=== PATIENT | female | born 1935 | race Asian ===

== ENCOUNTER 2017-09-18 19:35 | Inpatient (IN) | payer MEDICARE, BC, MEDICAID ==
[~2017-09-18] VITALS: Ht 157.5 cm; Wt 70.3 kg
[2017-09-18 19:40] VITALS: BP 76/54
[2017-09-18] MEDS ORDERED: Acetaminophen 650 MG SUPP RECTAL ONE (20:00)
[2017-09-18 20:36] LABS: HEMATOCRIT 58.2 % (37.0-47.0); HEMOGLOBIN 17.5 G/DL (12.0-16.0); MEAN CORPUSCULAR VOLUME 102 FL (80-99); PLATELET COUNT 133 K/UL (150-450); RED BLOOD COUNT 5.73 M/UL (4.20-5.40); RED CELL DISTRIBUTION WIDTH 13.3 % (11.6-14.8); WHITE BLOOD COUNT 15.2 K/UL (4.8-10.8)
[2017-09-18 20:57] LABS: ANION GAP 17 mmol/L (5-15); BLOOD UREA NITROGEN 47 mg/dL (7-18); CARBON DIOXIDE 23 MMOL/L (21-32); CHLORIDE 117 MMOL/L (98-107); CREATININE 1.1 MG/DL (0.55-1.30); POTASSIUM 4.6 MMOL/L (3.5-5.1); SODIUM 156 MMOL/L (136-145)
[2017-09-18 21:12] LABS: ALANINE AMINOTRANSFERASE 106 U/L (12-78); ALBUMIN/GLOBULIN RATIO 0.8 (1.0-2.7); ALKALINE PHOSPHATASE 89 U/L (46-116); ASPARTATE AMINO TRANSFERASE 118 U/L (15-37); BILIRUBIN,TOTAL 0.8 MG/DL (0.2-1.0); CKMB 0.6 NG/ML (0.0-3.6); CREATINE KINASE 63 U/L (26-308)
[2017-09-18 21:33] LABS: APPEARANCE,URINE CLEAR; BILIRUBIN, URINE NEGATIVE (NEGATIVE); GLUCOSE, URINE (UA) NEGATIVE (NEGATIVE); KETONES,URINE NEGATIVE (NEGATIVE); LEUKOCYTE ESTERASE ,URINE 2+ (NEGATIVE); NITRITE,URINE POSITIVE (NEGATIVE); PH,URINE 5 (4.5-8.0); PROTEIN,URINE 1+ (NEGATIVE); UROBILINOGEN,URINE NORMAL MG/DL (0.0-1.0)
[2017-09-18 21:35] LABS: COLOR,URINE YELLOW
[2017-09-18 21:40] VITALS: BP 85/61
--- NOTE | 2017-09-18 22:14 | Emergency Room Report ---
History of Present Illness General Chief Complaint: Fever Source: Medical Record (BALA PARNELL M.D.) Present Illness HPI 82-year-old female presents ED for evaluation. Per EMS patient had a fever at her senior living today. Was given Tylenol. Patient has crackles on exam, tachycardic. Hypotensive. Patient has dementia and is unable to provide any additional history at this time. No other aggravating relieving factors. No other associated symptoms (BALA PARNELL M.D.) Allergies: Coded Allergies: No Known Allergies (Unverified , 09/18/17) Patient History Past Medical History: HTN Past Surgical History: none Pertinent Family History: none Social History: Denies: smoking, alcohol use, drug use Last Menstrual Period: n/a Now: No Immunizations: UTD Reviewed Nursing Documentation: PMH: Agreed, PSxH: Agreed (BALA PARNELL M.D.) Nursing Documentation-PMH Past Medical History: No History, Except For Hx Hypertension: Yes Hx Gastrointestinal Problems: No - bullous pemphigoid (BALA PARNELL M.D.) Review of Systems All Other Systems: negative except mentioned in HPI (BALA PARNELL M.D.) Physical Exam Vital Signs Date Time Temp Pulse Resp B/P (MAP) Pulse Ox O2 Delivery O2 Flow Rate FiO2 09/18/17 19:29 99.7 138 31 76/54 94 Non-Rebreather 15.0 Sp02 EP Interpretation: reviewed, normal General Appearance: mild distress, lethargic Head: normocephalic Eyes: bilateral eye normal inspection, bilateral eye PERRL ENT: normal ENT inspection Neck: normal inspection Respiratory: chest non-tender, crackles, speaking full sentences Cardiovascular #1: tachycardia Gastrointestinal: normal inspection Rectal: deferred Genitourinary: no CVA tenderness Musculoskeletal: back normal Neurologic: other - dementia Psychiatric: other - dementia Skin: normal inspection Lymphatic: normal inspection (BALA PARNELL M.D.) Procedures Critical Care Time Critical Care Time i. I feel this is a highly complex case requiring extensive working including EKG/Rhythm strip, Xray/CT/US, Blood/urine lab work, repeat exams while in ED, and administration of strong opiates/narcotics for pain control, admission to hospital or close patient follow up. Total time: 30 min bedside evaluation and treatment excludes procedures (EKG). Reason for critical care: septic shock, hypotensive Possible complications: hypotension, hypertension, SD, shock, arrhythmias, metabolic acidosis, end organ damage, respiratory failure. Interventions: labs, ivfs, ekg, cxr. central line. abx Course: patient brought for fever, tachycardia, hypotensive. lactic elevated, ? pneumonia, UA+ bacteria. R IJ central line placed. abx given Consultations: nursing staff, EMS, family Performed by: Dr Parnell Tolerated well condition = critical j. because of unstable vital signs this patient had a condition that could potentially threaten life or limb. I feel this is a critical patient who required my full attention while patient was considered critical. Total Critical Care Time excluding procedures was greater than 35 minutes (BALA PARNELL M.D.) Critical Care Time 40 minutes of CC time 82-year-old female, septic shock VS: Tachypnea, hypoxic, tachycardic, hypotensive PLAN: IV access, labs, lactate, troponin, Blood/Urine Cx, Abx, IVF Anticipate admission to Tele vs. SARAH CC time also includes review of labs, review of EMR, discussion with family and paperwork from SNF, d/w hospitalist CC could include dosing of pressors, additional Abx CC time does not include procedures (Andrzej Alvarenga M.D.) Central Line Central Line : Consent: Emergent - completed by Dr Alvarenga Central Line Lumen: triple Maximal Sterile Barrier Tech: yes cap, yes mask, yes sterile gown, yes sterile gloves, yes large sterile sheet, yes hand hygiene, yes chlorhexidine prep Central Line Postion: internal jugular (R) Anesthesia: Lidocaine Complications: none Central Line Post Position: sutured, good blood return, position confirmed w / CXR Attempts: One Patient Tolerated: Well Complications: None (BALA PARNELL M.D.) Central Line : Consent: Written Central Line Lumen: triple Maximal Sterile Barrier Tech: yes cap, yes mask, yes sterile gown, yes sterile gloves, yes large sterile sheet, yes hand hygiene, yes chlorhexidine prep Central Line Postion: internal jugular (R) Anesthesia: Lidocaine cc's of anesthesia: 5 Complications: none Central Line Post Position: sutured, good blood return, position confirmed w / CXR Attempts: One Patient Tolerated: Well Complications: None (Andrzej Alvarenga M.D.) Intubation Intubation : Consent: Emergent Time of Intubation: 03:30 Intubation Method: orotracheal Tube Size (cm): 7.5 Medications: Etomidate, Succinylcholine Breath Sounds after Intubation: equal Intubation Complications: no complications Post Intubation Xray: Yes Attempts: One Patient Tolerated: Well (Andrzej Alvarenga M.D.) Medical Decision Making Diagnostic Impression: Primary Impression: Sepsis Qualified Codes: A41.9 - Sepsis, unspecified organism Additional Impressions: Elevated troponin UTI (urinary tract infection) Qualified Codes: N39.0 - Urinary tract infection, site not specified ER Course Hospital Course 82-year-old female presents ED with fever hypotensive Differential diagnoses include: Pneumonia, UTI, sepsis, dehydration, SD/ unstable angina Clinical course Patient placed on stretcher. On immigration associate with tachycardia. After initial history and physical, I ordered labs, IV fluids, EKG, chest x-ray, blood cultures, UA. Labs - electrolytes ok, noted leukocytosis, troponins > 0.2, lactic acid elevated, UA grossly positive for UTI EKG - sinus tachyardia no acute ischemic changes CXR - no acute process Abx given. Patient given 30 mL per KG fluid bolus but remained hypotensive. family at bedside states that they would like everything to be done for the patient. Right IJ central line placed via ultrasound guidance by Dr Alvarenga Case discussed with Dr Robbins and they agreed to admit patient to their service for further care and support I feel this is a highly complex case requiring extensive working including EKG/ Rhythm strip, Xray/CT/US, Blood/urine lab work, repeat exams while in ED, and administration of strong opiates/narcotics for pain control, admission to hospital or close patient follow up. Diagnosis - UTI, sepsis, elevated troponin Patient admitted to ICU in critical condition Labs Test 09/18/17 20:15 09/18/17 20:40 09/18/17 21:45 09/18/17 22:04 White Blood Count 15.2 K/UL (4.8-10.8) Red Blood Count 5.73 M/UL (4.20-5.40) Hemoglobin 17.5 G/DL (12.0-16.0) Hematocrit 58.2 % (37.0-47.0) Mean Corpuscular Volume 102 FL (80-99) Mean Corpuscular Hemoglobin 30.6 PG (27.0-31.0) Mean Corpuscular Hemoglobin Concent 30.1 G/DL (32.0-36.0) Red Cell Distribution Width 13.3 % (11.6-14.8) Platelet Count 133 K/UL (150-450) Mean Platelet Volume 7.3 FL (6.5-10.1) Neutrophils (%) (Auto) % (45.0-75.0) Lymphocytes (%) (Auto) % (20.0-45.0) Monocytes (%) (Auto) % (1.0-10.0) Eosinophils (%) (Auto) % (0.0-3.0) Basophils (%) (Auto) % (0.0-2.0) Differential Total Cells Counted 100 Neutrophils % (Manual) 80 % (45-75) Lymphocytes % (Manual) 10 % (20-45) Monocytes % (Manual) 2 % (1-10) Eosinophils % (Manual) 0 % (0-3) Basophils % (Manual) 0 % (0-2) Band Neutrophils 8 % (0-8) Platelet Estimate Decreased Platelet Morphology Normal Anisocytosis 1+ Macrocytosis 1+ Sodium Level 156 MMOL/L (136-145) Potassium Level 4.6 MMOL/L (3.5-5.1) Chloride Level 117 MMOL/L (98-107) Carbon Dioxide Level 23 MMOL/L (21-32) Anion Gap 17 mmol/L (5-15) Blood Urea Nitrogen 47 mg/dL (7-18) Creatinine 1.1 MG/DL (0.55-1.30) Estimat Glomerular Filtration Rate mL/min (>60) Glucose Level 213 MG/DL (74-106) Lactic Acid Level 3.70 mmol/L (0.66-2.22) Calcium Level 8.0 MG/DL (8.5-10.1) Total Bilirubin 0.8 MG/DL (0.2-1.0) Aspartate Amino Transf (AST/SGOT) 118 U/L (15-37) Alanine Aminotransferase (ALT/SGPT) 106 U/L (12-78) Alkaline Phosphatase 89 U/L (46-116) Total Creatine Kinase 63 U/L (26-308) Creatine Kinase MB 0.6 NG/ML (0.0-3.6) Creatine Kinase MB Relative Index 0.9 Troponin I 0.267 ng/mL (0.000-0.056) Pro-B-Type Natriuretic Peptide 2177 pg/mL (0-125) Total Protein 7.0 G/DL (6.4-8.2) Albumin 3.0 G/DL (3.4-5.0) Globulin 4.0 g/dL Albumin/Globulin Ratio 0.8 (1.0-2.7) Urine Color Yellow Urine Appearance Clear Urine pH 5 (4.5-8.0) Urine Specific [place] 1.020 (1.005-1.035) Urine Protein 1+ (NEGATIVE) Urine Glucose (UA) Negative (NEGATIVE) Urine Ketones Negative (NEGATIVE) Urine Occult Blood 4+ (NEGATIVE) Urine Nitrite Positive (NEGATIVE) Urine Bilirubin Negative (NEGATIVE) Urine Urobilinogen Normal MG/DL (0.0-1.0) Urine Leukocyte Esterase 2+ (NEGATIVE) Urine RBC 10-15 /HPF (0 - 2) Urine WBC 5-10 /HPF (0 - 2) Urine Squamous Epithelial Cells Few /LPF (NONE/OCC) Urine Amorphous Sediment Few /LPF (NONE) Urine Bacteria Many /HPF (NONE) Arterial Blood pH 7.390 (7.350-7.450) Arterial Blood Partial Pressure CO2 32.6 mmHg (35.0-45.0) Arterial Blood Partial Pressure O2 72.0 mmHg (75.0-100.0) Arterial Blood HCO3 19.3 mmol/L (22.0-26.0) Arterial Blood Oxygen Saturation 93.2 % (92.0-98.0) Arterial Blood Base Excess -4.5 [place] Test Positive (BALA PARNELL M.D.) ER Course patient hypotensive - requiring central line/pressors. also becoming increasingly tachyupneic, not ableto protect airway due to secretions. patient intubaed. admitting doctor informed. already going to ICU (Andrzej Alvarenga M.D.) EKG Diagnostic Results Rate: tachycardiac Rhythm: NSR ST Segments: no acute changes ASA given to the pt in ED: No (BALA PARNELL M.D.) Rhythm Strip Diag. Results EP Interpretation: yes Rhythm: NSR, no PVC's, no ectopy (BALA PARNELL M.D.) Chest X-Ray Diagnostic Results Chest X-Ray Diagnostic Results : Chest X-Ray Ordered: Yes # of Views/Limited/Complete: 1 View Indication: Shortness of Breath EP Interpretation: Yes Interpretation: no pneumothorax, no acute cardiopulmonary disease, other - cardiomegaly. effusion.atelectasis Impression: Other - ? pneumonia Electronically Signed by: Electronically signed by Bala Parnell MD (BALA PARNELL M.D.) Last Vital Signs Date Time Temp Pulse Resp B/P (MAP) Pulse Ox O2 Delivery O2 Flow Rate FiO2 09/18/17 21:40 110 27 85/61 92 Non-Rebreather 15.0 09/18/17 19:40 99.7 Status: improved (BALA PARNELL M.D.) Disposition: ADMITTED INPATIENT Condition: Critical Referrals: NON PHYSICIAN (PCP) BALA PARNELL M.D. Sep 18, 2017 22:14 Andrzej Alvarenga M.D. Sep 19, 2017 00:54
[2017-09-18 22:30] VITALS: BP 70/51
[2017-09-18 23:30] VITALS: BP 144/89
[2017-09-19] VITALS (64 sets, daily range): BP systolic 72–176; BP diastolic 24–145
[2017-09-19] MEDS ORDERED: NS 275 ML ONE (00:32)
[2017-09-19] MEDS ORDERED: Levophed 4mg/4mL Inj IV ONE ×2 (00:33→23:00)
[2017-09-19] MEDS ORDERED: VITAMIN D-32000 UNI1 PO (02:50)
[2017-09-19] MEDS ORDERED: CALCIUM 500 MG1 EAC1 PO (02:50)
[2017-09-19] MEDS ORDERED: FOSAMAX70 MG ORAL (02:50)
[2017-09-19] MEDS ORDERED: ZANTAC150 MG ORAL (02:50)
[2017-09-19] MEDS ORDERED: TRIAMCINOLONE10 G1 MC (02:50)
[2017-09-19] MEDS ORDERED: PREDNISOLO15 MG/5 M1 ORAL (02:50)
[2017-09-19] MEDS ORDERED: Etomidate 40mg/20ml Inj IV ONE (03:00)
[2017-09-19] MEDS ORDERED: Succinylcholine 20mg/ml 10ml vial IV ONE (03:00)
[2017-09-19] MEDS ORDERED: Vancomycin 1 GM in D5W 275 ML IVPB ONE ×2 (06:00→08:00)
[2017-09-19] MEDS: Albuterol/Ipratropium 3ml neb HHN SCH ×3 (07:00→19:00)
[2017-09-19 08:30] LABS: HEMATOCRIT 48.1 % (37.0-47.0); HEMOGLOBIN 15.1 G/DL (12.0-16.0); MEAN CORPUSCULAR VOLUME 102 FL (80-99); PLATELET COUNT 114 K/UL (150-450); RED BLOOD COUNT 4.72 M/UL (4.20-5.40); RED CELL DISTRIBUTION WIDTH 13.5 % (11.6-14.8); WHITE BLOOD COUNT 12.7 K/UL (4.8-10.8)
[2017-09-19 08:50] LABS: ANION GAP 10 mmol/L (5-15); BLOOD UREA NITROGEN 37 mg/dL (7-18); CALCIUM 6.9 MG/DL (8.5-10.1); CARBON DIOXIDE 25 MMOL/L (21-32); CHLORIDE 121 MMOL/L (98-107); CREATININE 0.9 MG/DL (0.55-1.30); POTASSIUM 3.4 MMOL/L (3.5-5.1); SODIUM 156 MMOL/L (136-145)
[2017-09-19 09:04] LABS: ALANINE AMINOTRANSFERASE 64 U/L (12-78); ALBUMIN 2.3 G/DL (3.4-5.0); ALBUMIN/GLOBULIN RATIO 0.6 (1.0-2.7); ALKALINE PHOSPHATASE 63 U/L (46-116); ASPARTATE AMINO TRANSFERASE 48 U/L (15-37); BILIRUBIN,TOTAL 0.6 MG/DL (0.2-1.0)
[2017-09-19] MEDS: Cefepime HCl 1 GM in D5W 55 ML IVPB SCH ×2 (09:55→21:12)
[2017-09-19] MEDS: Potassium Chloride 30 MEQ in 1/2 NS 1000ml 1,000 ML IV SCH ×3 (09:55→17:34)
[2017-09-19] MEDS: Heparin 5000 units/ml inj SUBQ SCH ×2 (09:58→23:00)
--- NOTE | 2017-09-19 11:04 | Diagnostic Imaging Report ---
Indication: Intubation Comparison: 09/18/2017 A single view chest radiograph was obtained. Findings: Right jugular line is noted in good position. Endotracheal tube is now present with the tip 2 cm above the clara. Lungs remain clear although there is generalized interstitial prominence. IMPRESSION: Endotracheal tube in good position. No change otherwise
--- NOTE | 2017-09-19 11:09 | Diagnostic Imaging Report ---
Indication: Line placement Comparison: Earlier same day at 20:20 A single view chest radiograph was obtained. Findings: Right jugular line noted. The tip is in the SVC. There is no change otherwise. IMPRESSION: Right jugular line in good position. No pneumothorax.
--- NOTE | 2017-09-19 11:31 | Diagnostic Imaging Report ---
Indication: Dyspnea Comparison: None A single view chest radiograph was obtained. Findings: Cardiomediastinal appearance is within normal limits for age. Pulmonary vascularity is appropriate. The diaphragmatic contour is smooth and costophrenic angles are sharp. No pleural effusions are identified. The bones are osteopenic. Impression: No acute findings
--- NOTE | 2017-09-19 12:25 | Diagnostic Imaging Report ---
Indication: NG tube placement Comparison: None Single view of the abdomen obtained Findings: NG tube is in good position with the proximal and distal ports well situated within the stomach lumen. IMPRESSION: NG tube in good position
[2017-09-19] MEDS: NovoLOG Insulin Flexpen SUBQ SCH ×2 (13:48→17:36)
--- NOTE | 2017-09-19 17:45 | Progress Note ---
DATE: 09/19/2017 CARDIOLOGY PROGRESS NOTE SUBJECTIVE: The patient remains in the intensive care unit, orally intubated, mechanically ventilated. She is responsive, but withdrawn. The patient's blood pressure parameters are improving, although she remains on high-dose Levophed drip. OBJECTIVE: VITAL SIGNS: Blood pressure 110/66, pulse 101, respirations 24, and afebrile. HEENT: NG tube in place. LUNGS: Bilateral breath sounds. Scattered rhonchi. HEART: Regular rhythm and rate. Normal S1, S2. Monitor, sinus rhythm with atrial arrhythmia. ABDOMEN: Soft and nontender. EXTREMITIES: No edema. LABORATORY AND DIAGNOSTIC DATA: White count 12.7 and hemoglobin 15.1. Sodium 156, potassium 3.4, chloride 121, bicarbonate 25, BUN 37, and creatinine 0.9. Lactic acid is 3.5. Troponin 0.214. Natriuretic peptide 2130. Albumin 2.3. TSH is 0.2. ABG 7.38/33/345. Chest x-ray reveals interstitial prominence, otherwise, clear. IMPRESSION: 1. Respiratory failure. 2. Sepsis with shock. 3. Aspiration pneumonia. 4. Acute myocardial ischemia and possible non-ST elevation infarction. 5. Lactic acidosis. 6. Hypernatremia. 7. Dehydration. 8. Hypokalemia. 9. Hyperchloremia. 10. Diabetes mellitus with elevated blood sugar. 11. Acute diastolic congestive heart failure. 12. Severe protein-calorie malnutrition. 13. The patient is critical and guarded. PLAN: 1. Continue hydration. 2. Broad-spectrum antibiotics. 3. Follow up culture results. 4. Ventilator support with weaning as able. 5. Free water replacement by IV route. 6. Taper off pressors. 7. DVT and stress ulcer prophylaxis. 8. Nutrition by feeding tube. Davy Robbins M.D. DR: AHSAN JOB#: [id number] CC:
--- NOTE | 2017-09-19 18:15 | History and Physical Report ---
DATE OF ADMISSION: 09/18/2017 REASON FOR ADMISSION: Respiratory failure and shock. HISTORY OF PRESENT ILLNESS: This is an 82-year-old Persian female residing at a custodial facility. She was noted to have fevers today. She developed worsening congestion and rapid heart rate and respiratory rate. She was transferred to the hospital and prior to transfer was also noted to be hypotensive. In the emergency room, condition rapidly deteriorated and she ultimately required intubation and mechanical ventilation. PAST MEDICAL HISTORY: Hypertension, osteoporosis, osteoarthritis, cerebrovascular disease, degenerative disk disease, type 2 diabetes mellitus, and history of bullous pemphigoid. ALLERGIES: None. FAMILY HISTORY: Noncontributory. SOCIAL HISTORY: No record of smoking, alcohol, or substance abuse. REVIEW OF SYSTEMS: Not obtainable from the patient at this time. PHYSICAL EXAMINATION: VITAL SIGNS: Temperature was 99.7, blood pressure 76/54, heart rate 138, and respiratory rate 31. HEENT: Conjunctivae are pink. Sclerae are anicteric. Oropharynx dry. Orally intubated. NECK: Supple. No jugular venous distention. No thyromegaly. No tracheal deviation. LUNGS: With coarse breath sounds. Scattered rhonchi. CARDIAC: Regular rhythm. Rapid rate. Normal S1, S2 with no murmur appreciated. ABDOMEN: Soft, nontender. No guarding or rebound. EXTREMITIES: No clubbing, cyanosis, or edema. Decreased capillary refill. SKIN: Intact. No decubitus. There is a central line placed in the emergency room in the right internal jugular vein and the site appears clean without bleeding. LABORATORY AND DIAGNOSTIC DATA: White count 15 and hemoglobin 17. Sodium 156, potassium 4.6, chloride 117, bicarb 23, BUN 47, and creatinine 1.1. Lactic acid 3.7. Glucose 213. Albumin 3. Urinalysis with 5 to 10 white cells. ABG, 7.39, 33, 72. EKG, sinus rhythm with no acute ST-T changes. Chest x-ray reveals possible interstitial infiltrative process diffusely. IMPRESSION: 1. Acute respiratory failure. 2. Aspiration and healthcare-acquired pneumonia. 3. Sepsis with shock. 4. Lactic acidosis. 5. Severe dehydration and hypovolemia with hypernatremia, . 6. Acute kidney injury. 7. Acute myocardial ischemia. 8. Possible non-ST elevation myocardial infarction. 9. Mild protein-calorie malnutrition. 10. Cerebrovascular disease with dementia. 11. Poor intravenous access, status post central venous access. PLAN: 1. Condition is critical. Prognosis guarded. 2. Case discussed with daughter. Full Code requested. Based on prior discussions with the patient, she will be admitted to the intensive care unit. She will continue ventilator support. 3. Respiratory hygiene. 4. Broad-spectrum antibiotics and culture results will be followed up. 5. Volume resuscitation will be administered followed by fluids. She is on Levophed pressor support and once her blood pressure and perfusion parameters improved that will be tapered off. 6. DVT and stress ulcer prophylaxis will be initiated. 7. Antihypertensives will all be held. 8. Ultimately, we will start nutrition by NG tube. Davy Robbins M.D. DR: AHSAN JOB#: [id number] CC:
--- NOTE | 2017-09-19 19:42 | Wound Care Consultation ---
Wound Assessment Wound Assessment #1: Wound Number: 1 Wound Present on Admission: Yes New Wound: No Status Change of Wound: No Wound Location Body Site Modif: left, upper Wound Location Body Site: back Wound Type: blister - open blister Janett Test: Does not Janett Pressure Ulcer Stage: II Wound Thickness: Partial Thickness Wound Length: 4.0 Wound Width: 2.8 Wound Depth: less than 0.1 Percent of Wound [place]/Red: 100 Wound Drainage Description: Serosanguineous Wound Drainage Amount: Scant Wound Drainage Odor: None/Absent Tissue Surrounding Wound: Erythemic Wound General Appearance: Reddened, Draining Wound Assessment #2: Wound Number: 2 Wound Present on Admission: Yes New Wound: No Status Change of Wound: No Wound Location Body Site Modif: left, lower, medial Wound Location Body Site: leg Wound Type: blister - open blister Janett Test: Does not Janett Pressure Ulcer Stage: II Wound Thickness: Partial Thickness Wound Length: 5.0 Wound Width: 4.5 Wound Depth: less than 0.1 Percent of Wound [place]/Red: 100 Wound Drainage Description: Serosanguineous Wound Drainage Amount: Moderate Wound Drainage Odor: None/Absent Tissue Surrounding Wound: Erythemic Wound General Appearance: Reddened, Draining Wound Assessment #3: Wound Number: 3 Wound Present on Admission: Yes New Wound: No Status Change of Wound: No Wound Location Body Site Modif: left Wound Location Body Site: heel - extending to plantar foot Wound Type: pressure ulcer Janett Test: Does not Janett Pressure Ulcer Stage: Deep Tissue Injury Wound Thickness: Full Thickness Wound Length: 7.5 Wound Width: 4.0 Wound Depth: utd Percent of Wound Purple/Maroon: 100 Wound Drainage Amount: None Wound Drainage Odor: None/Absent Tissue Surrounding Wound: Erythemic Wound General Appearance: Reddened - purple/maroon Wound Assessment #4: Wound Number: 4 Wound Present on Admission: Yes New Wound: No Status Change of Wound: No Wound Location Body Site Modif: left Wound Location Body Site: toe - 1st Wound Type: pressure ulcer Janett Test: Does not Janett Pressure Ulcer Stage: Deep Tissue Injury Wound Thickness: Full Thickness Wound Length: 1.0 Wound Width: 1.0 Wound Depth: utd Percent of Wound Purple/Maroon: 100 Wound Drainage Amount: None Wound Drainage Odor: None/Absent Tissue Surrounding Wound: Intact Wound General Appearance: Reddened - purple Wound Assessment #5: Wound Number: 5 Wound Present on Admission: Yes New Wound: No Status Change of Wound: No Wound Location Body Site Modif: right Wound Location Body Site: heel Wound Type: pressure ulcer Janett Test: Does not Janett Pressure Ulcer Stage: I Wound Length: 3.5 Wound Width: 3.5 Percent of Wound [place]/Red: 100 Wound Drainage Amount: None Wound Drainage Odor: None/Absent Tissue Surrounding Wound: Intact Wound General Appearance: Reddened Wound Comment #1 Left upper back open blister stage II pressure ulcer #2 Left lower leg open blister #3 Left heel DTI pressure ulcer extending to plantar foot #4 Left 1st lateral big to DTI pressure ulcer #5 Right heel stage I pressure ulcer Recommendation -Local wound care per protocol -Keep clean and dry -Turn and reposition -Optimize nutrition -Offload both heels -Heel protector on both heels -Low air loss mattress -Assess and f/u accordingly for any changes STACEY KNOWLES RN Sep 19, 2017 19:42
--- NOTE | 2017-09-19 22:00 | Consultation ---
DATE OF CONSULTATION: 09/19/2017 ADDENDUM IMPRESSION: 1. Septic shock. 2. Respiratory failure. 3. Etiology of sepsis is unclear, possibly skin lesions as well as immunosuppression from steroids. 4. Severe dehydration with hypernatremia. 5. Dementia. 6. History of hypertension. 7. Bullous pemphigoid. PLAN: The patient is on appropriate ventilator settings, fluids and intravenous broad-spectrum antibiotic therapy as well as vasopressors. I will follow the patient closely with you. Dereck Masters M.D. DR: ZAINAB JOB#: [id number] CC:
--- NOTE | 2017-09-19 22:30 | Consultation ---
DATE OF CONSULTATION: 09/19/2017 PULMONARY CONSULTATION CONSULTING PHYSICIAN: Dereck Masters M.D. ATTENDING PHYSICIAN: Davy Robbins M.D. HISTORY OF PRESENT ILLNESS: The patient is an 82[facility] resident with dementia, who came to the hospital because of fever and shock. She had respiratory failure and was intubated in the emergency department with a blood pressure of 76/54 and temperature of 99.7. The source of sepsis is not clear. The patient was admitted to the intensive care and started on broad-spectrum antibiotics. I was called to see her in consultation. PAST MEDICAL HISTORY: [facility] in a [facility]. She has a history of hypertension, osteoporosis dementia, bullous pemphigoid on prednisone 20 mg daily, and past urinary tract infection. MEDICATIONS: Reviewed. Of note, the patient is on prednisone. Recently, the patient received prednisone as high as 50 mg and was tapered. ALLERGIES: None. REVIEW OF SYSTEMS: Cannot be obtained. PHYSICAL EXAMINATION: GENERAL: The patient is lying in bed with an oral endotracheal tube in place. She is poorly responsive. VITAL SIGNS: Show temperature devyn to 99.5. Today, the heart rate is elevated at 122, in sinus tachycardia. The blood pressure has ranged from 70/51 to 151/102. SKIN: Shows multiple open sores. There is a stage II pressure ulcer of the sacrum and buttock. HEENT: The head is normocephalic. NECK: No jugular venous distention. CHEST: Clear. CARDIAC: Rhythm is regular. ABDOMEN: Soft and nontender. Liver and spleen not enlarged. EXTREMITIES: No clubbing, cyanosis, or edema. LABORATORY AND DIAGNOSTIC DATA: Chest x-ray is clear. The urinalysis does not show signs of acute infection. The white count is elevated at 15,200 and came down to 12,700. Hemoglobin was 17.5 and came down to 15 with hydration. Blood gas shows pH 7.39, pCO2 32, and pO2 72. Chemistry shows high sodium, low potassium, elevated BUN, and troponin is moderately elevated at 0.2. INCOMPLETE DICTATION Dereck Masters M.D. DR: KELL JOB#: [id number] CC: Gabrielle Rolle M.D. ; FAX#: [phone]
--- NOTE | 2017-09-19 23:15 | Consultation ---
DATE OF CONSULTATION: 09/19/2017 CONSULTING PHYSICIAN: Ugo Jarvis M.D. REFERRING PHYSICIAN: Davy Robibns M.D. REASON FOR CONSULTATION: Hypernatremia and dehydration. HISTORY OF PRESENT ILLNESS: The patient is an 82-year-old, brought from the residential with fever, tachycardia, and hypotensive. She was intubated to protect her airway. The patient can give no history. There is a history of advanced dementia, hypertension, osteoporosis, and dementia. ALLERGIES: None known per prior records. MEDICATIONS: Medication list from the residential includes alendronate, ampicillin and calcium, prednisone, ranitidine, triamcinolone, and vitamin D3. HABITS: She is a nonsmoker and nondrinker, per prior records. REVIEW OF SYSTEMS: Unable. PHYSICAL EXAMINATION: GENERAL: The patient is intubated in the intensive care unit and unresponsive. VITAL SIGNS: Pulse 112, respirations 25, blood pressure 98/70, and O2 saturation 100%. HEAD, EYES, EARS, NOSE, AND THROAT: Her eyes are tightly closed. Orally intubated. NECK: No adenopathy. LUNGS: Few faint rhonchi. HEART: Rhythm is regular and tachycardic. I hear no murmur. ABDOMEN: Soft without organomegaly or masses. EXTREMITIES: Show trace to 1+ edema and muscle atrophy. PERTINENT LABORATORY AND DIAGNOSTIC DATA: Sodium 156, potassium 3.4, chloride 121, CO2 of 25, BUN 37, creatinine 0.9, and glucose 225. Lactic acid 3.5 and 3.2. Troponin 0.214. BNP is 2130. Albumin 2.3. Influenza study negative. The urinalysis has 5 to 10 white cells, 10 to 15 red cells per high-power field, and 1+ protein. White count 12.7 and hemoglobin 15.1. The pH is 7.38, pCO2 is 32.7, and pO2 is 345. Chest x-ray was done showing endotracheal tube in good position, lungs clear plus general interstitial prominence. IMPRESSION: 1. Sepsis, etiology unclear and likely septic shock. 2. Dehydration. 3. Hypernatremia. 4. Respiratory failure. 5. Moderate protein-calorie malnutrition. 6. Lactic acidosis. 7. Elevated troponin. Repeat pending. PLAN: The patient will be hydrated with hypotonic fluids. Watch glucose as there was elevation of glucose. Broad-spectrum antibiotics. Awaiting cultures. The patient is critically ill and detailed orders have been given. Ugo Jarvis M.D. DR: ASHLYN JOB#: [id number] CC:
[2017-09-20] VITALS (77 sets, daily range): BP systolic 76–158; BP diastolic 28–85
[2017-09-20] MEDS: Potassium Chloride 30 MEQ in 1/2 NS 1000ml 1,000 ML IV SCH ×3 (00:19→14:02)
[2017-09-20] MEDS: NovoLOG Insulin Flexpen SUBQ SCH ×4 (00:20→17:19)
[2017-09-20] MEDS: Albuterol/Ipratropium 3ml neb HHN SCH ×4 (01:22→19:04)
[2017-09-20 06:27] LABS: HEMATOCRIT 39.4 % (37.0-47.0); HEMOGLOBIN 12.9 G/DL (12.0-16.0); MEAN CORPUSCULAR VOLUME 103 FL (80-99); PLATELET COUNT 90 K/UL (150-450); RED BLOOD COUNT 3.83 M/UL (4.20-5.40); RED CELL DISTRIBUTION WIDTH 13.3 % (11.6-14.8); WHITE BLOOD COUNT 9.9 K/UL (4.8-10.8)
[2017-09-20 06:37] LABS: ALANINE AMINOTRANSFERASE 46 U/L (12-78); ALBUMIN 1.8 G/DL (3.4-5.0); ALBUMIN/GLOBULIN RATIO 0.5 (1.0-2.7); ALKALINE PHOSPHATASE 70 U/L (46-116); ANION GAP 10 mmol/L (5-15); ASPARTATE AMINO TRANSFERASE 46 U/L (15-37); BILIRUBIN,TOTAL 0.5 MG/DL (0.2-1.0); BLOOD UREA NITROGEN 16 mg/dL (7-18); CALCIUM 6.9 MG/DL (8.5-10.1); CARBON DIOXIDE 24 MMOL/L (21-32); CHLORIDE 115 MMOL/L (98-107); CREATININE 0.7 MG/DL (0.55-1.30); POTASSIUM 4.1 MMOL/L (3.5-5.1); SODIUM 149 MMOL/L (136-145)
[2017-09-20] MEDS: Vancomycin 750mg/NS 250ml IVPB SCH (07:53)
[2017-09-20] MEDS ORDERED: Vancomycin 750mg/NS 250ml IVPB SCH (08:00)
[2017-09-20] MEDS ORDERED: Vancomycin 0.75 GM in D5W 275 ML IVPB SCH (08:00)
--- NOTE | 2017-09-20 08:45 | Progress Note ---
DATE: 09/20/2017 CARDIOLOGY PROGRESS NOTE SUBJECTIVE: The patient remains on ventilator support. She continues on IV fluids. Broad-spectrum antibiotics. She remains in the ICU in critical condition and guarded prognosis. OBJECTIVE: VITAL SIGNS: Blood pressure 106/51, pulse 112, respirations 23. Afebrile. GENERAL: Withdrawn, lethargic. HEENT: Orally intubated. LUNGS: Bilateral breath sounds with rhonchi. HEART: Regular rhythm and rate. Normal S1, S2 with a fourth heart sound. ABDOMEN: Soft and nontender. EXTREMITIES: Trace edema. LABORATORY AND DIAGNOSTIC DATA: Influenza swab negative. Labs pending. Chest x-ray reviewed. IMPRESSION: 1. Lactic acidosis. 2. Respiratory failure. 3. Sepsis with shock. 4. Healthcare-acquired pneumonia. 5. Severe dehydration. 6. Hypernatremia. 7. Hypovolemia. 8. Acute kidney injury. 9. Acute myocardial ischemia. 10. Non ST-elevation myocardial infarction. 11. Cerebrovascular disease with dementia. PLAN: 1. Hypotonic IV fluids. 2. Empiric antibiotics. 3. Ventilator support, respiratory hygiene, wean as able. 4. Hold cardiovascular medications due to low range blood pressure. 5. DVT prophylaxis. 6. Taper off pressors. Davy Robbins M.D. DR: EDUARDO JOB#: [id number] CC:
[2017-09-20] MEDS: Cefepime HCl 1 GM in D5W 55 ML IVPB SCH (09:39)
[2017-09-20] MEDS: Heparin 5000 units/ml inj SUBQ SCH ×2 (09:45→21:00)
[2017-09-20] MEDS: Pantoprazole Inj IVP SCH (11:08)
--- NOTE | 2017-09-20 12:43 | Nephrology Progress Note ---
Assessment/Plan Problem List: (1) Malnutrition of moderate degree (2) Hypernatremia (3) BOB (acute kidney injury) (4) Dehydration (5) Sepsis (6) UTI (urinary tract infection) (7) Elevated troponin Plan reduce iv, rx sepsis Subjective ROS Limited/Unobtainable: Yes Objective Objective Last 24 Hour Vital Signs Date Time Temp Pulse Resp B/P (MAP) Pulse Ox O2 Delivery O2 Flow Rate FiO2 09/20/17 12:05 100.6 09/20/17 12:00 128 09/20/17 12:00 89/50 09/20/17 12:00 100.6 128 27 89/50 94 Mechanical Ventilator 45 09/20/17 12:00 40 09/20/17 11:00 126 29 100/43 97 Mechanical Ventilator 45 09/20/17 11:00 100/43 09/20/17 10:50 117 27 40 09/20/17 10:45 115 26 95/42 98 Mechanical Ventilator 45 09/20/17 10:30 115 27 96/42 97 Mechanical Ventilator 45 09/20/17 10:15 115 27 96/42 97 Mechanical Ventilator 45 09/20/17 10:00 96/42 09/20/17 10:00 99.3 113 28 119/64 98 Mechanical Ventilator 45 09/20/17 09:45 107 24 103/50 99 Mechanical Ventilator 45 09/20/17 09:30 110 24 100/49 99 Mechanical Ventilator 45 09/20/17 09:15 110 24 97/52 99 Mechanical Ventilator 45 09/20/17 09:00 100.6 112 25 119/64 99 Mechanical Ventilator 45 09/20/17 09:00 113/57 09/20/17 08:59 109 24 45 09/20/17 08:15 112 25 124/64 99 Mechanical Ventilator 50 09/20/17 08:00 101.5 114 25 96/57 99 Mechanical Ventilator 50 09/20/17 08:00 96/57 09/20/17 08:00 50 09/20/17 08:00 108 09/20/17 07:45 116 25 112/73 99 Mechanical Ventilator 50 09/20/17 07:30 115 25 112/73 99 Mechanical Ventilator 50 09/20/17 07:15 117 27 108/60 99 Mechanical Ventilator 50 09/20/17 07:10 121 24 100 Mechanical Ventilator 50 09/20/17 07:02 118 30 98 Mechanical Ventilator 50 09/20/17 07:00 115 24 115/53 99 Mechanical Ventilator 50 09/20/17 06:58 108 24 50 09/20/17 06:30 99.4 109 23 107/60 99 Mechanical Ventilator 50 09/20/17 06:00 111 25 107/56 99 Mechanical Ventilator 50 09/20/17 05:30 110 25 99/60 99 Mechanical Ventilator 50 09/20/17 05:10 112 24 50 09/20/17 05:00 101.2 113 25 107/56 99 Mechanical Ventilator 50 09/20/17 04:30 110 23 104/55 99 Mechanical Ventilator 50 09/20/17 04:00 110 09/20/17 04:00 50 09/20/17 04:00 100.4 110 23 100/55 99 Mechanical Ventilator 50 09/20/17 03:30 112 24 95/56 99 Mechanical Ventilator 50 09/20/17 03:15 112 26 50 09/20/17 03:00 112 24 111/56 99 Mechanical Ventilator 50 09/20/17 02:30 115 23 158/85 99 Mechanical Ventilator 50 09/20/17 02:00 112 23 106/51 99 Mechanical Ventilator 50 09/20/17 01:33 109 24 100 Mechanical Ventilator 50 09/20/17 01:30 110 22 100/63 99 Mechanical Ventilator 50 09/20/17 01:22 106 24 99 Mechanical Ventilator 50 09/20/17 01:22 50 09/20/17 01:22 106 24 50 09/20/17 01:00 107 25 104/56 100 Mechanical Ventilator 50 09/20/17 00:30 108 25 97/55 100 Mechanical Ventilator 50 09/20/17 00:00 108 09/20/17 00:00 50 09/20/17 00:00 99.0 108 25 104/56 100 Mechanical Ventilator 50 09/19/17 23:30 89/50 09/19/17 23:30 108 22 109/54 100 Mechanical Ventilator 50 09/19/17 23:14 85/59 09/19/17 23:14 108 22 50 09/19/17 23:00 116 25 156/80 98 Mechanical Ventilator 50 09/19/17 22:30 113 24 88/49 99 Mechanical Ventilator 50 09/19/17 22:00 116 25 156/80 98 Mechanical Ventilator 50 09/19/17 21:00 119 27 50 12/29/17 21:00 118 26 104/72 99 Mechanical Ventilator 50 09/19/17 20:30 122 27 107/93 98 Mechanical Ventilator 50 09/19/17 20:00 126 09/19/17 20:00 50 09/19/17 20:00 98.3 126 27 72/53 98 Mechanical Ventilator 50 09/19/17 19:30 110 24 100/60 98 Mechanical Ventilator 50 09/19/17 19:08 118 26 99 Mechanical Ventilator 50 09/19/17 18:59 109 27 99 Mechanical Ventilator 50 09/19/17 18:59 50 09/19/17 18:59 109 27 50 09/19/17 18:45 110 24 131/118 98 Mechanical Ventilator 60 09/19/17 18:30 111 24 121/105 99 Mechanical Ventilator 60 09/19/17 18:15 109 23 108/53 99 Mechanical Ventilator 60 09/19/17 18:00 107 23 104/55 99 Mechanical Ventilator 60 09/19/17 18:00 104/55 09/19/17 17:45 118 29 87/42 99 Mechanical Ventilator 60 09/19/17 17:30 111 29 87/49 99 Mechanical Ventilator 60 09/19/17 17:15 113 29 102/75 99 Mechanical Ventilator 60 09/19/17 17:00 87/49 09/19/17 17:00 118 29 87/46 99 Mechanical Ventilator 60 09/19/17 16:45 118 29 84/49 99 Mechanical Ventilator 60 09/19/17 16:31 112 25 50 09/19/17 16:30 118 29 176/145 99 Mechanical Ventilator 60 09/19/17 16:15 117 27 99/53 100 Mechanical Ventilator 60 09/19/17 16:00 98.4 115 25 93/53 100 Mechanical Ventilator 60 09/19/17 16:00 60 09/19/17 16:00 93/53 09/19/17 16:00 114 09/19/17 15:45 111 24 65 09/19/17 15:45 118 28 88/58 100 Mechanical Ventilator 60 09/19/17 15:30 116 26 92/66 100 Mechanical Ventilator 60 09/19/17 15:15 118 29 107/76 99 Mechanical Ventilator 60 09/19/17 15:00 114 28 112/90 100 Mechanical Ventilator 60 09/19/17 15:00 112/90 09/19/17 14:45 113 24 105/81 100 Mechanical Ventilator 60 09/19/17 14:30 113 24 95/54 100 Mechanical Ventilator 60 09/19/17 14:15 113 27 104/56 100 Mechanical Ventilator 60 09/19/17 14:00 112 25 101/60 100 Mechanical Ventilator 60 09/19/17 14:00 101/60 09/19/17 13:45 114 26 105/60 100 Mechanical Ventilator 60 09/19/17 13:30 113 25 104/59 100 Mechanical Ventilator 60 09/19/17 13:15 115 26 102/57 100 Mechanical Ventilator 60 09/19/17 13:00 112 25 98/70 100 Mechanical Ventilator 60 09/19/17 13:00 98/70 09/19/17 12:53 117 29 65 09/19/17 12:45 115 26 113/87 100 Mechanical Ventilator 65 Intake and Output 09/19/17 09/20/17 19:00 07:00 Intake Total 1698.208 ml 2163.70 ml Output Total 385 ml 326 ml Balance 1313.208 ml 1837.70 ml Intake Free Water 50 ml 30 ml IV Total 1568.208 ml 1923.70 ml Tube Feeding 60 ml 210 ml Other 20 ml Output Urine Total 385 ml 325 ml Stool Total 1 ml Laboratory Tests 09/19/17 16:00: Lactic Acid Level 2.40H 09/20/17 05:20: Lactic Acid Level 3.00H 09/20/17 05:35: White Blood Count 9.9, Red Blood Count 3.83L, Hemoglobin 12.9, Hematocrit 39.4, Mean Corpuscular Volume 103H, Mean Corpuscular Hemoglobin 33.6H, Mean Corpuscular Hemoglobin Concent 32.7, Red Cell Distribution Width 13.3, Platelet Count 90L, Mean Platelet Volume 9.6, Neutrophils (%) (Auto) , Lymphocytes (%) ( Auto) , Monocytes (%) (Auto) , Eosinophils (%) (Auto) , Basophils (%) (Auto) , Differential Total Cells Counted 100, Neutrophils % (Manual) 78H, Lymphocytes % (Manual) 8L, Monocytes % (Manual) 3, Eosinophils % (Manual) 0, Basophils % ( Manual) 0, Band Neutrophils 11H, Platelet Estimate DecreasedL, Platelet Morphology Normal, Macrocytosis 1+, Sodium Level 149H, Potassium Level 4.1, Chloride Level 115H, Carbon Dioxide Level 24, Anion Gap 10, Blood Urea Nitrogen 16, Creatinine 0.7, Estimat Glomerular Filtration Rate , Glucose Level 138H, Calcium Level 6.9L, Total Bilirubin 0.5, Aspartate Amino Transf (AST/SGOT) 46H, Alanine Aminotransferase (ALT/SGPT) 46, Alkaline Phosphatase 70, Troponin I 0.205H, Total Protein 5.5L, Albumin 1.8L, Globulin 3.7, Albumin/Globulin Ratio 0.5L 09/20/17 09:00: Lactic Acid Level 2.50H Height (Feet): 5 Height (Inches): 2.00 Weight (Pounds): 129 General Appearance: lethargic, other - intubated EENT: normal ENT inspection Neck: normal alignment Cardiovascular: regular rhythm Respiratory/Chest: rhonchi - bilaterally Abdomen: non tender Extremities: trace edema Neurologic: disoriented GM SINGH Sep 20, 2017 12:43
--- NOTE | 2017-09-20 13:41 | Pulmonology Progress Note ---
Assessment/Plan Assessment/Plan IMPRESSION: 1. Septic shock. 2. Respiratory failure. 3. Sepsis due to GPC (+BC), likely skin source. 4. Severe dehydration with hypernatremia. 5. Dementia. 6. History of hypertension. 7. 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 PLAN: vent pressors abx check cortisol stress dose steroids Subjective ROS Limited/Unobtainable: Yes Allergies: Coded Allergies: No Known Allergies (Unverified , 09/18/17) Objective Last 24 Hour Vital Signs Date Time Temp Pulse Resp B/P (MAP) Pulse Ox O2 Delivery O2 Flow Rate FiO2 09/20/17 13:09 117 25 40 09/20/17 13:08 124 25 96 Mechanical Ventilator 40 09/20/17 12:05 100.6 09/20/17 12:00 128 09/20/17 12:00 89/50 09/20/17 12:00 100.6 128 27 89/50 94 Mechanical Ventilator 45 09/20/17 12:00 40 09/20/17 11:00 126 29 100/43 97 Mechanical Ventilator 45 09/20/17 11:00 100/43 09/20/17 10:50 117 27 40 09/20/17 10:45 115 26 95/42 98 Mechanical Ventilator 45 09/20/17 10:30 115 27 96/42 97 Mechanical Ventilator 45 09/20/17 10:15 115 27 96/42 97 Mechanical Ventilator 45 09/20/17 10:00 96/42 09/20/17 10:00 99.3 113 28 119/64 98 Mechanical Ventilator 45 09/20/17 09:45 107 24 103/50 99 Mechanical Ventilator 45 09/20/17 09:30 110 24 100/49 99 Mechanical Ventilator 45 09/20/17 09:15 110 24 97/52 99 Mechanical Ventilator 45 09/20/17 09:00 100.6 112 25 119/64 99 Mechanical Ventilator 45 09/20/17 09:00 113/57 09/20/17 08:59 109 24 45 09/20/17 08:15 112 25 124/64 99 Mechanical Ventilator 50 09/20/17 08:00 101.5 114 25 96/57 99 Mechanical Ventilator 50 09/20/17 08:00 96/57 09/20/17 08:00 50 09/20/17 08:00 108 09/20/17 07:45 116 25 112/73 99 Mechanical Ventilator 50 09/20/17 07:30 115 25 112/73 99 Mechanical Ventilator 50 09/20/17 07:15 117 27 108/60 99 Mechanical Ventilator 50 09/20/17 07:10 121 24 100 Mechanical Ventilator 50 09/20/17 07:02 118 30 98 Mechanical Ventilator 50 09/20/17 07:00 115 24 115/53 99 Mechanical Ventilator 50 09/20/17 06:58 108 24 50 09/20/17 06:30 99.4 109 23 107/60 99 Mechanical Ventilator 50 09/20/17 06:00 111 25 107/56 99 Mechanical Ventilator 50 09/20/17 05:30 110 25 99/60 99 Mechanical Ventilator 50 09/20/17 05:10 112 24 50 09/20/17 05:00 101.2 113 25 107/56 99 Mechanical Ventilator 50 09/20/17 04:30 110 23 104/55 99 Mechanical Ventilator 50 09/20/17 04:00 110 09/20/17 04:00 50 09/20/17 04:00 100.4 110 23 100/55 99 Mechanical Ventilator 50 09/20/17 03:30 112 24 95/56 99 Mechanical Ventilator 50 09/20/17 03:15 112 26 50 09/20/17 03:00 112 24 111/56 99 Mechanical Ventilator 50 09/20/17 02:30 115 23 158/85 99 Mechanical Ventilator 50 09/20/17 02:00 112 23 106/51 99 Mechanical Ventilator 50 09/20/17 01:33 109 24 100 Mechanical Ventilator 50 09/20/17 01:30 110 22 100/63 99 Mechanical Ventilator 50 09/20/17 01:22 106 24 99 Mechanical Ventilator 50 09/20/17 01:22 50 09/20/17 01:22 106 24 50 09/20/17 01:00 107 25 104/56 100 Mechanical Ventilator 50 09/20/17 00:30 108 25 97/55 100 Mechanical Ventilator 50 09/20/17 00:00 108 09/20/17 00:00 50 09/20/17 00:00 99.0 108 25 104/56 100 Mechanical Ventilator 50 09/19/17 23:30 89/50 09/19/17 23:30 108 22 109/54 100 Mechanical Ventilator 50 09/19/17 23:14 85/59 09/19/17 23:14 108 22 50 09/19/17 23:00 116 25 156/80 98 Mechanical Ventilator 50 09/19/17 22:30 113 24 88/49 99 Mechanical Ventilator 50 09/19/17 22:00 116 25 156/80 98 Mechanical Ventilator 50 09/19/17 21:00 119 27 50 09/19/17 21:00 118 26 104/72 99 Mechanical Ventilator 50 09/19/17 20:30 122 27 107/93 98 Mechanical Ventilator 50 09/19/17 20:00 126 09/19/17 20:00 50 09/19/17 20:00 98.3 126 27 72/53 98 Mechanical Ventilator 50 09/19/17 19:30 110 24 100/60 98 Mechanical Ventilator 50 09/19/17 19:08 118 26 99 Mechanical Ventilator 50 09/19/17 18:59 109 27 99 Mechanical Ventilator 50 09/19/17 18:59 50 09/19/17 18:59 109 27 50 09/19/17 18:45 110 24 131/118 98 Mechanical Ventilator 60 09/19/17 18:30 111 24 121/105 99 Mechanical Ventilator 60 09/19/17 18:15 109 23 108/53 99 Mechanical Ventilator 60 09/19/17 18:00 107 23 104/55 99 Mechanical Ventilator 60 09/19/17 18:00 104/55 09/19/17 17:45 118 29 87/42 99 Mechanical Ventilator 60 09/19/17 17:30 111 29 87/49 99 Mechanical Ventilator 60 09/19/17 17:15 113 29 102/75 99 Mechanical Ventilator 60 09/19/17 17:00 87/49 09/19/17 17:00 118 29 87/46 99 Mechanical Ventilator 60 09/19/17 16:45 118 29 84/49 99 Mechanical Ventilator 60 09/19/17 16:31 112 25 50 09/19/17 16:30 118 29 176/145 99 Mechanical Ventilator 60 09/19/17 16:15 117 27 99/53 100 Mechanical Ventilator 60 09/19/17 16:00 98.4 115 25 93/53 100 Mechanical Ventilator 60 09/19/17 16:00 60 09/19/17 16:00 93/53 09/19/17 16:00 114 09/19/17 15:45 111 24 65 09/19/17 15:45 118 28 88/58 100 Mechanical Ventilator 60 09/19/17 15:30 116 26 92/66 100 Mechanical Ventilator 60 09/19/17 15:15 118 29 107/76 99 Mechanical Ventilator 60 09/19/17 15:00 114 28 112/90 100 Mechanical Ventilator 60 09/19/17 15:00 112/90 09/19/17 14:45 113 24 105/81 100 Mechanical Ventilator 60 09/19/17 14:30 113 24 95/54 100 Mechanical Ventilator 60 09/19/17 14:15 113 27 104/56 100 Mechanical Ventilator 60 09/19/17 14:00 112 25 101/60 100 Mechanical Ventilator 60 09/19/17 14:00 101/60 09/19/17 13:45 114 26 105/60 100 Mechanical Ventilator 60 Intake and Output 09/19/17 09/20/17 19:00 07:00 Intake Total 1698.208 ml 2163.70 ml Output Total 385 ml 326 ml Balance 1313.208 ml 1837.70 ml Intake Free Water 50 ml 30 ml IV Total 1568.208 ml 1923.70 ml Tube Feeding 60 ml 210 ml Other 20 ml Output Urine Total 385 ml 325 ml Stool Total 1 ml General Appearance: no acute distress HEENT: atraumatic Respiratory/Chest: rhonchi Cardiovascular: normal rate Extremities: no edema Microbiology Date/Time Source Procedure Growth Status 09/18/17 20:30 Blood Blood Culture - Preliminary NO GROWTH AFTER 24 HOURS Resulted 09/18/17 20:15 Blood Blood Culture - Preliminary Resulted 09/19/17 04:25 Nasal Nares MRSA Culture - Final Staphylococcus Aureus - Mrsa Complete 09/18/17 21:00 Nasal Nares Influenza Types A,B Antigen (SARA) - Final Complete 09/18/17 20:40 Urine,Clean Catch Urine Culture - Preliminary Gram Negative Dejon Resulted Laboratory Tests 09/19/17 16:00: Lactic Acid Level 2.40H 09/20/17 05:20: Lactic Acid Level 3.00H 09/20/17 05:35: White Blood Count 9.9, Red Blood Count 3.83L, Hemoglobin 12.9, Hematocrit 39.4, Mean Corpuscular Volume 103H, Mean Corpuscular Hemoglobin 33.6H, Mean Corpuscular Hemoglobin Concent 32.7, Red Cell Distribution Width 13.3, Platelet Count 90L, Mean Platelet Volume 9.6, Neutrophils (%) (Auto) , Lymphocytes (%) ( Auto) , Monocytes (%) (Auto) , Eosinophils (%) (Auto) , Basophils (%) (Auto) , Differential Total Cells Counted 100, Neutrophils % (Manual) 78H, Lymphocytes % (Manual) 8L, Monocytes % (Manual) 3, Eosinophils % (Manual) 0, Basophils % ( Manual) 0, Band Neutrophils 11H, Platelet Estimate DecreasedL, Platelet Morphology Normal, Macrocytosis 1+, Sodium Level 149H, Potassium Level 4.1, Chloride Level 115H, Carbon Dioxide Level 24, Anion Gap 10, Blood Urea Nitrogen 16, Creatinine 0.7, Estimat Glomerular Filtration Rate , Glucose Level 138H, Calcium Level 6.9L, Total Bilirubin 0.5, Aspartate Amino Transf (AST/SGOT) 46H, Alanine Aminotransferase (ALT/SGPT) 46, Alkaline Phosphatase 70, Troponin I 0.205H, Total Protein 5.5L, Albumin 1.8L, Globulin 3.7, Albumin/Globulin Ratio 0.5L 09/20/17 09:00: Lactic Acid Level 2.50H Current Medications Medications (Trade) Dose Ordered Sig/Lilly Route PRN Reason Start Time Stop Time Status Last Admin Dose Admin Acetaminophen (Tylenol) 650 mg EVERY 4 HOURS PRN ORAL fever/PAGE 09/19/17 03:15 10/19/17 03:14 09/20/17 11:06 Albuterol/ Ipratropium (Albuterol/ Ipratropium) 3 ml Q6HRT HHN 09/19/17 07:00 09/24/17 06:59 09/20/17 13:08 Cefepime HCl 1 gm/ Dextrose 55 ml @ 110 mls/hr EVERY 12 HOURS IVPB 09/19/17 09:00 09/26/17 08:59 09/20/17 09:39 Chlorhexidine Gluconate (Serena-Hex 2%) 1 applic DAILY@2000 TOPIC 09/20/17 20:00 10/20/17 19:59 Dextrose (Dextrose 50%) STAT PRN IV Hypoglycemia 09/19/17 12:30 10/19/17 12:29 Heparin Sodium (Porcine) (Heparin 5000 units/ml) 5,000 units EVERY 12 HOURS SUBQ 09/19/17 09:00 10/19/17 08:59 09/19/17 23:00 Insulin Aspart (NovoLOG) Q6HR SUBQ 09/19/17 13:00 10/19/17 12:59 09/20/17 12:22 Norepinephrine Bitartrate 8 mg/ Dextrose 250 ml @ 0 mls/hr Q24H IV 09/19/17 23:30 10/19/17 23:29 09/19/17 23:30 Pantoprazole (Protonix) 40 mg DAILY IVP 09/20/17 10:00 10/20/17 09:59 09/20/17 11:08 Potassium Chloride 30 meq/ Sodium Chloride 1,015 ml @ 50 mls/hr [id number] IV 09/20/17 13:00 10/20/17 12:59 Vancomycin HCl (Vanco rx to dose) 1 ea DAILY PRN MISC Per rx protocol 09/19/17 03:15 10/19/17 03:14 Vancomycin/Sodium Chloride 250 ml @ 166.667 mls/hr Q24H IVPB 09/20/17 08:00 09/25/17 07:59 09/20/17 07:53 SAMANTHA GIVENS Sep 20, 2017 13:41
[2017-09-20] MEDS: Hydrocortisone 100mg Inj IV SCH ×2 (14:02→22:02)
[2017-09-20] MEDS: Dyna-Hex 2% Top Sol 2oz TOPIC SCH (20:00)
--- NOTE | 2017-09-20 20:26 | General Progress Note ---
Assessment/Plan Problem List: (1) Dehydration ICD Codes: E86.0 - Dehydration SNOMED: 70896443 (2) Hypernatremia ICD Codes: E87.0 - Hyperosmolality and hypernatremia SNOMED: 55628120 (3) Malnutrition of moderate degree ICD Codes: E44.0 - Moderate protein-calorie malnutrition SNOMED: 206774652 (4) BOB (acute kidney injury) ICD Codes: N17.9 - Acute kidney failure, unspecified SNOMED: 50363936 (5) Sepsis ICD Codes: A41.9 - Sepsis, unspecified organism SNOMED: 23029013, 939718545 Qualifiers: Qualified Codes: A41.9 - Sepsis, unspecified organism (6) UTI (urinary tract infection) ICD Codes: N39.0 - Urinary tract infection, site not specified SNOMED: 45146634, 573655621 Qualifiers: Qualified Codes: N39.0 - Urinary tract infection, site not specified (7) Elevated troponin ICD Codes: R74.8 - Abnormal levels of other serum enzymes SNOMED: 919311321, 055245702 Status: not improved Assessment/Plan iv abx follow up cultures vent resp rx ngt feeds monitor lytes replace as needed dvt/stress ulcer prophylaxis critical and guarded Subjective ROS Limited/Unobtainable: Yes Constitutional: Reports: malaise, weakness HEENT: Reports: no symptoms Cardiovascular: Reports: no symptoms Respiratory: Reports: shortness of breath, sputum Gastrointestinal/Abdominal: Reports: no symptoms Genitourinary: Reports: no symptoms Neurologic/Psychiatric: Reports: pre-existing deficit Endocrine: Reports: no symptoms Hematologic/Lymphatic: Reports: anemia Allergies: Coded Allergies: No Known Allergies (Unverified , 09/18/17) All Systems: reviewed and negative except above Subjective events noted. remains intubated. on pressors. + blood and urine cultures. Objective Last 24 Hour Vital Signs Date Time Temp Pulse Resp B/P (MAP) Pulse Ox O2 Delivery O2 Flow Rate FiO2 09/20/17 19:17 115 27 100 Mechanical Ventilator 40 09/20/17 19:03 112 30 40 09/20/17 19:03 112 30 100 Mechanical Ventilator 40 09/20/17 19:03 40 09/20/17 19:00 104 19 126/68 100 Mechanical Ventilator 40 09/20/17 19:00 126/68 09/20/17 18:45 104 25 100/49 98 Mechanical Ventilator 40 09/20/17 18:30 102 23 100/49 99 Mechanical Ventilator 40 09/20/17 18:15 105 23 80/44 99 Mechanical Ventilator 40 09/20/17 18:00 80/44 09/20/17 18:00 105 22 80/44 98 Mechanical Ventilator 40 09/20/17 17:45 107 23 79/47 98 Mechanical Ventilator 40 09/20/17 17:30 106 22 81/48 98 Mechanical Ventilator 40 09/20/17 17:15 105 22 89/66 99 Mechanical Ventilator 40 09/20/17 17:00 80/45 09/20/17 17:00 103 22 140/66 99 Mechanical Ventilator 40 09/20/17 17:00 108 30 40 09/20/17 16:45 106 22 140/66 98 Mechanical Ventilator 40 09/20/17 16:30 105 22 80/45 98 Mechanical Ventilator 40 09/20/17 16:15 102 21 81/43 99 Mechanical Ventilator 40 09/20/17 16:00 40 09/20/17 16:00 112 09/20/17 16:00 98.9 103 21 94/48 99 Mechanical Ventilator 40 09/20/17 16:00 101/57 09/20/17 15:45 107 21 92/52 98 Mechanical Ventilator 40 09/20/17 15:30 110 22 101/57 98 Mechanical Ventilator 40 09/20/17 15:15 112 22 102/54 98 Mechanical Ventilator 40 09/20/17 15:10 108 22 40 09/20/17 15:00 112 22 112/56 98 Mechanical Ventilator 40 09/20/17 15:00 126/61 09/20/17 14:45 114 22 84/48 98 Mechanical Ventilator 40 09/20/17 14:30 115 23 84/48 98 Mechanical Ventilator 40 09/20/17 14:15 117 23 87/47 98 Mechanical Ventilator 40 09/20/17 14:02 92/51 09/20/17 14:00 98.8 120 23 80/49 97 Mechanical Ventilator 40 09/20/17 13:45 126 24 97/54 97 Mechanical Ventilator 40 09/20/17 13:37 124 23 99 Mechanical Ventilator 50 09/20/17 13:30 125 24 79/40 97 Mechanical Ventilator 40 09/20/17 13:15 125 17 76/50 99 Mechanical Ventilator 40 09/20/17 13:09 117 25 40 09/20/17 13:08 124 25 96 Mechanical Ventilator 40 09/20/17 13:00 123 25 84/52 99 Mechanical Ventilator 40 09/20/17 13:00 79/40 09/20/17 12:45 122 25 100/53 95 Mechanical Ventilator 40 09/20/17 12:30 123 25 82/38 94 Mechanical Ventilator 40 09/20/17 12:15 127 33 94/28 96 Mechanical Ventilator 40 09/20/17 12:05 100.6 09/20/17 12:00 128 09/20/17 12:00 89/50 09/20/17 12:00 100.6 128 27 89/50 94 Mechanical Ventilator 45 09/20/17 12:00 40 09/20/17 11:00 126 29 100/43 97 Mechanical Ventilator 45 09/20/17 11:00 100/43 09/20/17 10:50 117 27 40 09/20/17 10:45 115 26 95/42 98 Mechanical Ventilator 45 09/20/17 10:30 115 27 96/42 97 Mechanical Ventilator 45 09/20/17 10:15 115 27 96/42 97 Mechanical Ventilator 45 09/20/17 10:00 96/42 09/20/17 10:00 99.3 113 28 119/64 98 Mechanical Ventilator 45 09/20/17 09:45 107 24 103/50 99 Mechanical Ventilator 45 09/20/17 09:30 110 24 100/49 99 Mechanical Ventilator 45 09/20/17 09:15 110 24 97/52 99 Mechanical Ventilator 45 09/20/17 09:00 100.6 112 25 119/64 99 Mechanical Ventilator 45 09/20/17 09:00 113/57 09/20/17 08:59 109 24 45 09/20/17 08:15 112 25 124/64 99 Mechanical Ventilator 50 09/20/17 08:00 101.5 114 25 96/57 99 Mechanical Ventilator 50 09/20/17 08:00 96/57 09/20/17 08:00 50 09/20/17 08:00 108 09/20/17 07:45 116 25 112/73 99 Mechanical Ventilator 50 09/20/17 07:30 115 25 112/73 99 Mechanical Ventilator 50 09/20/17 07:15 117 27 108/60 99 Mechanical Ventilator 50 09/20/17 07:10 121 24 100 Mechanical Ventilator 50 09/20/17 07:02 118 30 98 Mechanical Ventilator 50 09/20/17 07:00 115 24 115/53 99 Mechanical Ventilator 50 09/20/17 06:58 108 24 50 09/20/17 06:30 99.4 109 23 107/60 99 Mechanical Ventilator 50 09/20/17 06:00 111 25 107/56 99 Mechanical Ventilator 50 09/20/17 05:30 110 25 99/60 99 Mechanical Ventilator 50 09/20/17 05:10 112 24 50 09/20/17 05:00 101.2 113 25 107/56 99 Mechanical Ventilator 50 09/20/17 04:30 110 23 104/55 99 Mechanical Ventilator 50 09/20/17 04:00 110 09/20/17 04:00 50 09/20/17 04:00 100.4 110 23 100/55 99 Mechanical Ventilator 50 09/20/17 03:30 112 24 95/56 99 Mechanical Ventilator 50 09/20/17 03:15 112 26 50 09/20/17 03:00 112 24 111/56 99 Mechanical Ventilator 50 09/20/17 02:30 115 23 158/85 99 Mechanical Ventilator 50 09/20/17 02:00 112 23 106/51 99 Mechanical Ventilator 50 09/20/17 01:33 109 24 100 Mechanical Ventilator 50 09/20/17 01:30 110 22 100/63 99 Mechanical Ventilator 50 09/20/17 01:22 106 24 99 Mechanical Ventilator 50 09/20/17 01:22 50 09/20/17 01:22 106 24 50 09/20/17 01:00 107 25 104/56 100 Mechanical Ventilator 50 09/20/17 00:30 108 25 97/55 100 Mechanical Ventilator 50 09/20/17 00:00 108 09/20/17 00:00 50 09/20/17 00:00 99.0 108 25 104/56 100 Mechanical Ventilator 50 09/19/17 23:30 89/50 09/19/17 23:30 108 22 109/54 100 Mechanical Ventilator 50 09/19/17 23:14 85/59 09/19/17 23:14 108 22 50 09/19/17 23:00 116 25 156/80 98 Mechanical Ventilator 50 09/19/17 22:30 113 24 88/49 99 Mechanical Ventilator 50 09/19/17 22:00 116 25 156/80 98 Mechanical Ventilator 50 09/19/17 21:00 119 27 50 09/19/17 21:00 118 26 104/72 99 Mechanical Ventilator 50 09/19/17 20:30 122 27 107/93 98 Mechanical Ventilator 50 Intake and Output 09/19/17 09/20/17 19:00 07:00 Intake Total 1698.208 ml 2163.70 ml Output Total 385 ml 326 ml Balance 1313.208 ml 1837.70 ml Intake Free Water 50 ml 30 ml IV Total 1568.208 ml 1923.70 ml Tube Feeding 60 ml 210 ml Other 20 ml Output Urine Total 385 ml 325 ml Stool Total 1 ml Laboratory Tests 09/20/17 05:20: Lactic Acid Level 3.00H 09/20/17 05:35: White Blood Count 9.9, Red Blood Count 3.83L, Hemoglobin 12.9, Hematocrit 39.4, Mean Corpuscular Volume 103H, Mean Corpuscular Hemoglobin 33.6H, Mean Corpuscular Hemoglobin Concent 32.7, Red Cell Distribution Width 13.3, Platelet Count 90L, Mean Platelet Volume 9.6, Neutrophils (%) (Auto) , Lymphocytes (%) ( Auto) , Monocytes (%) (Auto) , Eosinophils (%) (Auto) , Basophils (%) (Auto) , Differential Total Cells Counted 100, Neutrophils % (Manual) 78H, Lymphocytes % (Manual) 8L, Monocytes % (Manual) 3, Eosinophils % (Manual) 0, Basophils % ( Manual) 0, Band Neutrophils 11H, Platelet Estimate DecreasedL, Platelet Morphology Normal, Macrocytosis 1+, Sodium Level 149H, Potassium Level 4.1, Chloride Level 115H, Carbon Dioxide Level 24, Anion Gap 10, Blood Urea Nitrogen 16, Creatinine 0.7, Estimat Glomerular Filtration Rate , Glucose Level 138H, Calcium Level 6.9L, Total Bilirubin 0.5, Aspartate Amino Transf (AST/SGOT) 46H, Alanine Aminotransferase (ALT/SGPT) 46, Alkaline Phosphatase 70, Troponin I 0.205H, Total Protein 5.5L, Albumin 1.8L, Globulin 3.7, Albumin/Globulin Ratio 0.5L 09/20/17 09:00: Lactic Acid Level 2.50H Height (Feet): 5 Height (Inches): 2.00 Weight (Pounds): 129 General Appearance: WD/WN, lethargic, confused Neck: supple Cardiovascular: normal rate, regular rhythm Respiratory/Chest: rhonchi - bilaterally Abdomen: normal bowel sounds, non tender, soft, no organomegaly Edema: no edema noted Arm (L), no edema noted Arm (R), no edema noted Leg (L), no edema noted Leg (R), no edema noted Pedal (L), no edema noted Pedal (R), no edema noted Generalized Neurologic: unresponsive KRYSTINA LENTZ Sep 20, 2017 20:26
[2017-09-20] MEDS: LORazepam 0.5mg tab ORAL PRN (22:13)
[2017-09-21] VITALS (30 sets, daily range): BP systolic 95–151; BP diastolic 47–76
[2017-09-21] MEDS: NovoLOG Insulin Flexpen SUBQ SCH ×4 (00:10→18:06)
[2017-09-21] MEDS: Albuterol/Ipratropium 3ml neb HHN SCH ×4 (01:10→18:58)
[2017-09-21 04:44] LABS: HEMATOCRIT 34.2 % (37.0-47.0); HEMOGLOBIN 11.3 G/DL (12.0-16.0); MEAN CORPUSCULAR VOLUME 99 FL (80-99); PLATELET COUNT 83 K/UL (150-450); RED BLOOD COUNT 3.45 M/UL (4.20-5.40); RED CELL DISTRIBUTION WIDTH 12.8 % (11.6-14.8); WHITE BLOOD COUNT 9.8 K/UL (4.8-10.8)
[2017-09-21 05:26] LABS: ANION GAP 7 mmol/L (5-15); BLOOD UREA NITROGEN 13 mg/dL (7-18); CALCIUM 6.7 MG/DL (8.5-10.1); CARBON DIOXIDE 24 MMOL/L (21-32); CHLORIDE 113 MMOL/L (98-107); CREATININE 0.6 MG/DL (0.55-1.30); POTASSIUM 3.4 MMOL/L (3.5-5.1); SODIUM 144 MMOL/L (136-145)
[2017-09-21] MEDS: Hydrocortisone 100mg Inj IV SCH ×3 (05:38→22:57)
[2017-09-21] MEDS: Pantoprazole Inj IVP SCH (09:15)
[2017-09-21] MEDS: Vancomycin 750mg/NS 250ml IVPB SCH (09:15)
[2017-09-21] MEDS: Potassium Chloride 30 MEQ in 1/2 NS 1000ml 1,000 ML IV SCH (09:15)
--- NOTE | 2017-09-21 09:16 | General Progress Note ---
Assessment/Plan Problem List: (1) Dehydration ICD Codes: E86.0 - Dehydration SNOMED: 05420938 (2) Hypernatremia ICD Codes: E87.0 - Hyperosmolality and hypernatremia SNOMED: 80648732 (3) Malnutrition of moderate degree ICD Codes: E44.0 - Moderate protein-calorie malnutrition SNOMED: 121568936 (4) BOB (acute kidney injury) ICD Codes: N17.9 - Acute kidney failure, unspecified SNOMED: 99113757 (5) Sepsis ICD Codes: A41.9 - Sepsis, unspecified organism SNOMED: 32061463, 608504093 Qualifiers: Qualified Codes: A41.9 - Sepsis, unspecified organism (6) UTI (urinary tract infection) ICD Codes: N39.0 - Urinary tract infection, site not specified SNOMED: 30925463, 680199320 Qualifiers: Qualified Codes: N39.0 - Urinary tract infection, site not specified (7) Elevated troponin ICD Codes: R74.8 - Abnormal levels of other serum enzymes SNOMED: 424398277, 661615938 Status: stable, progressing Assessment/Plan iv abx off pressors dc ivf tolerating feeds follow up cultures vent resp rx monitor lytes replace as needed dvt/stress ulcer prophylaxis critical and guarded Subjective ROS Limited/Unobtainable: Yes Constitutional: Reports: malaise, weakness HEENT: Reports: no symptoms Cardiovascular: Reports: no symptoms Respiratory: Reports: cough, shortness of breath Gastrointestinal/Abdominal: Reports: difficulty swallowing Genitourinary: Reports: no symptoms Neurologic/Psychiatric: Reports: no symptoms Endocrine: Reports: no symptoms Hematologic/Lymphatic: Reports: no symptoms Allergies: Coded Allergies: No Known Allergies (Unverified , 09/18/17) All Systems: reviewed and negative except above Subjective events noted. remains intubated. off pressors. + blood and urine cultures noted. Objective Last 24 Hour Vital Signs Date Time Temp Pulse Resp B/P (MAP) Pulse Ox O2 Delivery O2 Flow Rate FiO2 09/21/17 07:24 95 23 98 Mechanical Ventilator 40 09/21/17 07:23 95 23 40 09/21/17 07:00 94 22 95/54 99 Mechanical Ventilator 40 09/21/17 06:00 100 24 105/51 98 Mechanical Ventilator 40 09/21/17 05:11 99 23 40 09/21/17 05:00 104 20 135/76 99 Mechanical Ventilator 40 09/21/17 04:00 106 09/21/17 04:00 98.4 106 23 106/49 97 Mechanical Ventilator 40 09/21/17 04:00 40 09/21/17 03:05 107 24 40 09/21/17 03:00 115 23 103/47 99 Mechanical Ventilator 40 09/21/17 02:30 110 24 130/60 98 Mechanical Ventilator 40 09/21/17 02:00 107 22 102/49 99 Mechanical Ventilator 40 09/21/17 02:00 102/49 09/21/17 01:30 106 24 107/54 99 Mechanical Ventilator 40 09/21/17 01:20 105 23 100 Mechanical Ventilator 40 09/21/17 01:10 102 22 40 09/21/17 01:10 102 22 98 Mechanical Ventilator 40 09/21/17 01:10 40 09/21/17 01:00 144/56 09/21/17 01:00 107 27 128/64 98 Mechanical Ventilator 40 09/21/17 00:45 104 25 138/54 98 Mechanical Ventilator 40 09/21/17 00:30 108 27 144/56 98 Mechanical Ventilator 40 09/21/17 00:15 106 27 130/60 98 Mechanical Ventilator 40 09/21/17 00:00 40 09/21/17 00:00 99.4 101 23 131/58 100 Mechanical Ventilator 40 09/21/17 00:00 92/68 09/21/17 00:00 101 09/20/17 23:45 115 23 92/66 97 Mechanical Ventilator 40 09/20/17 23:30 105 24 103/56 99 Mechanical Ventilator 40 09/20/17 23:15 106 22 92/68 98 Mechanical Ventilator 40 09/20/17 23:04 109 23 40 09/20/17 23:00 103/57 09/20/17 23:00 105 24 103/56 99 Mechanical Ventilator 40 09/20/17 22:45 108 24 83/46 98 Mechanical Ventilator 40 09/20/17 22:30 106 23 94/48 99 Mechanical Ventilator 40 09/20/17 22:15 105 23 115/60 98 Mechanical Ventilator 40 09/20/17 22:04 101/53 09/20/17 22:00 107 24 101/53 98 Mechanical Ventilator 40 09/20/17 21:45 108 26 94/52 96 Mechanical Ventilator 40 09/20/17 21:30 111 23 102/57 97 Mechanical Ventilator 40 09/20/17 21:16 125 30 40 09/20/17 21:15 111 26 119/45 97 Mechanical Ventilator 40 09/20/17 21:00 92/53 09/20/17 21:00 114 23 102/47 99 Mechanical Ventilator 40 09/20/17 20:45 112 23 124/66 96 Mechanical Ventilator 40 09/20/17 20:30 115 24 129/67 97 Mechanical Ventilator 40 09/20/17 20:15 113 21 114/54 95 Mechanical Ventilator 40 09/20/17 20:00 100.4 115 23 102/53 97 Mechanical Ventilator 40 09/20/17 20:00 40 09/20/17 20:00 115 09/20/17 20:00 102/53 09/20/17 19:45 115 25 92/53 100 Mechanical Ventilator 40 09/20/17 19:30 115 21 129/69 99 Mechanical Ventilator 40 09/20/17 19:17 115 27 100 Mechanical Ventilator 40 09/20/17 19:15 105 20 142/73 100 Mechanical Ventilator 40 09/20/17 19:03 112 30 40 09/20/17 19:03 112 30 100 Mechanical Ventilator 40 09/20/17 19:03 40 09/20/17 19:00 104 19 126/68 100 Mechanical Ventilator 40 09/20/17 19:00 126/68 09/20/17 18:45 104 25 100/49 98 Mechanical Ventilator 40 09/20/17 18:30 102 23 100/49 99 Mechanical Ventilator 40 09/20/17 18:15 105 23 80/44 99 Mechanical Ventilator 40 09/20/17 18:00 80/44 09/20/17 18:00 105 22 80/44 98 Mechanical Ventilator 40 09/20/17 17:45 107 23 79/47 98 Mechanical Ventilator 40 09/20/17 17:30 106 22 81/48 98 Mechanical Ventilator 40 09/20/17 17:15 105 22 89/66 99 Mechanical Ventilator 40 09/20/17 17:00 80/45 09/20/17 17:00 103 22 140/66 99 Mechanical Ventilator 40 09/20/17 17:00 108 30 40 09/20/17 16:45 106 22 140/66 98 Mechanical Ventilator 40 09/20/17 16:30 105 22 80/45 98 Mechanical Ventilator 40 09/20/17 16:15 102 21 81/43 99 Mechanical Ventilator 40 09/20/17 16:00 40 09/20/17 16:00 112 09/20/17 16:00 98.9 103 21 94/48 99 Mechanical Ventilator 40 09/20/17 16:00 101/57 09/20/17 15:45 107 21 92/52 98 Mechanical Ventilator 40 09/20/17 15:30 110 22 101/57 98 Mechanical Ventilator 40 09/20/17 15:15 112 22 102/54 98 Mechanical Ventilator 40 09/20/17 15:10 108 22 40 09/20/17 15:00 112 22 112/56 98 Mechanical Ventilator 40 09/20/17 15:00 126/61 09/20/17 14:45 114 22 84/48 98 Mechanical Ventilator 40 09/20/17 14:30 115 23 84/48 98 Mechanical Ventilator 40 09/20/17 14:15 117 23 87/47 98 Mechanical Ventilator 40 09/20/17 14:02 92/51 09/20/17 14:00 98.8 120 23 80/49 97 Mechanical Ventilator 40 09/20/17 13:45 126 24 97/54 97 Mechanical Ventilator 40 09/20/17 13:37 124 23 99 Mechanical Ventilator 50 09/20/17 13:30 125 24 79/40 97 Mechanical Ventilator 40 09/20/17 13:15 125 17 76/50 99 Mechanical Ventilator 40 09/20/17 13:09 117 25 40 09/20/17 13:08 124 25 96 Mechanical Ventilator 40 09/20/17 13:00 123 25 84/52 99 Mechanical Ventilator 40 09/20/17 13:00 79/40 09/20/17 12:45 122 25 100/53 95 Mechanical Ventilator 40 09/20/17 12:30 123 25 82/38 94 Mechanical Ventilator 40 09/20/17 12:15 127 33 94/28 96 Mechanical Ventilator 40 09/20/17 12:05 100.6 09/20/17 12:00 128 09/20/17 12:00 89/50 09/20/17 12:00 100.6 128 27 89/50 94 Mechanical Ventilator 45 09/20/17 12:00 40 09/20/17 11:00 126 29 100/43 97 Mechanical Ventilator 45 09/20/17 11:00 100/43 09/20/17 10:50 117 27 40 09/20/17 10:45 115 26 95/42 98 Mechanical Ventilator 45 09/20/17 10:30 115 27 96/42 97 Mechanical Ventilator 45 09/20/17 10:15 115 27 96/42 97 Mechanical Ventilator 45 09/20/17 10:00 96/42 09/20/17 10:00 99.3 113 28 119/64 98 Mechanical Ventilator 45 09/20/17 09:45 107 24 103/50 99 Mechanical Ventilator 45 09/20/17 09:30 110 24 100/49 99 Mechanical Ventilator 45 09/20/17 09:15 110 24 97/52 99 Mechanical Ventilator 45 Intake and Output 09/20/17 09/21/17 19:00 07:00 Intake Total 1905.570 ml 1130.5 ml Output Total 1000 ml 725 ml Balance 905.570 ml 405.5 ml Intake Free Water 30 ml 15 ml IV Total 1400.570 ml 565.5 ml Tube Feeding 475 ml 550 ml Output Urine Total 1000 ml 725 ml # Bowel Movements 2 6 Laboratory Tests 09/21/17 04:00: White Blood Count 9.8, Red Blood Count 3.45L, Hemoglobin 11.3L, Hematocrit 34.2L , Mean Corpuscular Volume 99, Mean Corpuscular Hemoglobin 32.7H, Mean Corpuscular Hemoglobin Concent 33.0, Red Cell Distribution Width 12.8, Platelet Count 83L, Mean Platelet Volume 9.3, Neutrophils (%) (Auto) , Lymphocytes (%) ( Auto) , Monocytes (%) (Auto) , Eosinophils (%) (Auto) , Basophils (%) (Auto) , Differential Total Cells Counted 100, Neutrophils % (Manual) 89H, Lymphocytes % (Manual) 8L, Monocytes % (Manual) 0L, Eosinophils % (Manual) 0, Basophils % ( Manual) 0, Band Neutrophils 3, Platelet Estimate DecreasedL, Platelet Morphology Normal, Red Blood Cell Morphology Normal, Sodium Level 144, Potassium Level 3.4L, Chloride Level 113H, Carbon Dioxide Level 24, Anion Gap 7 , Blood Urea Nitrogen 13, Creatinine 0.6, Estimat Glomerular Filtration Rate , Glucose Level 200H, Calcium Level 6.7L Height (Feet): 5 Height (Inches): 2.00 Weight (Pounds): 129 Objective General Appearance: WD/WN, lethargic, confused Neck: supple Cardiovascular: normal rate, regular rhythm Respiratory/Chest: rhonchi - bilaterally Abdomen: normal bowel sounds, non tender, soft, no organomegaly Edema: no edema noted Arm (L), no edema noted Arm (R), no edema noted Leg (L), no edema noted Leg (R), no edema noted Pedal (L), no edema noted Pedal (R), no edema noted Generalized Neurologic: unresponsive KRYSTINA LENTZ Sep 21, 2017 09:16
[2017-09-21] MEDS: Cefepime HCl 1 GM in D5W 55 ML IVPB SCH (09:54)
--- NOTE | 2017-09-21 10:56 | Nephrology Progress Note ---
Assessment/Plan Problem List: (1) Malnutrition of moderate degree (2) Hypernatremia (3) BOB (acute kidney injury) (4) Dehydration (5) Sepsis (6) UTI (urinary tract infection) (7) Elevated troponin (8) Hypokalemia Plan reduce iv, rx sepsis, kcl Subjective ROS Limited/Unobtainable: Yes Objective Objective Last 24 Hour Vital Signs Date Time Temp Pulse Resp B/P (MAP) Pulse Ox O2 Delivery O2 Flow Rate FiO2 09/21/17 09:25 40 09/21/17 09:25 101 26 40 09/21/17 07:31 104 22 100 Mechanical Ventilator 40 09/21/17 07:24 95 23 98 Mechanical Ventilator 40 09/21/17 07:23 95 23 40 09/21/17 07:00 94 22 95/54 99 Mechanical Ventilator 40 09/21/17 06:00 100 24 105/51 98 Mechanical Ventilator 40 09/21/17 05:11 99 23 40 09/21/17 05:00 104 20 135/76 99 Mechanical Ventilator 40 09/21/17 04:00 106 09/21/17 04:00 98.4 106 23 106/49 97 Mechanical Ventilator 40 09/21/17 04:00 40 09/21/17 03:05 107 24 40 09/21/17 03:00 115 23 103/47 99 Mechanical Ventilator 40 09/21/17 02:30 110 24 130/60 98 Mechanical Ventilator 40 09/21/17 02:00 107 22 102/49 99 Mechanical Ventilator 40 09/21/17 02:00 102/49 09/21/17 01:30 106 24 107/54 99 Mechanical Ventilator 40 09/21/17 01:20 105 23 100 Mechanical Ventilator 40 09/21/17 01:10 102 22 40 09/21/17 01:10 102 22 98 Mechanical Ventilator 40 09/21/17 01:10 40 09/21/17 01:00 144/56 09/21/17 01:00 107 27 128/64 98 Mechanical Ventilator 40 09/21/17 00:45 104 25 138/54 98 Mechanical Ventilator 40 09/21/17 00:30 108 27 144/56 98 Mechanical Ventilator 40 09/21/17 00:15 106 27 130/60 98 Mechanical Ventilator 40 09/21/17 00:00 40 09/21/17 00:00 99.4 101 23 131/58 100 Mechanical Ventilator 40 09/21/17 00:00 92/68 09/21/17 00:00 101 09/20/17 23:45 115 23 92/66 97 Mechanical Ventilator 40 09/20/17 23:30 105 24 103/56 99 Mechanical Ventilator 40 09/20/17 23:15 106 22 92/68 98 Mechanical Ventilator 40 09/20/17 23:04 109 23 40 09/20/17 23:00 103/57 09/20/17 23:00 105 24 103/56 99 Mechanical Ventilator 40 09/20/17 22:45 108 24 83/46 98 Mechanical Ventilator 40 09/20/17 22:30 106 23 94/48 99 Mechanical Ventilator 40 09/20/17 22:15 105 23 115/60 98 Mechanical Ventilator 40 09/20/17 22:04 101/53 09/20/17 22:00 107 24 101/53 98 Mechanical Ventilator 40 09/20/17 21:45 108 26 94/52 96 Mechanical Ventilator 40 09/20/17 21:30 111 23 102/57 97 Mechanical Ventilator 40 09/20/17 21:16 125 30 40 09/20/17 21:15 111 26 119/45 97 Mechanical Ventilator 40 09/20/17 21:00 92/53 09/20/17 21:00 114 23 102/47 99 Mechanical Ventilator 40 09/20/17 20:45 112 23 124/66 96 Mechanical Ventilator 40 09/20/17 20:30 115 24 129/67 97 Mechanical Ventilator 40 09/20/17 20:15 113 21 114/54 95 Mechanical Ventilator 40 09/20/17 20:00 100.4 115 23 102/53 97 Mechanical Ventilator 40 09/20/17 20:00 40 09/20/17 20:00 115 09/20/17 20:00 102/53 09/20/17 19:45 115 25 92/53 100 Mechanical Ventilator 40 09/20/17 19:30 115 21 129/69 99 Mechanical Ventilator 40 09/20/17 19:17 115 27 100 Mechanical Ventilator 40 09/20/17 19:15 105 20 142/73 100 Mechanical Ventilator 40 09/20/17 19:03 112 30 40 09/20/17 19:03 112 30 100 Mechanical Ventilator 40 09/20/17 19:03 40 09/20/17 19:00 104 19 126/68 100 Mechanical Ventilator 40 09/20/17 19:00 126/68 09/20/17 18:45 104 25 100/49 98 Mechanical Ventilator 40 09/20/17 18:30 102 23 100/49 99 Mechanical Ventilator 40 09/20/17 18:15 105 23 80/44 99 Mechanical Ventilator 40 09/20/17 18:00 80/44 09/20/17 18:00 105 22 80/44 98 Mechanical Ventilator 40 09/20/17 17:45 107 23 79/47 98 Mechanical Ventilator 40 09/20/17 17:30 106 22 81/48 98 Mechanical Ventilator 40 09/20/17 17:15 105 22 89/66 99 Mechanical Ventilator 40 09/20/17 17:00 80/45 09/20/17 17:00 103 22 140/66 99 Mechanical Ventilator 40 09/20/17 17:00 108 30 40 09/20/17 16:45 106 22 140/66 98 Mechanical Ventilator 40 09/20/17 16:30 105 22 80/45 98 Mechanical Ventilator 40 09/20/17 16:15 102 21 81/43 99 Mechanical Ventilator 40 09/20/17 16:00 40 09/20/17 16:00 112 09/20/17 16:00 98.9 103 21 94/48 99 Mechanical Ventilator 40 09/20/17 16:00 101/57 09/20/17 15:45 107 21 92/52 98 Mechanical Ventilator 40 09/20/17 15:30 110 22 101/57 98 Mechanical Ventilator 40 09/20/17 15:15 112 22 102/54 98 Mechanical Ventilator 40 09/20/17 15:10 108 22 40 09/20/17 15:00 112 22 112/56 98 Mechanical Ventilator 40 09/20/17 15:00 126/61 09/20/17 14:45 114 22 84/48 98 Mechanical Ventilator 40 09/20/17 14:30 115 23 84/48 98 Mechanical Ventilator 40 09/20/17 14:15 117 23 87/47 98 Mechanical Ventilator 40 09/20/17 14:02 92/51 09/20/17 14:00 98.8 120 23 80/49 97 Mechanical Ventilator 40 09/20/17 13:45 126 24 97/54 97 Mechanical Ventilator 40 09/20/17 13:37 124 23 99 Mechanical Ventilator 50 09/20/17 13:30 125 24 79/40 97 Mechanical Ventilator 40 09/20/17 13:15 125 17 76/50 99 Mechanical Ventilator 40 09/20/17 13:09 117 25 40 09/20/17 13:08 124 25 96 Mechanical Ventilator 40 09/20/17 13:00 123 25 84/52 99 Mechanical Ventilator 40 09/20/17 13:00 79/40 09/20/17 12:45 122 25 100/53 95 Mechanical Ventilator 40 09/20/17 12:30 123 25 82/38 94 Mechanical Ventilator 40 09/20/17 12:15 127 33 94/28 96 Mechanical Ventilator 40 09/20/17 12:05 100.6 09/20/17 12:00 128 09/20/17 12:00 89/50 09/20/17 12:00 100.6 128 27 89/50 94 Mechanical Ventilator 45 09/20/17 12:00 40 09/20/17 11:00 126 29 100/43 97 Mechanical Ventilator 45 09/20/17 11:00 100/43 Intake and Output 09/20/17 09/21/17 19:00 07:00 Intake Total 1905.570 ml 1130.5 ml Output Total 1000 ml 725 ml Balance 905.570 ml 405.5 ml Intake Free Water 30 ml 15 ml IV Total 1400.570 ml 565.5 ml Tube Feeding 475 ml 550 ml Output Urine Total 1000 ml 725 ml # Bowel Movements 2 6 Laboratory Tests 09/21/17 04:00: White Blood Count 9.8, Red Blood Count 3.45L, Hemoglobin 11.3L, Hematocrit 34.2L , Mean Corpuscular Volume 99, Mean Corpuscular Hemoglobin 32.7H, Mean Corpuscular Hemoglobin Concent 33.0, Red Cell Distribution Width 12.8, Platelet Count 83L, Mean Platelet Volume 9.3, Neutrophils (%) (Auto) , Lymphocytes (%) ( Auto) , Monocytes (%) (Auto) , Eosinophils (%) (Auto) , Basophils (%) (Auto) , Differential Total Cells Counted 100, Neutrophils % (Manual) 89H, Lymphocytes % (Manual) 8L, Monocytes % (Manual) 0L, Eosinophils % (Manual) 0, Basophils % ( Manual) 0, Band Neutrophils 3, Platelet Estimate DecreasedL, Platelet Morphology Normal, Red Blood Cell Morphology Normal, Sodium Level 144, Potassium Level 3.4L, Chloride Level 113H, Carbon Dioxide Level 24, Anion Gap 7 , Blood Urea Nitrogen 13, Creatinine 0.6, Estimat Glomerular Filtration Rate , Glucose Level 200H, Calcium Level 6.7L Height (Feet): 5 Height (Inches): 2.00 Weight (Pounds): 129 General Appearance: lethargic EENT: other - intubated Neck: normal alignment Cardiovascular: regular rhythm Respiratory/Chest: lungs clear Abdomen: non tender Extremities: trace edema Neurologic: unresponsive GM SINGH Sep 21, 2017 10:56
--- NOTE | 2017-09-21 13:30 | Diagnostic Imaging Report ---
Indication: Dyspnea Technique: XRAY Chest 1v Comparison: 09/19/2017 Findings: Interval placement of NG tube, catheter courses below the level the diaphragm, tip beyond the inferior margin of the study. Endotracheal tube and central line unchanged. Patient rotated to the right. Heart size and mediastinal contours are stable. There is no definite focal consolidation. No pleural effusion or pneumothorax. No acute osseous abnormality seen. Impression: Interval placement of NG tube. Catheter courses below level of diaphragms, tip just beyond the inferior margin of the film, likely in the mid/distal stomach. Additional findings unchanged.
[2017-09-21] MEDS: Dyna-Hex 2% Top Sol 2oz TOPIC SCH (20:37)
--- NOTE | 2017-09-21 21:39 | Pulmonolgy Critical Care Note ---
Critical Care - Asmt/Plan Assessment/Plan: 1. Septic shock. 2. Respiratory failure. 3. Sepsis due to GPC (+BC), likely skin source. 4. Severe dehydration with hypernatremia. 5. Dementia. 6. History of hypertension. 7. 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 PLAN: vent, no wean nebs adn suction npo aspiration precautions pressors to maintain map greater than 92% abx check cortisol stress dose steroids CXR am Subjective Time Spent (Minutes): 50 Critical Care - Objective Last 24 Hour Vital Signs Date Time Temp Pulse Resp B/P (MAP) Pulse Ox O2 Delivery O2 Flow Rate FiO2 09/21/17 20:58 127 26 40 09/21/17 19:22 114 19 98 Mechanical Ventilator 40 09/21/17 19:00 96 22 112/47 98 Mechanical Ventilator 40 09/21/17 18:59 40 09/21/17 18:57 111 28 97 Mechanical Ventilator 40 09/21/17 18:53 111 29 40 09/21/17 18:00 110 26 113/63 98 Mechanical Ventilator 40 09/21/17 17:13 106 26 40 09/21/17 17:00 107 27 109/56 98 Mechanical Ventilator 40 09/21/17 16:00 106 09/21/17 16:00 40 09/21/17 16:00 97.8 107 26 116/60 100 Mechanical Ventilator 40 09/21/17 15:00 108 20 111/56 100 Mechanical Ventilator 40 09/21/17 14:29 103 15 40 09/21/17 14:00 105 20 135/54 100 Mechanical Ventilator 40 09/21/17 13:00 108 17 98/56 100 Mechanical Ventilator 40 09/21/17 12:45 40 09/21/17 12:45 103 22 100 Mechanical Ventilator 40 09/21/17 12:36 97 24 100 Mechanical Ventilator 40 09/21/17 12:35 97 22 40 09/21/17 12:00 40 09/21/17 12:00 97.7 105 15 119/58 100 Mechanical Ventilator 40 09/21/17 12:00 96 09/21/17 11:36 100 22 40 09/21/17 11:00 96 22 100/51 98 Mechanical Ventilator 40 09/21/17 10:00 96 22 112/47 99 Mechanical Ventilator 40 09/21/17 09:25 40 09/21/17 09:25 101 26 40 09/21/17 09:00 99 22 104/53 99 Mechanical Ventilator 40 09/21/17 08:00 95 09/21/17 08:00 40 09/21/17 08:00 98.5 103 23 143/53 98 Mechanical Ventilator 40 09/21/17 07:31 104 22 100 Mechanical Ventilator 40 09/21/17 07:24 95 23 98 Mechanical Ventilator 40 09/21/17 07:23 95 23 40 09/21/17 07:00 94 22 95/54 99 Mechanical Ventilator 40 09/21/17 06:00 100 24 105/51 98 Mechanical Ventilator 40 09/21/17 05:11 99 23 40 09/21/17 05:00 104 20 135/76 99 Mechanical Ventilator 40 09/21/17 04:00 106 09/21/17 04:00 98.4 106 23 106/49 97 Mechanical Ventilator 40 09/21/17 04:00 40 09/21/17 03:05 107 24 40 09/21/17 03:00 115 23 103/47 99 Mechanical Ventilator 40 09/21/17 02:30 110 24 130/60 98 Mechanical Ventilator 40 09/21/17 02:00 107 22 102/49 99 Mechanical Ventilator 40 09/21/17 02:00 102/49 09/21/17 01:30 106 24 107/54 99 Mechanical Ventilator 40 09/21/17 01:20 105 23 100 Mechanical Ventilator 40 09/21/17 01:10 102 22 40 09/21/17 01:10 102 22 98 Mechanical Ventilator 40 09/21/17 01:10 40 09/21/17 01:00 144/56 09/21/17 01:00 107 27 128/64 98 Mechanical Ventilator 40 09/21/17 00:45 104 25 138/54 98 Mechanical Ventilator 40 09/21/17 00:30 108 27 144/56 98 Mechanical Ventilator 40 09/21/17 00:15 106 27 130/60 98 Mechanical Ventilator 40 09/21/17 00:00 40 09/21/17 00:00 99.4 101 23 131/58 100 Mechanical Ventilator 40 09/21/17 00:00 92/68 09/21/17 00:00 101 09/20/17 23:45 115 23 92/66 97 Mechanical Ventilator 40 09/20/17 23:30 105 24 103/56 99 Mechanical Ventilator 40 09/20/17 23:15 106 22 92/68 98 Mechanical Ventilator 40 09/20/17 23:04 109 23 40 09/20/17 23:00 103/57 09/20/17 23:00 105 24 103/56 99 Mechanical Ventilator 40 09/20/17 22:45 108 24 83/46 98 Mechanical Ventilator 40 09/20/17 22:30 106 23 94/48 99 Mechanical Ventilator 40 09/20/17 22:15 105 23 115/60 98 Mechanical Ventilator 40 09/20/17 22:04 101/53 09/20/17 22:00 107 24 101/53 98 Mechanical Ventilator 40 09/20/17 21:45 108 26 94/52 96 Mechanical Ventilator 40 Status: obtunded Condition: critical Lungs: rhonchi Heart: HR/BP unstable Abdomen: non-tender Extremities: edema Decubiti: stage Objective: Laboratory Tests Test 09/21/17 04:00 White Blood Count 9.8 K/UL (4.8-10.8) Red Blood Count 3.45 M/UL (4.20-5.40) L Hemoglobin 11.3 G/DL (12.0-16.0) L Hematocrit 34.2 % (37.0-47.0) L Mean Corpuscular Volume 99 FL (80-99) Mean Corpuscular Hemoglobin 32.7 PG (27.0-31.0) H Mean Corpuscular Hemoglobin Concent 33.0 G/DL (32.0-36.0) Red Cell Distribution Width 12.8 % (11.6-14.8) Platelet Count 83 K/UL (150-450) L Mean Platelet Volume 9.3 FL (6.5-10.1) Neutrophils (%) (Auto) % (45.0-75.0) Lymphocytes (%) (Auto) % (20.0-45.0) Monocytes (%) (Auto) % (1.0-10.0) Eosinophils (%) (Auto) % (0.0-3.0) Basophils (%) (Auto) % (0.0-2.0) Differential Total Cells Counted 100 Neutrophils % (Manual) 89 % (45-75) H Lymphocytes % (Manual) 8 % (20-45) L Monocytes % (Manual) 0 % (1-10) L Eosinophils % (Manual) 0 % (0-3) Basophils % (Manual) 0 % (0-2) Band Neutrophils 3 % (0-8) Platelet Estimate Decreased L Platelet Morphology Normal Red Blood Cell Morphology Normal Sodium Level 144 MMOL/L (136-145) Potassium Level 3.4 MMOL/L (3.5-5.1) L Chloride Level 113 MMOL/L (98-107) H Carbon Dioxide Level 24 MMOL/L (21-32) Anion Gap 7 mmol/L (5-15) Blood Urea Nitrogen 13 mg/dL (7-18) Creatinine 0.6 MG/DL (0.55-1.30) Estimat Glomerular Filtration Rate mL/min (>60) Glucose Level 200 MG/DL (74-106) H Calcium Level 6.7 MG/DL (8.5-10.1) L Current Medications Medications (Trade) Dose Ordered Sig/Lilly Route PRN Reason Start Time Stop Time Status Last Admin Dose Admin Acetaminophen (Tylenol) 650 mg EVERY 4 HOURS PRN ORAL fever/PAGE 09/19/17 03:15 10/19/17 03:14 09/20/17 11:06 Albuterol/ Ipratropium (Albuterol/ Ipratropium) 3 ml Q6HRT HHN 09/19/17 07:00 09/24/17 06:59 09/21/17 18:58 Cefepime HCl 1 gm/ Dextrose 55 ml @ 110 mls/hr Q24H IVPB 09/21/17 09:00 09/26/17 08:59 09/21/17 09:54 Chlorhexidine Gluconate (Serena-Hex 2%) 1 applic DAILY@2000 TOPIC 09/20/17 20:00 10/20/17 19:59 09/21/17 20:37 Dextrose (Dextrose 50%) STAT PRN IV Hypoglycemia 09/19/17 12:30 10/19/17 12:29 Hydrocortisone (Solu-CORTEF) 100 mg EVERY 8 HOURS IV 09/20/17 14:00 10/20/17 13:59 09/21/17 14:42 Insulin Aspart (NovoLOG) Q6HR SUBQ 09/19/17 13:00 10/19/17 12:59 09/21/17 18:06 Lorazepam (Ativan) 0.5 mg TIDPRN PRN ORAL For Anxiety 09/20/17 16:15 1/6/18 16:14 09/20/17 22:13 Norepinephrine Bitartrate 8 mg/ Dextrose 250 ml @ 0 mls/hr Q24H IV 09/19/17 23:30 10/19/17 23:29 09/20/17 22:04 Pantoprazole (Protonix) 40 mg DAILY IVP 09/20/17 10:00 10/20/17 09:59 09/21/17 09:15 Potassium Chloride 20 meq/ Dextrose 1,010 ml @ 35 mls/hr Q24H IV 09/21/17 11:45 10/21/17 11:44 09/21/17 11:51 Vancomycin HCl (Vanco rx to dose) 1 ea DAILY PRN MISC Per rx protocol 09/19/17 03:15 10/19/17 03:14 Vancomycin/Sodium Chloride 250 ml @ 166.667 mls/hr Q24H IVPB 09/20/17 08:00 09/25/17 07:59 09/21/17 09:15 Micro: Microbiology Date/Time Source Procedure Growth Status 09/19/17 04:25 Nasal Nares MRSA Culture - Final Staphylococcus Aureus - Mrsa Complete 09/20/17 13:30 Stool Clostridium difficile Toxin Assay - Final Complete 09/19/17 04:25 Rectum VRE Culture - Final NO VANCOMYCIN RESISTANT ENTEROCOCCUS ... Complete Accucheck: 173 Blood Sugars: BS not controlled Critical Care - Subjective ROS Limited/Unobtainable: Yes FI02: 40 Vent Support Breath Rate: 14 Vent Support Mode: AC Vent Tidal Volume: 450 Sputum Amount: Small PEEP: 5.0 PIP: 16 Tube Feeding Amount: 55 I&O: Intake and Output 09/20/17 09/21/17 19:00 07:00 Intake Total 1905.570 ml 1130.5 ml Output Total 1000 ml 725 ml Balance 905.570 ml 405.5 ml Intake Free Water 30 ml 15 ml IV Total 1400.570 ml 565.5 ml Tube Feeding 475 ml 550 ml Output Urine Total 1000 ml 725 ml # Bowel Movements 2 6 Subjective: orally intubated on patrick vent moderate distress wheezing at thsi time no fever noted tachycardic does not follow commands for me ET-Tube: 7.5 ET Position: 23 JULIANNERAYNA DO Sep 21, 2017 21:39
[2017-09-21] MEDS ORDERED: NS 500ML ONE (22:47)
[2017-09-21] MEDS ORDERED: Tubing IV Secondary IV ONE (22:47)
[2017-09-22] VITALS (24 sets, daily range): BP systolic 94–166; BP diastolic 49–85
[2017-09-22] MEDS: NovoLOG Insulin Flexpen SUBQ SCH ×4 (00:39→17:27)
[2017-09-22] MEDS: Albuterol/Ipratropium 3ml neb HHN SCH ×4 (01:10→18:50)
[2017-09-22 05:48] LABS: HEMATOCRIT 32.6 % (37.0-47.0); HEMOGLOBIN 10.7 G/DL (12.0-16.0); MEAN CORPUSCULAR VOLUME 98 FL (80-99); PLATELET COUNT 102 K/UL (150-450); RED BLOOD COUNT 3.32 M/UL (4.20-5.40); RED CELL DISTRIBUTION WIDTH 12.7 % (11.6-14.8); WHITE BLOOD COUNT 5.1 K/UL (4.8-10.8)
[2017-09-22] MEDS: Hydrocortisone 100mg Inj IV SCH ×2 (05:51→14:14)
[2017-09-22 06:44] LABS: ALANINE AMINOTRANSFERASE 42 U/L (12-78); ALBUMIN 1.5 G/DL (3.4-5.0); ALBUMIN/GLOBULIN RATIO 0.4 (1.0-2.7); ALKALINE PHOSPHATASE 78 U/L (46-116); ANION GAP 11 mmol/L (5-15); ASPARTATE AMINO TRANSFERASE 49 U/L (15-37); BILIRUBIN,TOTAL 0.3 MG/DL (0.2-1.0); BLOOD UREA NITROGEN 9 mg/dL (7-18); CALCIUM 6.6 MG/DL (8.5-10.1); CARBON DIOXIDE 23 MMOL/L (21-32); CHLORIDE 112 MMOL/L (98-107); CREATININE 0.6 MG/DL (0.55-1.30); SODIUM 144 MMOL/L (136-145)
[2017-09-22 06:47] LABS: POTASSIUM 2.5 MMOL/L (3.5-5.1)
--- NOTE | 2017-09-22 08:15 | General Progress Note ---
Assessment/Plan Problem List: (1) Dehydration ICD Codes: E86.0 - Dehydration SNOMED: 69744813 (2) Hypernatremia ICD Codes: E87.0 - Hyperosmolality and hypernatremia SNOMED: 22804829 (3) Malnutrition of moderate degree ICD Codes: E44.0 - Moderate protein-calorie malnutrition SNOMED: 720885221 (4) BOB (acute kidney injury) ICD Codes: N17.9 - Acute kidney failure, unspecified SNOMED: 98834942 (5) Sepsis ICD Codes: A41.9 - Sepsis, unspecified organism SNOMED: 66089070, 088506383 Qualifiers: Qualified Codes: A41.9 - Sepsis, unspecified organism (6) UTI (urinary tract infection) ICD Codes: N39.0 - Urinary tract infection, site not specified SNOMED: 13569022, 474157593 Qualifiers: Qualified Codes: N39.0 - Urinary tract infection, site not specified (7) Elevated troponin ICD Codes: R74.8 - Abnormal levels of other serum enzymes SNOMED: 036242585, 234901862 Status: stable, not improved Assessment/Plan iv abx off pressors currently dc ivf tolerating feeds follow up cultures vent- wean as able resp rx monitor lytes replace as needed dvt/stress ulcer prophylaxis critical and guarded Subjective ROS Limited/Unobtainable: No Constitutional: Reports: malaise, weakness HEENT: Reports: no symptoms Cardiovascular: Reports: no symptoms Respiratory: Reports: shortness of breath, sputum Gastrointestinal/Abdominal: Reports: no symptoms Genitourinary: Reports: no symptoms Neurologic/Psychiatric: Reports: no symptoms Endocrine: Reports: no symptoms Hematologic/Lymphatic: Reports: anemia Allergies: Coded Allergies: No Known Allergies (Unverified , 09/18/17) All Systems: reviewed and negative except above Subjective events noted. remains intubated. off pressors. + blood and urine cultures noted. low k noted. plts better today. Objective Last 24 Hour Vital Signs Date Time Temp Pulse Resp B/P (MAP) Pulse Ox O2 Delivery O2 Flow Rate FiO2 09/22/17 08:00 40 09/22/17 07:59 98.4 99 30 111/54 97 Mechanical Ventilator 40 09/22/17 07:13 96 32 100 Mechanical Ventilator 40 09/22/17 07:13 101 31 40 09/22/17 07:00 100 29 102/51 97 Mechanical Ventilator 40 09/22/17 07:00 99 30 98 Mechanical Ventilator 40 09/22/17 07:00 40 09/22/17 06:00 99.4 92 25 104/53 96 Mechanical Ventilator 40 09/22/17 05:09 93 25 40 09/22/17 05:00 95 25 94/49 97 Mechanical Ventilator 40 09/22/17 04:00 98 25 116/50 97 Mechanical Ventilator 40 09/22/17 04:00 40 09/22/17 04:00 98 09/22/17 03:11 124 26 40 09/22/17 03:00 100.3 109 26 102/53 96 Mechanical Ventilator 40 09/22/17 02:00 125 33 111/53 96 Mechanical Ventilator 40 09/22/17 01:30 124 26 97 Mechanical Ventilator 40 09/22/17 01:11 40 09/22/17 01:10 128 32 96 Mechanical Ventilator 40 09/22/17 01:08 128 32 40 09/22/17 01:00 129 34 130/65 95 Mechanical Ventilator 40 09/22/17 00:15 100.4 09/22/17 00:00 139 09/22/17 00:00 136 34 156/70 95 Mechanical Ventilator 40 09/22/17 00:00 40 09/21/17 23:30 138/67 09/21/17 23:11 130 38 40 09/21/17 23:00 102.6 128 33 151/69 96 Mechanical Ventilator 40 09/21/17 22:00 129 32 139/63 96 Mechanical Ventilator 40 09/21/17 21:00 127 34 137/66 95 Mechanical Ventilator 40 09/21/17 20:58 127 26 40 09/21/17 20:00 101.9 119 31 140/63 96 Mechanical Ventilator 40 09/21/17 20:00 119 09/21/17 20:00 40 09/21/17 19:30 115 30 107/64 97 Mechanical Ventilator 40 09/21/17 19:22 114 19 98 Mechanical Ventilator 40 09/21/17 19:00 96 22 112/47 98 Mechanical Ventilator 40 09/21/17 18:59 40 09/21/17 18:57 111 28 97 Mechanical Ventilator 40 09/21/17 18:53 111 29 40 09/21/17 18:00 110 26 113/63 98 Mechanical Ventilator 40 09/21/17 17:13 106 26 40 09/21/17 17:00 107 27 109/56 98 Mechanical Ventilator 40 09/21/17 16:00 106 09/21/17 16:00 40 09/21/17 16:00 97.8 107 26 116/60 100 Mechanical Ventilator 40 09/21/17 15:00 108 20 111/56 100 Mechanical Ventilator 40 09/21/17 14:29 103 15 40 09/21/17 14:00 105 20 135/54 100 Mechanical Ventilator 40 09/21/17 13:00 108 17 98/56 100 Mechanical Ventilator 40 09/21/17 12:45 40 09/21/17 12:45 103 22 100 Mechanical Ventilator 40 09/21/17 12:36 97 24 100 Mechanical Ventilator 40 09/21/17 12:35 97 22 40 09/21/17 12:00 40 09/21/17 12:00 97.7 105 15 119/58 100 Mechanical Ventilator 40 09/21/17 12:00 96 09/21/17 11:36 100 22 40 09/21/17 11:00 96 22 100/51 98 Mechanical Ventilator 40 09/21/17 10:00 96 22 112/47 99 Mechanical Ventilator 40 09/21/17 09:25 40 09/21/17 09:25 101 26 40 09/21/17 09:00 99 22 104/53 99 Mechanical Ventilator 40 Intake and Output 09/21/17 09/22/17 19:00 07:00 Intake Total 695 ml 1100 ml Output Total 535 ml 560 ml Balance 160 ml 540 ml Intake Free Water 110 ml IV Total 35 ml 385 ml Tube Feeding 660 ml 605 ml Output Urine Total 535 ml 560 ml # Bowel Movements 3 4 Laboratory Tests 09/22/17 05:30: White Blood Count 5.1, Red Blood Count 3.32L, Hemoglobin 10.7L, Hematocrit 32.6L , Mean Corpuscular Volume 98, Mean Corpuscular Hemoglobin 32.1H, Mean Corpuscular Hemoglobin Concent 32.7, Red Cell Distribution Width 12.7, Platelet Count 102L, Mean Platelet Volume 9.4, Neutrophils (%) (Auto) , Lymphocytes (%) ( Auto) , Monocytes (%) (Auto) , Eosinophils (%) (Auto) , Basophils (%) (Auto) , Sodium Level 144, Potassium Level 2.5*L, Chloride Level 112H, Carbon Dioxide Level 23, Anion Gap 11, Blood Urea Nitrogen 9, Creatinine 0.6, Estimat Glomerular Filtration Rate , Glucose Level 151H, Calcium Level 6.6L, Total Bilirubin 0.3, Aspartate Amino Transf (AST/SGOT) 49H, Alanine Aminotransferase ( ALT/SGPT) 42, Alkaline Phosphatase 78, Total Protein 5.2L, Albumin 1.5L, Globulin 3.7, Albumin/Globulin Ratio 0.4L, Vancomycin Level Trough 3.9L Height (Feet): 5 Height (Inches): 2.00 Weight (Pounds): 129 Objective General Appearance: WD/WN, lethargic, confused Neck: supple Cardiovascular: normal rate, regular rhythm Respiratory/Chest: rhonchi - bilaterally Abdomen: normal bowel sounds, non tender, soft, no organomegaly Edema: no edema noted Arm (L), no edema noted Arm (R), no edema noted Leg (L), no edema noted Leg (R), no edema noted Pedal (L), no edema noted Pedal (R), no edema noted Generalized Neurologic: unresponsive KRYSTINA LENTZ Sep 22, 2017 08:15
[2017-09-22] MEDS: Cefepime HCl 1 GM in D5W 55 ML IVPB SCH (08:36)
[2017-09-22] MEDS: Pantoprazole Inj IVP SCH (08:36)
[2017-09-22] MEDS: Vancomycin 1250mg/D5W 250ml IVPB SCH (09:05)
--- NOTE | 2017-09-22 11:06 | Nephrology Progress Note ---
Assessment/Plan Problem List: (1) Malnutrition of moderate degree (2) Hypernatremia (3) BOB (acute kidney injury) (4) Dehydration (5) Sepsis (6) UTI (urinary tract infection) (7) Elevated troponin (8) Hypokalemia Plan reduce iv, rx sepsis, kcl Subjective ROS Limited/Unobtainable: Yes Objective Objective Last 24 Hour Vital Signs Date Time Temp Pulse Resp B/P (MAP) Pulse Ox O2 Delivery O2 Flow Rate FiO2 09/22/17 10:00 102 25 113/61 96 Mechanical Ventilator 40 09/22/17 09:01 100 25 113/51 96 Mechanical Ventilator 40 09/22/17 09:00 100 27 40 09/22/17 08:00 99 09/22/17 08:00 40 09/22/17 07:59 98.4 99 30 111/54 97 Mechanical Ventilator 40 09/22/17 07:13 96 32 100 Mechanical Ventilator 40 09/22/17 07:13 101 31 40 09/22/17 07:00 100 29 102/51 97 Mechanical Ventilator 40 09/22/17 07:00 99 30 98 Mechanical Ventilator 40 09/22/17 07:00 40 09/22/17 06:00 99.4 92 25 104/53 96 Mechanical Ventilator 40 09/22/17 05:09 93 25 40 09/22/17 05:00 95 25 94/49 97 Mechanical Ventilator 40 09/22/17 04:00 98 25 116/50 97 Mechanical Ventilator 40 09/22/17 04:00 40 09/22/17 04:00 98 09/22/17 03:11 124 26 40 09/22/17 03:00 100.3 109 26 102/53 96 Mechanical Ventilator 40 09/22/17 02:00 125 33 111/53 96 Mechanical Ventilator 40 09/22/17 01:30 124 26 97 Mechanical Ventilator 40 09/22/17 01:11 40 09/22/17 01:10 128 32 96 Mechanical Ventilator 40 09/22/17 01:08 128 32 40 09/22/17 01:00 129 34 130/65 95 Mechanical Ventilator 40 09/22/17 00:15 100.4 09/22/17 00:00 139 09/22/17 00:00 136 34 156/70 95 Mechanical Ventilator 40 09/22/17 00:00 40 09/21/17 23:30 138/67 09/21/17 23:11 130 38 40 09/21/17 23:00 102.6 128 33 151/69 96 Mechanical Ventilator 40 09/21/17 22:00 129 32 139/63 96 Mechanical Ventilator 40 09/21/17 21:00 127 34 137/66 95 Mechanical Ventilator 40 09/21/17 20:58 127 26 40 09/21/17 20:00 101.9 119 31 140/63 96 Mechanical Ventilator 40 09/21/17 20:00 119 09/21/17 20:00 40 09/21/17 19:30 115 30 107/64 97 Mechanical Ventilator 40 09/21/17 19:22 114 19 98 Mechanical Ventilator 40 09/21/17 19:00 96 22 112/47 98 Mechanical Ventilator 40 09/21/17 18:59 40 09/21/17 18:57 111 28 97 Mechanical Ventilator 40 09/21/17 18:53 111 29 40 09/21/17 18:00 110 26 113/63 98 Mechanical Ventilator 40 09/21/17 17:13 106 26 40 09/21/17 17:00 107 27 109/56 98 Mechanical Ventilator 40 09/21/17 16:00 106 09/21/17 16:00 40 09/21/17 16:00 97.8 107 26 116/60 100 Mechanical Ventilator 40 09/21/17 15:00 108 20 111/56 100 Mechanical Ventilator 40 09/21/17 14:29 103 15 40 09/21/17 14:00 105 20 135/54 100 Mechanical Ventilator 40 09/21/17 13:00 108 17 98/56 100 Mechanical Ventilator 40 09/21/17 12:45 40 09/21/17 12:45 103 22 100 Mechanical Ventilator 40 09/21/17 12:36 97 24 100 Mechanical Ventilator 40 09/21/17 12:35 97 22 40 09/21/17 12:00 40 09/21/17 12:00 97.7 105 15 119/58 100 Mechanical Ventilator 40 09/21/17 12:00 96 09/21/17 11:36 100 22 40 Intake and Output 09/21/17 09/22/17 19:00 07:00 Intake Total 695 ml 1135 ml Output Total 535 ml 560 ml Balance 160 ml 575 ml Intake Free Water 110 ml IV Total 35 ml 420 ml Tube Feeding 660 ml 605 ml Output Urine Total 535 ml 560 ml # Bowel Movements 3 4 Laboratory Tests 09/22/17 05:30: White Blood Count 5.1, Red Blood Count 3.32L, Hemoglobin 10.7L, Hematocrit 32.6L , Mean Corpuscular Volume 98, Mean Corpuscular Hemoglobin 32.1H, Mean Corpuscular Hemoglobin Concent 32.7, Red Cell Distribution Width 12.7, Platelet Count 102L, Mean Platelet Volume 9.4, Neutrophils (%) (Auto) , Lymphocytes (%) ( Auto) , Monocytes (%) (Auto) , Eosinophils (%) (Auto) , Basophils (%) (Auto) , Sodium Level 144, Potassium Level 2.5*L, Chloride Level 112H, Carbon Dioxide Level 23, Anion Gap 11, Blood Urea Nitrogen 9, Creatinine 0.6, Estimat Glomerular Filtration Rate , Glucose Level 151H, Calcium Level 6.6L, Total Bilirubin 0.3, Aspartate Amino Transf (AST/SGOT) 49H, Alanine Aminotransferase ( ALT/SGPT) 42, Alkaline Phosphatase 78, Total Protein 5.2L, Albumin 1.5L, Globulin 3.7, Albumin/Globulin Ratio 0.4L, Vancomycin Level Trough 3.9L Height (Feet): 5 Height (Inches): 2.00 Weight (Pounds): 129 General Appearance: cachetic EENT: other - intubated Neck: normal alignment Cardiovascular: normal rate, regular rhythm, tachycardia Respiratory/Chest: rhonchi - bilaterally Abdomen: non tender, soft Neurologic: disoriented, unresponsive GM SINGH Sep 22, 2017 11:06
[2017-09-22] MEDS: LORazepam 0.5mg tab ORAL PRN (16:27)
[2017-09-22] MEDS ORDERED: NS 500ML ONE (16:35)
[2017-09-22] MEDS: Dyna-Hex 2% Top Sol 2oz TOPIC SCH (19:43)
--- NOTE | 2017-09-22 21:22 | Pulmonolgy Critical Care Note ---
Critical Care - Asmt/Plan Assessment/Plan: 1. Septic shock. 2. Respiratory failure. 3. Sepsis due to GPC (+BC), likely skin source. 4. Severe dehydration with hypernatremia. 5. Dementia. 6. History of hypertension. 7. 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 PLAN: vent, no wean nebs adn suction stress dose steroids npo aspiration precautions pressors to maintain map greater than 92% abx wound care monitor uop tf CXR am Time Spent (Minutes): 50 Critical Care - Objective Last 24 Hour Vital Signs Date Time Temp Pulse Resp B/P (MAP) Pulse Ox O2 Delivery O2 Flow Rate FiO2 09/22/17 21:06 140 37 40 09/22/17 19:43 99.5 09/22/17 18:50 Mechanical Ventilator 09/22/17 18:46 40 09/22/17 18:45 140 37 94 Mechanical Ventilator 40 09/22/17 18:43 140 37 40 09/22/17 18:00 101.2 140 37 155/76 93 Mechanical Ventilator 40 09/22/17 17:00 137 31 153/82 94 Mechanical Ventilator 40 09/22/17 16:38 138 32 40 09/22/17 16:00 136 09/22/17 16:00 98.8 136 31 166/75 93 Mechanical Ventilator 40 09/22/17 16:00 40 09/22/17 15:02 112 26 40 09/22/17 15:00 114 28 118/63 99 Mechanical Ventilator 40 09/22/17 14:00 115 24 98/49 99 Mechanical Ventilator 40 09/22/17 13:00 119 22 128/85 96 Mechanical Ventilator 40 09/22/17 12:30 98 26 40 09/22/17 12:30 104 26 100 Mechanical Ventilator 40 09/22/17 12:20 40 09/22/17 12:20 104 26 97 Mechanical Ventilator 40 09/22/17 12:02 98.2 102 25 130/62 96 Mechanical Ventilator 40 09/22/17 11:57 40 09/22/17 11:56 104 09/22/17 11:23 98 27 40 09/22/17 11:00 101 26 128/66 96 Mechanical Ventilator 40 09/22/17 10:00 102 25 113/61 96 Mechanical Ventilator 40 09/22/17 09:01 100 25 113/51 96 Mechanical Ventilator 40 09/22/17 09:00 100 27 40 09/22/17 08:00 99 09/22/17 08:00 40 09/22/17 07:59 98.4 99 30 111/54 97 Mechanical Ventilator 40 09/22/17 07:13 96 32 100 Mechanical Ventilator 40 09/22/17 07:13 101 31 40 09/22/17 07:00 100 29 102/51 97 Mechanical Ventilator 40 09/22/17 07:00 99 30 98 Mechanical Ventilator 40 09/22/17 07:00 40 09/22/17 06:00 99.4 92 25 104/53 96 Mechanical Ventilator 40 09/22/17 05:09 93 25 40 09/22/17 05:00 95 25 94/49 97 Mechanical Ventilator 40 09/22/17 04:00 98 25 116/50 97 Mechanical Ventilator 40 09/22/17 04:00 40 09/22/17 04:00 98 09/22/17 03:11 124 26 40 09/22/17 03:00 100.3 109 26 102/53 96 Mechanical Ventilator 40 09/22/17 02:00 125 33 111/53 96 Mechanical Ventilator 40 09/22/17 01:30 124 26 97 Mechanical Ventilator 40 09/22/17 01:11 40 09/22/17 01:10 128 32 96 Mechanical Ventilator 40 09/22/17 01:08 128 32 40 09/22/17 01:00 129 34 130/65 95 Mechanical Ventilator 40 09/22/17 00:00 139 09/22/17 00:00 136 34 156/70 95 Mechanical Ventilator 40 09/22/17 00:00 40 09/21/17 23:30 138/67 09/21/17 23:11 130 38 40 09/21/17 23:00 102.6 128 33 151/69 96 Mechanical Ventilator 40 09/21/17 22:00 129 32 139/63 96 Mechanical Ventilator 40 Status: obtunded Condition: critical Lungs: rhonchi Heart: HR/BP unstable Abdomen: soft Extremities: edema Objective: Laboratory Tests Test 09/21/17 04:00 White Blood Count 9.8 K/UL (4.8-10.8) Red Blood Count 3.45 M/UL (4.20-5.40) L Hemoglobin 11.3 G/DL (12.0-16.0) L Hematocrit 34.2 % (37.0-47.0) L Mean Corpuscular Volume 99 FL (80-99) Mean Corpuscular Hemoglobin 32.7 PG (27.0-31.0) H Mean Corpuscular Hemoglobin Concent 33.0 G/DL (32.0-36.0) Red Cell Distribution Width 12.8 % (11.6-14.8) Platelet Count 83 K/UL (150-450) L Mean Platelet Volume 9.3 FL (6.5-10.1) Neutrophils (%) (Auto) % (45.0-75.0) Lymphocytes (%) (Auto) % (20.0-45.0) Monocytes (%) (Auto) % (1.0-10.0) Eosinophils (%) (Auto) % (0.0-3.0) Basophils (%) (Auto) % (0.0-2.0) Differential Total Cells Counted 100 Neutrophils % (Manual) 89 % (45-75) H Lymphocytes % (Manual) 8 % (20-45) L Monocytes % (Manual) 0 % (1-10) L Eosinophils % (Manual) 0 % (0-3) Basophils % (Manual) 0 % (0-2) Band Neutrophils 3 % (0-8) Platelet Estimate Decreased L Platelet Morphology Normal Red Blood Cell Morphology Normal Sodium Level 144 MMOL/L (136-145) Potassium Level 3.4 MMOL/L (3.5-5.1) L Chloride Level 113 MMOL/L (98-107) H Carbon Dioxide Level 24 MMOL/L (21-32) Anion Gap 7 mmol/L (5-15) Blood Urea Nitrogen 13 mg/dL (7-18) Creatinine 0.6 MG/DL (0.55-1.30) Estimat Glomerular Filtration Rate mL/min (>60) Glucose Level 200 MG/DL (74-106) H Calcium Level 6.7 MG/DL (8.5-10.1) L Current Medications Medications (Trade) Dose Ordered Sig/Lilly Route PRN Reason Start Time Stop Time Status Last Admin Dose Admin Acetaminophen (Tylenol) 650 mg EVERY 4 HOURS PRN ORAL fever/PAGE 09/19/17 03:15 10/19/17 03:14 09/20/17 11:06 Albuterol/ Ipratropium (Albuterol/ Ipratropium) 3 ml Q6HRT HHN 09/19/17 07:00 09/24/17 06:59 09/21/17 18:58 Cefepime HCl 1 gm/ Dextrose 55 ml @ 110 mls/hr Q24H IVPB 09/21/17 09:00 09/26/17 08:59 09/21/17 09:54 Chlorhexidine Gluconate (Serena-Hex 2%) 1 applic DAILY@2000 TOPIC 09/20/17 20:00 10/20/17 19:59 09/21/17 20:37 Dextrose (Dextrose 50%) STAT PRN IV Hypoglycemia 09/19/17 12:30 10/19/17 12:29 Hydrocortisone (Solu-CORTEF) 100 mg EVERY 8 HOURS IV 09/20/17 14:00 10/20/17 13:59 09/21/17 14:42 Insulin Aspart (NovoLOG) Q6HR SUBQ 09/19/17 13:00 10/19/17 12:59 09/21/17 18:06 Lorazepam (Ativan) 0.5 mg TIDPRN PRN ORAL For Anxiety 09/20/17 16:15 09/27/17 16:14 09/20/17 22:13 Norepinephrine Bitartrate 8 mg/ Dextrose 250 ml @ 0 mls/hr Q24H IV 09/19/17 23:30 10/19/17 23:29 09/20/17 22:04 Pantoprazole (Protonix) 40 mg DAILY IVP 09/20/17 10:00 10/20/17 09:59 09/21/17 09:15 Potassium Chloride 20 meq/ Dextrose 1,010 ml @ 35 mls/hr Q24H IV 09/21/17 11:45 10/21/17 11:44 09/21/17 11:51 Vancomycin HCl (Vanco rx to dose) 1 ea DAILY PRN MISC Per rx protocol 09/19/17 03:15 10/19/17 03:14 Vancomycin/Sodium Chloride 250 ml @ 166.667 mls/hr Q24H IVPB 09/20/17 08:00 09/25/17 07:59 09/21/17 09:15 Micro: Microbiology Date/Time Source Procedure Growth Status 09/20/17 13:30 Stool Clostridium difficile Toxin Assay - Final Complete Accucheck: 224 Blood Sugars: BS not controlled Critical Care - Subjective ROS Limited/Unobtainable: Yes Condition: critical FI02: 40 Vent Support Breath Rate: 14 Vent Support Mode: AC Vent Tidal Volume: 450 Sputum Amount: Small PEEP: 5.0 PIP: 19 Tube Feeding Amount: 50 I&O: Intake and Output 09/21/17 09/22/17 19:00 07:00 Intake Total 695 ml 1135 ml Output Total 535 ml 560 ml Balance 160 ml 575 ml Intake Free Water 110 ml IV Total 35 ml 420 ml Tube Feeding 660 ml 605 ml Output Urine Total 535 ml 560 ml # Bowel Movements 3 4 Subjective: orally intubated on the vent moderate distress, tachcardic and tachypnea fever this evening less wheezing today tolerating Tf does not follow commands for me ET-Tube: 7.5 ET Position: 23 Labs: Current Medications Medications (Trade) Dose Ordered Sig/Lilly Route PRN Reason Start Time Stop Time Status Last Admin Dose Admin Acetaminophen (Tylenol) 650 mg EVERY 4 HOURS PRN ORAL fever/PAGE 09/19/17 03:15 10/19/17 03:14 09/22/17 18:15 Albuterol/ Ipratropium (Albuterol/ Ipratropium) 3 ml Q6HRT HHN 09/19/17 07:00 09/24/17 06:59 09/22/17 12:40 Cefepime HCl 1 gm/ Dextrose 55 ml @ 110 mls/hr Q24H IVPB 09/21/17 09:00 09/26/17 08:59 09/22/17 08:36 Chlorhexidine Gluconate (Serena-Hex 2%) 1 applic DAILY@1999 TOPIC 09/20/17 20:00 10/20/17 19:59 09/22/17 19:43 Dextrose (Dextrose 50%) STAT PRN IV Hypoglycemia 09/19/17 12:30 10/19/17 12:29 Hydrocortisone (Solu-CORTEF) 100 mg EVERY 8 HOURS IV 09/20/17 14:00 10/20/17 13:59 09/22/17 14:14 Insulin Aspart (NovoLOG) Q6HR SUBQ 09/19/17 13:00 10/19/17 12:59 09/22/17 17:27 Lorazepam (Ativan) 0.5 mg TIDPRN PRN ORAL For Anxiety 09/20/17 16:15 09/27/17 16:14 09/22/17 16:27 Norepinephrine Bitartrate 8 mg/ Dextrose 250 ml @ 0 mls/hr Q24H IV 09/19/17 23:30 10/19/17 23:29 09/20/17 22:04 Pantoprazole (Protonix) 40 mg DAILY IVP 09/20/17 10:00 10/20/17 09:59 09/22/17 08:36 Potassium Chloride 20 meq/ Dextrose 1,010 ml @ 35 mls/hr Q24H IV 09/21/17 11:45 10/21/17 11:44 09/22/17 12:13 Vancomycin HCl (Vanco rx to dose) 1 ea DAILY PRN MISC Per rx protocol 09/19/17 03:15 10/19/17 03:14 Vancomycin HCl/ Dextrose 250 ml @ 166.667 mls/hr Q24H IVPB 09/22/17 08:30 09/27/17 08:29 09/22/17 09:05 Laboratory Tests Test 09/22/17 05:30 White Blood Count 5.1 K/UL (4.8-10.8) Red Blood Count 3.32 M/UL (4.20-5.40) L Hemoglobin 10.7 G/DL (12.0-16.0) L Hematocrit 32.6 % (37.0-47.0) L Mean Corpuscular Volume 98 FL (80-99) Mean Corpuscular Hemoglobin 32.1 PG (27.0-31.0) H Mean Corpuscular Hemoglobin Concent 32.7 G/DL (32.0-36.0) Red Cell Distribution Width 12.7 % (11.6-14.8) Platelet Count 102 K/UL (150-450) L Mean Platelet Volume 9.4 FL (6.5-10.1) Neutrophils (%) (Auto) % (45.0-75.0) Lymphocytes (%) (Auto) % (20.0-45.0) Monocytes (%) (Auto) % (1.0-10.0) Eosinophils (%) (Auto) % (0.0-3.0) Basophils (%) (Auto) % (0.0-2.0) Sodium Level 144 MMOL/L (136-145) Potassium Level 2.5 MMOL/L (3.5-5.1) *L Chloride Level 112 MMOL/L (98-107) H Carbon Dioxide Level 23 MMOL/L (21-32) Anion Gap 11 mmol/L (5-15) Blood Urea Nitrogen 9 mg/dL (7-18) Creatinine 0.6 MG/DL (0.55-1.30) Estimat Glomerular Filtration Rate mL/min (>60) Glucose Level 151 MG/DL (74-106) H Calcium Level 6.6 MG/DL (8.5-10.1) L Total Bilirubin 0.3 MG/DL (0.2-1.0) Aspartate Amino Transf (AST/SGOT) 49 U/L (15-37) H Alanine Aminotransferase (ALT/SGPT) 42 U/L (12-78) Alkaline Phosphatase 78 U/L (46-116) Total Protein 5.2 G/DL (6.4-8.2) L Albumin 1.5 G/DL (3.4-5.0) L Globulin 3.7 g/dL Albumin/Globulin Ratio 0.4 (1.0-2.7) L Vancomycin Level Trough 3.9 ug/mL (5.0-12.0) L RAYNA WHITAKER DO Sep 22, 2017 21:22
[2017-09-23] VITALS (24 sets, daily range): BP systolic 83–152; BP diastolic 42–79
[2017-09-23] MEDS: Hydrocortisone 100mg Inj IV SCH ×3 (00:30→21:35)
[2017-09-23] MEDS: NovoLOG Insulin Flexpen SUBQ SCH ×4 (00:35→18:11)
[2017-09-23] MEDS: Albuterol/Ipratropium 3ml neb HHN SCH ×4 (01:14→18:40)
--- NOTE | 2017-09-23 01:45 | Progress Note ---
DATE: 09/22/2017 CARDIOLOGY PROGRESS NOTE SUBJECTIVE: The patient remains in the intensive care unit. She is on ventilator support. Weaning is not pursued yet. The patient remains on pressors. Blood pressure parameters are improving. OBJECTIVE: VITAL SIGNS: Blood pressure is 113/51, pulse rate 100, respiratory rate 25, afebrile, T-max 102.6 yesterday evening. CHEST: Coarse breath sounds. Scattered rhonchi. HEART: Regular rhythm and rate. Normal S1, S2 with a fourth heart sound. ABDOMEN: Soft and nontender. EXTREMITIES: No edema. IMPRESSION: 1. Sepsis with recovering shock. 2. Thrombocytopenia. 3. Respiratory failure. 4. Moderate protein-calorie malnutrition. 5. Dehydration. 6. Hyponatremia. 7. Acute renal failure. 8. Healthcare-acquired pneumonia. 9. Non-ST elevation myocardial infarction. 10. Recovered lactic acidosis. PLAN: 1. Discontinue pressors. 2. Monitor volume status. 3. Fluid challenge for low range of blood pressure. 4. Taper off hypotonic IV fluids. 5. Monitor electrolytes. 6. Stress ulcer and DVT prophylaxis. 7. May add beta-aggie, if blood pressure parameters remain stable. 8. Steroid taper. 9. Consider antiplatelet therapy if no signs of bleeding once off pressors. Davy Robbins M.D. DR: Toni JOB#: [id number] CC:
[2017-09-23 06:12] LABS: HEMATOCRIT 37.7 % (37.0-47.0); HEMOGLOBIN 12.4 G/DL (12.0-16.0); MEAN CORPUSCULAR VOLUME 98 FL (80-99); PLATELET COUNT 121 K/UL (150-450); RED BLOOD COUNT 3.86 M/UL (4.20-5.40); RED CELL DISTRIBUTION WIDTH 12.9 % (11.6-14.8)
[2017-09-23 06:24] LABS: ALANINE AMINOTRANSFERASE 63 U/L (12-78); ALBUMIN 1.6 G/DL (3.4-5.0); ALBUMIN/GLOBULIN RATIO 0.4 (1.0-2.7); ALKALINE PHOSPHATASE 86 U/L (46-116); ANION GAP 9 mmol/L (5-15); ASPARTATE AMINO TRANSFERASE 87 U/L (15-37); BILIRUBIN,TOTAL 0.3 MG/DL (0.2-1.0); BLOOD UREA NITROGEN 7 mg/dL (7-18); CALCIUM 6.8 MG/DL (8.5-10.1); CARBON DIOXIDE 27 MMOL/L (21-32); CHLORIDE 107 MMOL/L (98-107); CREATININE 0.7 MG/DL (0.55-1.30); SODIUM 143 MMOL/L (136-145)
--- NOTE | 2017-09-23 09:24 | General Progress Note ---
Assessment/Plan Problem List: (1) Dehydration ICD Codes: E86.0 - Dehydration SNOMED: 66236413 (2) Hypernatremia ICD Codes: E87.0 - Hyperosmolality and hypernatremia SNOMED: 14948407 (3) Malnutrition of moderate degree ICD Codes: E44.0 - Moderate protein-calorie malnutrition SNOMED: 783504593 (4) BOB (acute kidney injury) ICD Codes: N17.9 - Acute kidney failure, unspecified SNOMED: 15810249 (5) Sepsis ICD Codes: A41.9 - Sepsis, unspecified organism SNOMED: 93531331, 788306927 Qualifiers: Qualified Codes: A41.9 - Sepsis, unspecified organism (6) UTI (urinary tract infection) ICD Codes: N39.0 - Urinary tract infection, site not specified SNOMED: 41126691, 897032010 Qualifiers: Qualified Codes: N39.0 - Urinary tract infection, site not specified (7) Elevated troponin ICD Codes: R74.8 - Abnormal levels of other serum enzymes SNOMED: 355721932, 458649859 Status: stable, not improved Assessment/Plan iv abx off pressors currently dc ivf tolerating feeds follow up cultures vent- wean as able resp rx monitor lytes replace as needed dvt/stress ulcer prophylaxis critical and guarded Subjective ROS Limited/Unobtainable: Yes Constitutional: Reports: malaise, weakness HEENT: Reports: no symptoms Cardiovascular: Reports: no symptoms Respiratory: Reports: shortness of breath, sputum Gastrointestinal/Abdominal: Reports: difficulty swallowing Genitourinary: Reports: no symptoms Neurologic/Psychiatric: Reports: pre-existing deficit Endocrine: Reports: no symptoms Hematologic/Lymphatic: Reports: anemia Allergies: Coded Allergies: No Known Allergies (Unverified , 09/18/17) All Systems: reviewed and negative except above Subjective events noted. remains intubated. off pressors. labs noted. +fevers. Objective Last 24 Hour Vital Signs Date Time Temp Pulse Resp B/P (MAP) Pulse Ox O2 Delivery O2 Flow Rate FiO2 09/23/17 07:21 115 33 40 09/23/17 07:20 Mechanical Ventilator 09/23/17 07:20 115 33 96 Mechanical Ventilator 09/23/17 07:00 116 32 99/52 97 Mechanical Ventilator 40 09/23/17 06:00 115 33 119/59 97 Mechanical Ventilator 40 09/23/17 05:09 128 35 40 09/23/17 05:00 131 34 113/58 94 Mechanical Ventilator 40 09/23/17 04:00 99.8 141 38 140/73 94 Mechanical Ventilator 40 09/23/17 04:00 141 09/23/17 04:00 40 09/23/17 03:05 98.5 09/23/17 03:02 142 37 40 09/23/17 03:00 142 38 139/74 95 Mechanical Ventilator 40 09/23/17 02:00 144 38 136/71 95 Mechanical Ventilator 40 09/23/17 01:29 135 35 97 Mechanical Ventilator 55 09/23/17 01:15 55 09/23/17 01:13 135 38 96 Mechanical Ventilator 55 09/23/17 01:11 135 38 40 09/23/17 01:00 101.3 135 37 140/71 96 Mechanical Ventilator 40 09/23/17 00:00 140 09/23/17 00:00 40 09/23/17 00:00 140 36 148/76 94 Mechanical Ventilator 40 09/22/17 23:30 148/76 09/22/17 23:00 145 37 151/77 94 Mechanical Ventilator 40 09/22/17 22:56 144 37 40 09/22/17 22:00 144 37 154/80 94 Mechanical Ventilator 40 09/22/17 21:06 140 37 40 09/22/17 21:00 139 35 152/75 94 Mechanical Ventilator 40 09/22/17 20:00 40 09/22/17 20:00 99.2 135 37 137/73 93 Mechanical Ventilator 40 09/22/17 20:00 135 09/22/17 19:00 137 37 142/70 94 Mechanical Ventilator 40 09/22/17 18:50 Mechanical Ventilator 09/22/17 18:46 40 09/22/17 18:45 140 37 94 Mechanical Ventilator 40 09/22/17 18:43 140 37 40 09/22/17 18:00 101.2 140 37 155/76 93 Mechanical Ventilator 40 09/22/17 17:00 137 31 153/82 94 Mechanical Ventilator 40 09/22/17 16:38 138 32 40 09/22/17 16:00 136 09/22/17 16:00 98.8 136 31 166/75 93 Mechanical Ventilator 40 09/22/17 16:00 40 09/22/17 15:02 112 26 40 09/22/17 15:00 114 28 118/63 99 Mechanical Ventilator 40 09/22/17 14:00 115 24 98/49 99 Mechanical Ventilator 40 09/22/17 13:00 119 22 128/85 96 Mechanical Ventilator 40 09/22/17 12:30 98 26 40 09/22/17 12:30 104 26 100 Mechanical Ventilator 40 09/22/17 12:20 40 09/22/17 12:20 104 26 97 Mechanical Ventilator 40 09/22/17 12:02 98.2 102 25 130/62 96 Mechanical Ventilator 40 09/22/17 11:57 40 09/22/17 11:56 104 09/22/17 11:23 98 27 40 09/22/17 11:00 101 26 128/66 96 Mechanical Ventilator 40 09/22/17 10:00 102 25 113/61 96 Mechanical Ventilator 40 Intake and Output 09/22/17 09/23/17 19:00 07:00 Intake Total 1471.6 ml 965 ml Output Total 596 ml 510 ml Balance 875.6 ml 455 ml Intake Free Water 60 ml 30 ml IV Total 811.6 ml 385 ml Tube Feeding 600 ml 550 ml Output Urine Total 596 ml 510 ml # Bowel Movements 6 4 Laboratory Tests 09/23/17 05:00: White Blood Count 8.0#, Red Blood Count 3.86L, Hemoglobin 12.4, Hematocrit 37.7 , Mean Corpuscular Volume 98, Mean Corpuscular Hemoglobin 32.0H, Mean Corpuscular Hemoglobin Concent 32.8, Red Cell Distribution Width 12.9, Platelet Count 121L, Mean Platelet Volume 8.2, Neutrophils (%) (Auto) , Lymphocytes (%) ( Auto) , Monocytes (%) (Auto) , Eosinophils (%) (Auto) , Basophils (%) (Auto) , Sodium Level 143, Potassium Level 3.0L, Chloride Level 107, Carbon Dioxide Level 27, Anion Gap 9, Blood Urea Nitrogen 7, Creatinine 0.7, Estimat Glomerular Filtration Rate , Glucose Level 144H, Calcium Level 6.8L, Total Bilirubin 0.3, Aspartate Amino Transf (AST/SGOT) 87H, Alanine Aminotransferase ( ALT/SGPT) 63, Alkaline Phosphatase 86, Troponin I 0.143H, Total Protein 5.9L, Albumin 1.6L, Globulin 4.3, Albumin/Globulin Ratio 0.4L 09/23/17 08:55: Arterial Blood pH 7.522H, Arterial Blood Partial Pressure CO2 30.1L, Arterial Blood Partial Pressure O2 69.2L, Arterial Blood HCO3 24.2, Arterial Blood Oxygen Saturation 95.7, Arterial Blood Base Excess 1.9, [place] Test Positive Height (Feet): 5 Height (Inches): 2.00 Weight (Pounds): 129 Objective General Appearance: WD/WN, lethargic, confused Neck: supple Cardiovascular: normal rate, regular rhythm Respiratory/Chest: rhonchi - bilaterally Abdomen: normal bowel sounds, non tender, soft, no organomegaly Edema: no edema noted Arm (L), no edema noted Arm (R), no edema noted Leg (L), no edema noted Leg (R), no edema noted Pedal (L), no edema noted Pedal (R), no edema noted Generalized Neurologic: unresponsive KRYSTINA LENTZ Sep 23, 2017 09:24
--- NOTE | 2017-09-23 09:44 | Nephrology Progress Note ---
Assessment/Plan Problem List: (1) Malnutrition of moderate degree (2) Hypernatremia (3) BOB (acute kidney injury) (4) Dehydration (5) Sepsis (6) UTI (urinary tract infection) (7) Elevated troponin (8) Hypokalemia Plan reduce iv, rx sepsis, kcl replace Subjective ROS Limited/Unobtainable: Yes Objective Objective Last 24 Hour Vital Signs Date Time Temp Pulse Resp B/P (MAP) Pulse Ox O2 Delivery O2 Flow Rate FiO2 09/23/17 09:00 110 32 98/46 96 Mechanical Ventilator 40 09/23/17 08:48 105 31 40 09/23/17 08:00 105 09/23/17 08:00 40 09/23/17 08:00 99.6 114 32 119/59 97 Mechanical Ventilator 40 09/23/17 07:21 115 33 40 09/23/17 07:20 Mechanical Ventilator 09/23/17 07:20 115 33 96 Mechanical Ventilator 09/23/17 07:00 116 32 99/52 97 Mechanical Ventilator 40 09/23/17 06:00 115 33 119/59 97 Mechanical Ventilator 40 09/23/17 05:09 128 35 40 09/23/17 05:00 131 34 113/58 94 Mechanical Ventilator 40 09/23/17 04:00 99.8 141 38 140/73 94 Mechanical Ventilator 40 09/23/17 04:00 141 09/23/17 04:00 40 09/23/17 03:05 98.5 09/23/17 03:02 142 37 40 09/23/17 03:00 142 38 139/74 95 Mechanical Ventilator 40 09/23/17 02:00 144 38 136/71 95 Mechanical Ventilator 40 09/23/17 01:29 135 35 97 Mechanical Ventilator 55 09/23/17 01:15 55 09/23/17 01:13 135 38 96 Mechanical Ventilator 55 09/23/17 01:11 135 38 40 09/23/17 01:00 101.3 135 37 140/71 96 Mechanical Ventilator 40 09/23/17 00:00 140 09/23/17 00:00 40 09/23/17 00:00 140 36 148/76 94 Mechanical Ventilator 40 09/22/17 23:30 148/76 09/22/17 23:00 145 37 151/77 94 Mechanical Ventilator 40 09/22/17 22:56 144 37 40 09/22/17 22:00 144 37 154/80 94 Mechanical Ventilator 40 09/22/17 21:06 140 37 40 09/22/17 21:00 139 35 152/75 94 Mechanical Ventilator 40 09/22/17 20:00 40 09/22/17 20:00 99.2 135 37 137/73 93 Mechanical Ventilator 40 09/22/17 20:00 135 09/22/17 19:00 137 37 142/70 94 Mechanical Ventilator 40 09/22/17 18:50 Mechanical Ventilator 09/22/17 18:46 40 09/22/17 18:45 140 37 94 Mechanical Ventilator 40 09/22/17 18:43 140 37 40 09/22/17 18:00 101.2 140 37 155/76 93 Mechanical Ventilator 40 09/22/17 17:00 137 31 153/82 94 Mechanical Ventilator 40 09/22/17 16:38 138 32 40 09/22/17 16:00 136 09/22/17 16:00 98.8 136 31 166/75 93 Mechanical Ventilator 40 09/22/17 16:00 40 09/22/17 15:02 112 26 40 09/22/17 15:00 114 28 118/63 99 Mechanical Ventilator 40 09/22/17 14:00 115 24 98/49 99 Mechanical Ventilator 40 09/22/17 13:00 119 22 128/85 96 Mechanical Ventilator 40 09/22/17 12:30 98 26 40 09/22/17 12:30 104 26 100 Mechanical Ventilator 40 09/22/17 12:20 40 09/22/17 12:20 104 26 97 Mechanical Ventilator 40 09/22/17 12:02 98.2 102 25 130/62 96 Mechanical Ventilator 40 09/22/17 11:57 40 09/22/17 11:56 104 09/22/17 11:23 98 27 40 09/22/17 11:00 101 26 128/66 96 Mechanical Ventilator 40 09/22/17 10:00 102 25 113/61 96 Mechanical Ventilator 40 Intake and Output 09/22/17 09/23/17 19:00 07:00 Intake Total 1471.6 ml 1050 ml Output Total 596 ml 550 ml Balance 875.6 ml 500 ml Intake Free Water 60 ml 30 ml IV Total 811.6 ml 420 ml Tube Feeding 600 ml 600 ml Output Urine Total 596 ml 550 ml # Bowel Movements 6 4 Laboratory Tests 09/23/17 05:00: White Blood Count 8.0#, Red Blood Count 3.86L, Hemoglobin 12.4, Hematocrit 37.7 , Mean Corpuscular Volume 98, Mean Corpuscular Hemoglobin 32.0H, Mean Corpuscular Hemoglobin Concent 32.8, Red Cell Distribution Width 12.9, Platelet Count 121L, Mean Platelet Volume 8.2, Neutrophils (%) (Auto) , Lymphocytes (%) ( Auto) , Monocytes (%) (Auto) , Eosinophils (%) (Auto) , Basophils (%) (Auto) , Sodium Level 143, Potassium Level 3.0L, Chloride Level 107, Carbon Dioxide Level 27, Anion Gap 9, Blood Urea Nitrogen 7, Creatinine 0.7, Estimat Glomerular Filtration Rate , Glucose Level 144H, Calcium Level 6.8L, Total Bilirubin 0.3, Aspartate Amino Transf (AST/SGOT) 87H, Alanine Aminotransferase ( ALT/SGPT) 63, Alkaline Phosphatase 86, Troponin I 0.143H, Total Protein 5.9L, Albumin 1.6L, Globulin 4.3, Albumin/Globulin Ratio 0.4L 09/23/17 08:55: Arterial Blood pH 7.522H, Arterial Blood Partial Pressure CO2 30.1L, Arterial Blood Partial Pressure O2 69.2L, Arterial Blood HCO3 24.2, Arterial Blood Oxygen Saturation 95.7, Arterial Blood Base Excess 1.9, Weston Test Positive Height (Feet): 5 Height (Inches): 2.00 Weight (Pounds): 129 General Appearance: lethargic EENT: normal ENT inspection Neck: normal alignment Cardiovascular: regular rhythm Respiratory/Chest: rhonchi - bilaterally Abdomen: non tender, soft Extremities: trace edema Neurologic: unresponsive GM SINGH Sep 23, 2017 09:44
[2017-09-23] MEDS: Cefepime HCl 1 GM in D5W 55 ML IVPB SCH (10:01)
[2017-09-23] MEDS: Vancomycin 1250mg/D5W 250ml IVPB SCH (11:24)
[2017-09-23] MEDS: Pantoprazole Inj IVP SCH (11:38)
[2017-09-23] MEDS: D5W w/KCl 20mEq 1,000 ML IV SCH (12:09)
--- NOTE | 2017-09-23 12:15 | Diagnostic Imaging Report ---
Indication: Dyspnea Technique: XRAY Chest 1v Comparison: 09/21/2017 Findings: ET tube, central line and NG tube unchanged in position. Heart size and mediastinal contours are stable. Questionable hazy opacity in the right midlung not seen previously. This may represent developing infiltrate versus artifact. Follow-up exam recommended. No pleural effusion. No pneumothorax. No acute osseous abnormality seen. Impression: Question vague opacity in the right midlung, possibly representing developing infiltrate vs artifact. Follow up exam recommended.
--- NOTE | 2017-09-23 13:38 | Pulmonology Progress Note ---
Assessment/Plan Assessment/Plan IMPRESSION: 1. Septic shock, resolved 2. Respiratory failure, on vent 3. Sepsis, likely skin source. 4. Severe dehydration with hypernatremia, improved 5. Dementia. 6. History of hypertension. 7. 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 PLAN: vent pressors abx cannot wean yet Subjective ROS Limited/Unobtainable: Yes Allergies: Coded Allergies: No Known Allergies (Unverified , 09/18/17) Objective Last 24 Hour Vital Signs Date Time Temp Pulse Resp B/P (MAP) Pulse Ox O2 Delivery O2 Flow Rate FiO2 09/23/17 13:30 100 29 40 09/23/17 13:00 101 29 120/53 95 Mechanical Ventilator 40 09/23/17 12:00 98.6 95 29 83/42 96 Mechanical Ventilator 40 09/23/17 12:00 95 09/23/17 12:00 40 09/23/17 11:00 96 29 89/44 97 Mechanical Ventilator 40 09/23/17 10:51 96 30 40 09/23/17 10:00 104 30 107/49 97 Mechanical Ventilator 40 09/23/17 09:00 110 32 98/46 96 Mechanical Ventilator 40 09/23/17 08:48 105 31 40 09/23/17 08:00 105 09/23/17 08:00 40 09/23/17 08:00 99.6 114 32 119/59 97 Mechanical Ventilator 40 09/23/17 07:21 115 33 40 09/23/17 07:20 Mechanical Ventilator 09/23/17 07:20 115 33 96 Mechanical Ventilator 09/23/17 07:00 116 32 99/52 97 Mechanical Ventilator 40 09/23/17 06:00 115 33 119/59 97 Mechanical Ventilator 40 09/23/17 05:09 128 35 40 09/23/17 05:00 131 34 113/58 94 Mechanical Ventilator 40 09/23/17 04:00 99.8 141 38 140/73 94 Mechanical Ventilator 40 09/23/17 04:00 141 09/23/17 04:00 40 09/23/17 03:05 98.5 09/23/17 03:02 142 37 40 09/23/17 03:00 142 38 139/74 95 Mechanical Ventilator 40 09/23/17 02:00 144 38 136/71 95 Mechanical Ventilator 40 09/23/17 01:29 135 35 97 Mechanical Ventilator 55 09/23/17 01:15 55 09/23/17 01:13 135 38 96 Mechanical Ventilator 55 09/23/17 01:11 135 38 40 09/23/17 01:00 101.3 135 37 140/71 96 Mechanical Ventilator 40 09/23/17 00:00 140 09/23/17 00:00 40 09/23/17 00:00 140 36 148/76 94 Mechanical Ventilator 40 09/22/17 23:30 148/76 09/22/17 23:00 145 37 151/77 94 Mechanical Ventilator 40 09/22/17 22:56 144 37 40 09/22/17 22:00 144 37 154/80 94 Mechanical Ventilator 40 09/22/17 21:06 140 37 40 09/22/17 21:00 139 35 152/75 94 Mechanical Ventilator 40 09/22/17 20:00 40 09/22/17 20:00 99.2 135 37 137/73 93 Mechanical Ventilator 40 09/22/17 20:00 135 09/22/17 19:00 137 37 142/70 94 Mechanical Ventilator 40 09/22/17 18:50 Mechanical Ventilator 09/22/17 18:46 40 09/22/17 18:45 140 37 94 Mechanical Ventilator 40 09/22/17 18:43 140 37 40 09/22/17 18:00 101.2 140 37 155/76 93 Mechanical Ventilator 40 09/22/17 17:00 137 31 153/82 94 Mechanical Ventilator 40 09/22/17 16:38 138 32 40 09/22/17 16:00 136 09/22/17 16:00 98.8 136 31 166/75 93 Mechanical Ventilator 40 09/22/17 16:00 40 09/22/17 15:02 112 26 40 09/22/17 15:00 114 28 118/63 99 Mechanical Ventilator 40 09/22/17 14:00 115 24 98/49 99 Mechanical Ventilator 40 Intake and Output 09/22/17 09/23/17 19:00 07:00 Intake Total 1471.6 ml 1050 ml Output Total 596 ml 550 ml Balance 875.6 ml 500 ml Intake Free Water 60 ml 30 ml IV Total 811.6 ml 420 ml Tube Feeding 600 ml 600 ml Output Urine Total 596 ml 550 ml # Bowel Movements 6 4 General Appearance: no acute distress HEENT: atraumatic Respiratory/Chest: rhonchi Cardiovascular: normal rate Abdomen: soft, non tender Laboratory Tests 09/23/17 05:00: White Blood Count 8.0#, Red Blood Count 3.86L, Hemoglobin 12.4, Hematocrit 37.7 , Mean Corpuscular Volume 98, Mean Corpuscular Hemoglobin 32.0H, Mean Corpuscular Hemoglobin Concent 32.8, Red Cell Distribution Width 12.9, Platelet Count 121L, Mean Platelet Volume 8.2, Neutrophils (%) (Auto) , Lymphocytes (%) ( Auto) , Monocytes (%) (Auto) , Eosinophils (%) (Auto) , Basophils (%) (Auto) , Sodium Level 143, Potassium Level 3.0L, Chloride Level 107, Carbon Dioxide Level 27, Anion Gap 9, Blood Urea Nitrogen 7, Creatinine 0.7, Estimat Glomerular Filtration Rate , Glucose Level 144H, Calcium Level 6.8L, Total Bilirubin 0.3, Aspartate Amino Transf (AST/SGOT) 87H, Alanine Aminotransferase ( ALT/SGPT) 63, Alkaline Phosphatase 86, Troponin I 0.143H, Total Protein 5.9L, Albumin 1.6L, Globulin 4.3, Albumin/Globulin Ratio 0.4L 09/23/17 08:55: Arterial Blood pH 7.522H, Arterial Blood Partial Pressure CO2 30.1L, Arterial Blood Partial Pressure O2 69.2L, Arterial Blood HCO3 24.2, Arterial Blood Oxygen Saturation 95.7, Arterial Blood Base Excess 1.9, Weston Test Positive Current Medications Medications (Trade) Dose Ordered Sig/Lilly Route PRN Reason Start Time Stop Time Status Last Admin Dose Admin Acetaminophen (Tylenol) 650 mg EVERY 4 HOURS PRN ORAL fever/PAGE 09/19/17 03:15 10/19/17 03:14 09/23/17 02:05 Albuterol/ Ipratropium (Albuterol/ Ipratropium) 3 ml Q6HRT HHN 09/19/17 07:00 09/24/17 06:59 09/23/17 13:35 Cefepime HCl 1 gm/ Dextrose 55 ml @ 110 mls/hr Q24H IVPB 09/21/17 09:00 09/26/17 08:59 09/23/17 10:01 Chlorhexidine Gluconate (Serena-Hex 2%) 1 applic DAILY@1999 TOPIC 09/20/17 20:00 10/20/17 19:59 09/22/17 19:43 Dextrose (Dextrose 50%) STAT PRN IV Hypoglycemia 09/19/17 12:30 10/19/17 12:29 Dextrose/ Electrolytes 1,000 ml @ 35 mls/hr Q24H IV 09/23/17 11:45 10/23/17 11:44 09/23/17 12:09 Hydrocortisone (Solu-CORTEF) 100 mg EVERY 12 HOURS IV 09/23/17 09:00 10/20/17 13:59 09/23/17 11:38 Insulin Aspart (NovoLOG) Q6HR SUBQ 09/19/17 13:00 10/19/17 12:59 09/23/17 12:26 Lorazepam (Ativan) 0.5 mg TIDPRN PRN ORAL For Anxiety 09/20/17 16:15 09/27/17 16:14 09/22/17 16:27 Pantoprazole (Protonix) 40 mg DAILY IVP 09/20/17 10:00 10/20/17 09:59 09/23/17 11:38 Potassium Chloride (K-Dur) 40 meq Q4H GT 09/23/17 16:00 09/23/17 20:01 Vancomycin HCl (Vanco rx to dose) 1 ea DAILY PRN MISC Per rx protocol 09/19/17 03:15 10/19/17 03:14 Vancomycin HCl/ Dextrose 250 ml @ 166.667 mls/hr Q24H IVPB 09/22/17 08:30 09/27/17 08:29 09/23/17 11:24 SAMANTHA GIVENS Sep 23, 2017 13:38
[2017-09-23] MEDS: Dyna-Hex 2% Top Sol 2oz TOPIC SCH (19:35)
[2017-09-24] VITALS (24 sets, daily range): BP systolic 100–158; BP diastolic 59–82
[2017-09-24] MEDS: NovoLOG Insulin Flexpen SUBQ SCH ×4 (00:11→18:17)
[2017-09-24] MEDS: Albuterol/Ipratropium 3ml neb HHN SCH (00:44)
--- NOTE | 2017-09-24 04:00 | Progress Note ---
DATE: 09/23/2017 CARDIOLOGY PROGRESS NOTE SUBJECTIVE: The patient remains critical and guarded in the intensive care unit on ventilator support. The patient is off pressors with stabilized blood pressure parameters. OBJECTIVE: VITAL SIGNS: Blood pressure 99/52, pulse 116, respiratory rate 32, and afebrile. CHEST: Coarse breath sounds. Scattered rhonchi. HEART: Regular rhythm. Rapid rate. Normal S1 and S2. ABDOMEN: Soft. Feeding tube intact. EXTREMITIES: With trace dependent edema and decreased capillary refill. LABORATORY DATA: White count 8, hemoglobin 12. ABG, pH 7.52, pCO2 30, pO2 69. Troponin 0.143. Albumin 1.6. Potassium 3.0, BUN 7, and creatinine 0.7. IMPRESSION: 1. Sepsis with shock. 2. Hypokalemia. 3. Respiratory failure. 4. Healthcare-acquired and aspiration pneumonia, resolved. 5. Dehydration. 6. Hypernatremia, recovered. 7. Renal failure. 8. Acute myocardial infarction. 9. Severe protein-calorie malnutrition. 10. Cerebrovascular disease with dementia. 11. Critical and guarded. PLAN: 1. Continue tapering off steroids. 2. Continue broad-spectrum antibiotics. 3. Ventilator support with weaning. 4. Followup chest radiograph. 5. DVT and stress ulcer prophylaxis. Davy Robbins M.D. DR: Toni JOB#: [id number] CC:
[2017-09-24 05:55] LABS: HEMATOCRIT 31.7 % (37.0-47.0); HEMOGLOBIN 10.6 G/DL (12.0-16.0); MEAN CORPUSCULAR VOLUME 97 FL (80-99); PLATELET COUNT 120 K/UL (150-450); RED BLOOD COUNT 3.26 M/UL (4.20-5.40); RED CELL DISTRIBUTION WIDTH 12.6 % (11.6-14.8); WHITE BLOOD COUNT 10.6 K/UL (4.8-10.8)
[2017-09-24 06:48] LABS: ALANINE AMINOTRANSFERASE 82 U/L (12-78); ALBUMIN 1.3 G/DL (3.4-5.0); ALBUMIN/GLOBULIN RATIO 0.3 (1.0-2.7); ALKALINE PHOSPHATASE 68 U/L (46-116); ANION GAP 8 mmol/L (5-15); ASPARTATE AMINO TRANSFERASE 123 U/L (15-37); BILIRUBIN,TOTAL 0.3 MG/DL (0.2-1.0); BLOOD UREA NITROGEN 8 mg/dL (7-18); CALCIUM 6.7 MG/DL (8.5-10.1); CARBON DIOXIDE 25 MMOL/L (21-32); CHLORIDE 108 MMOL/L (98-107); CREATININE 0.7 MG/DL (0.55-1.30); POTASSIUM 4.3 MMOL/L (3.5-5.1); SODIUM 141 MMOL/L (136-145)
--- NOTE | 2017-09-24 08:08 | General Progress Note ---
Assessment/Plan Problem List: (1) Dehydration ICD Codes: E86.0 - Dehydration SNOMED: 27192751 (2) Hypernatremia ICD Codes: E87.0 - Hyperosmolality and hypernatremia SNOMED: 76146712 (3) Malnutrition of moderate degree ICD Codes: E44.0 - Moderate protein-calorie malnutrition SNOMED: 169475595 (4) BOB (acute kidney injury) ICD Codes: N17.9 - Acute kidney failure, unspecified SNOMED: 81663709 (5) Sepsis ICD Codes: A41.9 - Sepsis, unspecified organism SNOMED: 31973518, 978020920 Qualifiers: Qualified Codes: A41.9 - Sepsis, unspecified organism (6) UTI (urinary tract infection) ICD Codes: N39.0 - Urinary tract infection, site not specified SNOMED: 92391307, 049734542 Qualifiers: Qualified Codes: N39.0 - Urinary tract infection, site not specified (7) Elevated troponin ICD Codes: R74.8 - Abnormal levels of other serum enzymes SNOMED: 282499686, 181158223 Status: stable, not improved Assessment/Plan iv abx off pressors currently dc ivf dc central line- culture tip ?picc tolerating feeds follow up cultures vent- wean as able resp rx monitor lytes replace as needed dvt/stress ulcer prophylaxis critical and guarded Subjective ROS Limited/Unobtainable: No Constitutional: Reports: malaise, weakness HEENT: Reports: no symptoms Cardiovascular: Reports: no symptoms Respiratory: Reports: no symptoms Gastrointestinal/Abdominal: Reports: no symptoms Genitourinary: Reports: no symptoms Neurologic/Psychiatric: Reports: pre-existing deficit Endocrine: Reports: no symptoms Allergies: Coded Allergies: No Known Allergies (Unverified , 09/18/17) All Systems: reviewed and negative except above Subjective events noted. remains intubated. off pressors. labs noted. +fevers. Objective Last 24 Hour Vital Signs Date Time Temp Pulse Resp B/P (MAP) Pulse Ox O2 Delivery O2 Flow Rate FiO2 09/24/17 07:00 116 31 132/70 98 Mechanical Ventilator 40 09/24/17 06:45 116 33 70 09/24/17 06:00 116 30 130/66 98 Mechanical Ventilator 40 09/24/17 05:00 122 31 132/66 98 Mechanical Ventilator 40 09/24/17 04:37 126 31 70 09/24/17 04:00 126 09/24/17 04:00 98.9 126 33 130/69 99 Mechanical Ventilator 40 09/24/17 04:00 40 09/24/17 03:00 114 30 121/63 99 Mechanical Ventilator 40 09/24/17 02:57 114 28 70 09/24/17 02:00 119 27 100/61 98 Mechanical Ventilator 40 09/24/17 01:10 99.4 09/24/17 01:00 99.4 131 29 118/66 98 Mechanical Ventilator 40 09/24/17 00:45 136 35 80 09/24/17 00:44 Mechanical Ventilator 40 09/24/17 00:44 136 Mechanical Ventilator 40 09/24/17 00:00 138 09/24/17 00:00 40 09/24/17 00:00 102.2 138 26 153/78 96 Mechanical Ventilator 40 09/23/17 23:00 139 26 152/79 96 Mechanical Ventilator 40 09/23/17 22:59 142 35 80 09/23/17 22:00 139 26 144/75 96 Mechanical Ventilator 40 09/23/17 21:00 111 24 120/66 98 Mechanical Ventilator 40 09/23/17 20:57 112 30 40 09/23/17 20:00 114 09/23/17 20:00 40 09/23/17 20:00 99.2 114 23 89/51 97 Mechanical Ventilator 40 09/23/17 19:00 114 25 86/49 96 Mechanical Ventilator 40 09/23/17 18:41 118 35 40 09/23/17 18:41 118 34 93 Mechanical Ventilator 40 09/23/17 18:30 118 34 93 Mechanical Ventilator 40 09/23/17 18:30 40 09/23/17 18:00 108 32 92/44 94 Mechanical Ventilator 40 09/23/17 17:00 106 29 92/44 94 Mechanical Ventilator 40 09/23/17 16:42 107 29 40 09/23/17 16:00 113 09/23/17 16:00 99.9 114 32 119/59 97 Mechanical Ventilator 40 09/23/17 16:00 40 09/23/17 15:00 119 30 104/47 92 Mechanical Ventilator 40 09/23/17 14:49 120 31 40 09/23/17 14:00 110 33 120/53 93 Mechanical Ventilator 40 09/23/17 13:42 102 33 96 Mechanical Ventilator 55 09/23/17 13:34 40 09/23/17 13:34 100 30 94 Mechanical Ventilator 40 09/23/17 13:30 100 29 40 09/23/17 13:00 101 29 120/53 95 Mechanical Ventilator 40 09/23/17 12:00 98.6 95 29 83/42 96 Mechanical Ventilator 40 09/23/17 12:00 95 09/23/17 12:00 40 09/23/17 11:00 96 29 89/44 97 Mechanical Ventilator 40 09/23/17 10:51 96 30 40 09/23/17 10:00 104 30 107/49 97 Mechanical Ventilator 40 09/23/17 09:00 110 32 98/46 96 Mechanical Ventilator 40 09/23/17 08:48 105 31 40 Intake and Output 09/23/17 09/24/17 19:00 07:00 Intake Total 1070 ml 1150 ml Output Total 620 ml 530 ml Balance 450 ml 620 ml Intake Free Water 130 ml IV Total 620 ml 420 ml Tube Feeding 450 ml 600 ml Output Urine Total 620 ml 530 ml # Bowel Movements 3 5 Laboratory Tests 09/23/17 08:55: Arterial Blood pH 7.522H, Arterial Blood Partial Pressure CO2 30.1L, Arterial Blood Partial Pressure O2 69.2L, Arterial Blood HCO3 24.2, Arterial Blood Oxygen Saturation 95.7, Arterial Blood Base Excess 1.9, [place]on Test Positive 09/24/17 05:00: White Blood Count 10.6, Red Blood Count 3.26L, Hemoglobin 10.6L, Hematocrit 31.7L, Mean Corpuscular Volume 97, Mean Corpuscular Hemoglobin 32.6H, Mean Corpuscular Hemoglobin Concent 33.5, Red Cell Distribution Width 12.6, Platelet Count 120L, Mean Platelet Volume 9.3, Neutrophils (%) (Auto) , Lymphocytes (%) ( Auto) , Monocytes (%) (Auto) , Eosinophils (%) (Auto) , Basophils (%) (Auto) , Sodium Level 141, Potassium Level 4.3, Chloride Level 108H, Carbon Dioxide Level 25, Anion Gap 8, Blood Urea Nitrogen 8, Creatinine 0.7, Estimat Glomerular Filtration Rate , Glucose Level 95, Calcium Level 6.7L, Magnesium Level 1.9, Total Bilirubin 0.3, Aspartate Amino Transf (AST/SGOT) 123H, Alanine Aminotransferase (ALT/SGPT) 82H, Alkaline Phosphatase 68, Total Protein 5.5L, Albumin 1.3L, Globulin 4.2, Albumin/Globulin Ratio 0.3L Height (Feet): 5 Height (Inches): 2.00 Weight (Pounds): 129 Objective General Appearance: WD/WN, lethargic, confused Neck: supple Cardiovascular: normal rate, regular rhythm Respiratory/Chest: rhonchi - bilaterally Abdomen: normal bowel sounds, non tender, soft, no organomegaly Edema: no edema noted Arm (L), no edema noted Arm (R), no edema noted Leg (L), no edema noted Leg (R), no edema noted Pedal (L), no edema noted Pedal (R), no edema noted Generalized Neurologic: unresponsive KRYSTINA LENTZ Sep 24, 2017 08:08
[2017-09-24] MEDS ORDERED: Lidocaine 1% Plain 30 ml INJ PRN (08:15)
[2017-09-24] MEDS ORDERED: Heparin 2000 units/Ns 1000ml INJ PRN (08:15)
[2017-09-24] MEDS: Cefepime HCl 1 GM in D5W 55 ML IVPB SCH (08:58)
[2017-09-24] MEDS: Vancomycin 1250mg/D5W 250ml IVPB SCH (08:58)
[2017-09-24] MEDS: Pantoprazole Inj IVP SCH (08:59)
[2017-09-24] MEDS: D5W w/KCl 20mEq 1,000 ML IV SCH (08:59)
[2017-09-24] MEDS ORDERED: Hydrocortisone 100mg Inj IV SCH (09:00)
--- NOTE | 2017-09-24 09:02 | Nephrology Progress Note ---
Assessment/Plan Problem List: (1) Malnutrition of moderate degree (2) Hypernatremia (3) BOB (acute kidney injury) (4) Dehydration (5) Sepsis (6) UTI (urinary tract infection) (7) Elevated troponin (8) Hypokalemia Plan reduce iv, rx sepsis, kcl replace Subjective ROS Limited/Unobtainable: Yes Objective Objective Last 24 Hour Vital Signs Date Time Temp Pulse Resp B/P (MAP) Pulse Ox O2 Delivery O2 Flow Rate FiO2 09/24/17 08:00 115 09/24/17 08:00 99.0 110 33 141/68 99 Mechanical Ventilator 40 09/24/17 08:00 40 09/24/17 07:00 116 31 132/70 98 Mechanical Ventilator 40 09/24/17 06:45 116 33 70 09/24/17 06:00 116 30 130/66 98 Mechanical Ventilator 40 09/24/17 05:00 122 31 132/66 98 Mechanical Ventilator 40 09/24/17 04:37 126 31 70 09/24/17 04:00 126 09/24/17 04:00 98.9 126 33 130/69 99 Mechanical Ventilator 40 09/24/17 04:00 40 09/24/17 03:00 114 30 121/63 99 Mechanical Ventilator 40 09/24/17 02:57 114 28 70 09/24/17 02:00 119 27 100/61 98 Mechanical Ventilator 40 09/24/17 01:10 99.4 09/24/17 01:00 99.4 131 29 118/66 98 Mechanical Ventilator 40 09/24/17 00:45 136 35 80 09/24/17 00:44 Mechanical Ventilator 40 09/24/17 00:44 136 Mechanical Ventilator 40 09/24/17 00:00 138 09/24/17 00:00 40 09/24/17 00:00 102.2 138 26 153/78 96 Mechanical Ventilator 40 09/23/17 23:00 139 26 152/79 96 Mechanical Ventilator 40 09/23/17 22:59 142 35 80 09/23/17 22:00 139 26 144/75 96 Mechanical Ventilator 40 09/23/17 21:00 111 24 120/66 98 Mechanical Ventilator 40 09/23/17 20:57 112 30 40 09/23/17 20:00 114 09/23/17 20:00 40 09/23/17 20:00 99.2 114 23 89/51 97 Mechanical Ventilator 40 09/23/17 19:00 114 25 86/49 96 Mechanical Ventilator 40 09/23/17 18:41 118 35 40 09/23/17 18:41 118 34 93 Mechanical Ventilator 40 09/23/17 18:30 118 34 93 Mechanical Ventilator 40 09/23/17 18:30 40 09/23/17 18:00 108 32 92/44 94 Mechanical Ventilator 40 09/23/17 17:00 106 29 92/44 94 Mechanical Ventilator 40 09/23/17 16:42 107 29 40 09/23/17 16:00 113 09/23/17 16:00 99.9 114 32 119/59 97 Mechanical Ventilator 40 09/23/17 16:00 40 09/23/17 15:00 119 30 104/47 92 Mechanical Ventilator 40 09/23/17 14:49 120 31 40 09/23/17 14:00 110 33 120/53 93 Mechanical Ventilator 40 09/23/17 13:42 102 33 96 Mechanical Ventilator 55 09/23/17 13:34 40 09/23/17 13:34 100 30 94 Mechanical Ventilator 40 09/23/17 13:30 100 29 40 09/23/17 13:00 101 29 120/53 95 Mechanical Ventilator 40 09/23/17 12:00 98.6 95 29 83/42 96 Mechanical Ventilator 40 09/23/17 12:00 95 09/23/17 12:00 40 09/23/17 11:00 96 29 89/44 97 Mechanical Ventilator 40 09/23/17 10:51 96 30 40 09/23/17 10:00 104 30 107/49 97 Mechanical Ventilator 40 Intake and Output 09/23/17 09/24/17 19:00 07:00 Intake Total 1070 ml 1150 ml Output Total 620 ml 530 ml Balance 450 ml 620 ml Intake Free Water 130 ml IV Total 620 ml 420 ml Tube Feeding 450 ml 600 ml Output Urine Total 620 ml 530 ml # Bowel Movements 3 5 Laboratory Tests 09/24/17 05:00: White Blood Count 10.6, Red Blood Count 3.26L, Hemoglobin 10.6L, Hematocrit 31.7L, Mean Corpuscular Volume 97, Mean Corpuscular Hemoglobin 32.6H, Mean Corpuscular Hemoglobin Concent 33.5, Red Cell Distribution Width 12.6, Platelet Count 120L, Mean Platelet Volume 9.3, Neutrophils (%) (Auto) , Lymphocytes (%) ( Auto) , Monocytes (%) (Auto) , Eosinophils (%) (Auto) , Basophils (%) (Auto) , Sodium Level 141, Potassium Level 4.3, Chloride Level 108H, Carbon Dioxide Level 25, Anion Gap 8, Blood Urea Nitrogen 8, Creatinine 0.7, Estimat Glomerular Filtration Rate , Glucose Level 95, Calcium Level 6.7L, Magnesium Level 1.9, Total Bilirubin 0.3, Aspartate Amino Transf (AST/SGOT) 123H, Alanine Aminotransferase (ALT/SGPT) 82H, Alkaline Phosphatase 68, Total Protein 5.5L, Albumin 1.3L, Globulin 4.2, Albumin/Globulin Ratio 0.3L Height (Feet): 5 Height (Inches): 2.00 Weight (Pounds): 129 General Appearance: other - intubated EENT: normal ENT inspection Neck: normal alignment Cardiovascular: regular rhythm Respiratory/Chest: rhonchi - bilaterally Abdomen: non tender Extremities: moderate edema Neurologic: unresponsive GM SINGH Sep 24, 2017 09:02
--- NOTE | 2017-09-24 11:50 | Diagnostic Imaging Report ---
Indication: NG tube placed Technique: ABDOMEN 1 VIEW Comparison: 09/19/2017 Findings: NG tube tip in the expected region of the mid stomach. ET tube and central line partially visualized. Bowel gas pattern is nonspecific. No definite consolidation noted in the lung bases. Degenerative changes of the lower lumbar spine noted. No acute osseous abnormality seen. Impression: NG tube tip in the region of the mid stomach.
--- NOTE | 2017-09-24 12:06 | Diagnostic Imaging Report ---
Indication: NG tube Technique: ABDOMEN 1 VIEW Comparison: Earlier the same day Findings: NG tube has been slightly retracted. Tip in the mid stomach. Side port in the proximal stomach. Additional findings unchanged from exam earlier today. Impression: NG tube tip in the mid stomach.
--- NOTE | 2017-09-24 13:28 | Pulmonology Progress Note ---
Assessment/Plan Assessment/Plan IMPRESSION: 1. Septic shock, resolved 2. Respiratory failure, on vent 3. Sepsis, likely skin source. 4. Severe dehydration with hypernatremia, improved 5. Dementia. 6. History of hypertension. 7. 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 PLAN: vent pressors abx cannot wean prognosis poor favor comfort care Subjective ROS Limited/Unobtainable: Yes Allergies: Coded Allergies: No Known Allergies (Unverified , 09/18/17) Objective Last 24 Hour Vital Signs Date Time Temp Pulse Resp B/P (MAP) Pulse Ox O2 Delivery O2 Flow Rate FiO2 09/24/17 12:58 131 33 70 09/24/17 12:50 99.8 09/24/17 12:00 120 09/24/17 12:00 100.1 120 32 153/82 99 Mechanical Ventilator 40 09/24/17 11:54 70 09/24/17 11:00 117 26 138/70 99 Mechanical Ventilator 40 09/24/17 10:30 115 30 70 09/24/17 10:00 111 26 140/70 99 Mechanical Ventilator 40 09/24/17 09:00 109 28 140/69 99 Mechanical Ventilator 40 09/24/17 08:33 106 29 70 09/24/17 08:00 115 09/24/17 08:00 99.0 110 33 141/68 99 Mechanical Ventilator 40 09/24/17 08:00 40 09/24/17 07:00 116 31 132/70 98 Mechanical Ventilator 40 09/24/17 06:45 116 33 70 09/24/17 06:00 116 30 130/66 98 Mechanical Ventilator 40 09/24/17 05:00 122 31 132/66 98 Mechanical Ventilator 40 09/24/17 04:37 126 31 70 09/24/17 04:00 126 09/24/17 04:00 98.9 126 33 130/69 99 Mechanical Ventilator 40 09/24/17 04:00 40 09/24/17 03:00 114 30 121/63 99 Mechanical Ventilator 40 09/24/17 02:57 114 28 70 09/24/17 02:00 119 27 100/61 98 Mechanical Ventilator 40 09/24/17 01:00 99.4 131 29 118/66 98 Mechanical Ventilator 40 09/24/17 00:45 136 35 80 09/24/17 00:44 Mechanical Ventilator 40 09/24/17 00:44 136 Mechanical Ventilator 40 09/24/17 00:00 138 09/24/17 00:00 40 09/24/17 00:00 102.2 138 26 153/78 96 Mechanical Ventilator 40 09/23/17 23:00 139 26 152/79 96 Mechanical Ventilator 40 09/23/17 22:59 142 35 80 09/23/17 22:00 139 26 144/75 96 Mechanical Ventilator 40 09/23/17 21:00 111 24 120/66 98 Mechanical Ventilator 40 09/23/17 20:57 112 30 40 09/23/17 20:00 114 09/23/17 20:00 40 09/23/17 20:00 99.2 114 23 89/51 97 Mechanical Ventilator 40 09/23/17 19:00 114 25 86/49 96 Mechanical Ventilator 40 09/23/17 18:41 118 35 40 09/23/17 18:41 118 34 93 Mechanical Ventilator 40 09/23/17 18:30 118 34 93 Mechanical Ventilator 40 09/23/17 18:30 40 09/23/17 18:00 108 32 92/44 94 Mechanical Ventilator 40 09/23/17 17:00 106 29 92/44 94 Mechanical Ventilator 40 09/23/17 16:42 107 29 40 09/23/17 16:00 113 09/23/17 16:00 99.9 114 32 119/59 97 Mechanical Ventilator 40 09/23/17 16:00 40 09/23/17 15:00 119 30 104/47 92 Mechanical Ventilator 40 09/23/17 14:49 120 31 40 09/23/17 14:00 110 33 120/53 93 Mechanical Ventilator 40 09/23/17 13:42 102 33 96 Mechanical Ventilator 55 09/23/17 13:34 40 09/23/17 13:34 100 30 94 Mechanical Ventilator 40 09/23/17 13:30 100 29 40 Intake and Output 09/23/17 09/24/17 19:00 07:00 Intake Total 1070 ml 1150 ml Output Total 620 ml 530 ml Balance 450 ml 620 ml Intake Free Water 130 ml IV Total 620 ml 420 ml Tube Feeding 450 ml 600 ml Output Urine Total 620 ml 530 ml # Bowel Movements 3 5 General Appearance: no acute distress HEENT: atraumatic Respiratory/Chest: rhonchi Cardiovascular: regular rhythm, tachycardia Laboratory Tests 09/24/17 05:00: White Blood Count 10.6, Red Blood Count 3.26L, Hemoglobin 10.6L, Hematocrit 31.7L, Mean Corpuscular Volume 97, Mean Corpuscular Hemoglobin 32.6H, Mean Corpuscular Hemoglobin Concent 33.5, Red Cell Distribution Width 12.6, Platelet Count 120L, Mean Platelet Volume 9.3, Neutrophils (%) (Auto) , Lymphocytes (%) ( Auto) , Monocytes (%) (Auto) , Eosinophils (%) (Auto) , Basophils (%) (Auto) , Sodium Level 141, Potassium Level 4.3, Chloride Level 108H, Carbon Dioxide Level 25, Anion Gap 8, Blood Urea Nitrogen 8, Creatinine 0.7, Estimat Glomerular Filtration Rate , Glucose Level 95, Calcium Level 6.7L, Magnesium Level 1.9, Total Bilirubin 0.3, Aspartate Amino Transf (AST/SGOT) 123H, Alanine Aminotransferase (ALT/SGPT) 82H, Alkaline Phosphatase 68, Total Protein 5.5L, Albumin 1.3L, Globulin 4.2, Albumin/Globulin Ratio 0.3L Current Medications Medications (Trade) Dose Ordered Sig/Lilly Route PRN Reason Start Time Stop Time Status Last Admin Dose Admin Acetaminophen (Tylenol) 650 mg EVERY 4 HOURS PRN ORAL fever/PAGE 09/19/17 03:15 10/19/17 03:14 09/24/17 11:51 Cefepime HCl 1 gm/ Dextrose 55 ml @ 110 mls/hr Q24H IVPB 09/21/17 09:00 09/26/17 08:59 09/24/17 08:58 Dextrose (Dextrose 50%) STAT PRN IV Hypoglycemia 09/19/17 12:30 10/19/17 12:29 Dextrose/ Electrolytes 1,000 ml @ 35 mls/hr Q24H IV 09/23/17 11:45 10/23/17 11:44 09/24/17 08:59 Hydrocortisone (Solu-CORTEF) 100 mg DAILY IV 09/24/17 09:00 10/20/17 13:59 09/24/17 08:58 Insulin Aspart (NovoLOG) Q6HR SUBQ 09/19/17 13:00 10/19/17 12:59 09/24/17 11:52 Lorazepam (Ativan) 0.5 mg TIDPRN PRN ORAL For Anxiety 09/20/17 16:15 09/27/17 16:14 09/22/17 16:27 Pantoprazole (Protonix) 40 mg DAILY IVP 09/20/17 10:00 10/20/17 09:59 09/24/17 08:59 Vancomycin HCl (Vanco rx to dose) 1 ea DAILY PRN MISC Per rx protocol 09/19/17 03:15 10/19/17 03:14 Vancomycin HCl/ Dextrose 250 ml @ 166.667 mls/hr Q24H IVPB 09/22/17 08:30 09/27/17 08:29 09/24/17 08:58 SAMANTHA GIVENS Sep 24, 2017 13:28
[2017-09-24] MEDS ORDERED: Dyna-Hex 2% Top Sol 2oz TOPIC SCH (20:00)
[2017-09-25] VITALS (23 sets, daily range): BP systolic 91–138; BP diastolic 29–89
--- NOTE | 2017-09-25 02:30 | Progress Note ---
DATE: 09/24/2017 CARDIOLOGY PROGRESS NOTE SUBJECTIVE: The patient is remaining in the intensive care unit. Orally intubated. Mechanically ventilated. Pressors have been discontinued. OBJECTIVE: VITAL SIGNS: Blood pressure 152/82, pulse 120, respirations 32, and temperature 100.1. Monitored sinus rhythm sinus tachycardia. HEENT: Orally intubated. Mechanically ventilated. LUNGS: Coarse breath sounds. Scattered rhonchi. HEART: Regular rhythm and rate. Normal S1 and S2. ABDOMEN: Soft. EXTREMITIES: No edema. LABORATORY DATA: White count 10 and hemoglobin 10. Potassium 4.3. Magnesium 1.9. Albumin is 1.3. Troponin 0.143. IMPRESSION: 1. Sepsis with shock, recovered. 2. Respiratory failure. 3. Healthcare-acquired pneumonia. 4. Severe protein-calorie malnutrition. 5. Acute myocardial infarction. 6. Secondary sinus tachycardia. 7. Severe dehydration. 8. Hypernatremia, resolved. 9. Acute kidney injury, resolving. PLAN: 1. Hydration. 2. Antimicrobials. 3. Ventilator support with weaning. 4. Antihypertensives on hold. 5. Antipyretics as needed. 6. DVT and stress ulcer prophylaxes. 7. Replace electrolytes as needed. Davy Robbins M.D. DR: LUISA JOB#: [id number] CC:
[2017-09-25] MEDS: NovoLOG Insulin Flexpen SUBQ SCH ×5 (06:00→23:54)
[2017-09-25] MEDS: D5W w/KCl 20mEq 1,000 ML IV SCH (06:01)
[2017-09-25 08:07] LABS: HEMATOCRIT 34.7 % (37.0-47.0); HEMOGLOBIN 11.3 G/DL (12.0-16.0); MEAN CORPUSCULAR VOLUME 96 FL (80-99); PLATELET COUNT 146 K/UL (150-450); RED BLOOD COUNT 3.63 M/UL (4.20-5.40); RED CELL DISTRIBUTION WIDTH 12.5 % (11.6-14.8); WHITE BLOOD COUNT 6.8 K/UL (4.8-10.8)
--- NOTE | 2017-09-25 08:10 | General Progress Note ---
Assessment/Plan Problem List: (1) Dehydration ICD Codes: E86.0 - Dehydration SNOMED: 71333035 (2) Hypernatremia ICD Codes: E87.0 - Hyperosmolality and hypernatremia SNOMED: 05814348 (3) Malnutrition of moderate degree ICD Codes: E44.0 - Moderate protein-calorie malnutrition SNOMED: 526053758 (4) BOB (acute kidney injury) ICD Codes: N17.9 - Acute kidney failure, unspecified SNOMED: 95820761 (5) Sepsis ICD Codes: A41.9 - Sepsis, unspecified organism SNOMED: 36643860, 341580072 Qualifiers: Qualified Codes: A41.9 - Sepsis, unspecified organism (6) UTI (urinary tract infection) ICD Codes: N39.0 - Urinary tract infection, site not specified SNOMED: 66712431, 260454397 Qualifiers: Qualified Codes: N39.0 - Urinary tract infection, site not specified (7) Elevated troponin ICD Codes: R74.8 - Abnormal levels of other serum enzymes SNOMED: 751789297, 178214548 Status: deteriorating Assessment/Plan iv abx id called repeat blood cultures off pressors currently dc ivf ?picc tolerating feeds follow up cultures vent- wean as able resp rx monitor lytes replace as needed dvt/stress ulcer prophylaxis critical and guarded Subjective ROS Limited/Unobtainable: Yes Constitutional: Reports: fever, malaise, weakness HEENT: Reports: no symptoms Cardiovascular: Reports: no symptoms Respiratory: Reports: cough Gastrointestinal/Abdominal: Reports: no symptoms Genitourinary: Reports: no symptoms Neurologic/Psychiatric: Reports: pre-existing deficit Endocrine: Reports: no symptoms Hematologic/Lymphatic: Reports: no symptoms Allergies: Coded Allergies: No Known Allergies (Unverified , 09/18/17) All Systems: reviewed and negative except above Subjective events noted. remains intubated. off pressors. labs noted. +fevers. tlc removed. still appears ill. Objective Last 24 Hour Vital Signs Date Time Temp Pulse Resp B/P (MAP) Pulse Ox O2 Delivery O2 Flow Rate FiO2 09/25/17 08:00 80 09/25/17 08:00 100.9 126 26 118/60 96 Mechanical Ventilator 80 09/25/17 07:11 129 37 80 09/25/17 07:00 122 23 118/60 96 Mechanical Ventilator 70 09/25/17 05:14 118 32 80 09/25/17 05:00 118 33 118/57 96 Mechanical Ventilator 70 09/25/17 04:00 99.8 120 34 114/60 96 Mechanical Ventilator 70 09/25/17 04:00 120 09/25/17 04:00 70 09/25/17 03:00 117 34 116/59 96 Mechanical Ventilator 70 09/25/17 02:58 115 34 80 09/25/17 02:00 98.8 114 32 100/56 96 Mechanical Ventilator 70 09/25/17 01:00 117 32 117/59 97 Mechanical Ventilator 70 09/25/17 00:57 118 34 80 09/25/17 00:00 99.8 115 32 119/60 96 Mechanical Ventilator 70 09/25/17 00:00 115 09/25/17 00:00 70 09/24/17 23:01 116 31 70 09/24/17 23:00 115 32 113/59 96 Mechanical Ventilator 70 09/24/17 22:00 122 23 137/67 95 Mechanical Ventilator 70 09/24/17 21:00 125 25 144/67 94 Mechanical Ventilator 70 09/24/17 20:43 120 36 70 09/24/17 20:00 99.2 119 26 145/70 94 Mechanical Ventilator 70 09/24/17 20:00 119 09/24/17 20:00 70 09/24/17 19:19 114 35 70 09/24/17 19:00 116 23 147/68 96 Mechanical Ventilator 70 09/24/17 18:00 117 24 130/65 96 Mechanical Ventilator 70 09/24/17 17:00 110 24 135/71 96 Mechanical Ventilator 70 09/24/17 16:33 113 31 70 09/24/17 16:00 70 09/24/17 16:00 115 09/24/17 16:00 99.0 116 28 148/69 97 Mechanical Ventilator 70 09/24/17 15:00 121 25 151/72 96 Mechanical Ventilator 70 09/24/17 14:42 122 35 70 09/24/17 14:00 122 26 158/81 96 Mechanical Ventilator 70 09/24/17 13:00 99.9 101 32 158/78 99 Mechanical Ventilator 70 09/24/17 12:58 131 33 70 09/24/17 12:50 99.8 09/24/17 12:00 120 09/24/17 12:00 100.1 120 32 153/82 99 Mechanical Ventilator 70 09/24/17 11:54 70 09/24/17 11:00 117 26 138/70 99 Mechanical Ventilator 70 09/24/17 10:30 115 30 70 09/24/17 10:00 111 26 140/70 99 Mechanical Ventilator 70 09/24/17 09:00 109 28 140/69 99 Mechanical Ventilator 70 09/24/17 08:33 106 29 70 Intake and Output 09/24/17 09/25/17 19:00 07:00 Intake Total 1490 ml 1135 ml Output Total 640 ml 620 ml Balance 850 ml 515 ml Intake Free Water 200 ml 150 ml IV Total 690 ml 385 ml Tube Feeding 600 ml 600 ml Output Urine Total 640 ml 620 ml # Bowel Movements 2 Laboratory Tests 09/25/17 07:45: White Blood Count [Pending], Red Blood Count [Pending], Hemoglobin [Pending], Hematocrit [Pending], Mean Corpuscular Volume [Pending], Mean Corpuscular Hemoglobin [Pending], Mean Corpuscular Hemoglobin Concent [Pending], Red Cell Distribution Width [Pending], Platelet Count [Pending], Mean Platelet Volume [ Pending], Neutrophils (%) (Auto) [Pending], Lymphocytes (%) (Auto) [Pending], Monocytes (%) (Auto) [Pending], Eosinophils (%) (Auto) [Pending], Basophils (%) (Auto) [Pending], Sodium Level [Pending], Potassium Level [Pending], Chloride Level [Pending], Carbon Dioxide Level [Pending], Blood Urea Nitrogen [Pending], Creatinine [Pending], Estimat Glomerular Filtration Rate [Pending], Glucose Level [Pending], Calcium Level [Pending], Magnesium Level [Pending], Total Bilirubin [Pending], Aspartate Amino Transf (AST/SGOT) [Pending], Alanine Aminotransferase (ALT/SGPT) [Pending], Alkaline Phosphatase [Pending], Pro-B- Type Natriuretic Peptide [Pending], Total Protein [Pending], Albumin [Pending], Globulin [Pending], Vancomycin Level Trough [Pending] Height (Feet): 5 Height (Inches): 2.00 Weight (Pounds): 129 Objective General Appearance: WD/WN, lethargic, confused Neck: supple Cardiovascular: normal rate, regular rhythm Respiratory/Chest: rhonchi - bilaterally Abdomen: normal bowel sounds, non tender, soft, no organomegaly Edema: no edema noted Arm (L), no edema noted Arm (R), no edema noted Leg (L), no edema noted Leg (R), no edema noted Pedal (L), no edema noted Pedal (R), no edema noted Generalized Neurologic: unresponsive KRYSTINA LENTZ Sep 25, 2017 08:10
[2017-09-25 08:23] LABS: ALANINE AMINOTRANSFERASE 213 U/L (12-78); ALBUMIN 1.1 G/DL (3.4-5.0); ALBUMIN/GLOBULIN RATIO 0.3 (1.0-2.7); ALKALINE PHOSPHATASE 111 U/L (46-116); ANION GAP 5 mmol/L (5-15); ASPARTATE AMINO TRANSFERASE 242 U/L (15-37); BILIRUBIN,TOTAL 0.5 MG/DL (0.2-1.0); BLOOD UREA NITROGEN 7 mg/dL (7-18); CALCIUM 6.9 MG/DL (8.5-10.1); CARBON DIOXIDE 27 MMOL/L (21-32); CHLORIDE 106 MMOL/L (98-107); CREATININE 0.5 MG/DL (0.55-1.30); POTASSIUM 3.6 MMOL/L (3.5-5.1); SODIUM 138 MMOL/L (136-145)
--- NOTE | 2017-09-25 08:27 | Nephrology Progress Note ---
Assessment/Plan Problem List: (1) Malnutrition of moderate degree (2) Hypernatremia (3) BOB (acute kidney injury) (4) Dehydration (5) Sepsis (6) UTI (urinary tract infection) (7) Elevated troponin (8) Hypokalemia Plan reduce iv, rx sepsis, kcl replace repeat lytes tube feed Subjective ROS Limited/Unobtainable: Yes Objective Objective Last 24 Hour Vital Signs Date Time Temp Pulse Resp B/P (MAP) Pulse Ox O2 Delivery O2 Flow Rate FiO2 09/25/17 08:00 80 09/25/17 08:00 100.9 126 26 118/60 96 Mechanical Ventilator 80 09/25/17 07:11 129 37 80 09/25/17 07:00 122 23 118/60 96 Mechanical Ventilator 70 09/25/17 05:14 118 32 80 09/25/17 05:00 118 33 118/57 96 Mechanical Ventilator 70 09/25/17 04:00 99.8 120 34 114/60 96 Mechanical Ventilator 70 09/25/17 04:00 120 09/25/17 04:00 70 09/25/17 03:00 117 34 116/59 96 Mechanical Ventilator 70 09/25/17 02:58 115 34 80 09/25/17 02:00 98.8 114 32 100/56 96 Mechanical Ventilator 70 09/25/17 01:00 117 32 117/59 97 Mechanical Ventilator 70 09/25/17 00:57 118 34 80 09/25/17 00:00 99.8 115 32 119/60 96 Mechanical Ventilator 70 09/25/17 00:00 115 09/25/17 00:00 70 09/24/17 23:01 116 31 70 09/24/17 23:00 115 32 113/59 96 Mechanical Ventilator 70 09/24/17 22:00 122 23 137/67 95 Mechanical Ventilator 70 09/24/17 21:00 125 25 144/67 94 Mechanical Ventilator 70 09/24/17 20:43 120 36 70 09/24/17 20:00 99.2 119 26 145/70 94 Mechanical Ventilator 70 09/24/17 20:00 119 09/24/17 20:00 70 09/24/17 19:19 114 35 70 09/24/17 19:00 116 23 147/68 96 Mechanical Ventilator 70 09/24/17 18:00 117 24 130/65 96 Mechanical Ventilator 70 09/24/17 17:00 110 24 135/71 96 Mechanical Ventilator 70 09/24/17 16:33 113 31 70 09/24/17 16:00 70 09/24/17 16:00 115 09/24/17 16:00 99.0 116 28 148/69 97 Mechanical Ventilator 70 09/24/17 15:00 121 25 151/72 96 Mechanical Ventilator 70 09/24/17 14:42 122 35 70 09/24/17 14:00 122 26 158/81 96 Mechanical Ventilator 70 09/24/17 13:00 99.9 101 32 158/78 99 Mechanical Ventilator 70 09/24/17 12:58 131 33 70 09/24/17 12:50 99.8 09/24/17 12:00 120 09/24/17 12:00 100.1 120 32 153/82 99 Mechanical Ventilator 70 09/24/17 11:54 70 09/24/17 11:00 117 26 138/70 99 Mechanical Ventilator 70 09/24/17 10:30 115 30 70 09/24/17 10:00 111 26 140/70 99 Mechanical Ventilator 70 09/24/17 09:00 109 28 140/69 99 Mechanical Ventilator 70 09/24/17 08:33 106 29 70 Intake and Output 09/24/17 09/25/17 19:00 07:00 Intake Total 1490 ml 1135 ml Output Total 640 ml 620 ml Balance 850 ml 515 ml Intake Free Water 200 ml 150 ml IV Total 690 ml 385 ml Tube Feeding 600 ml 600 ml Output Urine Total 640 ml 620 ml # Bowel Movements 2 Laboratory Tests 09/25/17 07:45: White Blood Count 6.8, Red Blood Count 3.63L, Hemoglobin 11.3L, Hematocrit 34.7L , Mean Corpuscular Volume 96, Mean Corpuscular Hemoglobin 31.2H, Mean Corpuscular Hemoglobin Concent 32.6, Red Cell Distribution Width 12.5, Platelet Count 146L, Mean Platelet Volume 9.1, Neutrophils (%) (Auto) , Lymphocytes (%) ( Auto) , Monocytes (%) (Auto) , Eosinophils (%) (Auto) , Basophils (%) (Auto) , Neutrophils % (Manual) [Pending], Lymphocytes % (Manual) [Pending], Platelet Estimate [Pending], Platelet Morphology [Pending], Sodium Level 138, Potassium Level 3.6, Chloride Level 106, Carbon Dioxide Level 27, Anion Gap 5, Blood Urea Nitrogen 7, Creatinine 0.5L, Estimat Glomerular Filtration Rate , Glucose Level 95, Calcium Level 6.9L, Magnesium Level [Pending], Total Bilirubin 0.5, Aspartate Amino Transf (AST/SGOT) 242H, Alanine Aminotransferase (ALT/SGPT) 213H , Alkaline Phosphatase 111, Pro-B-Type Natriuretic Peptide [Pending], Total Protein 5.4L, Albumin 1.1L, Globulin 4.3, Albumin/Globulin Ratio 0.3L, Vancomycin Level Trough [Pending] Height (Feet): 5 Height (Inches): 2.00 Weight (Pounds): 129 General Appearance: other - intubated EENT: normal ENT inspection Neck: normal alignment Cardiovascular: regular rhythm Respiratory/Chest: rhonchi - bilaterally Abdomen: non tender Extremities: moderate edema Neurologic: unresponsive GM SINGH Sep 25, 2017 08:27
[2017-09-25] MEDS: Pantoprazole Inj IVP SCH (08:48)
[2017-09-25] MEDS: Cefepime HCl 1 GM in D5W 55 ML IVPB SCH (08:48)
[2017-09-25] MEDS: Vancomycin 1250mg/D5W 250ml IVPB SCH (09:13)
--- NOTE | 2017-09-25 10:16 | Diagnostic Imaging Report ---
Indication: Dyspnea Technique: One view of the chest Comparison: 09/23/2017 Findings: Previously demonstrated central venous catheters been removed. Endotracheal and nasogastric tubes remain. Interim development of dense consolidation in the right upper lobe. Increased interstitial and airspace opacities are also seen in the bilateral perihilar regions, and more diffusely throughout the right mid and lower lung. The pleural spaces remain grossly clear. The heart size is upper limits of normal Impression: Dense consolidation in the right upper lobe, new since 2 days earlier Increasing bilateral perihilar and generalized right mid and lower lung interstitial and airspace opacities Interim central venous catheter removal
--- NOTE | 2017-09-25 13:10 | Diagnostic Imaging Report ---
APPROVED REPORT CPT Code: 00842 Present Symptoms Lower Extremity Pain: Bilateral BILATERAL: Imaging reveals a patent deep venous system bilaterally. There is no evidence of thrombus within the femoral, popliteal or tibial segments. The greater saphenous veins are also within normal limits. Doppler indicates normal spontaneous flow within these segments.
--- NOTE | 2017-09-25 14:57 | Wound Care Consultation ---
Wound Assessment Wound Assessment #1: Wound Number: 1 Wound Present on Admission: Yes New Wound: No Status Change of Wound: No Wound Location Body Site Modif: left Wound Location Body Site: heel - scattered DTI extending to plantar foot Wound Type: pressure ulcer Janett Test: Does not Janett Pressure Ulcer Stage: Deep Tissue Injury Wound Thickness: Full Thickness Wound Length: 7.5 Wound Width: 4.0 Percent of Wound Kistler/Red: 100 Wound Drainage Amount: None Wound Drainage Odor: None/Absent Tissue Surrounding Wound: Intact Wound General Appearance: Reddened - purple/maroon Wound Assessment #2: Wound Number: 2 Wound Present on Admission: Yes New Wound: No Status Change of Wound: No Wound Location Body Site Modif: left, upper Wound Location Body Site: back Wound Type: blister - open Janett Test: Does not Janett Pressure Ulcer Stage: II - Resolving Wound Thickness: Partial Thickness Wound Length: 2.5 Wound Width: 2.0 Wound Depth: Less than 0.1 Percent of Wound Kistler/Red: 100 Wound Drainage Amount: None Wound Drainage Odor: None/Absent Tissue Surrounding Wound: Erythemic Wound General Appearance: Reddened Wound Assessment #3: Wound Number: 3 Wound Present on Admission: Yes New Wound: No Status Change of Wound: No Wound Location Body Site Modif: left, lower, medial Wound Location Body Site: leg Wound Type: blister - open Wound Thickness: Partial Thickness Wound Length: 4.0 Wound Width: 4.0 Wound Depth: less than 0.1 Percent of Wound Kistler/Red: 100 Wound Drainage Description: Serosanguineous Wound Drainage Amount: Scant Wound Drainage Odor: None/Absent Tissue Surrounding Wound: Intact Wound General Appearance: Reddened Wound Assessment #4: Wound Number: 4 Wound Present on Admission: Yes New Wound: No Status Change of Wound: No Wound Location Body Site Modif: right Wound Location Body Site: heel Wound Type: pressure ulcer Janett Test: Does not Janett Pressure Ulcer Stage: I Wound Length: 2.5 Wound Width: 2.5 Percent of Wound Kistler/Red: 100 Wound Drainage Amount: None Wound Drainage Odor: None/Absent Tissue Surrounding Wound: Intact Wound General Appearance: Reddened Wound Assessment #5: Wound Number: 5 Wound Present on Admission: Yes New Wound: No Status Change of Wound: No Wound Location Body Site Modif: left, anterior Wound Location Body Site: toe - 1st Wound Type: pressure ulcer Janett Test: Does not Janett Pressure Ulcer Stage: Deep Tissue Injury Wound Thickness: Full Thickness Wound Length: 0.5 Wound Width: 0.5 Wound Depth: utd Percent of Wound Kistler/Red: 100 - deep red Wound Drainage Amount: None Wound Drainage Odor: None/Absent Tissue Surrounding Wound: Intact Wound General Appearance: Reddened Wound Comment #1 Left upper back open blister stage II pressure ulcer. Good progress noted. Resolving at this time. #2 Left lower leg open blister. Good progress noted. Will cont same wound care treatment #3 Left heel DTI pressure ulcer extending to plantar foot. Skin still intact. Will cont same wound care treatment #4 Left 1st lateral big toe DTI pressure ulcer. Still intact. will cont same wound acre treatment #5 Right heel stage I pressure ulcer. Resolving Reassessed this Pt. Good progress noted. Will cont same previous wound care treatment and recommendations. STACEY KNOWLES RN Sep 25, 2017 14:57
--- NOTE | 2017-09-25 20:34 | Pulmonology Progress Note ---
Assessment/Plan Assessment/Plan IMPRESSION: 1. Septic shock, resolved 2. Respiratory failure, on vent 3. Sepsis, likely skin source. 4. Severe dehydration with hypernatremia, improved 5. Dementia. 6. History of hypertension. 7. 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 doing poorly continued fevers CXR with Dense consolidation in the right upper lobe, new since 2 days earlier Increasing bilateral perihilar and generalized right mid and lower lung interstitial and airspace opacities continue vent support pressors abx cannot wean prognosis poor favor comfort care Subjective ROS Limited/Unobtainable: Yes Allergies: Coded Allergies: No Known Allergies (Unverified , 09/18/17) Objective Last 24 Hour Vital Signs Date Time Temp Pulse Resp B/P (MAP) Pulse Ox O2 Delivery O2 Flow Rate FiO2 09/25/17 20:00 80 09/25/17 19:17 118 30 80 09/25/17 19:00 117 21 108/57 97 Mechanical Ventilator 80 09/25/17 18:00 116 21 118/63 98 Mechanical Ventilator 80 09/25/17 17:00 115 32 80 09/25/17 17:00 116 22 112/60 96 Mechanical Ventilator 80 09/25/17 16:00 114 09/25/17 16:00 99.0 114 23 129/89 96 Mechanical Ventilator 80 09/25/17 16:00 80 09/25/17 15:14 119 31 80 09/25/17 15:00 120 22 91/49 96 Mechanical Ventilator 80 09/25/17 14:00 121 23 91/49 96 Mechanical Ventilator 80 09/25/17 13:21 100.0 09/25/17 13:03 127 34 80 09/25/17 13:00 112 23 120/60 96 Mechanical Ventilator 80 09/25/17 12:00 101.8 130 23 135/66 96 Mechanical Ventilator 80 09/25/17 12:00 138 09/25/17 12:00 80 09/25/17 11:00 124 23 123/61 96 Mechanical Ventilator 80 09/25/17 10:51 128 37 80 09/25/17 10:00 128 23 138/29 96 Mechanical Ventilator 80 09/25/17 09:21 133 38 80 09/25/17 09:00 128 23 124/29 96 Mechanical Ventilator 80 09/25/17 08:00 80 09/25/17 08:00 127 09/25/17 08:00 100.9 126 26 118/60 96 Mechanical Ventilator 80 09/25/17 07:11 129 37 80 09/25/17 07:00 122 23 118/60 96 Mechanical Ventilator 70 09/25/17 05:14 118 32 80 09/25/17 05:00 118 33 118/57 96 Mechanical Ventilator 70 09/25/17 04:00 99.8 120 34 114/60 96 Mechanical Ventilator 70 09/25/17 04:00 120 09/25/17 04:00 70 09/25/17 03:00 117 34 116/59 96 Mechanical Ventilator 70 09/25/17 02:58 115 34 80 09/25/17 02:00 98.8 114 32 100/56 96 Mechanical Ventilator 70 09/25/17 01:00 117 32 117/59 97 Mechanical Ventilator 70 09/25/17 00:57 118 34 80 09/25/17 00:00 99.8 115 32 119/60 96 Mechanical Ventilator 70 09/25/17 00:00 115 09/25/17 00:00 70 09/24/17 23:01 116 31 70 09/24/17 23:00 115 32 113/59 96 Mechanical Ventilator 70 09/24/17 22:00 122 23 137/67 95 Mechanical Ventilator 70 09/24/17 21:00 125 25 144/67 94 Mechanical Ventilator 70 09/24/17 20:43 120 36 70 Intake and Output 09/24/17 09/25/17 19:00 07:00 Intake Total 1490 ml 1170 ml Output Total 640 ml 620 ml Balance 850 ml 550 ml Intake Free Water 200 ml 150 ml IV Total 690 ml 420 ml Tube Feeding 600 ml 600 ml Output Urine Total 640 ml 620 ml # Bowel Movements 2 General Appearance: no acute distress HEENT: anicteric Respiratory/Chest: rhonchi - ETT Cardiovascular: normal rate Abdomen: soft, non tender Laboratory Tests 09/25/17 07:45: White Blood Count 6.8, Red Blood Count 3.63L, Hemoglobin 11.3L, Hematocrit 34.7L , Mean Corpuscular Volume 96, Mean Corpuscular Hemoglobin 31.2H, Mean Corpuscular Hemoglobin Concent 32.6, Red Cell Distribution Width 12.5, Platelet Count 146L, Mean Platelet Volume 9.1, Neutrophils (%) (Auto) , Lymphocytes (%) ( Auto) , Monocytes (%) (Auto) , Eosinophils (%) (Auto) , Basophils (%) (Auto) , Differential Total Cells Counted 100, Neutrophils % (Manual) 57, Lymphocytes % ( Manual) 13L, Monocytes % (Manual) 12H, Eosinophils % (Manual) 0, Basophils % ( Manual) 0, Band Neutrophils 18H, Nucleated Red Blood Cells 1, Platelet Estimate Adequate, Platelet Morphology Normal, Red Blood Cell Morphology Normal, Sodium Level 138, Potassium Level 3.6, Chloride Level 106, Carbon Dioxide Level 27, Anion Gap 5, Blood Urea Nitrogen 7, Creatinine 0.5L, Estimat Glomerular Filtration Rate , Glucose Level 95, Calcium Level 6.9L, Magnesium Level 1.7L, Total Bilirubin 0.5, Aspartate Amino Transf (AST/SGOT) 242H, Alanine Aminotransferase (ALT/SGPT) 213H, Alkaline Phosphatase 111, Pro-B-Type Natriuretic Peptide 1529H, Total Protein 5.4L, Albumin 1.1L, Globulin 4.3, Albumin/Globulin Ratio 0.3L, Vancomycin Level Trough 6.2 Current Medications Medications (Trade) Dose Ordered Sig/Lilly Route PRN Reason Start Time Stop Time Status Last Admin Dose Admin Acetaminophen (Tylenol) 650 mg EVERY 4 HOURS PRN ORAL fever/PAGE 09/19/17 03:15 10/19/17 03:14 09/25/17 20:16 Cefepime HCl 1 gm/ Dextrose 55 ml @ 110 mls/hr Q24H IVPB 09/21/17 09:00 09/26/17 08:59 09/25/17 08:48 Dextrose (Dextrose 50%) STAT PRN IV Hypoglycemia 09/19/17 12:30 10/19/17 12:29 Dextrose/ Electrolytes 1,000 ml @ 35 mls/hr Q24H IV 09/23/17 11:45 10/23/17 11:44 09/25/17 06:01 Insulin Aspart (NovoLOG) Q6HR SUBQ 09/19/17 13:00 10/19/17 12:59 09/25/17 17:13 Lorazepam (Ativan) 0.5 mg TIDPRN PRN ORAL For Anxiety 09/20/17 16:15 09/27/17 16:14 09/22/17 16:27 Pantoprazole (Protonix) 40 mg DAILY IVP 09/20/17 10:00 10/20/17 09:59 09/25/17 08:48 Vancomycin HCl (Vanco rx to dose) 1 ea DAILY PRN MISC Per rx protocol 09/19/17 03:15 10/19/17 03:14 Vancomycin HCl/ Dextrose 250 ml @ 125 mls/hr Q24H IVPB 09/26/17 06:00 10/01/17 05:59 SAMANTHA GIVENS Sep 25, 2017 20:34
--- NOTE | 2017-09-25 21:00 | Consultation ---
DATE OF CONSULTATION: 09/25/2017 INFECTIOUS DISEASES CONSULTATION CONSULTING PHYSICIAN: Marizol Aaron M.D. REFERRING PHYSICIAN: Davy Robbins M.D. REASON FOR CONSULTATION: Fever. HISTORY OF PRESENTING ILLNESS: This is an 82-year-old lady with history of hypertension, diabetes, CVA, and bullous pemphigoid, who came in with fevers and worsening congestion to [facility] emergency room where she was found to be hypotensive. She has been intubated and an Infectious Diseases consultation has been obtained for antibiotics. PAST MEDICAL HISTORY: 1. History of hypertension. 2. Osteoporosis. 3. Osteoarthritis. 4. CVA. 5. Degenerative joint disease. 6. Diabetes. 7. Bullous pemphigoid. MEDICATIONS: As an inpatient, the patient is on IV vancomycin, cefepime, Ativan, Protonix, insulin, and Tylenol. ALLERGIES: No known drug allergies. SOCIAL HISTORY: No history of smoking, alcohol, or drug use. FAMILY HISTORY: Unknown. REVIEW OF SYSTEMS: Unable to obtain currently. PHYSICAL EXAMINATION: VITAL SIGNS: Temperature of 100.9, T-max of 100.9, pulse of 124, respiratory rate 23, blood pressure 123/61, and O2 saturation of 96%. HEENT: Pupils equally reactive to light and accommodation. Mouth appears clean without thrush. The patient is intubated. NECK: Supple. No adenopathy. No JVD. CARDIOVASCULAR: Regular rate and rhythm. No murmurs. LUNGS: Clear to auscultation bilaterally. No crackles. No wheezes. ABDOMEN: Soft and nontender. No organomegaly. EXTREMITIES: No cyanosis, no clubbing, no edema. LABORATORY AND DIAGNOSTIC DATA: White count 6.8, hemoglobin 11.3, hematocrit 34.7, MCV 96, and platelet count of 146,000 with neutrophils of 57%. Sodium 138, potassium 3.6, chloride 106, bicarb 27, BUN 7, creatinine 0.5, glucose 95, and calcium 6.9. Total bilirubin 0.5. AST 242, ALT 213, and alkaline phosphatase 111. Beta-natriuretic peptide 1529. Total protein 5.4. Albumin 1.1. UA is showing 5 to 10 white cells. Stool for C. difficile is negative. Rectal swab was negative for VRE. Nasal swab was positive for MRSA. Nasal swab was negative for influenza A and B. urine culture is growing E coli, which is cefepime susceptible and ceftriaxone susceptible. Blood culture is growing coagulase-negative Staph. Chest x-ray is showing dense consolidation in the right upper lobe and increasing bilateral perihilar and generalized right mid and lower lung interstitial and airspace opacities with central venous catheter removal. ASSESSMENT: 1. This is an 82-year-old lady with history of diabetes and hypertension, who comes in and is found to have a positive blood culture with coagulase-negative Staph. The catheter has been removed. 2. Pneumonia. 3. Escherichia coli urinary tract infection. PLAN: 1. Continue IV vancomycin and cefepime. 2. We will order sputum for Gram stain and culture. 3. We will follow up cultures and adjust antibiotics accordingly. I would like to thank, Dr. Robbins and Dr. Navarrete, for this consultation. Marizol Aaron M.D. DR: LEONARDA JOB#: [id number] CC: Gabrielle Rolle M.D.
[2017-09-26] VITALS (24 sets, daily range): BP systolic 96–140; BP diastolic 45–69
--- NOTE | 2017-09-26 02:00 | Progress Note ---
DATE: 09/25/2017 SUBJECTIVE: The patient remains in the intensive care unit. Condition remains critical. Prognosis guarded. She is on ventilator support. OBJECTIVE: VITAL SIGNS: Blood pressure 118/60, heart rate 126, respiratory rate 26 to 37, afebrile, and T-max 100.9 degrees. LUNGS: Coarse breath sounds. Scattered rhonchi. HEART: Regular rhythm and rate. Normal S1 and S2. ABDOMEN: Soft. EXTREMITIES: No edema. LABORATORY AND DIAGNOSTIC DATA: Chest x-ray reveals right middle lobe infiltrate, new. White count 6.8 and hemoglobin 11.3. Magnesium 1.7. Pro-natriuretic peptide is 1500, which has decreased. Potassium 3.6, BUN 7, and creatinine 0.5. AST and ALT are elevated to 242 over 213. Albumin 1.1. IMPRESSION: 1. Respiratory failure. 2. Sepsis with resolved shock. 3. Acute on chronic diastolic congestive heart failure. 4. Acute myocardial ischemia and possible wpt-IJ-axpwafkte infarction. 5. Severe protein-calorie malnutrition. 6. Hypomagnesemia. 7. Transaminitis. 8. Anemia. 9. Healthcare-acquired pneumonia. PLAN: 1. Off pressors now. 2. Off steroids now. 3. Nutrition by feeding tube. 4. Discontinue intravenous fluids. 5. IV magnesium. 6. Antimicrobials. 7. DVT and stress ulcer prophylaxes. 8. We will reevaluate progress and discuss with family members regarding advanced directives. Davy Robbins M.D. DR: Anjum JOB#: [id number] CC:
[2017-09-26] MEDS: Vancomycin 1500mg IVPB SCH (06:09)
[2017-09-26] MEDS: NovoLOG Insulin Flexpen SUBQ SCH ×4 (06:15→23:37)
[2017-09-26 07:12] LABS: HEMATOCRIT 32.5 % (37.0-47.0); MEAN CORPUSCULAR VOLUME 96 FL (80-99); PLATELET COUNT 171 K/UL (150-450); RED CELL DISTRIBUTION WIDTH 12.5 % (11.6-14.8)
[2017-09-26 07:37] LABS: ALANINE AMINOTRANSFERASE 142 U/L (12-78); ALBUMIN/GLOBULIN RATIO 0.2 (1.0-2.7); ALKALINE PHOSPHATASE 136 U/L (46-116); ANION GAP 5 mmol/L (5-15); ASPARTATE AMINO TRANSFERASE 75 U/L (15-37); BILIRUBIN,TOTAL 0.4 MG/DL (0.2-1.0); BLOOD UREA NITROGEN 10 mg/dL (7-18); CALCIUM 7.4 MG/DL (8.5-10.1); CARBON DIOXIDE 30 MMOL/L (21-32); CHLORIDE 104 MMOL/L (98-107); CREATININE 0.5 MG/DL (0.55-1.30); POTASSIUM 3.7 MMOL/L (3.5-5.1); SODIUM 139 MMOL/L (136-145)
[2017-09-26] MEDS: Pantoprazole Inj IVP SCH (09:00)
--- NOTE | 2017-09-26 10:36 | General Progress Note ---
Assessment/Plan Problem List: (1) Dehydration ICD Codes: E86.0 - Dehydration SNOMED: 26143190 (2) Hypernatremia ICD Codes: E87.0 - Hyperosmolality and hypernatremia SNOMED: 55925323 (3) Malnutrition of moderate degree ICD Codes: E44.0 - Moderate protein-calorie malnutrition SNOMED: 893741641 (4) BOB (acute kidney injury) ICD Codes: N17.9 - Acute kidney failure, unspecified SNOMED: 50447288 (5) Sepsis ICD Codes: A41.9 - Sepsis, unspecified organism SNOMED: 13645251, 448244170 Qualifiers: Qualified Codes: A41.9 - Sepsis, unspecified organism (6) UTI (urinary tract infection) ICD Codes: N39.0 - Urinary tract infection, site not specified SNOMED: 16208693, 336692640 Qualifiers: Qualified Codes: N39.0 - Urinary tract infection, site not specified (7) Elevated troponin ICD Codes: R74.8 - Abnormal levels of other serum enzymes SNOMED: 926738619, 588116966 Status: stable, progressing Assessment/Plan iv abx id appreciated repeat blood cultures check abd dougie off pressors currently dc iv tolerating feeds follow up cultures vent- wean as able resp rx monitor lytes replace as needed dvt/stress ulcer prophylaxis critical and guarded Subjective ROS Limited/Unobtainable: Yes Constitutional: Reports: malaise, weakness HEENT: Reports: no symptoms Cardiovascular: Reports: no symptoms Gastrointestinal/Abdominal: Reports: difficulty swallowing Genitourinary: Reports: no symptoms Neurologic/Psychiatric: Reports: pre-existing deficit Endocrine: Reports: no symptoms Hematologic/Lymphatic: Reports: anemia Allergies: Coded Allergies: No Known Allergies (Unverified , 09/18/17) All Systems: reviewed and negative except above Subjective events noted. remains intubated. off pressors. labs noted. fevers trending down. elevated lfts. Objective Last 24 Hour Vital Signs Date Time Temp Pulse Resp B/P (MAP) Pulse Ox O2 Delivery O2 Flow Rate FiO2 09/26/17 09:00 119 28 120/62 96 Mechanical Ventilator 80 09/26/17 08:53 116 30 70 09/26/17 08:00 80 09/26/17 08:00 118 09/26/17 08:00 98.6 118 30 119/60 96 Mechanical Ventilator 80 09/26/17 07:16 111 29 70 09/26/17 07:00 110 28 115/60 96 Mechanical Ventilator 80 09/26/17 06:00 110 29 123/59 96 Mechanical Ventilator 80 09/26/17 05:00 106 26 123/59 97 Mechanical Ventilator 80 09/26/17 04:52 106 27 70 09/26/17 04:00 98.5 101 25 109/52 98 Mechanical Ventilator 80 09/26/17 04:00 80 09/26/17 04:00 103 09/26/17 03:20 101 28 80 09/26/17 03:00 105 25 120/69 99 Mechanical Ventilator 80 09/26/17 02:00 104 26 115/62 98 Mechanical Ventilator 80 09/26/17 01:20 101 25 80 09/26/17 01:00 103 26 118/60 98 Mechanical Ventilator 80 09/26/17 00:00 99.1 108 31 121/64 99 Mechanical Ventilator 80 09/26/17 00:00 109 09/26/17 00:00 80 09/25/17 23:00 108 27 110/59 98 Mechanical Ventilator 80 09/25/17 22:31 111 33 80 09/25/17 22:00 108 29 119/61 99 Mechanical Ventilator 80 09/25/17 21:15 99.2 09/25/17 21:00 99.2 112 30 103/52 99 Mechanical Ventilator 80 09/25/17 20:52 112 32 80 09/25/17 20:00 112 09/25/17 20:00 80 09/25/17 20:00 100.3 113 30 118/61 98 Mechanical Ventilator 80 09/25/17 19:17 118 30 80 09/25/17 19:00 117 21 108/57 97 Mechanical Ventilator 80 09/25/17 18:00 116 21 118/63 98 Mechanical Ventilator 80 09/25/17 17:00 115 32 80 09/25/17 17:00 116 22 112/60 96 Mechanical Ventilator 80 09/25/17 16:00 114 09/25/17 16:00 99.0 114 23 129/89 96 Mechanical Ventilator 80 09/25/17 16:00 80 09/25/17 15:14 119 31 80 09/25/17 15:00 120 22 91/49 96 Mechanical Ventilator 80 1/4/18 14:00 121 23 91/49 96 Mechanical Ventilator 80 09/25/17 13:03 127 34 80 09/25/17 13:00 112 23 120/60 96 Mechanical Ventilator 80 09/25/17 12:00 101.8 130 23 135/66 96 Mechanical Ventilator 80 09/25/17 12:00 138 09/25/17 12:00 80 09/25/17 11:00 124 23 123/61 96 Mechanical Ventilator 80 09/25/17 10:51 128 37 80 Intake and Output 09/25/17 09/26/17 19:00 07:00 Intake Total 1480 ml 765 ml Output Total 955 ml 1120 ml Balance 525 ml -355 ml IV Total 760 ml 465 ml Tube Feeding 600 ml 250 ml Other 120 ml 50 ml Output Urine Total 955 ml 1120 ml # Bowel Movements 3 Laboratory Tests 09/26/17 06:00: White Blood Count 9.0, Red Blood Count 3.40L, Hemoglobin 11.0L, Hematocrit 32.5L , Mean Corpuscular Volume 96, Mean Corpuscular Hemoglobin 32.5H, Mean Corpuscular Hemoglobin Concent 34.0, Red Cell Distribution Width 12.5, Platelet Count 171, Mean Platelet Volume 9.9, Neutrophils (%) (Auto) , Lymphocytes (%) ( Auto) , Monocytes (%) (Auto) , Eosinophils (%) (Auto) , Basophils (%) (Auto) , Differential Total Cells Counted 100, Neutrophils % (Manual) 81H, Lymphocytes % (Manual) 7L, Monocytes % (Manual) 1, Eosinophils % (Manual) 0, Basophils % ( Manual) 0, Band Neutrophils 11H, Platelet Estimate Adequate, Platelet Morphology Normal, Red Blood Cell Morphology Normal, Sodium Level 139, Potassium Level 3.7, Chloride Level 104, Carbon Dioxide Level 30, Anion Gap 5, Blood Urea Nitrogen 10, Creatinine 0.5L, Estimat Glomerular Filtration Rate , Glucose Level 133H, Calcium Level 7.4L, Total Bilirubin 0.4, Aspartate Amino Transf (AST/SGOT) 75H, Alanine Aminotransferase (ALT/SGPT) 142H, Alkaline Phosphatase 136H, Total Protein 5.6L, Albumin 1.0L, Globulin 4.6, Albumin/ Globulin Ratio 0.2L Height (Feet): 5 Height (Inches): 2.00 Weight (Pounds): 129 Objective General Appearance: WD/WN, lethargic, confused Neck: supple Cardiovascular: normal rate, regular rhythm Respiratory/Chest: rhonchi - bilaterally Abdomen: normal bowel sounds, non tender, soft, no organomegaly Edema: no edema noted Arm (L), no edema noted Arm (R), no edema noted Leg (L), no edema noted Leg (R), no edema noted Pedal (L), no edema noted Pedal (R), no edema noted Generalized Neurologic: unresponsive KRYSTINA LENTZ Sep 26, 2017 10:36
[2017-09-26] MEDS: Cefepime HCl 1 GM in D5W 55 ML IVPB SCH (11:00)
--- NOTE | 2017-09-26 13:33 | Infectious Diseases Prog Note ---
Assessment/Plan Assessment/Plan antibiotics : vancomycin iv, cefepime A 1. e.coli UTI 2. pneumonia 3. coag neg staph sepsis s/p catheter removal 4. respiratory failure P 1. continue vancomycin iv, cefepime 2. will follow up cultures Subjective ROS Limited/Unobtainable: Yes Allergies: Coded Allergies: No Known Allergies (Unverified , 09/18/17) Objective Vital Signs Last 24 Hour Vital Signs Date Time Temp Pulse Resp B/P (MAP) Pulse Ox O2 Delivery O2 Flow Rate FiO2 09/26/17 13:08 129 31 70 09/26/17 13:00 125 31 126/61 96 Mechanical Ventilator 80 09/26/17 12:08 80 09/26/17 12:01 99.1 116 26 132/64 97 Mechanical Ventilator 80 09/26/17 12:00 121 09/26/17 11:00 116 28 115/65 97 Mechanical Ventilator 80 09/26/17 10:56 119 30 70 09/26/17 10:00 120 27 114/65 97 Mechanical Ventilator 80 09/26/17 09:00 119 28 120/62 96 Mechanical Ventilator 80 09/26/17 08:53 116 30 70 09/26/17 08:00 80 09/26/17 08:00 118 09/26/17 08:00 98.6 118 30 119/60 96 Mechanical Ventilator 80 09/26/17 07:16 111 29 70 09/26/17 07:00 110 28 115/60 96 Mechanical Ventilator 80 09/26/17 06:00 110 29 123/59 96 Mechanical Ventilator 80 09/26/17 05:00 106 26 123/59 97 Mechanical Ventilator 80 09/26/17 04:52 106 27 70 09/26/17 04:00 98.5 101 25 109/52 98 Mechanical Ventilator 80 09/26/17 04:00 80 09/26/17 04:00 103 09/26/17 03:20 101 28 80 09/26/17 03:00 105 25 120/69 99 Mechanical Ventilator 80 09/26/17 02:00 104 26 115/62 98 Mechanical Ventilator 80 09/26/17 01:20 101 25 80 09/26/17 01:00 103 26 118/60 98 Mechanical Ventilator 80 09/26/17 00:00 99.1 108 31 121/64 99 Mechanical Ventilator 80 09/26/17 00:00 109 09/26/17 00:00 80 09/25/17 23:00 108 27 110/59 98 Mechanical Ventilator 80 09/25/17 22:31 111 33 80 09/25/17 22:00 108 29 119/61 99 Mechanical Ventilator 80 09/25/17 21:15 99.2 09/25/17 21:00 99.2 112 30 103/52 99 Mechanical Ventilator 80 09/25/17 20:52 112 32 80 09/25/17 20:00 112 09/25/17 20:00 80 09/25/17 20:00 100.3 113 30 118/61 98 Mechanical Ventilator 80 09/25/17 19:17 118 30 80 09/25/17 19:00 117 21 108/57 97 Mechanical Ventilator 80 09/25/17 18:00 116 21 118/63 98 Mechanical Ventilator 80 09/25/17 17:00 115 32 80 09/25/17 17:00 116 22 112/60 96 Mechanical Ventilator 80 09/25/17 16:00 114 09/25/17 16:00 99.0 114 23 129/89 96 Mechanical Ventilator 80 09/25/17 16:00 80 09/25/17 15:14 119 31 80 09/25/17 15:00 120 22 91/49 96 Mechanical Ventilator 80 09/25/17 14:00 121 23 91/49 96 Mechanical Ventilator 80 Height (Feet): 5 Height (Inches): 2.00 Weight (Pounds): 129 HEENT: other - intubated Respiratory/Chest: lungs clear Cardiovascular: normal rate, regular rhythm, no gallop/murmur Abdomen: soft, non tender Extremities: no edema Microbiology Date/Time Source Procedure Growth Status 09/25/17 12:15 Blood Blood Culture - Preliminary Resulted 09/25/17 12:00 Blood Blood Culture - Preliminary Resulted 09/24/17 09:00 Other(Specify in comment) Catheter Tip Culture - Preliminary Resulted Laboratory Tests Test 09/26/17 06:00 White Blood Count 9.0 K/UL (4.8-10.8) Red Blood Count 3.40 M/UL (4.20-5.40) L Hemoglobin 11.0 G/DL (12.0-16.0) L Hematocrit 32.5 % (37.0-47.0) L Mean Corpuscular Volume 96 FL (80-99) Mean Corpuscular Hemoglobin 32.5 PG (27.0-31.0) H Mean Corpuscular Hemoglobin Concent 34.0 G/DL (32.0-36.0) Red Cell Distribution Width 12.5 % (11.6-14.8) Platelet Count 171 K/UL (150-450) Mean Platelet Volume 9.9 FL (6.5-10.1) Neutrophils (%) (Auto) % (45.0-75.0) Lymphocytes (%) (Auto) % (20.0-45.0) Monocytes (%) (Auto) % (1.0-10.0) Eosinophils (%) (Auto) % (0.0-3.0) Basophils (%) (Auto) % (0.0-2.0) Differential Total Cells Counted 100 Neutrophils % (Manual) 81 % (45-75) H Lymphocytes % (Manual) 7 % (20-45) L Monocytes % (Manual) 1 % (1-10) Eosinophils % (Manual) 0 % (0-3) Basophils % (Manual) 0 % (0-2) Band Neutrophils 11 % (0-8) H Platelet Estimate Adequate Platelet Morphology Normal Red Blood Cell Morphology Normal Sodium Level 139 MMOL/L (136-145) Potassium Level 3.7 MMOL/L (3.5-5.1) Chloride Level 104 MMOL/L (98-107) Carbon Dioxide Level 30 MMOL/L (21-32) Anion Gap 5 mmol/L (5-15) Blood Urea Nitrogen 10 mg/dL (7-18) Creatinine 0.5 MG/DL (0.55-1.30) L Estimat Glomerular Filtration Rate mL/min (>60) Glucose Level 133 MG/DL (74-106) H Calcium Level 7.4 MG/DL (8.5-10.1) L Total Bilirubin 0.4 MG/DL (0.2-1.0) Aspartate Amino Transf (AST/SGOT) 75 U/L (15-37) H Alanine Aminotransferase (ALT/SGPT) 142 U/L (12-78) H Alkaline Phosphatase 136 U/L (46-116) H Total Protein 5.6 G/DL (6.4-8.2) L Albumin 1.0 G/DL (3.4-5.0) L Globulin 4.6 g/dL Albumin/Globulin Ratio 0.2 (1.0-2.7) L HENRI CASTLE Sep 26, 2017 13:33
--- NOTE | 2017-09-26 14:27 | Pulmonology Progress Note ---
Assessment/Plan Assessment/Plan 1. Septic shock, resolved 2. Respiratory failure, on vent 3. Sepsis, likely skin source. 4. Severe dehydration with hypernatremia, improved 5. Dementia. 6. History of hypertension. 7. 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 doing poorly continued fevers CXR with Dense consolidation in the right upper lobe, Increasing bilateral perihilar and generalized right mid and lower lung interstitial and airspace opacities continue vent support pressors abx cannot wean prognosis poor favor comfort care Subjective Interval Events: patient seen and examined in ICU. Discussed with RN at bedside Constitutional: Reports: no symptoms HEENT: Repors: no symptoms Respiratory: Reports: no symptoms Cardiovascular: Reports: no symptoms Gastrointestinal/Abdominal: Reports: no symptoms Genitourinary: Reports: no symptoms Allergies: Coded Allergies: No Known Allergies (Unverified , 09/18/17) Objective Last 24 Hour Vital Signs Date Time Temp Pulse Resp B/P (MAP) Pulse Ox O2 Delivery O2 Flow Rate FiO2 09/26/17 13:08 129 31 70 09/26/17 13:00 125 31 126/61 96 Mechanical Ventilator 80 09/26/17 12:08 80 09/26/17 12:01 99.1 116 26 132/64 97 Mechanical Ventilator 80 09/26/17 12:00 121 09/26/17 11:00 116 28 115/65 97 Mechanical Ventilator 80 09/26/17 10:56 119 30 70 09/26/17 10:00 120 27 114/65 97 Mechanical Ventilator 80 09/26/17 09:00 119 28 120/62 96 Mechanical Ventilator 80 09/26/17 08:53 116 30 70 09/26/17 08:00 80 09/26/17 08:00 118 09/26/17 08:00 98.6 118 30 119/60 96 Mechanical Ventilator 80 09/26/17 07:16 111 29 70 09/26/17 07:00 110 28 115/60 96 Mechanical Ventilator 80 09/26/17 06:00 110 29 123/59 96 Mechanical Ventilator 80 09/26/17 05:00 106 26 123/59 97 Mechanical Ventilator 80 09/26/17 04:52 106 27 70 09/26/17 04:00 98.5 101 25 109/52 98 Mechanical Ventilator 80 09/26/17 04:00 80 09/26/17 04:00 103 09/26/17 03:20 101 28 80 09/26/17 03:00 105 25 120/69 99 Mechanical Ventilator 80 09/26/17 02:00 104 26 115/62 98 Mechanical Ventilator 80 09/26/17 01:20 101 25 80 09/26/17 01:00 103 26 118/60 98 Mechanical Ventilator 80 09/26/17 00:00 99.1 108 31 121/64 99 Mechanical Ventilator 80 09/26/17 00:00 109 09/26/17 00:00 80 09/25/17 23:00 108 27 110/59 98 Mechanical Ventilator 80 09/25/17 22:31 111 33 80 09/25/17 22:00 108 29 119/61 99 Mechanical Ventilator 80 09/25/17 21:15 99.2 09/25/17 21:00 99.2 112 30 103/52 99 Mechanical Ventilator 80 09/25/17 20:52 112 32 80 09/25/17 20:00 112 09/25/17 20:00 80 09/25/17 20:00 100.3 113 30 118/61 98 Mechanical Ventilator 80 09/25/17 19:17 118 30 80 09/25/17 19:00 117 21 108/57 97 Mechanical Ventilator 80 09/25/17 18:00 116 21 118/63 98 Mechanical Ventilator 80 09/25/17 17:00 115 32 80 09/25/17 17:00 116 22 112/60 96 Mechanical Ventilator 80 09/25/17 16:00 114 09/25/17 16:00 99.0 114 23 129/89 96 Mechanical Ventilator 80 09/25/17 16:00 80 09/25/17 15:14 119 31 80 09/25/17 15:00 120 22 91/49 96 Mechanical Ventilator 80 Intake and Output 09/25/17 09/26/17 19:00 07:00 Intake Total 1480 ml 765 ml Output Total 955 ml 1120 ml Balance 525 ml -355 ml IV Total 760 ml 465 ml Tube Feeding 600 ml 250 ml Other 120 ml 50 ml Output Urine Total 955 ml 1120 ml # Bowel Movements 3 General Appearance: no acute distress HEENT: normocephalic Respiratory/Chest: chest wall non-tender, lungs clear Cardiovascular: normal peripheral pulses, normal rate Abdomen: normal bowel sounds Microbiology Date/Time Source Procedure Growth Status 09/25/17 12:15 Blood Blood Culture - Preliminary Resulted 09/25/17 12:00 Blood Blood Culture - Preliminary Resulted 09/24/17 09:00 Other(Specify in comment) Catheter Tip Culture - Preliminary Resulted Laboratory Tests 09/26/17 06:00: White Blood Count 9.0, Red Blood Count 3.40L, Hemoglobin 11.0L, Hematocrit 32.5L , Mean Corpuscular Volume 96, Mean Corpuscular Hemoglobin 32.5H, Mean Corpuscular Hemoglobin Concent 34.0, Red Cell Distribution Width 12.5, Platelet Count 171, Mean Platelet Volume 9.9, Neutrophils (%) (Auto) , Lymphocytes (%) ( Auto) , Monocytes (%) (Auto) , Eosinophils (%) (Auto) , Basophils (%) (Auto) , Differential Total Cells Counted 100, Neutrophils % (Manual) 81H, Lymphocytes % (Manual) 7L, Monocytes % (Manual) 1, Eosinophils % (Manual) 0, Basophils % ( Manual) 0, Band Neutrophils 11H, Platelet Estimate Adequate, Platelet Morphology Normal, Red Blood Cell Morphology Normal, Sodium Level 139, Potassium Level 3.7, Chloride Level 104, Carbon Dioxide Level 30, Anion Gap 5, Blood Urea Nitrogen 10, Creatinine 0.5L, Estimat Glomerular Filtration Rate , Glucose Level 133H, Calcium Level 7.4L, Total Bilirubin 0.4, Aspartate Amino Transf (AST/SGOT) 75H, Alanine Aminotransferase (ALT/SGPT) 142H, Alkaline Phosphatase 136H, Total Protein 5.6L, Albumin 1.0L, Globulin 4.6, Albumin/ Globulin Ratio 0.2L Current Medications Medications (Trade) Dose Ordered Sig/Lilly Route PRN Reason Start Time Stop Time Status Last Admin Dose Admin Acetaminophen (Tylenol) 650 mg EVERY 4 HOURS PRN ORAL fever/PAGE 09/19/17 03:15 10/19/17 03:14 09/25/17 20:16 Cefepime HCl 1 gm/ Dextrose 55 ml @ 110 mls/hr Q24H IVPB 09/26/17 11:00 10/03/17 10:59 09/26/17 11:00 Dextrose (Dextrose 50%) STAT PRN IV Hypoglycemia 09/19/17 12:30 10/19/17 12:29 Insulin Aspart (NovoLOG) Q6HR SUBQ 09/19/17 13:00 10/19/17 12:59 09/26/17 06:15 Lorazepam (Ativan) 0.5 mg TIDPRN PRN ORAL For Anxiety 09/20/17 16:15 09/27/17 16:14 09/22/17 16:27 Pantoprazole (Protonix) 40 mg DAILY IVP 09/20/17 10:00 10/20/17 09:59 09/26/17 09:00 Vancomycin HCl (Vanco rx to dose) 1 ea DAILY PRN MISC Per rx protocol 09/19/17 03:15 10/19/17 03:14 Vancomycin HCl/ Dextrose 250 ml @ 125 mls/hr Q24H IVPB 09/26/17 06:00 10/01/17 05:59 09/26/17 06:09 Dilip Goyal MD Sep 26, 2017 14:27
--- NOTE | 2017-09-26 16:14 | Nephrology Progress Note ---
Assessment/Plan Problem List: (1) Malnutrition of moderate degree (2) Hypernatremia (3) BOB (acute kidney injury) (4) Dehydration (5) Sepsis (6) UTI (urinary tract infection) (7) Elevated troponin (8) Hypokalemia Plan reduce iv, rx sepsis, kcl replace repeat lytes tube feed Subjective ROS Limited/Unobtainable: Yes Objective Objective Last 24 Hour Vital Signs Date Time Temp Pulse Resp B/P (MAP) Pulse Ox O2 Delivery O2 Flow Rate FiO2 09/26/17 15:25 120 28 70 09/26/17 15:00 118 32 118/56 97 Mechanical Ventilator 80 09/26/17 14:00 122 30 125/61 97 Mechanical Ventilator 80 09/26/17 13:08 129 31 70 09/26/17 13:00 125 31 126/61 96 Mechanical Ventilator 80 09/26/17 12:08 80 09/26/17 12:01 99.1 116 26 132/64 97 Mechanical Ventilator 80 09/26/17 12:00 121 09/26/17 11:00 116 28 115/65 97 Mechanical Ventilator 80 09/26/17 10:56 119 30 70 09/26/17 10:00 120 27 114/65 97 Mechanical Ventilator 80 09/26/17 09:00 119 28 120/62 96 Mechanical Ventilator 80 09/26/17 08:53 116 30 70 09/26/17 08:00 80 09/26/17 08:00 118 09/26/17 08:00 98.6 118 30 119/60 96 Mechanical Ventilator 80 09/26/17 07:16 111 29 70 09/26/17 07:00 110 28 115/60 96 Mechanical Ventilator 80 09/26/17 06:00 110 29 123/59 96 Mechanical Ventilator 80 09/26/17 05:00 106 26 123/59 97 Mechanical Ventilator 80 09/26/17 04:52 106 27 70 09/26/17 04:00 98.5 101 25 109/52 98 Mechanical Ventilator 80 09/26/17 04:00 80 09/26/17 04:00 103 09/26/17 03:20 101 28 80 09/26/17 03:00 105 25 120/69 99 Mechanical Ventilator 80 09/26/17 02:00 104 26 115/62 98 Mechanical Ventilator 80 09/26/17 01:20 101 25 80 09/26/17 01:00 103 26 118/60 98 Mechanical Ventilator 80 09/26/17 00:00 99.1 108 31 121/64 99 Mechanical Ventilator 80 09/26/17 00:00 109 09/26/17 00:00 80 09/25/17 23:00 108 27 110/59 98 Mechanical Ventilator 80 09/25/17 22:31 111 33 80 09/25/17 22:00 108 29 119/61 99 Mechanical Ventilator 80 09/25/17 21:15 99.2 09/25/17 21:00 99.2 112 30 103/52 99 Mechanical Ventilator 80 09/25/17 20:52 112 32 80 09/25/17 20:00 112 09/25/17 20:00 80 09/25/17 20:00 100.3 113 30 118/61 98 Mechanical Ventilator 80 09/25/17 19:17 118 30 80 09/25/17 19:00 117 21 108/57 97 Mechanical Ventilator 80 09/25/17 18:00 116 21 118/63 98 Mechanical Ventilator 80 09/25/17 17:00 115 32 80 09/25/17 17:00 116 22 112/60 96 Mechanical Ventilator 80 Intake and Output 09/25/17 09/26/17 19:00 07:00 Intake Total 1480 ml 765 ml Output Total 955 ml 1120 ml Balance 525 ml -355 ml IV Total 760 ml 465 ml Tube Feeding 600 ml 250 ml Other 120 ml 50 ml Output Urine Total 955 ml 1120 ml # Bowel Movements 3 Laboratory Tests 09/26/17 06:00: White Blood Count 9.0, Red Blood Count 3.40L, Hemoglobin 11.0L, Hematocrit 32.5L , Mean Corpuscular Volume 96, Mean Corpuscular Hemoglobin 32.5H, Mean Corpuscular Hemoglobin Concent 34.0, Red Cell Distribution Width 12.5, Platelet Count 171, Mean Platelet Volume 9.9, Neutrophils (%) (Auto) , Lymphocytes (%) ( Auto) , Monocytes (%) (Auto) , Eosinophils (%) (Auto) , Basophils (%) (Auto) , Differential Total Cells Counted 100, Neutrophils % (Manual) 81H, Lymphocytes % (Manual) 7L, Monocytes % (Manual) 1, Eosinophils % (Manual) 0, Basophils % ( Manual) 0, Band Neutrophils 11H, Platelet Estimate Adequate, Platelet Morphology Normal, Red Blood Cell Morphology Normal, Sodium Level 139, Potassium Level 3.7, Chloride Level 104, Carbon Dioxide Level 30, Anion Gap 5, Blood Urea Nitrogen 10, Creatinine 0.5L, Estimat Glomerular Filtration Rate , Glucose Level 133H, Calcium Level 7.4L, Total Bilirubin 0.4, Aspartate Amino Transf (AST/SGOT) 75H, Alanine Aminotransferase (ALT/SGPT) 142H, Alkaline Phosphatase 136H, Total Protein 5.6L, Albumin 1.0L, Globulin 4.6, Albumin/ Globulin Ratio 0.2L Height (Feet): 5 Height (Inches): 2.00 Weight (Pounds): 129 General Appearance: lethargic EENT: normal ENT inspection Neck: normal alignment Cardiovascular: regular rhythm, tachycardia Respiratory/Chest: rhonchi - bilaterally Abdomen: no organomegaly Extremities: moderate edema Neurologic: unresponsive GM SINGH Sep 26, 2017 16:14
[2017-09-27] VITALS (24 sets, daily range): BP systolic 100–154; BP diastolic 48–73
[2017-09-27] MEDS: NovoLOG Insulin Flexpen SUBQ SCH ×4 (05:32→23:49)
[2017-09-27] MEDS: Vancomycin 1500mg IVPB SCH (05:59)
[2017-09-27 07:22] LABS: HEMATOCRIT 32.3 % (37.0-47.0); HEMOGLOBIN 10.7 G/DL (12.0-16.0); MEAN CORPUSCULAR VOLUME 97 FL (80-99); PLATELET COUNT 181 K/UL (150-450); RED BLOOD COUNT 3.33 M/UL (4.20-5.40); RED CELL DISTRIBUTION WIDTH 12.8 % (11.6-14.8); WHITE BLOOD COUNT 9.9 K/UL (4.8-10.8)
[2017-09-27 07:28] LABS: ALANINE AMINOTRANSFERASE 88 U/L (12-78); ALBUMIN 0.9 G/DL (3.4-5.0); ALBUMIN/GLOBULIN RATIO 0.2 (1.0-2.7); ALKALINE PHOSPHATASE 134 U/L (46-116); ANION GAP 5 mmol/L (5-15); ASPARTATE AMINO TRANSFERASE 58 U/L (15-37); BILIRUBIN,TOTAL 0.4 MG/DL (0.2-1.0); BLOOD UREA NITROGEN 10 mg/dL (7-18); CALCIUM 7.3 MG/DL (8.5-10.1); CARBON DIOXIDE 30 MMOL/L (21-32); CHLORIDE 104 MMOL/L (98-107); CREATININE 0.5 MG/DL (0.55-1.30); POTASSIUM 3.7 MMOL/L (3.5-5.1); SODIUM 139 MMOL/L (136-145)
[2017-09-27] MEDS: Pantoprazole Inj IVP SCH (08:15)
[2017-09-27] MEDS: Cefepime HCl 1 GM in D5W 55 ML IVPB SCH (10:14)
--- NOTE | 2017-09-27 13:45 | General Progress Note ---
Assessment/Plan Problem List: (1) Dehydration ICD Codes: E86.0 - Dehydration SNOMED: 60315803 (2) Hypernatremia ICD Codes: E87.0 - Hyperosmolality and hypernatremia SNOMED: 22395552 (3) Malnutrition of moderate degree ICD Codes: E44.0 - Moderate protein-calorie malnutrition SNOMED: 760785619 (4) BOB (acute kidney injury) ICD Codes: N17.9 - Acute kidney failure, unspecified SNOMED: 23215892 (5) Sepsis ICD Codes: A41.9 - Sepsis, unspecified organism SNOMED: 35133374, 929199397 Qualifiers: Qualified Codes: A41.9 - Sepsis, unspecified organism (6) UTI (urinary tract infection) ICD Codes: N39.0 - Urinary tract infection, site not specified SNOMED: 09200599, 756823705 Qualifiers: Qualified Codes: N39.0 - Urinary tract infection, site not specified (7) Elevated troponin ICD Codes: R74.8 - Abnormal levels of other serum enzymes SNOMED: 403016568, 303328271 Status: stable, not improved Assessment/Plan iv abx id appreciated repeat blood cultures- positive ?endocarditis check abd dougie- ordered but not done yet off pressors currently dc iv feeds as tolerated vent- wean as able resp rx monitor lytes replace as needed dvt/stress ulcer prophylaxis critical and guarded Subjective ROS Limited/Unobtainable: Yes Constitutional: Reports: fever, malaise, weakness HEENT: Reports: no symptoms Cardiovascular: Reports: no symptoms Respiratory: Reports: SOB at rest, sputum Gastrointestinal/Abdominal: Reports: abdomen distended, difficulty swallowing Genitourinary: Reports: no symptoms Neurologic/Psychiatric: Reports: pre-existing deficit Endocrine: Reports: no symptoms Hematologic/Lymphatic: Reports: anemia Allergies: Coded Allergies: No Known Allergies (Unverified , 09/18/17) All Systems: reviewed and negative except above Subjective no better. low grade temps. not tolerating feeds. off pressors. lfts trending down. repeat blood cultures positive for s.aureus Objective Last 24 Hour Vital Signs Date Time Temp Pulse Resp B/P (MAP) Pulse Ox O2 Delivery O2 Flow Rate FiO2 09/27/17 13:00 118 31 115/63 98 Mechanical Ventilator 80 09/27/17 12:56 118 30 70 09/27/17 12:00 98.4 121 30 147/62 97 Mechanical Ventilator 80 09/27/17 12:00 121 09/27/17 12:00 80 09/27/17 11:17 120 30 70 09/27/17 11:00 120 26 138/59 98 Mechanical Ventilator 80 09/27/17 11:00 120 30 138/59 97 Mechanical Ventilator 80 09/27/17 10:00 114 26 123/57 98 Mechanical Ventilator 80 09/27/17 09:13 116 29 70 09/27/17 09:00 110 28 122/54 97 Mechanical Ventilator 80 09/27/17 08:00 80 09/27/17 08:00 98.9 106 27 124/57 98 Mechanical Ventilator 80 09/27/17 08:00 106 09/27/17 07:00 107 26 128/57 99 Mechanical Ventilator 80 09/27/17 06:55 108 28 70 09/27/17 06:00 104 25 121/60 99 Mechanical Ventilator 80 09/27/17 05:29 25 28 70 09/27/17 05:00 100 27 108/49 99 Mechanical Ventilator 80 09/27/17 04:00 80 09/27/17 04:00 104 09/27/17 04:00 98.7 104 26 121/59 99 Mechanical Ventilator 80 09/27/17 03:50 106 28 70 09/27/17 03:00 102 26 113/52 99 Mechanical Ventilator 80 09/27/17 02:00 101 27 103/48 99 Mechanical Ventilator 80 09/27/17 01:32 100 28 70 09/27/17 01:00 91 26 116/51 99 Mechanical Ventilator 80 09/27/17 00:00 98.5 88 23 109/58 100 Mechanical Ventilator 80 09/27/17 00:00 98 09/26/17 23:00 91 24 108/57 94 Mechanical Ventilator 70 09/26/17 22:45 93 25 70 09/26/17 22:00 99 25 103/60 98 Mechanical Ventilator 70 09/26/17 21:23 105 28 70 09/26/17 21:00 98.7 110 25 96/45 99 Mechanical Ventilator 80 09/26/17 20:00 108 09/26/17 20:00 100.5 108 29 111/56 98 Mechanical Ventilator 80 09/26/17 20:00 80 09/26/17 19:52 116 27 70 09/26/17 19:00 124 30 128/60 95 Mechanical Ventilator 80 09/26/17 18:22 99.0 09/26/17 18:00 122 29 140/63 95 Mechanical Ventilator 80 09/26/17 17:03 114 35 70 09/26/17 17:00 99.9 71 29 99/63 98 09/26/17 17:00 118 27 131/64 97 Mechanical Ventilator 80 09/26/17 16:00 99.9 71 29 99/63 98 09/26/17 16:00 80 09/26/17 16:00 113 09/26/17 15:25 120 28 70 09/26/17 15:00 118 32 118/56 97 Mechanical Ventilator 80 09/26/17 14:00 122 30 125/61 97 Mechanical Ventilator 80 Intake and Output 09/26/17 09/27/17 19:00 07:00 Intake Total 525 ml 600 ml Output Total 1060 ml 575 ml Balance -535 ml 25 ml Intake Free Water 50 ml IV Total 175 ml 125 ml Tube Feeding 300 ml 475 ml Output Urine Total 1060 ml 575 ml # Bowel Movements 1 Laboratory Tests 09/27/17 06:13: White Blood Count 9.9, Red Blood Count 3.33L, Hemoglobin 10.7L, Hematocrit 32.3L , Mean Corpuscular Volume 97, Mean Corpuscular Hemoglobin 32.0H, Mean Corpuscular Hemoglobin Concent 33.0, Red Cell Distribution Width 12.8, Platelet Count 181, Mean Platelet Volume 9.5, Neutrophils (%) (Auto) , Lymphocytes (%) ( Auto) , Monocytes (%) (Auto) , Eosinophils (%) (Auto) , Basophils (%) (Auto) , Differential Total Cells Counted 100, Neutrophils % (Manual) 90H, Lymphocytes % (Manual) 9L, Monocytes % (Manual) 1, Eosinophils % (Manual) 0, Basophils % ( Manual) 0, Band Neutrophils 0, Platelet Estimate Adequate, Platelet Morphology Normal, Hypochromasia 1+, Spherocytes 1+, Sodium Level 139, Potassium Level 3.7 , Chloride Level 104, Carbon Dioxide Level 30, Anion Gap 5, Blood Urea Nitrogen 10, Creatinine 0.5L, Estimat Glomerular Filtration Rate , Glucose Level 93, Calcium Level 7.3L, Total Bilirubin 0.4, Aspartate Amino Transf (AST/SGOT) 58H, Alanine Aminotransferase (ALT/SGPT) 88H, Alkaline Phosphatase 134H, Total Protein 5.6L, Albumin 0.9L, Globulin 4.7, Albumin/Globulin Ratio 0.2L Height (Feet): 5 Height (Inches): 2.00 Weight (Pounds): 151 Objective General Appearance: WD/WN, lethargic, confused Neck: supple Cardiovascular: normal rate, regular rhythm Respiratory/Chest: rhonchi - bilaterally Abdomen: normal bowel sounds, non tender, soft, no organomegaly Edema: no edema noted Arm (L), no edema noted Arm (R), no edema noted Leg (L), no edema noted Leg (R), no edema noted Pedal (L), no edema noted Pedal (R), no edema noted Generalized Neurologic: unresponsive KRYSTINA LENTZ Sep 27, 2017 13:45
--- NOTE | 2017-09-27 19:30 | Pulmonolgy Critical Care Note ---
Critical Care - Asmt/Plan Assessment/Plan: 1. Acute respiratory failure. 2. Possible sepsis with lactic acidosis and leukocytosis. 3. Severe dehydration with hypernatremia. 4. Hypokalemia. 5. Elevated liver enzymes. 6. Possible congestive heart failure. 7. Severe protein-calorie malnutrition. 8. Cachexia and inanition. 9. History of hypertension. 10. 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 with: nurses Critical Care - Objective Last 24 Hour Vital Signs Date Time Temp Pulse Resp B/P (MAP) Pulse Ox O2 Delivery O2 Flow Rate FiO2 09/27/17 19:07 140 38 80 09/27/17 18:01 132 32 154/73 94 Mechanical Ventilator 80 09/27/17 17:11 125 33 70 09/27/17 17:00 124 32 145/62 96 Mechanical Ventilator 80 09/27/17 16:00 80 09/27/17 16:00 100.3 118 32 128/57 97 Mechanical Ventilator 80 09/27/17 16:00 118 09/27/17 15:47 120 31 70 09/27/17 15:00 120 31 121/61 98 Mechanical Ventilator 80 09/27/17 14:00 120 32 130/64 98 Mechanical Ventilator 80 09/27/17 13:00 118 31 115/63 98 Mechanical Ventilator 80 09/27/17 12:56 118 30 70 09/27/17 12:00 98.4 121 30 147/62 97 Mechanical Ventilator 80 09/27/17 12:00 121 09/27/17 12:00 80 09/27/17 11:17 120 30 70 09/27/17 11:00 120 26 138/59 98 Mechanical Ventilator 80 09/27/17 11:00 120 30 138/59 97 Mechanical Ventilator 80 09/27/17 10:00 114 26 123/57 98 Mechanical Ventilator 80 09/27/17 09:13 116 29 70 09/27/17 09:00 110 28 122/54 97 Mechanical Ventilator 80 09/27/17 08:00 80 09/27/17 08:00 98.9 106 27 124/57 98 Mechanical Ventilator 80 09/27/17 08:00 106 09/27/17 07:00 107 26 128/57 99 Mechanical Ventilator 80 09/27/17 06:55 108 28 70 09/27/17 06:00 104 25 121/60 99 Mechanical Ventilator 80 09/27/17 05:29 25 28 70 09/27/17 05:00 100 27 108/49 99 Mechanical Ventilator 80 09/27/17 04:00 80 09/27/17 04:00 104 09/27/17 04:00 98.7 104 26 121/59 99 Mechanical Ventilator 80 09/27/17 03:50 106 28 70 09/27/17 03:00 102 26 113/52 99 Mechanical Ventilator 80 09/27/17 02:00 101 27 103/48 99 Mechanical Ventilator 80 09/27/17 01:32 100 28 70 09/27/17 01:00 91 26 116/51 99 Mechanical Ventilator 80 09/27/17 00:00 98.5 88 23 109/58 100 Mechanical Ventilator 80 09/27/17 00:00 98 09/26/17 23:00 91 24 108/57 94 Mechanical Ventilator 70 09/26/17 22:45 93 25 70 09/26/17 22:00 99 25 103/60 98 Mechanical Ventilator 70 09/26/17 21:23 105 28 70 09/26/17 21:00 98.7 110 25 96/45 99 Mechanical Ventilator 80 09/26/17 20:00 108 09/26/17 20:00 100.5 108 29 111/56 98 Mechanical Ventilator 80 09/26/17 20:00 80 09/26/17 19:52 116 27 70 Status: obtunded Condition: critical Lungs: rhonchi Heart: HR/BP unstable Abdomen: non-tender, active bowel sounds Extremities: edema Objective: Laboratory Tests Test 09/21/17 04:00 White Blood Count 9.8 K/UL (4.8-10.8) Red Blood Count 3.45 M/UL (4.20-5.40) L Hemoglobin 11.3 G/DL (12.0-16.0) L Hematocrit 34.2 % (37.0-47.0) L Mean Corpuscular Volume 99 FL (80-99) Mean Corpuscular Hemoglobin 32.7 PG (27.0-31.0) H Mean Corpuscular Hemoglobin Concent 33.0 G/DL (32.0-36.0) Red Cell Distribution Width 12.8 % (11.6-14.8) Platelet Count 83 K/UL (150-450) L Mean Platelet Volume 9.3 FL (6.5-10.1) Neutrophils (%) (Auto) % (45.0-75.0) Lymphocytes (%) (Auto) % (20.0-45.0) Monocytes (%) (Auto) % (1.0-10.0) Eosinophils (%) (Auto) % (0.0-3.0) Basophils (%) (Auto) % (0.0-2.0) Differential Total Cells Counted 100 Neutrophils % (Manual) 89 % (45-75) H Lymphocytes % (Manual) 8 % (20-45) L Monocytes % (Manual) 0 % (1-10) L Eosinophils % (Manual) 0 % (0-3) Basophils % (Manual) 0 % (0-2) Band Neutrophils 3 % (0-8) Platelet Estimate Decreased L Platelet Morphology Normal Red Blood Cell Morphology Normal Sodium Level 144 MMOL/L (136-145) Potassium Level 3.4 MMOL/L (3.5-5.1) L Chloride Level 113 MMOL/L (98-107) H Carbon Dioxide Level 24 MMOL/L (21-32) Anion Gap 7 mmol/L (5-15) Blood Urea Nitrogen 13 mg/dL (7-18) Creatinine 0.6 MG/DL (0.55-1.30) Estimat Glomerular Filtration Rate mL/min (>60) Glucose Level 200 MG/DL (74-106) H Calcium Level 6.7 MG/DL (8.5-10.1) L Current Medications Medications (Trade) Dose Ordered Sig/Lilly Route PRN Reason Start Time Stop Time Status Last Admin Dose Admin Acetaminophen (Tylenol) 650 mg EVERY 4 HOURS PRN ORAL fever/PAGE 09/19/17 03:15 10/19/17 03:14 09/20/17 11:06 Albuterol/ Ipratropium (Albuterol/ Ipratropium) 3 ml Q6HRT HHN 09/19/17 07:00 09/24/17 06:59 09/21/17 18:58 Cefepime HCl 1 gm/ Dextrose 55 ml @ 110 mls/hr Q24H IVPB 09/21/17 09:00 09/26/17 08:59 09/21/17 09:54 Chlorhexidine Gluconate (Serena-Hex 2%) 1 applic DAILY@2000 TOPIC 09/20/17 20:00 10/20/17 19:59 09/21/17 20:37 Dextrose (Dextrose 50%) STAT PRN IV Hypoglycemia 09/19/17 12:30 10/19/17 12:29 Hydrocortisone (Solu-CORTEF) 100 mg EVERY 8 HOURS IV 09/20/17 14:00 10/20/17 13:59 09/21/17 14:42 Insulin Aspart (NovoLOG) Q6HR SUBQ 09/19/17 13:00 10/19/17 12:59 09/21/17 18:06 Lorazepam (Ativan) 0.5 mg TIDPRN PRN ORAL For Anxiety 09/20/17 16:15 09/27/17 16:14 09/20/17 22:13 Norepinephrine Bitartrate 8 mg/ Dextrose 250 ml @ 0 mls/hr Q24H IV 09/19/17 23:30 10/19/17 23:29 09/20/17 22:04 Pantoprazole (Protonix) 40 mg DAILY IVP 09/20/17 10:00 10/20/17 09:59 09/21/17 09:15 Potassium Chloride 20 meq/ Dextrose 1,010 ml @ 35 mls/hr Q24H IV 09/21/17 11:45 10/21/17 11:44 09/21/17 11:51 Vancomycin HCl (Vanco rx to dose) 1 ea DAILY PRN MISC Per rx protocol 09/19/17 03:15 10/19/17 03:14 Vancomycin/Sodium Chloride 250 ml @ 166.667 mls/hr Q24H IVPB 09/20/17 08:00 09/25/17 07:59 09/21/17 09:15 Micro: Microbiology Date/Time Source Procedure Growth Status 09/25/17 12:15 Blood Blood Culture - Preliminary Staphylococcus Aureus Resulted 09/25/17 12:00 Blood Blood Culture - Preliminary Staphylococcus Aureus Resulted Accucheck: 172 Critical Care - Subjective ROS Limited/Unobtainable: Yes Condition: critical EKG Rhythm: SVT FI02: 80 Vent Support Breath Rate: 14 Vent Support Mode: AC Vent Tidal Volume: 450 Sputum Amount: None PEEP: 5.0 PIP: 27 Tube Feeding Amount: 50 I&O: Intake and Output 09/26/17 09/27/17 19:00 07:00 Intake Total 525 ml 600 ml Output Total 1060 ml 575 ml Balance -535 ml 25 ml Intake Free Water 50 ml IV Total 175 ml 125 ml Tube Feeding 300 ml 475 ml Output Urine Total 1060 ml 575 ml # Bowel Movements 1 Subjective: orally intubated on the vent bc positive for staph aureus ?endocarditis moderate distress, tachycardic and tachypnea fever this evening tolerating Tf does not follow commands for me positive uop CXR: no new cxr since 09/24 ET-Tube: 7.5 ET Position: 23 Labs: Current Medications Medications (Trade) Dose Ordered Sig/Lilly Route PRN Reason Start Time Stop Time Status Last Admin Dose Admin Acetaminophen (Tylenol) 650 mg EVERY 4 HOURS PRN ORAL fever/PAGE 09/19/17 03:15 10/19/17 03:14 09/27/17 17:46 Cefepime HCl 1 gm/ Dextrose 55 ml @ 110 mls/hr Q24H IVPB 09/26/17 11:00 10/03/17 10:59 09/27/17 10:14 Dextrose (Dextrose 50%) STAT PRN IV Hypoglycemia 09/19/17 12:30 10/19/17 12:29 Insulin Aspart (NovoLOG) Q6HR SUBQ 09/19/17 13:00 10/19/17 12:59 09/27/17 18:01 Pantoprazole (Protonix) 40 mg DAILY IVP 09/20/17 10:00 10/20/17 09:59 09/27/17 08:15 Vancomycin HCl (Vanco rx to dose) 1 ea DAILY PRN MISC Per rx protocol 09/19/17 03:15 10/19/17 03:14 Vancomycin HCl/ Dextrose 250 ml @ 125 mls/hr Q24H IVPB 09/26/17 06:00 10/01/17 05:59 09/27/17 05:59 Laboratory Tests Test 09/27/17 06:13 White Blood Count 9.9 K/UL (4.8-10.8) Red Blood Count 3.33 M/UL (4.20-5.40) L Hemoglobin 10.7 G/DL (12.0-16.0) L Hematocrit 32.3 % (37.0-47.0) L Mean Corpuscular Volume 97 FL (80-99) Mean Corpuscular Hemoglobin 32.0 PG (27.0-31.0) H Mean Corpuscular Hemoglobin Concent 33.0 G/DL (32.0-36.0) Red Cell Distribution Width 12.8 % (11.6-14.8) Platelet Count 181 K/UL (150-450) Mean Platelet Volume 9.5 FL (6.5-10.1) Neutrophils (%) (Auto) % (45.0-75.0) Lymphocytes (%) (Auto) % (20.0-45.0) Monocytes (%) (Auto) % (1.0-10.0) Eosinophils (%) (Auto) % (0.0-3.0) Basophils (%) (Auto) % (0.0-2.0) Differential Total Cells Counted 100 Neutrophils % (Manual) 90 % (45-75) H Lymphocytes % (Manual) 9 % (20-45) L Monocytes % (Manual) 1 % (1-10) Eosinophils % (Manual) 0 % (0-3) Basophils % (Manual) 0 % (0-2) Band Neutrophils 0 % (0-8) Platelet Estimate Adequate Platelet Morphology Normal Hypochromasia 1+ Spherocytes 1+ Sodium Level 139 MMOL/L (136-145) Potassium Level 3.7 MMOL/L (3.5-5.1) Chloride Level 104 MMOL/L (98-107) Carbon Dioxide Level 30 MMOL/L (21-32) Anion Gap 5 mmol/L (5-15) Blood Urea Nitrogen 10 mg/dL (7-18) Creatinine 0.5 MG/DL (0.55-1.30) L Estimat Glomerular Filtration Rate mL/min (>60) Glucose Level 93 MG/DL (74-106) Calcium Level 7.3 MG/DL (8.5-10.1) L Total Bilirubin 0.4 MG/DL (0.2-1.0) Aspartate Amino Transf (AST/SGOT) 58 U/L (15-37) H Alanine Aminotransferase (ALT/SGPT) 88 U/L (12-78) H Alkaline Phosphatase 134 U/L (46-116) H Total Protein 5.6 G/DL (6.4-8.2) L Albumin 0.9 G/DL (3.4-5.0) L Globulin 4.7 g/dL Albumin/Globulin Ratio 0.2 (1.0-2.7) L RAYNA WHITAKER DO Sep 27, 2017 19:30
[2017-09-27] MEDS ORDERED: Tubing IV Secondary IV ONE ×2 (22:40→22:49)
[2017-09-27] MEDS ORDERED: NS 275ml ONE (22:40)
[2017-09-27] MEDS ORDERED: NS 500ML ONE (22:49)
[2017-09-27] MEDS ORDERED: 1/2 NS 1000ml IV ONE (22:49)
--- NOTE | 2017-09-27 23:45 | Progress Note ---
DATE: 09/26/2017 CARDIOLOGY PROGRESS NOTE Late entry for 09/26/2017. SUBJECTIVE: The patient is in the intensive care unit. Orally intubated and mechanically ventilated. Her condition remains critical. Prognosis guarded. She is off pressors. Blood cultures have been positive for Staph aureus. OBJECTIVE: VITAL SIGNS: Blood pressure 126/61, heart rate 125, respirations 31, temperature 99.1. Monitor sinus tachycardia. HEENT: Orally intubated. LUNGS: Coarse breath sounds. Scattered rhonchi. HEART: Regular rhythm. Rapid rate. Normal S1, S2. ABDOMEN: Soft. EXTREMITIES: Trace dependent edema. LABORATORY DATA: White count 9.9, hemoglobin 10.7. Potassium 3.7, BUN 10, creatinine 0.5. Albumin 0.9. IMPRESSION: 1. Respiratory failure. 2. Sepsis with shock. 3. Recurring Staphylococcus aureus bacteremia. 4. High risk for endocarditis. 5. Severe protein-calorie malnutrition. 6. Anemia. 7. Urinary tract infection. 8. Acute myocardial infarction. PLAN: 1. IV microbial therapy per Infectious Disease corporate learning consultant. 2. Reculture if recurring bacteremia. 3. We will need to consider transesophageal echocardiogram. 4. Ventilator support, would wean as able. 5. Nutritional support by feeding tube. 6. Initiate anti-platelet therapy, add beta-aggie. Davy Robbins M.D. DR: ALEXANDREA JOB#: [id number] CC:
[2017-09-27] MEDS: Metoprolol 25mg tab ORAL SCH (23:54)
[2017-09-28] VITALS (24 sets, daily range): BP systolic 92–134; BP diastolic 40–63
--- NOTE | 2017-09-28 02:45 | Progress Note ---
DATE: 09/27/2017 CARDIOLOGY PROGRESS NOTE SUBJECTIVE: The patient remains on ventilator support. Monitored sinus tachycardia. No pressors at this time. OBJECTIVE: VITAL SIGNS: Blood pressure 145/62, pulse 124, respiratory rate 32. LUNGS: Bilateral breath sounds. Scattered rhonchi. HEART: Regular rhythm. Rapid rate. Normal S1, S2. ABDOMEN: Soft. EXTREMITIES: Trace edema. LABORATORY DATA: White count 9.9, hemoglobin 10.7. Albumin 0.9. Potassium 3.7. IMPRESSION: 1. Respiratory failure. 2. Line sepsis with Staphylococcus bacteremia. 3. Acute myocardial infarction. 4. Sinus tachycardia. 5. Severe protein-calorie malnutrition. 6. Transaminitis. 7. Increased risk for endocarditis. PLAN: 1. Protein supplement. 2. Nutritional support by feeding tube. 3. Antibiotics per Infectious Disease applications consultant. 4. Repeat blood cultures. 5. Consider transesophageal echocardiogram. 6. Titrate beta-aggie. 7. Maintain antiplatelet therapy. 8. DVT prophylaxis, weaning as able. Davy Robbins M.D. DR: ALEXANDREA JOB#: [id number] CC:
[2017-09-28] MEDS: Vancomycin 1500mg IVPB SCH (05:34)
[2017-09-28] MEDS: NovoLOG Insulin Flexpen SUBQ SCH ×4 (05:37→23:46)
[2017-09-28] MEDS: Aspirin Baby 81mg NG SCH (08:23)
[2017-09-28] MEDS: Metoprolol 25mg tab ORAL SCH ×2 (08:23→20:43)
[2017-09-28] MEDS: Pantoprazole Inj IVP SCH (08:23)
--- NOTE | 2017-09-28 10:13 | Infectious Diseases Prog Note ---
Assessment/Plan Assessment/Plan A 1. e.coli UTI 2. pneumonia 3. coag neg staph sepsis, MRSA s/p catheter removal 4. Hypoxic respiratory failure 5. Persistent fever, likely endocarditis P 1. continue vancomycin iv, cefepime 2. repeat blood cultures Subjective ROS Limited/Unobtainable: Yes Constitutional: Reports: fever, other - Tyor=679.3 Allergies: Coded Allergies: No Known Allergies (Unverified , 09/18/17) Objective Vital Signs Last 24 Hour Vital Signs Date Time Temp Pulse Resp B/P (MAP) Pulse Ox O2 Delivery O2 Flow Rate FiO2 09/28/17 09:25 77 28 70 09/28/17 08:23 89 134/61 09/28/17 08:00 70 09/28/17 07:00 90 28 105/63 99 Mechanical Ventilator 70 09/28/17 06:54 89 27 70 09/28/17 06:00 84 26 96/53 99 Mechanical Ventilator 70 09/28/17 05:00 86 30 99/52 99 Mechanical Ventilator 70 09/28/17 04:48 88 29 80 09/28/17 04:00 85 09/28/17 04:00 70 09/28/17 04:00 98.3 87 30 111/55 99 Mechanical Ventilator 70 09/28/17 03:00 85 28 111/55 99 Mechanical Ventilator 70 09/28/17 02:58 85 29 80 09/28/17 02:00 88 26 109/56 99 Mechanical Ventilator 70 09/28/17 01:25 85 28 80 09/28/17 01:00 95 30 108/55 97 Mechanical Ventilator 70 09/28/17 00:00 70 09/28/17 00:00 98.6 114 28 103/53 98 Mechanical Ventilator 80 09/28/17 00:00 105 09/27/17 23:54 120 103/53 09/27/17 23:00 124 30 102/55 96 Mechanical Ventilator 80 09/27/17 22:55 121 33 80 09/27/17 22:00 130 30 103/53 96 Mechanical Ventilator 80 09/27/17 21:20 136 36 80 09/27/17 21:00 138 34 128/55 95 Mechanical Ventilator 80 09/27/17 20:00 101.3 137 34 128/59 95 Mechanical Ventilator 80 09/27/17 20:00 101.3 09/27/17 20:00 70 09/27/17 20:00 135 09/27/17 19:07 140 38 80 09/27/17 19:00 135 30 125/65 95 Mechanical Ventilator 80 09/27/17 18:01 132 32 154/73 94 Mechanical Ventilator 80 09/27/17 17:11 125 33 70 09/27/17 17:00 124 32 145/62 96 Mechanical Ventilator 80 09/27/17 16:00 80 09/27/17 16:00 100.3 118 32 128/57 97 Mechanical Ventilator 80 09/27/17 16:00 118 09/27/17 15:47 120 31 70 09/27/17 15:00 120 31 121/61 98 Mechanical Ventilator 80 09/27/17 14:00 120 32 130/64 98 Mechanical Ventilator 80 09/27/17 13:00 118 31 115/63 98 Mechanical Ventilator 80 09/27/17 12:56 118 30 70 09/27/17 12:00 98.4 121 30 147/62 97 Mechanical Ventilator 80 09/27/17 12:00 121 09/27/17 12:00 80 09/27/17 11:17 120 30 70 09/27/17 11:00 120 26 138/59 98 Mechanical Ventilator 80 09/27/17 11:00 120 30 138/59 97 Mechanical Ventilator 80 Height (Feet): 5 Height (Inches): 2.00 Weight (Pounds): 156 HEENT: other - orally intubated Respiratory/Chest: lungs clear, respiratory distress, other - on ventilator Cardiovascular: normal rate Abdomen: soft, non tender, other - NG tube feeding Extremities: other - edema of hands, peripheral ine Microbiology Date/Time Source Procedure Growth Status 09/25/17 12:15 Blood Blood Culture - Final Staphylococcus Aureus - Mrsa Complete 09/25/17 12:00 Blood Blood Culture - Final Staphylococcus Aureus - Mrsa Complete Current Medications Medications (Trade) Dose Ordered Sig/Lilly Route PRN Reason Start Time Stop Time Status Last Admin Dose Admin Acetaminophen (Tylenol) 650 mg EVERY 4 HOURS PRN ORAL fever/PAGE 09/19/17 03:15 10/19/17 03:14 09/27/17 17:46 Aspirin (ASA) 81 mg DAILY NG 09/28/17 09:00 10/28/17 08:59 09/28/17 08:23 Cefepime HCl 1 gm/ Dextrose 55 ml @ 110 mls/hr Q24H IVPB 09/26/17 11:00 10/03/17 10:59 09/27/17 10:14 Dextrose (Dextrose 50%) STAT PRN IV Hypoglycemia 09/19/17 12:30 10/19/17 12:29 Insulin Aspart (NovoLOG) Q6HR SUBQ 09/19/17 13:00 10/19/17 12:59 09/28/17 05:37 Metoprolol Tartrate (Lopressor) 25 mg Q12HR ORAL 09/27/17 22:15 10/27/17 22:14 09/28/17 08:23 Pantoprazole (Protonix) 40 mg DAILY IVP 09/20/17 10:00 10/20/17 09:59 09/28/17 08:23 Vancomycin HCl (Vanco rx to dose) 1 ea DAILY PRN MISC Per rx protocol 09/19/17 03:15 10/19/17 03:14 Vancomycin HCl/ Dextrose 250 ml @ 125 mls/hr Q24H IVPB 09/26/17 06:00 10/01/17 05:59 09/28/17 05:34 KIMI VILLA Sep 28, 2017 10:13
[2017-09-28] MEDS: Cefepime HCl 1 GM in D5W 55 ML IVPB SCH (10:49)
--- NOTE | 2017-09-28 11:19 | General Progress Note ---
Assessment/Plan Problem List: (1) Dehydration ICD Codes: E86.0 - Dehydration SNOMED: 99463828 (2) Hypernatremia ICD Codes: E87.0 - Hyperosmolality and hypernatremia SNOMED: 02257056 (3) Malnutrition of moderate degree ICD Codes: E44.0 - Moderate protein-calorie malnutrition SNOMED: 646116733 (4) BOB (acute kidney injury) ICD Codes: N17.9 - Acute kidney failure, unspecified SNOMED: 67541722 (5) Sepsis ICD Codes: A41.9 - Sepsis, unspecified organism SNOMED: 24234700, 016713799 Qualifiers: Qualified Codes: A41.9 - Sepsis, unspecified organism (6) UTI (urinary tract infection) ICD Codes: N39.0 - Urinary tract infection, site not specified SNOMED: 15680392, 125484066 Qualifiers: Qualified Codes: N39.0 - Urinary tract infection, site not specified (7) Elevated troponin ICD Codes: R74.8 - Abnormal levels of other serum enzymes SNOMED: 873807749, 998152758 Assessment/Plan iv abx id appreciated monitor cultures check abd dougie- ordered but not done yet off pressors currently dc iv feeds as tolerated vent- wean as able resp rx monitor lytes replace as needed dvt/stress ulcer prophylaxis critical and guarded Subjective ROS Limited/Unobtainable: Yes Constitutional: Reports: malaise, weakness HEENT: Reports: no symptoms Cardiovascular: Reports: no symptoms Respiratory: Reports: shortness of breath Gastrointestinal/Abdominal: Reports: difficulty swallowing Genitourinary: Reports: no symptoms Neurologic/Psychiatric: Reports: pre-existing deficit Endocrine: Reports: no symptoms Hematologic/Lymphatic: Reports: anemia Allergies: Coded Allergies: No Known Allergies (Unverified , 09/18/17) All Systems: reviewed and negative except above Subjective no events. no fevers since last night. remains on multiple abx. on feeds. increased residuals. Objective Last 24 Hour Vital Signs Date Time Temp Pulse Resp B/P (MAP) Pulse Ox O2 Delivery O2 Flow Rate FiO2 09/28/17 11:00 81 26 111/49 99 Mechanical Ventilator 70 09/28/17 10:45 84 30 70 09/28/17 10:00 77 28 108/49 98 Mechanical Ventilator 70 09/28/17 09:25 77 28 70 09/28/17 09:00 82 26 92/52 99 Mechanical Ventilator 70 09/28/17 08:23 89 134/61 09/28/17 08:00 98.6 90 28 134/61 99 Mechanical Ventilator 70 09/28/17 08:00 70 09/28/17 07:30 90 09/28/17 07:00 90 28 105/63 99 Mechanical Ventilator 70 09/28/17 06:54 89 27 70 09/28/17 06:00 84 26 96/53 99 Mechanical Ventilator 70 09/28/17 05:00 86 30 99/52 99 Mechanical Ventilator 70 09/28/17 04:48 88 29 80 09/28/17 04:00 85 09/28/17 04:00 70 09/28/17 04:00 98.3 87 30 111/55 99 Mechanical Ventilator 70 09/28/17 03:00 85 28 111/55 99 Mechanical Ventilator 70 09/28/17 02:58 85 29 80 09/28/17 02:00 88 26 109/56 99 Mechanical Ventilator 70 09/28/17 01:25 85 28 80 09/28/17 01:00 95 30 108/55 97 Mechanical Ventilator 70 09/28/17 00:00 70 09/28/17 00:00 98.6 114 28 103/53 98 Mechanical Ventilator 80 09/28/17 00:00 105 09/27/17 23:54 120 103/53 09/27/17 23:00 124 30 102/55 96 Mechanical Ventilator 80 09/27/17 22:55 121 33 80 09/27/17 22:00 130 30 103/53 96 Mechanical Ventilator 80 09/27/17 21:20 136 36 80 09/27/17 21:00 138 34 128/55 95 Mechanical Ventilator 80 09/27/17 20:00 101.3 137 34 128/59 95 Mechanical Ventilator 80 09/27/17 20:00 101.3 09/27/17 20:00 70 09/27/17 20:00 135 09/27/17 19:07 140 38 80 09/27/17 19:00 135 30 125/65 95 Mechanical Ventilator 80 09/27/17 18:01 132 32 154/73 94 Mechanical Ventilator 80 09/27/17 17:11 125 33 70 09/27/17 17:00 124 32 145/62 96 Mechanical Ventilator 80 09/27/17 16:00 80 09/27/17 16:00 100.3 118 32 128/57 97 Mechanical Ventilator 80 09/27/17 16:00 118 09/27/17 15:47 120 31 70 09/27/17 15:00 120 31 121/61 98 Mechanical Ventilator 80 09/27/17 14:00 120 32 130/64 98 Mechanical Ventilator 80 09/27/17 13:00 118 31 115/63 98 Mechanical Ventilator 80 09/27/17 12:56 118 30 70 09/27/17 12:00 98.4 121 30 147/62 97 Mechanical Ventilator 80 09/27/17 12:00 121 09/27/17 12:00 80 Intake and Output 09/27/17 09/28/17 19:00 07:00 Intake Total 625 ml 425 ml Output Total 455 ml 400 ml Balance 170 ml 25 ml IV Total 125 ml 125 ml Tube Feeding 500 ml 300 ml Output Urine Total 455 ml 400 ml Height (Feet): 5 Height (Inches): 2.00 Weight (Pounds): 156 Objective General Appearance: WD/WN, lethargic, confused Neck: supple Cardiovascular: normal rate, regular rhythm Respiratory/Chest: rhonchi - bilaterally Abdomen: normal bowel sounds, non tender, soft, no organomegaly Edema: no edema noted Arm (L), no edema noted Arm (R), no edema noted Leg (L), no edema noted Leg (R), no edema noted Pedal (L), no edema noted Pedal (R), no edema noted Generalized Neurologic: unresponsive KRYSTINA LENTZ Sep 28, 2017 11:19
--- NOTE | 2017-09-28 16:19 | Pulmonolgy Critical Care Note ---
Critical Care - Asmt/Plan Assessment/Plan: 1. Acute respiratory failure. 2. Possible sepsis with lactic acidosis and leukocytosis. 3. Severe dehydration with hypernatremia. 4. Hypokalemia. 5. Elevated liver enzymes. 6. Possible congestive heart failure. 7. Severe protein-calorie malnutrition. 8. Cachexia and inanition. 9. History of hypertension. 10. persistent bacteremia ?endocarditis PLAN: vent, no wean nebs adn suction await echo to assess for vegetations npo aspiration precautions pressors to maintain map greater than 92% abx, last bc 09/25/17 positive wound care monitor uop tf CXR am prognosis poor Time Spent (Minutes): 50 Critical Care - Objective Last 24 Hour Vital Signs Date Time Temp Pulse Resp B/P (MAP) Pulse Ox O2 Delivery O2 Flow Rate FiO2 09/28/17 16:00 70 09/28/17 15:05 94 28 70 09/28/17 15:00 94 26 115/48 99 Mechanical Ventilator 70 09/28/17 14:00 90 27 114/47 98 Mechanical Ventilator 70 09/28/17 13:00 87 27 121/54 98 Mechanical Ventilator 70 09/28/17 12:49 86 27 70 09/28/17 12:00 70 09/28/17 12:00 98.0 84 27 111/54 98 Mechanical Ventilator 70 09/28/17 11:23 94 09/28/17 11:00 81 26 111/49 99 Mechanical Ventilator 70 09/28/17 10:45 84 30 70 09/28/17 10:00 77 28 108/49 98 Mechanical Ventilator 70 09/28/17 09:25 77 28 70 09/28/17 09:00 82 26 92/52 99 Mechanical Ventilator 70 09/28/17 08:23 89 134/61 09/28/17 08:00 98.6 90 28 134/61 99 Mechanical Ventilator 70 09/28/17 08:00 70 09/28/17 07:30 90 09/28/17 07:00 90 28 105/63 99 Mechanical Ventilator 70 09/28/17 06:54 89 27 70 09/28/17 06:00 84 26 96/53 99 Mechanical Ventilator 70 09/28/17 05:00 86 30 99/52 99 Mechanical Ventilator 70 09/28/17 04:48 88 29 80 09/28/17 04:00 85 09/28/17 04:00 70 09/28/17 04:00 98.3 87 30 111/55 99 Mechanical Ventilator 70 09/28/17 03:00 85 28 111/55 99 Mechanical Ventilator 70 09/28/17 02:58 85 29 80 09/28/17 02:00 88 26 109/56 99 Mechanical Ventilator 70 09/28/17 01:25 85 28 80 09/28/17 01:00 95 30 108/55 97 Mechanical Ventilator 70 09/28/17 00:00 70 09/28/17 00:00 98.6 114 28 103/53 98 Mechanical Ventilator 80 09/28/17 00:00 105 09/27/17 23:54 120 103/53 09/27/17 23:00 124 30 102/55 96 Mechanical Ventilator 80 09/27/17 22:55 121 33 80 09/27/17 22:00 130 30 103/53 96 Mechanical Ventilator 80 09/27/17 21:20 136 36 80 09/27/17 21:00 138 34 128/55 95 Mechanical Ventilator 80 09/27/17 20:00 101.3 137 34 128/59 95 Mechanical Ventilator 80 09/27/17 20:00 101.3 09/27/17 20:00 70 09/27/17 20:00 135 09/27/17 19:07 140 38 80 09/27/17 19:00 135 30 125/65 95 Mechanical Ventilator 80 09/27/17 18:01 132 32 154/73 94 Mechanical Ventilator 80 09/27/17 17:11 125 33 70 09/27/17 17:00 124 32 145/62 96 Mechanical Ventilator 80 Status: obtunded Condition: critical Lungs: rhonchi Heart: HR/BP unstable Abdomen: non-tender, active bowel sounds Extremities: edema Objective: Laboratory Tests Test 09/21/17 04:00 White Blood Count 9.8 K/UL (4.8-10.8) Red Blood Count 3.45 M/UL (4.20-5.40) L Hemoglobin 11.3 G/DL (12.0-16.0) L Hematocrit 34.2 % (37.0-47.0) L Mean Corpuscular Volume 99 FL (80-99) Mean Corpuscular Hemoglobin 32.7 PG (27.0-31.0) H Mean Corpuscular Hemoglobin Concent 33.0 G/DL (32.0-36.0) Red Cell Distribution Width 12.8 % (11.6-14.8) Platelet Count 83 K/UL (150-450) L Mean Platelet Volume 9.3 FL (6.5-10.1) Neutrophils (%) (Auto) % (45.0-75.0) Lymphocytes (%) (Auto) % (20.0-45.0) Monocytes (%) (Auto) % (1.0-10.0) Eosinophils (%) (Auto) % (0.0-3.0) Basophils (%) (Auto) % (0.0-2.0) Differential Total Cells Counted 100 Neutrophils % (Manual) 89 % (45-75) H Lymphocytes % (Manual) 8 % (20-45) L Monocytes % (Manual) 0 % (1-10) L Eosinophils % (Manual) 0 % (0-3) Basophils % (Manual) 0 % (0-2) Band Neutrophils 3 % (0-8) Platelet Estimate Decreased L Platelet Morphology Normal Red Blood Cell Morphology Normal Sodium Level 144 MMOL/L (136-145) Potassium Level 3.4 MMOL/L (3.5-5.1) L Chloride Level 113 MMOL/L (98-107) H Carbon Dioxide Level 24 MMOL/L (21-32) Anion Gap 7 mmol/L (5-15) Blood Urea Nitrogen 13 mg/dL (7-18) Creatinine 0.6 MG/DL (0.55-1.30) Estimat Glomerular Filtration Rate mL/min (>60) Glucose Level 200 MG/DL (74-106) H Calcium Level 6.7 MG/DL (8.5-10.1) L Current Medications Medications (Trade) Dose Ordered Sig/Lilly Route PRN Reason Start Time Stop Time Status Last Admin Dose Admin Acetaminophen (Tylenol) 650 mg EVERY 4 HOURS PRN ORAL fever/PAGE 09/19/17 03:15 10/19/17 03:14 09/20/17 11:06 Albuterol/ Ipratropium (Albuterol/ Ipratropium) 3 ml Q6HRT HHN 09/19/17 07:00 09/24/17 06:59 09/21/17 18:58 Cefepime HCl 1 gm/ Dextrose 55 ml @ 110 mls/hr Q24H IVPB 09/21/17 09:00 09/26/17 08:59 09/21/17 09:54 Chlorhexidine Gluconate (Serena-Hex 2%) 1 applic DAILY@2000 TOPIC 09/20/17 20:00 10/20/17 19:59 09/21/17 20:37 Dextrose (Dextrose 50%) STAT PRN IV Hypoglycemia 09/19/17 12:30 10/19/17 12:29 Hydrocortisone (Solu-CORTEF) 100 mg EVERY 8 HOURS IV 09/20/17 14:00 10/20/17 13:59 09/21/17 14:42 Insulin Aspart (NovoLOG) Q6HR SUBQ 09/19/17 13:00 10/19/17 12:59 09/21/17 18:06 Lorazepam (Ativan) 0.5 mg TIDPRN PRN ORAL For Anxiety 09/20/17 16:15 09/27/17 16:14 09/20/17 22:13 Norepinephrine Bitartrate 8 mg/ Dextrose 250 ml @ 0 mls/hr Q24H IV 09/19/17 23:30 10/19/17 23:29 09/20/17 22:04 Pantoprazole (Protonix) 40 mg DAILY IVP 09/20/17 10:00 10/20/17 09:59 09/21/17 09:15 Potassium Chloride 20 meq/ Dextrose 1,010 ml @ 35 mls/hr Q24H IV 09/21/17 11:45 10/21/17 11:44 09/21/17 11:51 Vancomycin HCl (Vanco rx to dose) 1 ea DAILY PRN MISC Per rx protocol 09/19/17 03:15 10/19/17 03:14 Vancomycin/Sodium Chloride 250 ml @ 166.667 mls/hr Q24H IVPB 09/20/17 08:00 09/25/17 07:59 09/21/17 09:15 Accucheck: 138 Blood Sugars: BS controlled Critical Care - Subjective ROS Limited/Unobtainable: Yes Condition: critical FI02: 70 Vent Support Breath Rate: 14 Vent Support Mode: AC Vent Tidal Volume: 450 Sputum Amount: Moderate PEEP: 5.0 PIP: 25 Tube Feeding Amount: 30 I&O: Intake and Output 09/27/17 09/28/17 19:00 07:00 Intake Total 625 ml 425 ml Output Total 455 ml 400 ml Balance 170 ml 25 ml IV Total 125 ml 125 ml Tube Feeding 500 ml 300 ml Output Urine Total 455 ml 400 ml Subjective: orally intubated on the vent bc positive for staph aureus ?endocarditis hemodynamics better today tolerating Tf does not follow commands for me positive uop no pressors at this time ET-Tube: 7.5 ET Position: 23 Labs: Current Medications Medications (Trade) Dose Ordered Sig/Lilly Route PRN Reason Start Time Stop Time Status Last Admin Dose Admin Acetaminophen (Tylenol) 650 mg EVERY 4 HOURS PRN ORAL fever/PAGE 09/19/17 03:15 10/19/17 03:14 09/27/17 17:46 Aspirin (ASA) 81 mg DAILY NG 09/28/17 09:00 10/28/17 08:59 09/28/17 08:23 Cefepime HCl 1 gm/ Dextrose 55 ml @ 110 mls/hr Q24H IVPB 09/26/17 11:00 10/03/17 10:59 09/28/17 10:49 Dextrose (Dextrose 50%) STAT PRN IV Hypoglycemia 09/19/17 12:30 10/19/17 12:29 Insulin Aspart (NovoLOG) Q6HR SUBQ 09/19/17 13:00 10/19/17 12:59 09/28/17 11:31 Metoprolol Tartrate (Lopressor) 25 mg Q12HR ORAL 09/27/17 22:15 10/27/17 22:14 09/28/17 08:23 Pantoprazole (Protonix) 40 mg DAILY IVP 09/20/17 10:00 10/20/17 09:59 09/28/17 08:23 Vancomycin HCl (Vanco rx to dose) 1 ea DAILY PRN MISC Per rx protocol 09/19/17 03:15 10/19/17 03:14 Vancomycin HCl/ Dextrose 250 ml @ 125 mls/hr Q24H IVPB 09/26/17 06:00 10/01/17 05:59 09/28/17 05:34 RAYNA WHITAKER DO Sep 28, 2017 16:19
[2017-09-29] VITALS (24 sets, daily range): BP systolic 86–141; BP diastolic 38–60
[2017-09-29 05:29] LABS: BASOPHILS % (AUTO) 4.6 % (0.0-2.0); EOSINOPHILS % (AUTO) 0.4 % (0.0-3.0); HEMATOCRIT 32.9 % (37.0-47.0); HEMOGLOBIN 10.4 G/DL (12.0-16.0); LYMPHOCYTES % (AUTO) 6.5 % (20.0-45.0); MEAN CORPUSCULAR VOLUME 97 FL (80-99); MONOCYTES % (AUTO) 7.1 % (1.0-10.0); NEUTROPHILS % (AUTO) 81.4 % (45.0-75.0); PLATELET COUNT 167 K/UL (150-450); RED CELL DISTRIBUTION WIDTH 12.8 % (11.6-14.8); WHITE BLOOD COUNT 13.1 K/UL (4.8-10.8)
[2017-09-29] MEDS: NovoLOG Insulin Flexpen SUBQ SCH ×3 (05:41→17:41)
[2017-09-29 05:48] LABS: ALANINE AMINOTRANSFERASE 90 U/L (12-78); ALBUMIN 0.8 G/DL (3.4-5.0); ALBUMIN/GLOBULIN RATIO 0.2 (1.0-2.7); ALKALINE PHOSPHATASE 206 U/L (46-116); ANION GAP 5 mmol/L (5-15); ASPARTATE AMINO TRANSFERASE 136 U/L (15-37); BILIRUBIN,TOTAL 0.5 MG/DL (0.2-1.0); BLOOD UREA NITROGEN 14 mg/dL (7-18); CALCIUM 7.1 MG/DL (8.5-10.1); CARBON DIOXIDE 32 MMOL/L (21-32); CHLORIDE 105 MMOL/L (98-107); CREATININE 0.6 MG/DL (0.55-1.30); POTASSIUM 3.5 MMOL/L (3.5-5.1); SODIUM 141 MMOL/L (136-145)
[2017-09-29] MEDS: Vancomycin 1500mg IVPB SCH (07:07)
--- NOTE | 2017-09-29 08:04 | General Progress Note ---
Assessment/Plan Problem List: (1) Dehydration ICD Codes: E86.0 - Dehydration SNOMED: 12762269 (2) Hypernatremia ICD Codes: E87.0 - Hyperosmolality and hypernatremia SNOMED: 03688905 (3) Malnutrition of moderate degree ICD Codes: E44.0 - Moderate protein-calorie malnutrition SNOMED: 355125854 (4) BOB (acute kidney injury) ICD Codes: N17.9 - Acute kidney failure, unspecified SNOMED: 46192272 (5) Sepsis ICD Codes: A41.9 - Sepsis, unspecified organism SNOMED: 64732144, 843549008 Qualifiers: Qualified Codes: A41.9 - Sepsis, unspecified organism (6) UTI (urinary tract infection) ICD Codes: N39.0 - Urinary tract infection, site not specified SNOMED: 90419877, 859610845 Qualifiers: Qualified Codes: N39.0 - Urinary tract infection, site not specified (7) Elevated troponin ICD Codes: R74.8 - Abnormal levels of other serum enzymes SNOMED: 393965225, 538532607 Status: stable, not improved Assessment/Plan iv abx per id monitor cultures check abd dougie- ordered but not done yet follow cxr- done yesterday off pressors currently feeds as tolerated vent- wean as able resp rx monitor lytes replace as needed dvt/stress ulcer prophylaxis critical and guarded Subjective ROS Limited/Unobtainable: Yes Constitutional: Reports: fever, malaise, weakness HEENT: Reports: no symptoms Cardiovascular: Reports: no symptoms Respiratory: Reports: shortness of breath Gastrointestinal/Abdominal: Reports: difficulty swallowing Genitourinary: Reports: no symptoms Neurologic/Psychiatric: Reports: pre-existing deficit Endocrine: Reports: no symptoms Hematologic/Lymphatic: Reports: anemia Allergies: Coded Allergies: No Known Allergies (Unverified , 09/18/17) All Systems: reviewed and negative except above Subjective no events. no fevers since last night. remains on multiple abx. on feeds. tolerating feeds. increase o2 requirements Objective Last 24 Hour Vital Signs Date Time Temp Pulse Resp B/P (MAP) Pulse Ox O2 Delivery O2 Flow Rate FiO2 09/29/17 07:00 129 34 117/50 94 Mechanical Ventilator 70 09/29/17 06:40 126 26 70 09/29/17 06:00 118 34 127/52 95 Mechanical Ventilator 70 09/29/17 05:21 117 34 70 09/29/17 05:00 115 33 118/50 96 Mechanical Ventilator 70 09/29/17 04:00 70 09/29/17 04:00 99.5 112 33 107/56 96 Mechanical Ventilator 70 09/29/17 03:25 109 09/29/17 03:24 112 27 70 09/29/17 03:00 108 33 100/46 96 Mechanical Ventilator 70 09/29/17 02:00 106 32 102/46 97 Mechanical Ventilator 70 09/29/17 01:08 117 32 70 09/29/17 01:00 103 32 105/50 96 Mechanical Ventilator 70 09/29/17 00:00 70 09/29/17 00:00 99.8 101 31 102/45 97 Mechanical Ventilator 70 09/28/17 23:57 101 09/28/17 23:04 110 28 70 09/28/17 23:00 97 30 102/46 98 Mechanical Ventilator 70 09/28/17 22:00 91 30 94/40 99 Mechanical Ventilator 70 09/28/17 21:00 105 30 98/45 99 Mechanical Ventilator 70 09/28/17 20:52 109 29 70 09/28/17 20:43 114 106/53 09/28/17 20:00 70 09/28/17 20:00 99.2 111 29 103/44 99 Mechanical Ventilator 70 09/28/17 19:50 111 09/28/17 19:24 114 31 70 09/28/17 19:00 109 29 103/44 98 Mechanical Ventilator 70 09/28/17 18:00 106 30 106/51 98 Mechanical Ventilator 70 09/28/17 17:00 104 29 111/43 97 Mechanical Ventilator 70 09/28/17 16:50 103 29 70 09/28/17 16:00 99.3 98 28 123/52 97 Mechanical Ventilator 70 09/28/17 16:00 70 09/28/17 15:24 95 09/28/17 15:05 94 28 70 09/28/17 15:00 94 26 115/48 99 Mechanical Ventilator 70 09/28/17 14:00 90 27 114/47 98 Mechanical Ventilator 70 09/28/17 13:00 87 27 121/54 98 Mechanical Ventilator 70 09/28/17 12:49 86 27 70 09/28/17 12:00 70 09/28/17 12:00 98.0 84 27 111/54 98 Mechanical Ventilator 70 09/28/17 11:23 94 09/28/17 11:00 81 26 111/49 99 Mechanical Ventilator 70 09/28/17 10:45 84 30 70 09/28/17 10:00 77 28 108/49 98 Mechanical Ventilator 70 09/28/17 09:25 77 28 70 09/28/17 09:00 82 26 92/52 99 Mechanical Ventilator 70 09/28/17 08:23 89 134/61 Intake and Output 09/28/17 09/29/17 19:00 07:00 Intake Total 530 ml 500 ml Output Total 590 ml 405 ml Balance -60 ml 95 ml Intake Free Water 30 ml IV Total 180 ml Tube Feeding 270 ml 460 ml Other 50 ml 40 ml Output Urine Total 590 ml 405 ml Laboratory Tests 09/29/17 05:10: White Blood Count 13.1H, Red Blood Count 3.40L, Hemoglobin 10.4L, Hematocrit 32.9L, Mean Corpuscular Volume 97, Mean Corpuscular Hemoglobin 30.7, Mean Corpuscular Hemoglobin Concent 31.8L, Red Cell Distribution Width 12.8, Platelet Count 167, Mean Platelet Volume 10.9H, Neutrophils (%) (Auto) 81.4H, Lymphocytes (%) (Auto) 6.5L, Monocytes (%) (Auto) 7.1, Eosinophils (%) (Auto) 0.4, Basophils (%) (Auto) 4.6H, Sodium Level 141, Potassium Level 3.5, Chloride Level 105, Carbon Dioxide Level 32, Anion Gap 5, Blood Urea Nitrogen 14, Creatinine 0.6, Estimat Glomerular Filtration Rate , Glucose Level 172H, Calcium Level 7.1L, Total Bilirubin 0.5, Aspartate Amino Transf (AST/SGOT) 136H , Alanine Aminotransferase (ALT/SGPT) 90H, Alkaline Phosphatase 206H, Pro-B- Type Natriuretic Peptide 1193H, Total Protein 5.4L, Albumin 0.8L, Globulin 4.6, Albumin/Globulin Ratio 0.2L, Vancomycin Level Trough 12.2H Height (Feet): 5 Height (Inches): 2.00 Weight (Pounds): 153 Objective General Appearance: WD/WN, lethargic, confused Neck: supple Cardiovascular: normal rate, regular rhythm Respiratory/Chest: rhonchi - bilaterally Abdomen: normal bowel sounds, non tender, soft, no organomegaly Edema: no edema noted Arm (L), no edema noted Arm (R), no edema noted Leg (L), no edema noted Leg (R), no edema noted Pedal (L), no edema noted Pedal (R), no edema noted Generalized Neurologic: unresponsive KRYSTINA LENTZ Sep 29, 2017 08:04
[2017-09-29] MEDS: Pantoprazole Inj IVP SCH (08:14)
[2017-09-29] MEDS: Metoprolol 25mg tab ORAL SCH ×2 (08:14→20:54)
[2017-09-29] MEDS: Aspirin Baby 81mg NG SCH (08:15)
--- NOTE | 2017-09-29 10:00 | Progress Note ---
DATE: 09/28/2017 CARDIOLOGY PROGRESS NOTE SUBJECTIVE: The patient remains in the intensive care unit, orally intubated, mechanically ventilated. She is off pressors. Marginal blood pressure readings persist, however, monitored rhythm is sinus with frequent atrial ectopics and sinus tachycardia. OBJECTIVE: VITAL SIGNS: Blood pressure 103/53, heart rate 114, and respiratory rate 28. The patient is afebrile. T-max 101.3. LUNGS: Coarse breath sounds. Scattered rhonchi. HEART: Regular rhythm. Rapid rate. Normal S1, S2. ABDOMEN: Soft. No guarding. EXTREMITIES: No edema. 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 IMPRESSION: 1. Condition remains critical with guarded prognosis. 2. Acute respiratory failure. 3. Sepsis with recovering shock. 4. Resolved lactic acidosis. 5. Resolved dehydration and hypernatremia. 6. Acute myocardial ischemia. 7. Severe protein-calorie malnutrition with albumin level less than 1. 8. Persisting bacteremia with increased risk for endocarditis. PLAN: 1. Review transthoracic echo and consider transesophageal study. 2. Ventilator support. 3. Antibiotics per Infectious Diseases spa consultant. 4. Skin care. 5. Surveillance blood cultures. 6. We will follow. Davy Robbins M.D. DR: JENNY JOB#: [id number] CC:
--- NOTE | 2017-09-29 10:16 | Pulmonology Progress Note ---
Assessment/Plan Assessment/Plan 1. Acute respiratory failure. 2. Possible sepsis with lactic acidosis and leukocytosis. 3. Severe dehydration with hypernatremia. 4. Hypokalemia. 5. Elevated liver enzymes. 6. Possible congestive heart failure. 7. Severe protein-calorie malnutrition. 8. Cachexia and inanition. 9. History of hypertension. 10. persistent bacteremia ?endocarditis PLAN: vent, no wean nebs adn suction await echo to assess for vegetations npo aspiration precautions pressors to maintain map greater than 92% abx, last bc 09/25/17 positive wound care monitor uop tf prognosis poor Subjective Interval Events: No change Constitutional: Reports: no symptoms HEENT: Repors: no symptoms Respiratory: Reports: no symptoms Cardiovascular: Reports: no symptoms Gastrointestinal/Abdominal: Reports: no symptoms Allergies: Coded Allergies: No Known Allergies (Unverified , 09/18/17) Objective Last 24 Hour Vital Signs Date Time Temp Pulse Resp B/P (MAP) Pulse Ox O2 Delivery O2 Flow Rate FiO2 09/29/17 09:14 116 38 70 09/29/17 09:00 127 37 101/46 93 Mechanical Ventilator 70 09/29/17 08:14 132 118/53 09/29/17 08:00 101.3 130 35 118/53 93 Mechanical Ventilator 70 09/29/17 08:00 70 09/29/17 08:00 132 09/29/17 07:14 101.0 09/29/17 07:00 129 34 117/50 94 Mechanical Ventilator 70 09/29/17 06:40 126 26 70 09/29/17 06:00 118 34 127/52 95 Mechanical Ventilator 70 09/29/17 05:21 117 34 70 09/29/17 05:00 115 33 118/50 96 Mechanical Ventilator 70 09/29/17 04:00 70 09/29/17 04:00 99.5 112 33 107/56 96 Mechanical Ventilator 70 09/29/17 03:25 109 09/29/17 03:24 112 27 70 09/29/17 03:00 108 33 100/46 96 Mechanical Ventilator 70 09/29/17 02:00 106 32 102/46 97 Mechanical Ventilator 70 09/29/17 01:08 117 32 70 09/29/17 01:00 103 32 105/50 96 Mechanical Ventilator 70 09/29/17 00:00 70 09/29/17 00:00 99.8 101 31 102/45 97 Mechanical Ventilator 70 09/28/17 23:57 101 09/28/17 23:04 110 28 70 09/28/17 23:00 97 30 102/46 98 Mechanical Ventilator 70 09/28/17 22:00 91 30 94/40 99 Mechanical Ventilator 70 09/28/17 21:00 105 30 98/45 99 Mechanical Ventilator 70 09/28/17 20:52 109 29 70 09/28/17 20:43 114 106/53 09/28/17 20:00 70 09/28/17 20:00 99.2 111 29 103/44 99 Mechanical Ventilator 70 09/28/17 19:50 111 09/28/17 19:24 114 31 70 09/28/17 19:00 109 29 103/44 98 Mechanical Ventilator 70 09/28/17 18:00 106 30 106/51 98 Mechanical Ventilator 70 09/28/17 17:00 104 29 111/43 97 Mechanical Ventilator 70 09/28/17 16:50 103 29 70 09/28/17 16:00 99.3 98 28 123/52 97 Mechanical Ventilator 70 09/28/17 16:00 70 09/28/17 15:24 95 09/28/17 15:05 94 28 70 09/28/17 15:00 94 26 115/48 99 Mechanical Ventilator 70 09/28/17 14:00 90 27 114/47 98 Mechanical Ventilator 70 09/28/17 13:00 87 27 121/54 98 Mechanical Ventilator 70 09/28/17 12:49 86 27 70 09/28/17 12:00 70 09/28/17 12:00 98.0 84 27 111/54 98 Mechanical Ventilator 70 09/28/17 11:23 94 09/28/17 11:00 81 26 111/49 99 Mechanical Ventilator 70 09/28/17 10:45 84 30 70 Intake and Output 09/28/17 09/29/17 19:00 07:00 Intake Total 530 ml 500 ml Output Total 590 ml 405 ml Balance -60 ml 95 ml Intake Free Water 30 ml IV Total 180 ml Tube Feeding 270 ml 460 ml Other 50 ml 40 ml Output Urine Total 590 ml 405 ml General Appearance: no acute distress HEENT: normocephalic Respiratory/Chest: chest wall non-tender, lungs clear Cardiovascular: normal peripheral pulses, normal rate Laboratory Tests 09/29/17 05:10: White Blood Count 13.1H, Red Blood Count 3.40L, Hemoglobin 10.4L, Hematocrit 32.9L, Mean Corpuscular Volume 97, Mean Corpuscular Hemoglobin 30.7, Mean Corpuscular Hemoglobin Concent 31.8L, Red Cell Distribution Width 12.8, Platelet Count 167, Mean Platelet Volume 10.9H, Neutrophils (%) (Auto) 81.4H, Lymphocytes (%) (Auto) 6.5L, Monocytes (%) (Auto) 7.1, Eosinophils (%) (Auto) 0.4, Basophils (%) (Auto) 4.6H, Sodium Level 141, Potassium Level 3.5, Chloride Level 105, Carbon Dioxide Level 32, Anion Gap 5, Blood Urea Nitrogen 14, Creatinine 0.6, Estimat Glomerular Filtration Rate , Glucose Level 172H, Calcium Level 7.1L, Total Bilirubin 0.5, Aspartate Amino Transf (AST/SGOT) 136H , Alanine Aminotransferase (ALT/SGPT) 90H, Alkaline Phosphatase 206H, Pro-B- Type Natriuretic Peptide 1193H, Total Protein 5.4L, Albumin 0.8L, Globulin 4.6, Albumin/Globulin Ratio 0.2L, Vancomycin Level Trough 12.2H Current Medications Medications (Trade) Dose Ordered Sig/Lilly Route PRN Reason Start Time Stop Time Status Last Admin Dose Admin Acetaminophen (Tylenol) 650 mg EVERY 4 HOURS PRN ORAL fever/PAGE 09/19/17 03:15 10/19/17 03:14 09/29/17 08:15 Aspirin (ASA) 81 mg DAILY NG 09/28/17 09:00 10/28/17 08:59 09/29/17 08:15 Cefepime HCl 1 gm/ Dextrose 55 ml @ 110 mls/hr Q24H IVPB 09/26/17 11:00 10/03/17 10:59 09/28/17 10:49 Dextrose (Dextrose 50%) STAT PRN IV Hypoglycemia 09/19/17 12:30 10/19/17 12:29 Insulin Aspart (NovoLOG) Q6HR SUBQ 09/19/17 13:00 10/19/17 12:59 09/29/17 05:41 Metoprolol Tartrate (Lopressor) 25 mg Q12HR ORAL 09/27/17 22:15 10/27/17 22:14 09/29/17 08:14 Pantoprazole (Protonix) 40 mg DAILY IVP 09/20/17 10:00 10/20/17 09:59 09/29/17 08:14 Vancomycin HCl (Vanco rx to dose) 1 ea DAILY PRN MISC Per rx protocol 09/19/17 03:15 10/19/17 03:14 Vancomycin HCl 1 gm/Dextrose 275 ml @ 183.708 mls/hr Q12H IVPB 09/30/17 01:00 10/05/17 00:59 Dilip Goyal MD Sep 29, 2017 10:16
[2017-09-29] MEDS: Cefepime HCl 1 GM in D5W 55 ML IVPB SCH (10:27)
--- NOTE | 2017-09-29 15:10 | Infectious Diseases Prog Note ---
Assessment/Plan Assessment/Plan A 1. e.coli UTI 2. pneumonia 3. coag neg staph sepsis, MRSA s/p catheter removal 4. Hypoxic respiratory failure 5. Persistent fever, likely endocarditis 6. Elevated transaminase P 1. continue vancomycin iv, cefepime 2. will f/u blood cultures 3. TTE Subjective ROS Limited/Unobtainable: Yes Constitutional: Reports: fever, other - Zixs=257.3 Allergies: Coded Allergies: No Known Allergies (Unverified , 09/18/17) Objective Vital Signs Last 24 Hour Vital Signs Date Time Temp Pulse Resp B/P (MAP) Pulse Ox O2 Delivery O2 Flow Rate FiO2 09/29/17 15:00 88 30 108/53 95 Mechanical Ventilator 70 09/29/17 14:00 90 27 106/53 96 Mechanical Ventilator 70 09/29/17 13:00 99.0 89 30 110/51 94 Mechanical Ventilator 70 09/29/17 12:50 91 28 70 09/29/17 12:08 92 09/29/17 12:00 93 32 106/53 96 Mechanical Ventilator 70 09/29/17 12:00 70 09/29/17 11:25 94 33 70 09/29/17 11:00 102 30 86/38 94 Mechanical Ventilator 70 09/29/17 10:30 99.1 09/29/17 10:00 106 36 90/40 94 Mechanical Ventilator 70 09/29/17 09:14 116 38 70 09/29/17 09:00 127 37 101/46 93 Mechanical Ventilator 70 09/29/17 08:14 132 118/53 09/29/17 08:00 101.3 130 35 118/53 93 Mechanical Ventilator 70 09/29/17 08:00 70 09/29/17 08:00 132 09/29/17 07:14 101.0 09/29/17 07:00 129 34 117/50 94 Mechanical Ventilator 70 09/29/17 06:40 126 26 70 09/29/17 06:00 118 34 127/52 95 Mechanical Ventilator 70 09/29/17 05:21 117 34 70 09/29/17 05:00 115 33 118/50 96 Mechanical Ventilator 70 09/29/17 04:00 70 09/29/17 04:00 99.5 112 33 107/56 96 Mechanical Ventilator 70 09/29/17 03:25 109 1/8/18 03:24 112 27 70 09/29/17 03:00 108 33 100/46 96 Mechanical Ventilator 70 09/29/17 02:00 106 32 102/46 97 Mechanical Ventilator 70 09/29/17 01:08 117 32 70 09/29/17 01:00 103 32 105/50 96 Mechanical Ventilator 70 09/29/17 00:00 70 09/29/17 00:00 99.8 101 31 102/45 97 Mechanical Ventilator 70 09/28/17 23:57 101 09/28/17 23:04 110 28 70 09/28/17 23:00 97 30 102/46 98 Mechanical Ventilator 70 09/28/17 22:00 91 30 94/40 99 Mechanical Ventilator 70 09/28/17 21:00 105 30 98/45 99 Mechanical Ventilator 70 09/28/17 20:52 109 29 70 09/28/17 20:43 114 106/53 09/28/17 20:00 70 09/28/17 20:00 99.2 111 29 103/44 99 Mechanical Ventilator 70 09/28/17 19:50 111 09/28/17 19:24 114 31 70 09/28/17 19:00 109 29 103/44 98 Mechanical Ventilator 70 09/28/17 18:00 106 30 106/51 98 Mechanical Ventilator 70 09/28/17 17:00 104 29 111/43 97 Mechanical Ventilator 70 09/28/17 16:50 103 29 70 09/28/17 16:00 99.3 98 28 123/52 97 Mechanical Ventilator 70 09/28/17 16:00 70 09/28/17 15:24 95 Height (Feet): 5 Height (Inches): 2.00 Weight (Pounds): 153 HEENT: other Respiratory/Chest: respiratory distress, rhonchi - bilaterally, other - on ventilator Cardiovascular: normal rate Abdomen: soft, non tender, other - NG tube Extremities: other - edema, peripheral line Neurologic/Psychiatric: unresponsiveness Laboratory Tests Test 09/29/17 05:10 White Blood Count 13.1 K/UL (4.8-10.8) H Red Blood Count 3.40 M/UL (4.20-5.40) L Hemoglobin 10.4 G/DL (12.0-16.0) L Hematocrit 32.9 % (37.0-47.0) L Mean Corpuscular Volume 97 FL (80-99) Mean Corpuscular Hemoglobin 30.7 PG (27.0-31.0) Mean Corpuscular Hemoglobin Concent 31.8 G/DL (32.0-36.0) L Red Cell Distribution Width 12.8 % (11.6-14.8) Platelet Count 167 K/UL (150-450) Mean Platelet Volume 10.9 FL (6.5-10.1) H Neutrophils (%) (Auto) 81.4 % (45.0-75.0) H Lymphocytes (%) (Auto) 6.5 % (20.0-45.0) L Monocytes (%) (Auto) 7.1 % (1.0-10.0) Eosinophils (%) (Auto) 0.4 % (0.0-3.0) Basophils (%) (Auto) 4.6 % (0.0-2.0) H Sodium Level 141 MMOL/L (136-145) Potassium Level 3.5 MMOL/L (3.5-5.1) Chloride Level 105 MMOL/L (98-107) Carbon Dioxide Level 32 MMOL/L (21-32) Anion Gap 5 mmol/L (5-15) Blood Urea Nitrogen 14 mg/dL (7-18) Creatinine 0.6 MG/DL (0.55-1.30) Estimat Glomerular Filtration Rate mL/min (>60) Glucose Level 172 MG/DL (74-106) H Calcium Level 7.1 MG/DL (8.5-10.1) L Total Bilirubin 0.5 MG/DL (0.2-1.0) Aspartate Amino Transf (AST/SGOT) 136 U/L (15-37) H Alanine Aminotransferase (ALT/SGPT) 90 U/L (12-78) H Alkaline Phosphatase 206 U/L (46-116) H Pro-B-Type Natriuretic Peptide 1193 pg/mL (0-125) H Total Protein 5.4 G/DL (6.4-8.2) L Albumin 0.8 G/DL (3.4-5.0) L Globulin 4.6 g/dL Albumin/Globulin Ratio 0.2 (1.0-2.7) L Vancomycin Level Trough 12.2 ug/mL (5.0-12.0) H Current Medications Medications (Trade) Dose Ordered Sig/Lilly Route PRN Reason Start Time Stop Time Status Last Admin Dose Admin Acetaminophen (Tylenol) 650 mg EVERY 4 HOURS PRN ORAL fever/PAGE 09/19/17 03:15 10/19/17 03:14 09/29/17 08:15 Aspirin (ASA) 81 mg DAILY NG 09/28/17 09:00 10/28/17 08:59 09/29/17 08:15 Cefepime HCl 1 gm/ Dextrose 55 ml @ 110 mls/hr Q24H IVPB 09/26/17 11:00 10/03/17 10:59 09/29/17 10:27 Dextrose (Dextrose 50%) STAT PRN IV Hypoglycemia 09/19/17 12:30 10/19/17 12:29 Insulin Aspart (NovoLOG) Q6HR SUBQ 09/19/17 13:00 10/19/17 12:59 09/29/17 12:20 Metoprolol Tartrate (Lopressor) 25 mg Q12HR ORAL 09/27/17 22:15 10/27/17 22:14 09/29/17 08:14 Pantoprazole (Protonix) 40 mg DAILY IVP 09/20/17 10:00 10/20/17 09:59 09/29/17 08:14 Vancomycin HCl (Vanco rx to dose) 1 ea DAILY PRN MISC Per rx protocol 09/19/17 03:15 10/19/17 03:14 Vancomycin HCl 1 gm/Dextrose 275 ml @ 183.708 mls/hr Q12H IVPB 09/30/17 01:00 10/05/17 00:59 KIMI VILLA Sep 29, 2017 15:10
--- NOTE | 2017-09-29 21:48 | Diagnostic Imaging Report ---
Indication: Dyspnea Comparison: 09/28/2017 A single view chest radiograph was obtained. Findings: Mixed interstitial alveolar disease and densities demonstrated throughout the lungs bilaterally. The heart is borderline enlarged. Tubes and lines are satisfactory. IMPRESSION: Congestive heart failure suspected. Findings relatively unchanged
[2017-09-30] VITALS (24 sets, daily range): BP systolic 82–176; BP diastolic 38–81
--- NOTE | 2017-09-30 00:11 | Cardiology Report ---
APPROVED REPORT EKG Measurement Heart [id number] 96P [id number] Sinus tachycardia with short [place] Abnormal ECG
[2017-09-30] MEDS: Vancomycin 1gm in D5W 275ml IVPB SCH ×2 (01:36→14:24)
[2017-09-30] MEDS: NovoLOG Insulin Flexpen SUBQ SCH ×5 (05:31→23:58)
--- NOTE | 2017-09-30 08:52 | General Progress Note ---
Assessment/Plan Problem List: (1) Dehydration ICD Codes: E86.0 - Dehydration SNOMED: 38004827 (2) Hypernatremia ICD Codes: E87.0 - Hyperosmolality and hypernatremia SNOMED: 13406593 (3) Malnutrition of moderate degree ICD Codes: E44.0 - Moderate protein-calorie malnutrition SNOMED: 783025158 (4) BOB (acute kidney injury) ICD Codes: N17.9 - Acute kidney failure, unspecified SNOMED: 41485770 (5) Sepsis ICD Codes: A41.9 - Sepsis, unspecified organism SNOMED: 42199508, 802163823 Qualifiers: Qualified Codes: A41.9 - Sepsis, unspecified organism (6) UTI (urinary tract infection) ICD Codes: N39.0 - Urinary tract infection, site not specified SNOMED: 75316586, 268100720 Qualifiers: Qualified Codes: N39.0 - Urinary tract infection, site not specified (7) Elevated troponin ICD Codes: R74.8 - Abnormal levels of other serum enzymes SNOMED: 439714654, 025981086 Assessment/Plan iv abx per id monitor cultures check abd dougie- ordered but not done yet ct chest abd off pressors currently feeds as tolerated vent- wean as able resp rx monitor lytes replace as needed dvt/stress ulcer prophylaxis critical and guarded Subjective ROS Limited/Unobtainable: No Constitutional: Reports: fever, malaise, weakness HEENT: Reports: no symptoms Cardiovascular: Reports: no symptoms Respiratory: Reports: shortness of breath Gastrointestinal/Abdominal: Reports: no symptoms Genitourinary: Reports: no symptoms Neurologic/Psychiatric: Reports: pre-existing deficit Endocrine: Reports: no symptoms Hematologic/Lymphatic: Reports: no symptoms Allergies: Coded Allergies: No Known Allergies (Unverified , 09/18/17) All Systems: reviewed and negative except above Subjective no events. no fevers since last night. remains on multiple abx. on feeds. tolerating feeds. increase o2 requirements Objective Last 24 Hour Vital Signs Date Time Temp Pulse Resp B/P (MAP) Pulse Ox O2 Delivery O2 Flow Rate FiO2 09/30/17 07:28 119 34 70 09/30/17 07:00 116 32 113/43 95 Mechanical Ventilator 70 09/30/17 06:00 115 33 118/53 93 Mechanical Ventilator 70 09/30/17 05:17 109 32 70 09/30/17 05:00 107 32 123/54 93 Mechanical Ventilator 70 09/30/17 04:00 104 09/30/17 04:00 70 09/30/17 04:00 98.9 104 31 123/54 93 Mechanical Ventilator 70 09/30/17 03:30 108 30 70 09/30/17 03:00 101 32 119/53 94 Mechanical Ventilator 70 09/30/17 02:00 101 30 109/50 96 Mechanical Ventilator 70 09/30/17 01:40 102 32 70 09/30/17 01:00 100 32 108/58 96 Mechanical Ventilator 70 09/30/17 00:00 98.6 98 31 129/55 97 Mechanical Ventilator 70 09/29/17 23:30 102 31 70 09/29/17 23:00 105 29 111/50 96 Mechanical Ventilator 70 09/29/17 22:00 106 31 141/50 96 Mechanical Ventilator 70 09/29/17 21:08 115 32 70 09/29/17 21:00 115 32 135/60 93 Mechanical Ventilator 70 09/29/17 20:54 113 140/60 09/29/17 20:00 70 09/29/17 20:00 98.3 113 32 140/60 94 Mechanical Ventilator 70 09/29/17 20:00 113 09/29/17 19:30 111 32 70 09/29/17 19:00 105 30 135/57 95 Mechanical Ventilator 70 09/29/17 18:00 95 29 106/45 97 Mechanical Ventilator 70 09/29/17 17:00 98.8 92 29 106/45 94 Mechanical Ventilator 70 09/29/17 17:00 93 29 70 09/29/17 16:00 70 09/29/17 16:00 92 28 106/57 97 Mechanical Ventilator 70 09/29/17 15:38 94 09/29/17 15:10 92 29 70 09/29/17 15:00 88 30 108/53 95 Mechanical Ventilator 70 09/29/17 14:00 90 27 106/53 96 Mechanical Ventilator 70 09/29/17 13:00 99.0 89 30 110/51 94 Mechanical Ventilator 70 09/29/17 12:50 91 28 70 09/29/17 12:08 92 09/29/17 12:00 93 32 106/53 96 Mechanical Ventilator 70 09/29/17 12:00 70 09/29/17 11:25 94 33 70 09/29/17 11:00 102 30 86/38 94 Mechanical Ventilator 70 09/29/17 10:30 99.1 09/29/17 10:00 106 36 90/40 94 Mechanical Ventilator 70 09/29/17 09:14 116 38 70 09/29/17 09:00 127 37 101/46 93 Mechanical Ventilator 70 Intake and Output 09/29/17 09/30/17 19:00 07:00 Intake Total 755 ml 833.708 ml Output Total 310 ml 565 ml Balance 445 ml 268.708 ml IV Total 305 ml 183.708 ml Tube Feeding 400 ml 650 ml Other 50 ml Output Urine Total 310 ml 565 ml Height (Feet): 5 Height (Inches): 2.00 Weight (Pounds): 151 Objective General Appearance: WD/WN, lethargic, confused Neck: supple Cardiovascular: normal rate, regular rhythm Respiratory/Chest: rhonchi - bilaterally Abdomen: normal bowel sounds, non tender, soft, no organomegaly Edema: no edema noted Arm (L), no edema noted Arm (R), no edema noted Leg (L), no edema noted Leg (R), no edema noted Pedal (L), no edema noted Pedal (R), no edema noted Generalized Neurologic: unresponsive KRYSTINA LENTZ Sep 30, 2017 08:52
[2017-09-30] MEDS: Pantoprazole Inj IVP SCH (09:28)
[2017-09-30] MEDS: Metoprolol 25mg tab ORAL SCH ×2 (09:28→20:44)
[2017-09-30] MEDS: Aspirin Baby 81mg NG SCH (09:28)
--- NOTE | 2017-09-30 10:10 | Pulmonology Progress Note ---
Assessment/Plan Assessment/Plan 1. Acute respiratory failure. 2. Possible sepsis with lactic acidosis and leukocytosis. 3. Severe dehydration with hypernatremia. 4. Hypokalemia. 5. Elevated liver enzymes. 6. Possible congestive heart failure. 7. Severe protein-calorie malnutrition. 8. Cachexia and inanition. 9. History of hypertension. 10. persistent bacteremia ?endocarditis PLAN: vent, no wean nebs adn suction npo aspiration precautions pressors prn to maintain map greater than 92% abx, wound care monitor uop tf prognosis poor discussed with RN at bedside Subjective Interval Events: No change Constitutional: Reports: no symptoms HEENT: Repors: no symptoms Respiratory: Reports: no symptoms Cardiovascular: Reports: no symptoms Gastrointestinal/Abdominal: Reports: no symptoms Genitourinary: Reports: no symptoms Allergies: Coded Allergies: No Known Allergies (Unverified , 09/18/17) Objective Last 24 Hour Vital Signs Date Time Temp Pulse Resp B/P (MAP) Pulse Ox O2 Delivery O2 Flow Rate FiO2 09/30/17 09:29 110 33 70 09/30/17 09:28 115 102/48 09/30/17 09:00 116 33 102/48 96 Mechanical Ventilator 70 09/30/17 08:00 120 35 100/46 95 Mechanical Ventilator 70 09/30/17 08:00 70 09/30/17 07:28 119 34 70 09/30/17 07:00 116 32 113/43 95 Mechanical Ventilator 70 09/30/17 06:00 115 33 118/53 93 Mechanical Ventilator 70 09/30/17 05:17 109 32 70 09/30/17 05:00 107 32 123/54 93 Mechanical Ventilator 70 09/30/17 04:00 104 09/30/17 04:00 70 09/30/17 04:00 98.9 104 31 123/54 93 Mechanical Ventilator 70 09/30/17 03:30 108 30 70 09/30/17 03:00 101 32 119/53 94 Mechanical Ventilator 70 09/30/17 02:00 101 30 109/50 96 Mechanical Ventilator 70 09/30/17 01:40 102 32 70 09/30/17 01:00 100 32 108/58 96 Mechanical Ventilator 70 09/30/17 00:00 98.6 98 31 129/55 97 Mechanical Ventilator 70 09/29/17 23:30 102 31 70 09/29/17 23:00 105 29 111/50 96 Mechanical Ventilator 70 09/29/17 22:00 106 31 141/50 96 Mechanical Ventilator 70 09/29/17 21:08 115 32 70 09/29/17 21:00 115 32 135/60 93 Mechanical Ventilator 70 09/29/17 20:54 113 140/60 09/29/17 20:00 70 09/29/17 20:00 98.3 113 32 140/60 94 Mechanical Ventilator 70 09/29/17 20:00 113 09/29/17 19:30 111 32 70 09/29/17 19:00 105 30 135/57 95 Mechanical Ventilator 70 09/29/17 18:00 95 29 106/45 97 Mechanical Ventilator 70 09/29/17 17:00 98.8 92 29 106/45 94 Mechanical Ventilator 70 09/29/17 17:00 93 29 70 09/29/17 16:00 70 09/29/17 16:00 92 28 106/57 97 Mechanical Ventilator 70 09/29/17 15:38 94 09/29/17 15:10 92 29 70 09/29/17 15:00 88 30 108/53 95 Mechanical Ventilator 70 09/29/17 14:00 90 27 106/53 96 Mechanical Ventilator 70 09/29/17 13:00 99.0 89 30 110/51 94 Mechanical Ventilator 70 09/29/17 12:50 91 28 70 09/29/17 12:08 92 09/29/17 12:00 93 32 106/53 96 Mechanical Ventilator 70 09/29/17 12:00 70 09/29/17 11:25 94 33 70 09/29/17 11:00 102 30 86/38 94 Mechanical Ventilator 70 09/29/17 10:30 99.1 Intake and Output 09/29/17 09/30/17 19:00 07:00 Intake Total 755 ml 833.708 ml Output Total 310 ml 565 ml Balance 445 ml 268.708 ml IV Total 305 ml 183.708 ml Tube Feeding 400 ml 650 ml Other 50 ml Output Urine Total 310 ml 565 ml General Appearance: no acute distress HEENT: normocephalic Respiratory/Chest: chest wall non-tender, lungs clear Cardiovascular: normal peripheral pulses, normal rate Microbiology Date/Time Source Procedure Growth Status 09/28/17 12:10 Blood Blood Culture - Preliminary NO GROWTH AFTER 24 HOURS Resulted 09/28/17 12:10 Blood Blood Culture - Preliminary NO GROWTH AFTER 24 HOURS Resulted Current Medications Medications (Trade) Dose Ordered Sig/Lilly Route PRN Reason Start Time Stop Time Status Last Admin Dose Admin Acetaminophen (Tylenol) 650 mg EVERY 4 HOURS PRN ORAL fever/PAGE 09/19/17 03:15 10/19/17 03:14 09/29/17 08:15 Aspirin (ASA) 81 mg DAILY NG 09/28/17 09:00 10/28/17 08:59 09/30/17 09:28 Cefepime HCl 1 gm/ Dextrose 55 ml @ 110 mls/hr Q24H IVPB 09/26/17 11:00 10/03/17 10:59 09/29/17 10:27 Dextrose (Dextrose 50%) STAT PRN IV Hypoglycemia 09/19/17 12:30 10/19/17 12:29 Insulin Aspart (NovoLOG) Q6HR SUBQ 09/19/17 13:00 10/19/17 12:59 09/30/17 05:31 Metoprolol Tartrate (Lopressor) 25 mg Q12HR ORAL 09/27/17 22:15 10/27/17 22:14 09/30/17 09:28 Pantoprazole (Protonix) 40 mg DAILY IVP 09/20/17 10:00 10/20/17 09:59 09/30/17 09:28 Vancomycin HCl (Vanco rx to dose) 1 ea DAILY PRN MISC Per rx protocol 09/19/17 03:15 10/19/17 03:14 Vancomycin HCl 1 gm/Dextrose 275 ml @ 183.708 mls/hr Q12H IVPB 09/30/17 01:00 10/05/17 00:59 09/30/17 01:36 Dilip Goyal MD Sep 30, 2017 10:10
[2017-09-30] MEDS: Cefepime HCl 1 GM in D5W 55 ML IVPB SCH (10:32)
--- NOTE | 2017-09-30 12:30 | Infectious Diseases Prog Note ---
"Assessment/Plan Assessment/Plan antibiotics : vancomycin iv, cefepime A 1. e.coli UTI 2. pneumonia 3. MRSA | coag neg staph sepsis s/p catheter removal 4. respiratory failure P 1. continue vancomycin iv, cefepime 2. will follow up cultures Subjective ROS Limited/Unobtainable: Yes Allergies: Coded Allergies: No Known Allergies (Unverified , 09/18/17) Objective Vital Signs Last 24 Hour Vital Signs Date Time Temp Pulse Resp B/P (MAP) Pulse Ox O2 Delivery O2 Flow Rate FiO2 09/30/17 12:00 91 29 111/46 95 Mechanical Ventilator 70 09/30/17 12:00 70 09/30/17 11:07 91 30 70 09/30/17 11:00 93 31 104/46 93 Mechanical Ventilator 70 09/30/17 10:00 94 32 109/45 95 Mechanical Ventilator 70 09/30/17 09:29 110 33 70 09/30/17 09:28 115 102/48 09/30/17 09:00 116 33 102/48 96 Mechanical Ventilator 70 09/30/17 08:00 120 35 100/46 95 Mechanical Ventilator 70 09/30/17 08:00 70 09/30/17 07:49 119 09/30/17 07:28 119 34 70 09/30/17 07:00 116 32 113/43 95 Mechanical Ventilator 70 09/30/17 06:00 115 33 118/53 93 Mechanical Ventilator 70 09/30/17 05:17 109 32 70 09/30/17 05:00 107 32 123/54 93 Mechanical Ventilator 70 09/30/17 04:00 104 09/30/17 04:00 70 09/30/17 04:00 98.9 104 31 123/54 93 Mechanical Ventilator 70 09/30/17 03:30 108 30 70 09/30/17 03:00 101 32 119/53 94 Mechanical Ventilator 70 09/30/17 02:00 101 30 109/50 96 Mechanical Ventilator 70 09/30/17 01:40 102 32 70 09/30/17 01:00 100 32 108/58 96 Mechanical Ventilator 70 09/30/17 00:00 98.6 98 31 129/55 97 Mechanical Ventilator 70 09/29/17 23:30 102 31 70 09/29/17 23:00 105 29 111/50 96 Mechanical Ventilator 70 09/29/17 22:00 106 31 141/50 96 Mechanical Ventilator 70 09/29/17 21:08 115 32 70 09/29/17 21:00 115 32 135/60 93 Mechanical Ventilator 70 09/29/17 20:54 113 140/60 09/29/17 20:00 70 09/29/17 20:00 98.3 113 32 140/60 94 Mechanical Ventilator 70 09/29/17 20:00 113 09/29/17 19:30 111 32 70 09/29/17 19:00 105 30 135/57 95 Mechanical Ventilator 70 09/29/17 18:00 95 29 106/45 97 Mechanical Ventilator 70 09/29/17 17:00 98.8 92 29 106/45 94 Mechanical Ventilator 70 09/29/17 17:00 93 29 70 09/29/17 16:00 70 09/29/17 16:00 92 28 106/57 97 Mechanical Ventilator 70 09/29/17 15:38 94 09/29/17 15:10 92 29 70 09/29/17 15:00 88 30 108/53 95 Mechanical Ventilator 70 09/29/17 14:00 90 27 106/53 96 Mechanical Ventilator 70 09/29/17 13:00 99.0 89 30 110/51 94 Mechanical Ventilator 70 09/29/17 12:50 91 28 70 Height (Feet): 5 Height (Inches): 2.00 Weight (Pounds): 151 Respiratory/Chest: lungs clear Cardiovascular: normal rate, regular rhythm, no gallop/murmur Abdomen: soft, non tender Extremities: no edema Microbiology Date/Time Source Procedure Growth Status 09/28/17 12:10 Blood Blood Culture - Preliminary NO GROWTH AFTER 24 HOURS Resulted 09/28/17 12:10 Blood Blood Culture - Preliminary NO GROWTH AFTER 24 HOURS Resulted HENRI CASTLE Sep 30, 2017 12:30"
--- NOTE | 2017-09-30 12:50 | Diagnostic Imaging Report ---
Indication: Abdominal pain/abnormal labs Technique: Ultrasound of the abdomen. Comparison: None Findings: The pancreas is incompletely visualized. Visualized portions are unremarkable. Liver measures 14.0 cm with mild heterogeneous increased echogenicity. No focal liver lesions are identified. Visualized portions of the main portal vein and the hepatic veins are grossly unremarkable although incompletely evaluated. Gallstones are present. Gallbladder wall thickness is within normal limits. Sonographic Cormier's is negative. Common bile duct measures 2 mm. Bilateral kidneys demonstrate normal echogenicity. No focal renal lesions are seen. There is no hydronephrosis. No echogenic renal stones are identified. The spleen is normal in size and echogenicity. The visualized aorta is normal in caliber. Visualized portions of the inferior vena cava are unremarkable. Impression: Technically limited examination. Cholelithiasis. Mild heterogeneous increased echogenicity of the liver may suggest fatty infiltration or hepatocellular disease. Clinical correlation recommended.
--- NOTE | 2017-09-30 13:17 | Diagnostic Imaging Report ---
Indication: Cough Technique: XRAY Chest 1v Comparison: 09/25/2017 Findings: Endotracheal and nasogastric tubes are unchanged. There is improving aeration in the right upper lobe. There is increasing airspace disease in the left lung. Diffuse bilateral interstitial and airspace disease are present. Osseous structures are stable. Impression: Improving aeration in the right upper lobe. Increasing airspace edema or infiltrates of the left lung. Other stable findings as above.
--- NOTE | 2017-09-30 16:02 | Diagnostic Imaging Report ---
Indication: Abdominal pain Technique: Continuous helical transaxial imaging of the abdomen and pelvis was obtained from the lung bases to the pubic symphysis. No intravenous contrast was administered. Coronal 2-D reformats were also obtained. Automatic Exposure Control was utilized. Total Dose length Product (DLP): 988.[address] Dose Index Volume (CTDIvol): 18.16 mGy Comparison: none Findings: Within the visualized lung bases, there is extensive consolidation with air bronchograms demonstrated. Findings suspicious for severe pneumonia. Findings are reflected on prior chest x-rays which show extensive diffuse infiltrates. Please correlate clinically. Nasogastric tube is in good position. There is no evidence of bowel obstruction. There is no free fluid or free air identified. A Middleton catheter is present which is in good position. Mild subcutaneous edema noted within the abdominal wall. There is no free fluid. Gallbladder is grossly unremarkable. There is no nephrolithiasis or hydronephrosis deftly seen. Appendix is normal. Uterus is noted. Some fecal retention noted in the rectum mild in degree. There is a right total hip prosthesis. 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 IMPRESSION: No acute abdominal findings to account for a given history of abdominal pain. Extensive infiltrates within the lungs suspicious for pneumonia. Nasogastric tube and Middleton catheter in good position Mild fecal retention in the rectum. Degenerative changes lower lumbar spine Status post right hip replacement The CT scanner at [facility] is accredited by the [employer] and the scans are performed using dose optimization techniques as appropriate to a performed exam including Automatic Exposure control.
--- NOTE | 2017-09-30 16:31 | Cardiology Report ---
APPROVED REPORT EXAM: Two-dimensional and M-mode echocardiogram with Doppler and color Doppler. INDICATION Endocarditis M-Mode DIMENSIONS IVSd1.3 (0.7-1.1cm)Left Atrium (MM)3.5 (1.6-4.0cm) LVDd3.6 (3.5-5.6cm)Aortic Root2.7 (2.0-3.7cm) PWd1.3 (0.7-1.1cm)Aortic Cusp Exc.1.8 (1.5-2.0cm) LVDs2.5 (2.5-4.0cm) PWs2.3 cm Normal left ventricular chamber size, hyerpdynamic systolic function and wall motion. Left ventricular ejection fraction estimated to be 70-75 %. Mild left ventricular hypertrophy. Anterior Echo-free space, may be due to pericardial fat or effusion. All other cardiac chamber sizes are within normal limits. Focal aortic valve sclerosis with adequate cusp excursion. Thickened mitral valve leaflets with normal excursion. Mitral annulus and aortic root calcification. Normal pulmonic valve structure. Normal tricuspid valve structure. poor valvular detail IVC at normal size with physiologic collapse. No discrete vegetations seen, however SBE may not be excluded by transthoracic 2-D echo. Consider TAYLOR if clinically indicated. A color flow and spectral Doppler study was performed and revealed: Mild aortic regurgitation. Trace mitral regurgitation. Mitral diastolic velocities suggest mild left ventricular dysfunction (Grade I ). Mild tricuspid regurgitation. Tricuspid systolic velocities suggests peak right ventricular systolic pressure of 55 mmHg, consistent with moderate pulmonary hypertension. Mild pulmonic regurgitation present.
[2017-09-30] MEDS ORDERED: Tubing IV Secondary IV ONE (17:14)
[2017-10-01] VITALS (24 sets, daily range): BP systolic 86–130; BP diastolic 34–58
[2017-10-01] MEDS: Vancomycin 1gm in D5W 275ml IVPB SCH (00:33)
[2017-10-01] MEDS: NovoLOG Insulin Flexpen SUBQ SCH ×4 (06:00→23:30)
[2017-10-01] MEDS: Pantoprazole Inj IVP SCH (08:30)
[2017-10-01] MEDS: Aspirin Baby 81mg NG SCH (08:30)
[2017-10-01] MEDS: Metoprolol 25mg tab ORAL SCH ×2 (08:30→20:45)
--- NOTE | 2017-10-01 08:35 | Pulmonology Progress Note ---
Assessment/Plan Assessment/Plan 1. Acute respiratory failure. 2. Possible sepsis with lactic acidosis and leukocytosis. 3. Severe dehydration with hypernatremia. 4. Hypokalemia. 5. Elevated liver enzymes. 6. Possible congestive heart failure. 7. Severe protein-calorie malnutrition. 8. Cachexia and inanition. 9. History of hypertension. 10. persistent bacteremia ?endocarditis PLAN: vent, no wean nebs adn suction npo aspiration precautions pressors prn to maintain map greater than 92% abx, wound care monitor uop tf prognosis poor discussed with RN at bedside Subjective Interval Events: No change Constitutional: Reports: no symptoms HEENT: Repors: no symptoms Respiratory: Reports: no symptoms Cardiovascular: Reports: no symptoms Gastrointestinal/Abdominal: Reports: no symptoms Genitourinary: Reports: no symptoms Allergies: Coded Allergies: No Known Allergies (Unverified , 09/18/17) Objective Last 24 Hour Vital Signs Date Time Temp Pulse Resp B/P (MAP) Pulse Ox O2 Delivery O2 Flow Rate FiO2 10/01/17 08:30 124 126/56 10/01/17 07:27 115 36 70 10/01/17 07:00 112 32 125/53 96 Mechanical Ventilator 70 10/01/17 06:00 109 32 113/49 96 Mechanical Ventilator 70 10/01/17 05:01 105 34 70 10/01/17 05:00 99.0 107 32 116/52 96 Mechanical Ventilator 70 10/01/17 04:00 99.5 104 32 107/53 96 Mechanical Ventilator 70 10/01/17 04:00 70 10/01/17 04:00 102 10/01/17 03:00 91 32 104/49 96 Mechanical Ventilator 70 10/01/17 02:59 108 39 70 10/01/17 02:00 99.4 97 32 90/46 96 Mechanical Ventilator 70 10/01/17 01:30 98 33 70 10/01/17 01:00 94 32 106/43 95 Mechanical Ventilator 70 10/01/17 00:00 98.9 98 32 97/45 95 Mechanical Ventilator 70 10/01/17 00:00 70 10/01/17 00:00 92 09/30/17 23:21 95 30 70 09/30/17 23:00 95 32 82/38 94 Mechanical Ventilator 70 09/30/17 22:00 93 32 91/51 94 Mechanical Ventilator 70 09/30/17 21:00 109 32 91/50 94 Mechanical Ventilator 70 09/30/17 20:44 116 106/55 09/30/17 20:33 114 33 70 09/30/17 20:00 107 09/30/17 20:00 70 09/30/17 20:00 98.7 114 33 110/50 95 Mechanical Ventilator 70 09/30/17 19:30 113 33 70 09/30/17 19:00 109 34 106/55 95 Mechanical Ventilator 70 09/30/17 18:00 96 30 102/53 96 Mechanical Ventilator 70 09/30/17 17:00 96 28 94/47 92 Mechanical Ventilator 70 09/30/17 16:56 94 28 70 09/30/17 16:00 96 30 176/81 98 Mechanical Ventilator 100 09/30/17 15:43 96 09/30/17 15:28 97.8 09/30/17 15:27 100 09/30/17 15:20 100 09/30/17 15:03 99 33 70 09/30/17 15:00 98 29 117/48 95 Mechanical Ventilator 70 09/30/17 14:00 94 29 113/41 94 Mechanical Ventilator 70 09/30/17 13:11 90 30 70 09/30/17 13:00 98.0 90 30 139/57 93 Mechanical Ventilator 100 09/30/17 12:00 91 29 111/46 95 Mechanical Ventilator 70 09/30/17 12:00 70 09/30/17 11:34 92 09/30/17 11:07 91 30 70 09/30/17 11:00 93 31 104/46 93 Mechanical Ventilator 70 09/30/17 10:00 99.3 94 32 109/45 95 Mechanical Ventilator 70 09/30/17 09:29 110 33 70 09/30/17 09:28 115 102/48 09/30/17 09:00 116 33 102/48 96 Mechanical Ventilator 70 Intake and Output 09/30/17 10/01/17 19:00 07:00 Intake Total 880.000 ml 785 ml Output Total 325 ml 545 ml Balance 555.000 ml 240 ml IV Total 330.000 ml 275 ml Tube Feeding 50 ml 450 ml Other 500 ml 60 ml Output Urine Total 325 ml 545 ml # Bowel Movements 1 General Appearance: no acute distress HEENT: normocephalic Respiratory/Chest: chest wall non-tender, lungs clear Cardiovascular: normal peripheral pulses, normal rate Abdomen: normal bowel sounds Microbiology Date/Time Source Procedure Growth Status 09/28/17 12:10 Blood Blood Culture - Preliminary NO GROWTH AFTER 48 HOURS Resulted 09/28/17 12:10 Blood Blood Culture - Preliminary NO GROWTH AFTER 48 HOURS Resulted Current Medications Medications (Trade) Dose Ordered Sig/Lilly Route PRN Reason Start Time Stop Time Status Last Admin Dose Admin Acetaminophen (Tylenol) 650 mg EVERY 4 HOURS PRN ORAL fever/PAGE 09/19/17 03:15 10/19/17 03:14 09/29/17 08:15 Aspirin (ASA) 81 mg DAILY NG 09/28/17 09:00 10/28/17 08:59 10/01/17 08:30 Cefepime HCl 1 gm/ Dextrose 55 ml @ 110 mls/hr Q24H IVPB 09/26/17 11:00 10/03/17 10:59 09/30/17 10:32 Dextrose (Dextrose 50%) STAT PRN IV Hypoglycemia 09/19/17 12:30 10/19/17 12:29 Insulin Aspart (NovoLOG) Q6HR SUBQ 09/19/17 13:00 10/19/17 12:59 10/01/17 06:00 Metoprolol Tartrate (Lopressor) 25 mg Q12HR ORAL 09/27/17 22:15 10/27/17 22:14 10/01/17 08:30 Pantoprazole (Protonix) 40 mg DAILY IVP 09/20/17 10:00 10/20/17 09:59 10/01/17 08:30 Vancomycin HCl (Vanco rx to dose) 1 ea DAILY PRN MISC Per rx protocol 09/19/17 03:15 10/19/17 03:14 Vancomycin HCl 1 gm/Dextrose 275 ml @ 183.708 mls/hr Q12H IVPB 09/30/17 01:00 10/05/17 00:59 10/01/17 00:33 Dilip Goyal MD Oct 01, 2017 08:35
--- NOTE | 2017-10-01 09:42 | Progress Note ---
DATE: 09/29/2017 CARDIOLOGY PROGRESS NOTE SUBJECTIVE: The patient is on ventilator support. She is off pressors. Weaning has not been successful. She has bacteremia. OBJECTIVE: VITAL SIGNS: Blood pressure is 101/46, pulse 127, and respiratory rate 37. CHEST: Coarse breath sounds. Scattered rhonchi. HEART: Regular rhythm and rate. Normal S1, S2. No audible murmur. No change. EXTREMITIES: Dependent edema. LABORATORY DATA: White count 13 and hemoglobin 10. Potassium 3.5. Pro-natriuretic peptide 1193. BUN 14 and creatinine 0.6. Albumin 0.8. DIAGNOSTIC DATA: Echocardiogram pending. IMPRESSION: 1. Persistent bacteremia. 2. High risk for endocarditis. 3. Respiratory failure. 4. Sepsis with shock. 5. Acute myocardial infarction. 6. Failure to wean. PLAN: 1. Repeat blood cultures. 2. Review echocardiogram. 3. Avoid pressors. 4. Cautious use of beta-blockers. 5. Discussion regarding tracheostomy to follow versus hospice level of care, which the family has refused in the past. Davy Robbins M.D. DR: Toni JOB#: [id number] CC:
--- NOTE | 2017-10-01 09:43 | Progress Note ---
DATE: 09/30/2017 CARDIOLOGY PROGRESS NOTE SUBJECTIVE: The patient is remaining on ventilator support, off pressors. OBJECTIVE: VITAL SIGNS: Blood pressure 102/48, pulse 115, and respirations 33. LUNGS: Coarse breath sounds. Scattered rhonchi. HEART: Regular rhythm and rate. Normal S1 and S2. ABDOMEN: Soft. Dependent edema. LABORATORY AND DIAGNOSTIC DATA: No new laboratories today. Repeat echocardiogram reveals no discrete vegetation. CT scan of the abdomen and pelvis, no acute abdominal findings and extensive pulmonary infiltrates. IMPRESSION: 1. Respiratory failure. 2. Healthcare-acquired pneumonia. 3. Sepsis with shock. 4. Recurring bacteremia. 5. Increased risk for endocarditis. 6. Acute myocardial ischemia. 7. Dementia. 8. Cerebrovascular disease with advanced dementia. PLAN: 1. Surveillance blood culture. 2. IV antibiotics. 3. Weaning efforts. 4. Avoid pressors. 5. Volume support. 6. Nutrition by feeding tube. CONDITION: Critical. PROGNOSIS: Guarded. Davy Robbins M.D. DR: EDUARDO JOB#: [id number] CC:
[2017-10-01 09:45] LABS: HEMATOCRIT 33.8 % (37.0-47.0); MEAN CORPUSCULAR VOLUME 98 FL (80-99); PLATELET COUNT 69 K/UL (150-450); RED BLOOD COUNT 3.43 M/UL (4.20-5.40); RED CELL DISTRIBUTION WIDTH 12.9 % (11.6-14.8); WHITE BLOOD COUNT 16.5 K/UL (4.8-10.8)
[2017-10-01 10:07] LABS: ALANINE AMINOTRANSFERASE 74 U/L (12-78); ALBUMIN 0.7 G/DL (3.4-5.0); ALBUMIN/GLOBULIN RATIO 0.1 (1.0-2.7); ALKALINE PHOSPHATASE 228 U/L (46-116); ANION GAP 6 mmol/L (5-15); ASPARTATE AMINO TRANSFERASE 97 U/L (15-37); BILIRUBIN,TOTAL 0.6 MG/DL (0.2-1.0); BLOOD UREA NITROGEN 23 mg/dL (7-18); CALCIUM 8.3 MG/DL (8.5-10.1); CARBON DIOXIDE 32 MMOL/L (21-32); CHLORIDE 100 MMOL/L (98-107); CREATININE 0.9 MG/DL (0.55-1.30); POTASSIUM 4.4 MMOL/L (3.5-5.1); SODIUM 138 MMOL/L (136-145)
[2017-10-01] MEDS: Cefepime HCl 1 GM in D5W 55 ML IVPB SCH (12:04)
--- NOTE | 2017-10-01 12:29 | Infectious Diseases Prog Note ---
"Assessment/Plan Assessment/Plan antibiotics : vancomycin iv, cefepime A 1. e.coli UTI 2. pneumonia 3. MRSA | coag neg staph sepsis s/p catheter removal 4. respiratory failure 5. leucocytosis increased P 1. continue vancomycin iv, cefepime 2. stool for c.diff 3. start flagyl 4. will follow up cultures Subjective ROS Limited/Unobtainable: Yes Allergies: Coded Allergies: No Known Allergies (Unverified , 09/18/17) Objective Vital Signs Last 24 Hour Vital Signs Date Time Temp Pulse Resp B/P (MAP) Pulse Ox O2 Delivery O2 Flow Rate FiO2 10/01/17 10:56 110 37 100 10/01/17 10:00 109 32 100/47 94 Mechanical Ventilator 100 10/01/17 09:25 112 39 100 10/01/17 09:00 111 32 115/53 94 Mechanical Ventilator 100 10/01/17 09:00 100 10/01/17 08:30 124 126/56 10/01/17 08:00 98.9 117 32 116/52 96 Mechanical Ventilator 70 10/01/17 08:00 118 10/01/17 08:00 70 10/01/17 07:27 115 36 70 10/01/17 07:00 112 32 125/53 96 Mechanical Ventilator 70 10/01/17 06:00 109 32 113/49 96 Mechanical Ventilator 70 10/01/17 05:01 105 34 70 10/01/17 05:00 99.0 107 32 116/52 96 Mechanical Ventilator 70 10/01/17 04:00 99.5 104 32 107/53 96 Mechanical Ventilator 70 10/01/17 04:00 70 10/01/17 04:00 102 10/01/17 03:00 91 32 104/49 96 Mechanical Ventilator 70 10/01/17 02:59 108 39 70 10/01/17 02:00 99.4 97 32 90/46 96 Mechanical Ventilator 70 10/01/17 01:30 98 33 70 10/01/17 01:00 94 32 106/43 95 Mechanical Ventilator 70 10/01/17 00:00 98.9 98 32 97/45 95 Mechanical Ventilator 70 10/01/17 00:00 70 10/01/17 00:00 92 09/30/17 23:21 95 30 70 09/30/17 23:00 95 32 82/38 94 Mechanical Ventilator 70 09/30/17 22:00 93 32 91/51 94 Mechanical Ventilator 70 09/30/17 21:00 109 32 91/50 94 Mechanical Ventilator 70 09/30/17 20:44 116 106/55 09/30/17 20:33 114 33 70 09/30/17 20:00 107 09/30/17 20:00 70 09/30/17 20:00 98.7 114 33 110/50 95 Mechanical Ventilator 70 09/30/17 19:30 113 33 70 09/30/17 19:00 109 34 106/55 95 Mechanical Ventilator 70 09/30/17 18:00 96 30 102/53 96 Mechanical Ventilator 70 09/30/17 17:00 96 28 94/47 92 Mechanical Ventilator 70 09/30/17 16:56 94 28 70 09/30/17 16:00 96 30 176/81 98 Mechanical Ventilator 100 09/30/17 15:43 96 09/30/17 15:28 97.8 09/30/17 15:27 100 09/30/17 15:20 100 09/30/17 15:03 99 33 70 09/30/17 15:00 98 29 117/48 95 Mechanical Ventilator 70 09/30/17 14:00 94 29 113/41 94 Mechanical Ventilator 70 09/30/17 13:11 90 30 70 09/30/17 13:00 98.0 90 30 139/57 93 Mechanical Ventilator 100 Height (Feet): 5 Height (Inches): 2.00 Weight (Pounds): 151 HEENT: other - intubated Respiratory/Chest: lungs clear Cardiovascular: normal rate, regular rhythm, no gallop/murmur Abdomen: soft, non tender Extremities: other - + edema Laboratory Tests Test 10/01/17 09:20 White Blood Count 16.5 K/UL (4.8-10.8) H Red Blood Count 3.43 M/UL (4.20-5.40) L Hemoglobin 11.0 G/DL (12.0-16.0) L Hematocrit 33.8 % (37.0-47.0) L Mean Corpuscular Volume 98 FL (80-99) Mean Corpuscular Hemoglobin 31.9 PG (27.0-31.0) H Mean Corpuscular Hemoglobin Concent 32.4 G/DL (32.0-36.0) Red Cell Distribution Width 12.9 % (11.6-14.8) Platelet Count 69 K/UL (150-450) L Mean Platelet Volume 13.3 FL (6.5-10.1) H Neutrophils (%) (Auto) % (45.0-75.0) Lymphocytes (%) (Auto) % (20.0-45.0) Monocytes (%) (Auto) % (1.0-10.0) Eosinophils (%) (Auto) % (0.0-3.0) Basophils (%) (Auto) % (0.0-2.0) Differential Total Cells Counted 100 Neutrophils % (Manual) 90 % (45-75) H Lymphocytes % (Manual) 8 % (20-45) L Monocytes % (Manual) 1 % (1-10) Eosinophils % (Manual) 1 % (0-3) Basophils % (Manual) 0 % (0-2) Band Neutrophils 0 % (0-8) Platelet Estimate Decreased L Platelet Morphology Normal Sodium Level 138 MMOL/L (136-145) Potassium Level 4.4 MMOL/L (3.5-5.1) Chloride Level 100 MMOL/L (98-107) Carbon Dioxide Level 32 MMOL/L (21-32) Anion Gap 6 mmol/L (5-15) Blood Urea Nitrogen 23 mg/dL (7-18) H Creatinine 0.9 MG/DL (0.55-1.30) Estimat Glomerular Filtration Rate mL/min (>60) Glucose Level 156 MG/DL (74-106) H Calcium Level 8.3 MG/DL (8.5-10.1) L Total Bilirubin 0.6 MG/DL (0.2-1.0) Aspartate Amino Transf (AST/SGOT) 97 U/L (15-37) H Alanine Aminotransferase (ALT/SGPT) 74 U/L (12-78) Alkaline Phosphatase 228 U/L (46-116) H Total Protein 5.5 G/DL (6.4-8.2) L Albumin 0.7 G/DL (3.4-5.0) L Globulin 4.8 g/dL Albumin/Globulin Ratio 0.1 (1.0-2.7) L HENRI CASTLE Oct 01, 2017 12:29"
[2017-10-01] MEDS ORDERED: Morphine Sulfate 2mg/ml Inj IVP PRN (12:30)
--- NOTE | 2017-10-01 12:44 | General Progress Note ---
Assessment/Plan Problem List: (1) Dehydration ICD Codes: E86.0 - Dehydration SNOMED: 92251743 (2) Hypernatremia ICD Codes: E87.0 - Hyperosmolality and hypernatremia SNOMED: 61027094 (3) Malnutrition of moderate degree ICD Codes: E44.0 - Moderate protein-calorie malnutrition SNOMED: 024999138 (4) BOB (acute kidney injury) ICD Codes: N17.9 - Acute kidney failure, unspecified SNOMED: 06047508 (5) Sepsis ICD Codes: A41.9 - Sepsis, unspecified organism SNOMED: 34415368, 898818439 Qualifiers: Qualified Codes: A41.9 - Sepsis, unspecified organism (6) UTI (urinary tract infection) ICD Codes: N39.0 - Urinary tract infection, site not specified SNOMED: 83353889, 383414389 Qualifiers: Qualified Codes: N39.0 - Urinary tract infection, site not specified (7) Elevated troponin ICD Codes: R74.8 - Abnormal levels of other serum enzymes SNOMED: 893836135, 846999259 Status: deteriorating Assessment/Plan iv abx per id try to get sputum culture off pressors currently feeds as tolerated vent- wean as able resp rx monitor lytes replace as needed dvt/stress ulcer prophylaxis critical and guarded Subjective ROS Limited/Unobtainable: Yes Constitutional: Reports: malaise, weakness HEENT: Reports: no symptoms Cardiovascular: Reports: no symptoms Respiratory: Reports: sputum Gastrointestinal/Abdominal: Reports: difficulty swallowing Genitourinary: Reports: no symptoms Neurologic/Psychiatric: Reports: no symptoms Endocrine: Reports: no symptoms Hematologic/Lymphatic: Reports: anemia Allergies: Coded Allergies: No Known Allergies (Unverified , 09/18/17) All Systems: reviewed and negative except above Subjective no events. no fevers since last night. remains on multiple abx. on feeds. tolerating feeds. increase o2 requirements. Ct with extensive pna Objective Last 24 Hour Vital Signs Date Time Temp Pulse Resp B/P (MAP) Pulse Ox O2 Delivery O2 Flow Rate FiO2 10/01/17 10:56 110 37 100 10/01/17 10:00 109 32 100/47 94 Mechanical Ventilator 100 10/01/17 09:25 112 39 100 10/01/17 09:00 111 32 115/53 94 Mechanical Ventilator 100 10/01/17 09:00 100 10/01/17 08:30 124 126/56 10/01/17 08:00 98.9 117 32 116/52 96 Mechanical Ventilator 70 10/01/17 08:00 118 10/01/17 08:00 70 10/01/17 07:27 115 36 70 10/01/17 07:00 112 32 125/53 96 Mechanical Ventilator 70 10/01/17 06:00 109 32 113/49 96 Mechanical Ventilator 70 10/01/17 05:01 105 34 70 10/01/17 05:00 99.0 107 32 116/52 96 Mechanical Ventilator 70 10/01/17 04:00 99.5 104 32 107/53 96 Mechanical Ventilator 70 10/01/17 04:00 70 10/01/17 04:00 102 10/01/17 03:00 91 32 104/49 96 Mechanical Ventilator 70 10/01/17 02:59 108 39 70 10/01/17 02:00 99.4 97 32 90/46 96 Mechanical Ventilator 70 10/01/17 01:30 98 33 70 10/01/17 01:00 94 32 106/43 95 Mechanical Ventilator 70 10/01/17 00:00 98.9 98 32 97/45 95 Mechanical Ventilator 70 10/01/17 00:00 70 10/01/17 00:00 92 09/30/17 23:21 95 30 70 09/30/17 23:00 95 32 82/38 94 Mechanical Ventilator 70 09/30/17 22:00 93 32 91/51 94 Mechanical Ventilator 70 09/30/17 21:00 109 32 91/50 94 Mechanical Ventilator 70 09/30/17 20:44 116 106/55 09/30/17 20:33 114 33 70 09/30/17 20:00 107 09/30/17 20:00 70 09/30/17 20:00 98.7 114 33 110/50 95 Mechanical Ventilator 70 09/30/17 19:30 113 33 70 09/30/17 19:00 109 34 106/55 95 Mechanical Ventilator 70 09/30/17 18:00 96 30 102/53 96 Mechanical Ventilator 70 09/30/17 17:00 96 28 94/47 92 Mechanical Ventilator 70 09/30/17 16:56 94 28 70 09/30/17 16:00 96 30 176/81 98 Mechanical Ventilator 100 09/30/17 15:43 96 09/30/17 15:28 97.8 09/30/17 15:27 100 09/30/17 15:20 100 09/30/17 15:03 99 33 70 09/30/17 15:00 98 29 117/48 95 Mechanical Ventilator 70 09/30/17 14:00 94 29 113/41 94 Mechanical Ventilator 70 09/30/17 13:11 90 30 70 09/30/17 13:00 98.0 90 30 139/57 93 Mechanical Ventilator 100 Intake and Output 09/30/17 10/01/17 19:00 07:00 Intake Total 880.000 ml 785 ml Output Total 325 ml 545 ml Balance 555.000 ml 240 ml IV Total 330.000 ml 275 ml Tube Feeding 50 ml 450 ml Other 500 ml 60 ml Output Urine Total 325 ml 545 ml # Bowel Movements 1 Laboratory Tests 10/01/17 09:20: White Blood Count 16.5H, Red Blood Count 3.43L, Hemoglobin 11.0L, Hematocrit 33.8L, Mean Corpuscular Volume 98, Mean Corpuscular Hemoglobin 31.9H, Mean Corpuscular Hemoglobin Concent 32.4, Red Cell Distribution Width 12.9, Platelet Count 69L, Mean Platelet Volume 13.3H, Neutrophils (%) (Auto) , Lymphocytes (%) (Auto) , Monocytes (%) (Auto) , Eosinophils (%) (Auto) , Basophils (%) (Auto) , Differential Total Cells Counted 100, Neutrophils % (Manual) 90H, Lymphocytes % (Manual) 8L, Monocytes % (Manual) 1, Eosinophils % (Manual) 1, Basophils % ( Manual) 0, Band Neutrophils 0, Platelet Estimate DecreasedL, Platelet Morphology Normal, Sodium Level 138, Potassium Level 4.4, Chloride Level 100, Carbon Dioxide Level 32, Anion Gap 6, Blood Urea Nitrogen 23H, Creatinine 0.9, Estimat Glomerular Filtration Rate , Glucose Level 156H, Calcium Level 8.3L, Total Bilirubin 0.6, Aspartate Amino Transf (AST/SGOT) 97H, Alanine Aminotransferase (ALT/SGPT) 74, Alkaline Phosphatase 228H, Total Protein 5.5L, Albumin 0.7L, Globulin 4.8, Albumin/Globulin Ratio 0.1L 10/01/17 12:00: Vancomycin Level Trough [Pending] Height (Feet): 5 Height (Inches): 2.00 Weight (Pounds): 151 Objective General Appearance: WD/WN, lethargic, confused Neck: supple Cardiovascular: normal rate, regular rhythm Respiratory/Chest: rhonchi - bilaterally Abdomen: normal bowel sounds, non tender, soft, no organomegaly Edema: no edema noted Arm (L), no edema noted Arm (R), no edema noted Leg (L), no edema noted Leg (R), no edema noted Pedal (L), no edema noted Pedal (R), no edema noted Generalized Neurologic: unresponsive KRYSTINA LENTZ Oct 01, 2017 12:44
[2017-10-01] MEDS ORDERED: Tubing IV Secondary IV ONE (17:09)
[2017-10-01] MEDS ORDERED: Sterile Water Irrig 1000ml IRRIG ONE (17:09)
[2017-10-01] MEDS ORDERED: NS 275ml ONE (17:09)
[2017-10-02] VITALS (24 sets, daily range): BP systolic 74–136; BP diastolic 28–45
--- NOTE | 2017-10-02 01:31 | Progress Note ---
DATE: 10/01/2017 CARDIOLOGY PROGRESS NOTE SUBJECTIVE: The patient remains on ventilator support. She is off pressors. She is tolerating nutrition by feeding tube. The patient is remaining afebrile. She is on multiple antibiotics. She continues to require higher oxygen delivery. OBJECTIVE: VITAL SIGNS: Blood pressure 100/47, pulse 109, and respirations 32. LUNGS: Coarse breath sounds. Scattered rhonchi. HEART: Regular rhythm and rate. Normal S1, S2. ABDOMEN: Soft. EXTREMITIES: A 1+ dependent edema. LABORATORY AND DIAGNOSTIC DATA: CAT scan of the chest reveals extensive pneumonia. White count is 16.5, hemoglobin 11. BUN 23, creatinine 0.9. IMPRESSION: 1. Healthcare-acquired pneumonia. 2. Respiratory failure. 3. Sepsis with recovered shock. 4. Acute myocardial infarction. 5. Severe protein-calorie malnutrition. 6. Bacteremia with increased risk for Staphylococcus endocarditis. 7. Secondary sinus tachycardia. 8. Escherichia coli urinary tract infection. PLAN: 1. Antimicrobials per Infectious Disease medical record consultant. 2. Weaning efforts. 3. Diuresis based on clinical parameters. 4. We will need to consider tracheostomy if no improvement in respiratory state and wean ability. Davy Robbins M.D. DR: VIVIANA JOB#: [id number] CC:
[2017-10-02 05:55] LABS: HEMATOCRIT 27.2 % (37.0-47.0); HEMOGLOBIN 9.1 G/DL (12.0-16.0); MEAN CORPUSCULAR VOLUME 98 FL (80-99); PLATELET COUNT 29 K/UL (150-450); RED BLOOD COUNT 2.78 M/UL (4.20-5.40); RED CELL DISTRIBUTION WIDTH 12.8 % (11.6-14.8); WHITE BLOOD COUNT 18.7 K/UL (4.8-10.8)
[2017-10-02] MEDS: NovoLOG Insulin Flexpen SUBQ SCH ×3 (06:03→17:39)
[2017-10-02 07:06] LABS: ALANINE AMINOTRANSFERASE 40 U/L (12-78); ALBUMIN 0.7 G/DL (3.4-5.0); ALBUMIN/GLOBULIN RATIO 0.2 (1.0-2.7); ALKALINE PHOSPHATASE 150 U/L (46-116); ANION GAP 7 mmol/L (5-15); ASPARTATE AMINO TRANSFERASE 41 U/L (15-37); BILIRUBIN,TOTAL 0.6 MG/DL (0.2-1.0); BLOOD UREA NITROGEN 41 mg/dL (7-18); CALCIUM 7.8 MG/DL (8.5-10.1); CARBON DIOXIDE 30 MMOL/L (21-32); CHLORIDE 101 MMOL/L (98-107); CREATININE 1.2 MG/DL (0.55-1.30); POTASSIUM 4.6 MMOL/L (3.5-5.1); SODIUM 138 MMOL/L (136-145)
[2017-10-02] MEDS: Aspirin Baby 81mg NG SCH (09:16)
[2017-10-02] MEDS: Pantoprazole Inj IVP SCH (09:16)
[2017-10-02] MEDS: Metoprolol 25mg tab ORAL SCH ×2 (09:17→20:43)
--- NOTE | 2017-10-02 09:53 | Infectious Diseases Prog Note ---
Assessment/Plan Assessment/Plan A 1. e.coli UTI 2. pneumonia 3. coag neg staph sepsis, MRSA sepsis s/p catheter removal 4. Hypoxic respiratory failure 5. Persistent fever, likely endocarditis 6. Elevated transaminase improving 7. Pulmonary HPN 8. Anemia P 1. continue vancomycin iv, cefepime & Flagyl 2. will f/u C. difficile test 3. Sputum culture Subjective ROS Limited/Unobtainable: Yes Allergies: Coded Allergies: No Known Allergies (Unverified , 09/18/17) Objective Vital Signs Last 24 Hour Vital Signs Date Time Temp Pulse Resp B/P (MAP) Pulse Ox O2 Delivery O2 Flow Rate FiO2 10/02/17 09:17 101 95/32 10/02/17 09:13 100 30 60 10/02/17 09:00 101 30 95/32 93 Mechanical Ventilator 70 10/02/17 08:00 98.5 93 30 104/29 95 Mechanical Ventilator 70 10/02/17 08:00 93 10/02/17 08:00 70 10/02/17 07:00 94 27 92/28 98 Mechanical Ventilator 100 10/02/17 06:30 93 30 70 10/02/17 06:00 91 27 96/30 100 Mechanical Ventilator 100 10/02/17 05:19 100 30 80 10/02/17 05:00 86 26 99/28 100 Mechanical Ventilator 100 10/02/17 04:00 98.7 90 28 127/34 99 Mechanical Ventilator 80 10/02/17 04:00 84 10/02/17 04:00 80 10/02/17 03:20 100 30 100 10/02/17 03:00 86 26 74/30 100 Mechanical Ventilator 100 10/02/17 02:00 86 26 100/30 100 Mechanical Ventilator 100 10/02/17 01:09 100 30 100 10/02/17 01:00 83 30 85/33 100 Mechanical Ventilator 100 10/02/17 00:00 86 10/02/17 00:00 98.7 84 28 96/31 99 Mechanical Ventilator 100 10/02/17 00:00 100 10/01/17 23:36 100 30 100 10/01/17 23:00 82 30 86/38 100 Mechanical Ventilator 100 10/01/17 22:00 99 28 130/58 100 Mechanical Ventilator 100 10/01/17 21:08 100 32 100 10/01/17 21:00 99 30 95/44 100 Mechanical Ventilator 100 10/01/17 20:45 100 114/53 10/01/17 20:00 98 10/01/17 20:00 100 10/01/17 20:00 99.0 100 33 105/40 99 Mechanical Ventilator 100 10/01/17 19:01 100 31 100 10/01/17 19:00 97 28 114/53 99 Mechanical Ventilator 100 10/01/17 18:00 98 28 98/45 99 Mechanical Ventilator 100 10/01/17 17:01 98 33 100 10/01/17 17:00 97 28 98/40 100 Mechanical Ventilator 100 10/01/17 16:00 101 10/01/17 16:00 100 10/01/17 16:00 98.7 100 33 105/40 99 Mechanical Ventilator 100 10/01/17 15:00 103 38 89/48 89 Mechanical Ventilator 100 10/01/17 14:48 105 34 100 10/01/17 14:00 107 38 89/34 89 Mechanical Ventilator 100 10/01/17 13:11 99.9 10/01/17 13:00 112 38 92/38 89 Mechanical Ventilator 100 10/01/17 12:54 112 38 100 10/01/17 12:00 109 10/01/17 12:00 99.9 111 39 91/42 96 Mechanical Ventilator 100 10/01/17 11:00 110 38 90/44 94 Mechanical Ventilator 100 10/01/17 10:56 110 37 100 10/01/17 10:00 109 32 100/47 94 Mechanical Ventilator 100 Height (Feet): 5 Height (Inches): 2.00 Weight (Pounds): 150 HEENT: other - orally intubated Respiratory/Chest: lungs clear, other - on ventilator Cardiovascular: tachycardia Abdomen: soft, non tender, other - NG tube feeding Genitourinary: other - [place] catheter Extremities: no edema Neurologic/Psychiatric: unresponsiveness Laboratory Tests Test 10/01/17 12:00 10/01/17 12:50 10/02/17 05:00 Vancomycin Level Trough 29.1 ug/mL (5.0-12.0) H Arterial Blood pH 7.427 (7.350-7.450) Arterial Blood Partial Pressure CO2 47.2 mmHg (35.0-45.0) H Arterial Blood Partial Pressure O2 49.7 mmHg (75.0-100.0) Arterial Blood HCO3 30.4 mmol/L (22.0-26.0) H Arterial Blood Oxygen Saturation 84.9 % (92.0-98.0) L Arterial Blood Base Excess 5.3 [place] Test Positive White Blood Count 18.7 K/UL (4.8-10.8) H Red Blood Count 2.78 M/UL (4.20-5.40) L Hemoglobin 9.1 G/DL (12.0-16.0) L Hematocrit 27.2 % (37.0-47.0) L Mean Corpuscular Volume 98 FL (80-99) Mean Corpuscular Hemoglobin 32.9 PG (27.0-31.0) H Mean Corpuscular Hemoglobin Concent 33.6 G/DL (32.0-36.0) Red Cell Distribution Width 12.8 % (11.6-14.8) Platelet Count 29 K/UL (150-450) #L Mean Platelet Volume 16.8 FL (6.5-10.1) H Neutrophils (%) (Auto) % (45.0-75.0) Lymphocytes (%) (Auto) % (20.0-45.0) Monocytes (%) (Auto) % (1.0-10.0) Eosinophils (%) (Auto) % (0.0-3.0) Basophils (%) (Auto) % (0.0-2.0) Differential Total Cells Counted 100 Neutrophils % (Manual) 88 % (45-75) H Lymphocytes % (Manual) 9 % (20-45) L Monocytes % (Manual) 3 % (1-10) Eosinophils % (Manual) 0 % (0-3) Basophils % (Manual) 0 % (0-2) Band Neutrophils 0 % (0-8) Nucleated Red Blood Cells 1 /100 WBC Platelet Estimate Decreased L Platelet Morphology Normal Hypochromasia 2+ Anisocytosis 1+ Sodium Level 138 MMOL/L (136-145) Potassium Level 4.6 MMOL/L (3.5-5.1) Chloride Level 101 MMOL/L (98-107) Carbon Dioxide Level 30 MMOL/L (21-32) Anion Gap 7 mmol/L (5-15) Blood Urea Nitrogen 41 mg/dL (7-18) H Creatinine 1.2 MG/DL (0.55-1.30) Estimat Glomerular Filtration Rate mL/min (>60) Glucose Level 135 MG/DL (74-106) H Calcium Level 7.8 MG/DL (8.5-10.1) L Magnesium Level 1.8 MG/DL (1.8-2.4) Total Bilirubin 0.6 MG/DL (0.2-1.0) Aspartate Amino Transf (AST/SGOT) 41 U/L (15-37) H Alanine Aminotransferase (ALT/SGPT) 40 U/L (12-78) Alkaline Phosphatase 150 U/L (46-116) H Pro-B-Type Natriuretic Peptide 4774 pg/mL (0-125) H Total Protein 5.1 G/DL (6.4-8.2) L Albumin 0.7 G/DL (3.4-5.0) L Globulin 4.4 g/dL Albumin/Globulin Ratio 0.2 (1.0-2.7) L Current Medications Medications (Trade) Dose Ordered Sig/Lilly Route PRN Reason Start Time Stop Time Status Last Admin Dose Admin Acetaminophen (Tylenol) 650 mg EVERY 4 HOURS PRN ORAL fever/PAGE 09/19/17 03:15 10/19/17 03:14 09/29/17 08:15 Aspirin (ASA) 81 mg DAILY NG 09/28/17 09:00 10/28/17 08:59 10/02/17 09:16 Cefepime HCl 1 gm/ Dextrose 55 ml @ 110 mls/hr Q24H IVPB 09/26/17 11:00 10/04/17 10:59 10/01/17 12:04 Dextrose (Dextrose 50%) STAT PRN IV Hypoglycemia 09/19/17 12:30 10/19/17 12:29 Insulin Aspart (NovoLOG) Q6HR SUBQ 09/19/17 13:00 10/19/17 12:59 10/02/17 06:03 Metoprolol Tartrate (Lopressor) 25 mg Q12HR ORAL 09/27/17 22:15 10/27/17 22:14 10/02/17 09:17 Metronidazole 100 ml @ 100 mls/hr EVERY 8 HOURS IVPB 10/01/17 14:00 10/08/17 13:59 10/02/17 06:04 Morphine Sulfate (Morphine Sulfate) 1 mg Q4H PRN IVP For Pain 10/01/17 12:30 10/08/17 12:29 10/01/17 12:41 Pantoprazole (Protonix) 40 mg DAILY IVP 09/20/17 10:00 10/20/17 09:59 10/02/17 09:16 Vancomycin HCl (Vanco rx to dose) 1 ea DAILY PRN MISC Per rx protocol 09/19/17 03:15 10/19/17 03:14 Vancomycin HCl 500 mg/Dextrose 275 ml @ 275 mls/hr Q12HR@0900,2100 IVPB 10/02/17 21:00 10/07/17 20:59 KIMI VILLA Oct 02, 2017 09:53
[2017-10-02] MEDS: Cefepime HCl 1 GM in D5W 55 ML IVPB SCH (10:49)
--- NOTE | 2017-10-02 14:15 | Pulmonology Progress Note ---
Assessment/Plan Assessment/Plan 1. Acute respiratory failure. 2. Possible sepsis with lactic acidosis and leukocytosis. 3. Severe dehydration with hypernatremia. 4. Hypokalemia. 5. Elevated liver enzymes. 6. Possible congestive heart failure. 7. Severe protein-calorie malnutrition. 8. Cachexia and inanition. 9. History of hypertension. 10. persistent bacteremia ?endocarditis PLAN: vent, no wean cT abdomen confi dense bilateral pulmonary infiltrates nebs adn suction npo aspiration precautions pressors prn to maintain map greater than 92% abx, wound care monitor uop tf prognosis poor discussed with RN at bedside Subjective Interval Events: remains intubated. Unable to wean. Constitutional: Reports: no symptoms HEENT: Repors: no symptoms Respiratory: Reports: no symptoms Cardiovascular: Reports: no symptoms Gastrointestinal/Abdominal: Reports: no symptoms Allergies: Coded Allergies: No Known Allergies (Unverified , 09/18/17) Objective Last 24 Hour Vital Signs Date Time Temp Pulse Resp B/P (MAP) Pulse Ox O2 Delivery O2 Flow Rate FiO2 10/02/17 13:11 98 32 60 10/02/17 12:00 60 10/02/17 12:00 95 10/02/17 12:00 98.7 96 30 95/38 94 Mechanical Ventilator 70 10/02/17 11:00 94 29 99/40 93 Mechanical Ventilator 70 10/02/17 10:58 95 31 60 10/02/17 10:00 91 31 124/30 94 Mechanical Ventilator 70 10/02/17 09:17 101 95/32 10/02/17 09:13 100 30 60 10/02/17 09:00 101 30 95/32 93 Mechanical Ventilator 70 10/02/17 08:00 98.5 93 30 104/29 95 Mechanical Ventilator 70 10/02/17 08:00 93 10/02/17 08:00 70 10/02/17 07:00 94 27 92/28 98 Mechanical Ventilator 100 10/02/17 06:30 93 30 70 10/02/17 06:00 91 27 96/30 100 Mechanical Ventilator 100 10/02/17 05:19 100 30 80 10/02/17 05:00 86 26 99/28 100 Mechanical Ventilator 100 10/02/17 04:00 98.7 90 28 127/34 99 Mechanical Ventilator 80 10/02/17 04:00 84 10/02/17 04:00 80 10/02/17 03:20 100 30 100 10/02/17 03:00 86 26 74/30 100 Mechanical Ventilator 100 10/02/17 02:00 86 26 100/30 100 Mechanical Ventilator 100 10/02/17 01:09 100 30 100 10/02/17 01:00 83 30 85/33 100 Mechanical Ventilator 100 10/02/17 00:00 86 10/02/17 00:00 98.7 84 28 96/31 99 Mechanical Ventilator 100 10/02/17 00:00 100 10/01/17 23:36 100 30 100 10/01/17 23:00 82 30 86/38 100 Mechanical Ventilator 100 10/01/17 22:00 99 28 130/58 100 Mechanical Ventilator 100 10/01/17 21:08 100 32 100 10/01/17 21:00 99 30 95/44 100 Mechanical Ventilator 100 10/01/17 20:45 100 114/53 10/01/17 20:00 98 10/01/17 20:00 100 10/01/17 20:00 99.0 100 33 105/40 99 Mechanical Ventilator 100 10/01/17 19:01 100 31 100 10/01/17 19:00 97 28 114/53 99 Mechanical Ventilator 100 10/01/17 18:00 98 28 98/45 99 Mechanical Ventilator 100 10/01/17 17:01 98 33 100 10/01/17 17:00 97 28 98/40 100 Mechanical Ventilator 100 10/01/17 16:00 101 10/01/17 16:00 100 10/01/17 16:00 98.7 100 33 105/40 99 Mechanical Ventilator 100 10/01/17 15:00 103 38 89/48 89 Mechanical Ventilator 100 10/01/17 14:48 105 34 100 Intake and Output 10/01/17 10/02/17 19:00 07:00 Intake Total 455 ml 200 ml Output Total 800 ml 225 ml Balance -345 ml -25 ml Intake Free Water 100 ml IV Total 155 ml 200 ml Tube Feeding 200 ml Output Urine Total 800 ml 225 ml # Bowel Movements 2 General Appearance: no acute distress HEENT: normocephalic, atraumatic Respiratory/Chest: chest wall non-tender, lungs clear Cardiovascular: normal peripheral pulses, normal rate Abdomen: normal bowel sounds, soft, non tender Microbiology Date/Time Source Procedure Growth Status 10/01/17 08:15 Sputum Gram Stain - Final Resulted 10/01/17 08:15 Sputum Sputum Culture - Preliminary Resulted Laboratory Tests 10/02/17 05:00: White Blood Count 18.7H, Red Blood Count 2.78L, Hemoglobin 9.1L, Hematocrit 27.2L, Mean Corpuscular Volume 98, Mean Corpuscular Hemoglobin 32.9H, Mean Corpuscular Hemoglobin Concent 33.6, Red Cell Distribution Width 12.8, Platelet Count 29#L, Mean Platelet Volume 16.8H, Neutrophils (%) (Auto) , Lymphocytes (% ) (Auto) , Monocytes (%) (Auto) , Eosinophils (%) (Auto) , Basophils (%) (Auto) , Differential Total Cells Counted 100, Neutrophils % (Manual) 88H, Lymphocytes % (Manual) 9L, Monocytes % (Manual) 3, Eosinophils % (Manual) 0, Basophils % ( Manual) 0, Band Neutrophils 0, Nucleated Red Blood Cells 1, Platelet Estimate DecreasedL, Platelet Morphology Normal, Hypochromasia 2+, Anisocytosis 1+, Sodium Level 138, Potassium Level 4.6, Chloride Level 101, Carbon Dioxide Level 30, Anion Gap 7, Blood Urea Nitrogen 41H, Creatinine 1.2, Estimat Glomerular Filtration Rate , Glucose Level 135H, Calcium Level 7.8L, Magnesium Level 1.8, Total Bilirubin 0.6, Aspartate Amino Transf (AST/SGOT) 41H, Alanine Aminotransferase (ALT/SGPT) 40, Alkaline Phosphatase 150H, Pro-B-Type Natriuretic Peptide 4774H, Total Protein 5.1L, Albumin 0.7L, Globulin 4.4, Albumin/Globulin Ratio 0.2L Current Medications Medications (Trade) Dose Ordered Sig/Lilly Route PRN Reason Start Time Stop Time Status Last Admin Dose Admin Acetaminophen (Tylenol) 650 mg EVERY 4 HOURS PRN ORAL fever/PAGE 09/19/17 03:15 10/19/17 03:14 09/29/17 08:15 Cefepime HCl 1 gm/ Dextrose 55 ml @ 110 mls/hr Q24H IVPB 09/26/17 11:00 10/04/17 10:59 10/02/17 10:49 Dextrose (Dextrose 50%) STAT PRN IV Hypoglycemia 09/19/17 12:30 10/19/17 12:29 Insulin Aspart (NovoLOG) Q6HR SUBQ 09/19/17 13:00 10/19/17 12:59 10/02/17 11:18 Metoprolol Tartrate (Lopressor) 25 mg Q12HR ORAL 09/27/17 22:15 10/27/17 22:14 10/02/17 09:17 Metronidazole 100 ml @ 100 mls/hr EVERY 8 HOURS IVPB 10/01/17 14:00 10/08/17 13:59 10/02/17 06:04 Morphine Sulfate (Morphine Sulfate) 1 mg Q4H PRN IVP For Pain 10/01/17 12:30 10/08/17 12:29 10/01/17 12:41 Pantoprazole (Protonix) 40 mg DAILY IVP 09/20/17 10:00 10/20/17 09:59 10/02/17 09:16 Vancomycin HCl (Vanco rx to dose) 1 ea DAILY PRN MISC Per rx protocol 09/19/17 03:15 10/19/17 03:14 Vancomycin/Sodium Chloride 250 ml @ 166.667 mls/hr Q24H IVPB 10/02/17 15:00 10/07/17 14:59 Dilip Goyal MD Oct 02, 2017 14:15
[2017-10-02] MEDS: Vancomycin 750mg/NS 250ml IVPB SCH (15:36)
--- NOTE | 2017-10-02 17:43 | General Progress Note ---
Assessment/Plan Problem List: (1) Dehydration ICD Codes: E86.0 - Dehydration SNOMED: 78823986 (2) Hypernatremia ICD Codes: E87.0 - Hyperosmolality and hypernatremia SNOMED: 64246274 (3) Malnutrition of moderate degree ICD Codes: E44.0 - Moderate protein-calorie malnutrition SNOMED: 115904270 (4) BOB (acute kidney injury) ICD Codes: N17.9 - Acute kidney failure, unspecified SNOMED: 09513436 (5) Sepsis ICD Codes: A41.9 - Sepsis, unspecified organism SNOMED: 54630212, 598759036 Qualifiers: Qualified Codes: A41.9 - Sepsis, unspecified organism (6) UTI (urinary tract infection) ICD Codes: N39.0 - Urinary tract infection, site not specified SNOMED: 59615300, 815248260 Qualifiers: Qualified Codes: N39.0 - Urinary tract infection, site not specified (7) Elevated troponin ICD Codes: R74.8 - Abnormal levels of other serum enzymes SNOMED: 575993318, 763276874 Status: not improved Assessment/Plan iv abx per id try to get sputum culture off pressors currently feeds as tolerated vent- wean as able d/w both dtr x 20 mins. both agree to trach if needed resp rx monitor lytes replace as needed dvt/stress ulcer prophylaxis critical and guarded Subjective ROS Limited/Unobtainable: Yes Constitutional: Reports: fever, weakness HEENT: Reports: no symptoms Cardiovascular: Reports: edema Respiratory: Reports: shortness of breath Gastrointestinal/Abdominal: Reports: difficulty swallowing Genitourinary: Reports: no symptoms Neurologic/Psychiatric: Reports: pre-existing deficit Endocrine: Reports: no symptoms Hematologic/Lymphatic: Reports: anemia Allergies: Coded Allergies: No Known Allergies (Unverified , 09/18/17) All Systems: reviewed and negative except above Subjective no events. decreased o2 requirements. +fevers. decreased plts noted. Objective Last 24 Hour Vital Signs Date Time Temp Pulse Resp B/P (MAP) Pulse Ox O2 Delivery O2 Flow Rate FiO2 10/02/17 17:28 100 30 60 10/02/17 17:00 98.6 100 31 105/40 94 Mechanical Ventilator 60 10/02/17 16:00 99 10/02/17 16:00 60 10/02/17 16:00 98 31 111/37 94 Mechanical Ventilator 60 10/02/17 15:25 98 30 60 10/02/17 15:00 97 33 109/43 94 Mechanical Ventilator 60 10/02/17 14:00 97 33 136/40 93 Mechanical Ventilator 60 10/02/17 13:11 98 32 60 10/02/17 13:00 97 32 106/37 93 Mechanical Ventilator 60 10/02/17 12:00 60 10/02/17 12:00 95 10/02/17 12:00 98.7 96 30 95/38 94 Mechanical Ventilator 60 10/02/17 11:00 94 29 99/40 93 Mechanical Ventilator 70 10/02/17 10:58 95 31 60 10/02/17 10:00 91 31 124/30 94 Mechanical Ventilator 70 10/02/17 09:17 101 95/32 10/02/17 09:13 100 30 60 10/02/17 09:00 101 30 95/32 93 Mechanical Ventilator 70 10/02/17 08:00 98.5 93 30 104/29 95 Mechanical Ventilator 70 10/02/17 08:00 93 10/02/17 08:00 70 10/02/17 07:00 94 27 92/28 98 Mechanical Ventilator 100 10/02/17 06:30 93 30 70 10/02/17 06:00 91 27 96/30 100 Mechanical Ventilator 100 10/02/17 05:19 100 30 80 10/02/17 05:00 86 26 99/28 100 Mechanical Ventilator 100 10/02/17 04:00 98.7 90 28 127/34 99 Mechanical Ventilator 80 10/02/17 04:00 84 10/02/17 04:00 80 10/02/17 03:20 100 30 100 10/02/17 03:00 86 26 74/30 100 Mechanical Ventilator 100 10/02/17 02:00 86 26 100/30 100 Mechanical Ventilator 100 10/02/17 01:09 100 30 100 10/02/17 01:00 83 30 85/33 100 Mechanical Ventilator 100 10/02/17 00:00 86 10/02/17 00:00 98.7 84 28 96/31 99 Mechanical Ventilator 100 10/02/17 00:00 100 10/01/17 23:36 100 30 100 10/01/17 23:00 82 30 86/38 100 Mechanical Ventilator 100 10/01/17 22:00 99 28 130/58 100 Mechanical Ventilator 100 10/01/17 21:08 100 32 100 10/01/17 21:00 99 30 95/44 100 Mechanical Ventilator 100 10/01/17 20:45 100 114/53 10/01/17 20:00 98 10/01/17 20:00 100 10/01/17 20:00 99.0 100 33 105/40 99 Mechanical Ventilator 100 10/01/17 19:01 100 31 100 10/01/17 19:00 97 28 114/53 99 Mechanical Ventilator 100 10/01/17 18:00 98 28 98/45 99 Mechanical Ventilator 100 Intake and Output 10/01/17 10/02/17 19:00 07:00 Intake Total 455 ml 200 ml Output Total 800 ml 225 ml Balance -345 ml -25 ml Intake Free Water 100 ml IV Total 155 ml 200 ml Tube Feeding 200 ml Output Urine Total 800 ml 225 ml # Bowel Movements 2 Laboratory Tests 10/02/17 05:00: White Blood Count 18.7H, Red Blood Count 2.78L, Hemoglobin 9.1L, Hematocrit 27.2L, Mean Corpuscular Volume 98, Mean Corpuscular Hemoglobin 32.9H, Mean Corpuscular Hemoglobin Concent 33.6, Red Cell Distribution Width 12.8, Platelet Count 29#L, Mean Platelet Volume 16.8H, Neutrophils (%) (Auto) , Lymphocytes (% ) (Auto) , Monocytes (%) (Auto) , Eosinophils (%) (Auto) , Basophils (%) (Auto) , Differential Total Cells Counted 100, Neutrophils % (Manual) 88H, Lymphocytes % (Manual) 9L, Monocytes % (Manual) 3, Eosinophils % (Manual) 0, Basophils % ( Manual) 0, Band Neutrophils 0, Nucleated Red Blood Cells 1, Platelet Estimate DecreasedL, Platelet Morphology Normal, Hypochromasia 2+, Anisocytosis 1+, Sodium Level 138, Potassium Level 4.6, Chloride Level 101, Carbon Dioxide Level 30, Anion Gap 7, Blood Urea Nitrogen 41H, Creatinine 1.2, Estimat Glomerular Filtration Rate , Glucose Level 135H, Calcium Level 7.8L, Magnesium Level 1.8, Total Bilirubin 0.6, Aspartate Amino Transf (AST/SGOT) 41H, Alanine Aminotransferase (ALT/SGPT) 40, Alkaline Phosphatase 150H, Pro-B-Type Natriuretic Peptide 4774H, Total Protein 5.1L, Albumin 0.7L, Globulin 4.4, Albumin/Globulin Ratio 0.2L Height (Feet): 5 Height (Inches): 2.00 Weight (Pounds): 150 Objective General Appearance: WD/WN, lethargic, confused Neck: supple Cardiovascular: normal rate, regular rhythm Respiratory/Chest: rhonchi - bilaterally Abdomen: normal bowel sounds, non tender, soft, no organomegaly Edema: no edema noted Arm (L), no edema noted Arm (R), no edema noted Leg (L), no edema noted Leg (R), no edema noted Pedal (L), no edema noted Pedal (R), no edema noted Generalized Neurologic: unresponsive KRYSTINA LENTZ Oct 02, 2017 17:43
--- NOTE | 2017-10-02 18:43 | Wound Care Consultation ---
Wound Assessment Wound Assessment : Wound Number: 1 Wound Present on Admission: No New Wound: Yes Status Change of Wound: No Wound Location Body Site Modif: left, upper Wound Location Body Site: back Wound Type: pressure ulcer Janett Test: Does not Janett Pressure Ulcer Stage: II - open blister Wound Thickness: Full Thickness Wound Length: 4.5 Wound Width: 4.0 Wound Depth: 0.1 Percent of Wound [place]/Red: 100 Wound Drainage Description: Serosanguineous Wound Drainage Amount: Scant Wound Drainage Odor: None/Absent Tissue Surrounding Wound: Intact Wound General Appearance: Reddened, Draining Wound Comment #1 Left upper back open blister stage II pressure ulcer. Good progress noted. Resolved. #2 Left lower leg open blister. Good progress noted. Will cont same wound care treatment. #3 Left heel DTI pressure ulcer extending to plantar foot. Skin still intact. Will cont same wound care treatment. #4 Left 1st lateral big toe DTI pressure ulcer. Still intact. Will cont same wound care treatment. #5 Right heel stage I pressure ulcer. Resolved #5 Right upper back open blister Reassessed this Pt. Good progress noted. Will cont same previous wound care treatment and recommendations. STACEY KNOWLES RN Oct 02, 2017 18:43
[2017-10-02] MEDS ORDERED: Vancomycin 500mg in D5W 275ml IVPB SCH (21:00)
[2017-10-03] VITALS (26 sets, daily range): BP systolic 78–126; BP diastolic 23–42
[2017-10-03] MEDS: NovoLOG Insulin Flexpen SUBQ SCH ×5 (00:27→23:54)
--- NOTE | 2017-10-03 06:03 | Progress Note ---
DATE: 10/02/2017 CARDIOLOGY PROGRESS NOTE SUBJECTIVE: The patient remains in the intensive care unit, orally intubated, mechanical ventilated. She continues to have fevers. PHYSICAL EXAMINATION: VITAL SIGNS: Blood pressure 105/40, pulse 100, respiratory rate 31, and afebrile. T-max 99.1. LUNGS: Coarse breath sounds. Scattered rhonchi. HEART: Regular rhythm and rate. Normal S1, S2. ABDOMEN: Soft. EXTREMITIES: No edema. LABORATORY DATA: White count is up to 18.7, hemoglobin 9.1. Sodium 138, potassium 4.6, bicarbonate 30, BUN 21, and creatinine 1.2. Albumin 0.7. Pro-natriuretic peptide increased to 4700. IMPRESSION: 1. Severe sepsis with shock. 2. Respiratory failure. 3. Acute myocardial ischemia. 4. Severe protein-calorie malnutrition. 5. Acute and chronic diastolic congestive heart failure. 6. Healthcare-acquired pneumonia. PLAN: 1. Continue weaning efforts. 2. Consideration for trach ongoing. 3. Periodic diuresis. 4. Antimicrobials. 5. Stress ulcer and DVT prophylaxis. 6. Skin care. 7. Comfort measures. Davy Robbins M.D. DR: JENNY JOB#: [id number] CC:
[2017-10-03 06:27] LABS: ANION GAP 6 mmol/L (5-15); BLOOD UREA NITROGEN 49 mg/dL (7-18); CALCIUM 7.7 MG/DL (8.5-10.1); CARBON DIOXIDE 30 MMOL/L (21-32); CHLORIDE 102 MMOL/L (98-107); CREATININE 1.4 MG/DL (0.55-1.30); POTASSIUM 4.8 MMOL/L (3.5-5.1); SODIUM 138 MMOL/L (136-145)
[2017-10-03] MEDS: Pantoprazole Inj IVP SCH (08:15)
[2017-10-03] MEDS: Metoprolol 25mg tab ORAL SCH ×2 (08:20→23:44)
[2017-10-03 09:47] LABS: HEMATOCRIT 29.6 % (37.0-47.0); HEMOGLOBIN 9.8 G/DL (12.0-16.0); MEAN CORPUSCULAR VOLUME 99 FL (80-99); PLATELET COUNT 16 K/UL (150-450); WHITE BLOOD COUNT 19.9 K/UL (4.8-10.8)
--- NOTE | 2017-10-03 10:57 | General Progress Note ---
Assessment/Plan Problem List: (1) Dehydration ICD Codes: E86.0 - Dehydration SNOMED: 97936902 (2) Hypernatremia ICD Codes: E87.0 - Hyperosmolality and hypernatremia SNOMED: 09760246 (3) Malnutrition of moderate degree ICD Codes: E44.0 - Moderate protein-calorie malnutrition SNOMED: 158672566 (4) BOB (acute kidney injury) ICD Codes: N17.9 - Acute kidney failure, unspecified SNOMED: 80534380 (5) Sepsis ICD Codes: A41.9 - Sepsis, unspecified organism SNOMED: 61428317, 806510971 Qualifiers: Qualified Codes: A41.9 - Sepsis, unspecified organism (6) UTI (urinary tract infection) ICD Codes: N39.0 - Urinary tract infection, site not specified SNOMED: 11621849, 871020133 Qualifiers: Qualified Codes: N39.0 - Urinary tract infection, site not specified (7) Elevated troponin ICD Codes: R74.8 - Abnormal levels of other serum enzymes SNOMED: 542566112, 766187114 Status: deteriorating Assessment/Plan iv abx per id try to get sputum culture off pressors currently feeds as tolerated vent- wean as able transfuse plts heme eval critical and guarded Subjective ROS Limited/Unobtainable: Yes Constitutional: Reports: malaise, weakness HEENT: Reports: no symptoms Cardiovascular: Reports: no symptoms Respiratory: Reports: shortness of breath, sputum Gastrointestinal/Abdominal: Reports: difficulty swallowing Genitourinary: Reports: no symptoms Neurologic/Psychiatric: Reports: pre-existing deficit Endocrine: Reports: no symptoms Hematologic/Lymphatic: Reports: anemia Allergies: Coded Allergies: No Known Allergies (Unverified , 09/18/17) All Systems: reviewed and negative except above Subjective no events. decreased o2 requirements. low grade temps. plts trending down. no bleeding noted Objective Last 24 Hour Vital Signs Date Time Temp Pulse Resp B/P (MAP) Pulse Ox O2 Delivery O2 Flow Rate FiO2 10/03/17 10:00 94 35 78/28 93 Mechanical Ventilator 60 10/03/17 09:18 99.3 10/03/17 09:00 93 35 85/31 93 Mechanical Ventilator 60 10/03/17 08:57 94 36 60 10/03/17 08:20 111 31 98/39 93 Mechanical Ventilator 60 1/12/18 08:20 111 98/39 10/03/17 08:00 99.3 111 38 84/36 95 Mechanical Ventilator 60 10/03/17 08:00 60 10/03/17 08:00 111 10/03/17 07:00 109 31 96/38 93 Mechanical Ventilator 60 10/03/17 06:42 109 34 60 10/03/17 06:00 104 31 96/39 93 Mechanical Ventilator 60 10/03/17 05:08 103 31 60 10/03/17 05:00 104 31 101/42 93 Mechanical Ventilator 60 10/03/17 04:00 60 10/03/17 04:00 100 10/03/17 04:00 98.9 102 31 100/42 93 Mechanical Ventilator 60 10/03/17 03:09 95 35 60 10/03/17 03:00 101 31 123/36 93 Mechanical Ventilator 60 10/03/17 02:00 99 31 126/39 93 Mechanical Ventilator 60 10/03/17 01:06 95 31 60 10/03/17 01:00 96 31 117/42 93 Mechanical Ventilator 60 10/03/17 00:00 60 10/03/17 00:00 99.0 92 32 108/34 95 Mechanical Ventilator 60 10/03/17 00:00 93 10/02/17 23:00 91 31 101/36 93 Mechanical Ventilator 60 10/02/17 22:53 91 31 60 10/02/17 22:00 93 31 110/39 93 Mechanical Ventilator 60 10/02/17 21:00 101 31 124/41 95 Mechanical Ventilator 60 10/02/17 20:47 103 33 60 10/02/17 20:43 100 126/39 10/02/17 20:00 99 10/02/17 20:00 60 10/02/17 20:00 98.7 99 32 126/39 94 Mechanical Ventilator 60 10/02/17 19:03 98 30 60 10/02/17 19:00 99 32 118/45 94 Mechanical Ventilator 60 10/02/17 18:00 60 10/02/17 18:00 100 32 109/40 91 Mechanical Ventilator 60 10/02/17 17:28 100 30 60 10/02/17 17:00 98.6 100 31 105/40 94 Mechanical Ventilator 60 10/02/17 16:00 99 10/02/17 16:00 60 10/02/17 16:00 98 31 111/37 94 Mechanical Ventilator 60 10/02/17 15:25 98 30 60 10/02/17 15:00 97 33 109/43 94 Mechanical Ventilator 60 10/02/17 14:00 97 33 136/40 93 Mechanical Ventilator 60 10/02/17 13:11 98 32 60 10/02/17 13:00 97 32 106/37 93 Mechanical Ventilator 60 10/02/17 12:00 60 10/02/17 12:00 95 10/02/17 12:00 98.7 96 30 95/38 94 Mechanical Ventilator 60 10/02/17 11:00 94 29 99/40 93 Mechanical Ventilator 70 10/02/17 10:58 95 31 60 Intake and Output 10/02/17 10/03/17 19:00 07:00 Intake Total 110 ml 500 ml Output Total 250 ml 370 ml Balance -140 ml 130 ml Intake Free Water 30 ml IV Total 200 ml Tube Feeding 80 ml 240 ml Other 60 ml Output Urine Total 250 ml 370 ml Laboratory Tests 10/03/17 04:30: White Blood Count 19.9H, Red Blood Count 3.00L, Hemoglobin 9.8L, Hematocrit 29.6L, Mean Corpuscular Volume 99, Mean Corpuscular Hemoglobin 32.7H, Mean Corpuscular Hemoglobin Concent 33.2, Red Cell Distribution Width 13.0, Platelet Count 16L, Mean Platelet Volume 12.6H, Neutrophils (%) (Auto) , Lymphocytes (%) (Auto) , Monocytes (%) (Auto) , Eosinophils (%) (Auto) , Basophils (%) (Auto) , Neutrophils % (Manual) [Pending], Lymphocytes % (Manual) [Pending], Platelet Estimate [Pending], Platelet Morphology [Pending], Sodium Level 138, Potassium Level 4.8, Chloride Level 102, Carbon Dioxide Level 30, Anion Gap 6, Blood Urea Nitrogen 49H, Creatinine 1.4H, Estimat Glomerular Filtration Rate , Glucose Level 133H, Calcium Level 7.7L Height (Feet): 5 Height (Inches): 2.00 Weight (Pounds): 149 Objective General Appearance: WD/WN, lethargic, confused Neck: supple Cardiovascular: normal rate, regular rhythm Respiratory/Chest: rhonchi - bilaterally Abdomen: normal bowel sounds, non tender, soft, no organomegaly Edema: no edema noted Arm (L), no edema noted Arm (R), no edema noted Leg (L), no edema noted Leg (R), no edema noted Pedal (L), no edema noted Pedal (R), no edema noted Generalized Neurologic: unresponsive KRYSTINA LENTZ Oct 03, 2017 10:57
[2017-10-03] MEDS: Cefepime HCl 1 GM in D5W 55 ML IVPB SCH (11:24)
--- NOTE | 2017-10-03 12:30 | Infectious Diseases Prog Note ---
"Assessment/Plan Assessment/Plan antibiotics : vancomycin iv, cefepime, flagyl A 1. e.coli UTI 2. pneumonia 3. MRSA | coag neg staph sepsis s/p catheter removal 4. respiratory failure 5. leucocytosis increased P 1. continue vancomycin iv, flagyl 2. d/c cefepime 3. start zosyn 4. will follow up cultures Subjective ROS Limited/Unobtainable: Yes Allergies: Coded Allergies: No Known Allergies (Unverified , 09/18/17) Objective Vital Signs Last 24 Hour Vital Signs Date Time Temp Pulse Resp B/P (MAP) Pulse Ox O2 Delivery O2 Flow Rate FiO2 10/03/17 11:00 98 35 83/29 93 Mechanical Ventilator 60 10/03/17 10:52 97 35 60 10/03/17 10:00 94 35 78/28 93 Mechanical Ventilator 60 10/03/17 09:18 99.3 10/03/17 09:00 93 35 85/31 93 Mechanical Ventilator 60 10/03/17 08:57 94 36 60 10/03/17 08:20 111 31 98/39 93 Mechanical Ventilator 60 10/03/17 08:20 111 98/39 10/03/17 08:00 99.3 111 38 84/36 95 Mechanical Ventilator 60 10/03/17 08:00 60 10/03/17 08:00 111 10/03/17 07:00 109 31 96/38 93 Mechanical Ventilator 60 10/03/17 06:42 109 34 60 10/03/17 06:00 104 31 96/39 93 Mechanical Ventilator 60 10/03/17 05:08 103 31 60 10/03/17 05:00 104 31 101/42 93 Mechanical Ventilator 60 10/03/17 04:00 60 10/03/17 04:00 100 10/03/17 04:00 98.9 102 31 100/42 93 Mechanical Ventilator 60 10/03/17 03:09 95 35 60 10/03/17 03:00 101 31 123/36 93 Mechanical Ventilator 60 10/03/17 02:00 99 31 126/39 93 Mechanical Ventilator 60 10/03/17 01:06 95 31 60 10/03/17 01:00 96 31 117/42 93 Mechanical Ventilator 60 10/03/17 00:00 60 10/03/17 00:00 99.0 92 32 108/34 95 Mechanical Ventilator 60 10/03/17 00:00 93 10/02/17 23:00 91 31 101/36 93 Mechanical Ventilator 60 10/02/17 22:53 91 31 60 10/02/17 22:00 93 31 110/39 93 Mechanical Ventilator 60 10/02/17 21:00 101 31 124/41 95 Mechanical Ventilator 60 10/02/17 20:47 103 33 60 10/02/17 20:43 100 126/39 10/02/17 20:00 99 10/02/17 20:00 60 10/02/17 20:00 98.7 99 32 126/39 94 Mechanical Ventilator 60 10/02/17 19:03 98 30 60 10/02/17 19:00 99 32 118/45 94 Mechanical Ventilator 60 10/02/17 18:00 60 10/02/17 18:00 100 32 109/40 91 Mechanical Ventilator 60 10/02/17 17:28 100 30 60 10/02/17 17:00 98.6 100 31 105/40 94 Mechanical Ventilator 60 10/02/17 16:00 99 10/02/17 16:00 60 10/02/17 16:00 98 31 111/37 94 Mechanical Ventilator 60 10/02/17 15:25 98 30 60 10/02/17 15:00 97 33 109/43 94 Mechanical Ventilator 60 10/02/17 14:00 97 33 136/40 93 Mechanical Ventilator 60 10/02/17 13:11 98 32 60 10/02/17 13:00 97 32 106/37 93 Mechanical Ventilator 60 Height (Feet): 5 Height (Inches): 2.00 Weight (Pounds): 149 HEENT: other - intubated Respiratory/Chest: lungs clear Cardiovascular: normal rate, regular rhythm, no gallop/murmur Abdomen: soft, non tender Extremities: other - + edema Microbiology Date/Time Source Procedure Growth Status 10/01/17 08:15 Sputum Gram Stain - Final Resulted 10/01/17 08:15 Sputum Culture - Preliminary Gram Negative Bacillus 1 Gram Negative Bacillus 2 Gram Negative Bacillus 3 Resulted Laboratory Tests Test 10/03/17 04:30 White Blood Count 19.9 K/UL (4.8-10.8) H Red Blood Count 3.00 M/UL (4.20-5.40) L Hemoglobin 9.8 G/DL (12.0-16.0) L Hematocrit 29.6 % (37.0-47.0) L Mean Corpuscular Volume 99 FL (80-99) Mean Corpuscular Hemoglobin 32.7 PG (27.0-31.0) H Mean Corpuscular Hemoglobin Concent 33.2 G/DL (32.0-36.0) Red Cell Distribution Width 13.0 % (11.6-14.8) Platelet Count 16 K/UL (150-450) L Mean Platelet Volume 12.6 FL (6.5-10.1) H Neutrophils (%) (Auto) % (45.0-75.0) Lymphocytes (%) (Auto) % (20.0-45.0) Monocytes (%) (Auto) % (1.0-10.0) Eosinophils (%) (Auto) % (0.0-3.0) Basophils (%) (Auto) % (0.0-2.0) Neutrophils % (Manual) Pending Lymphocytes % (Manual) Pending Platelet Estimate Pending Platelet Morphology Pending Sodium Level 138 MMOL/L (136-145) Potassium Level 4.8 MMOL/L (3.5-5.1) Chloride Level 102 MMOL/L (98-107) Carbon Dioxide Level 30 MMOL/L (21-32) Anion Gap 6 mmol/L (5-15) Blood Urea Nitrogen 49 mg/dL (7-18) H Creatinine 1.4 MG/DL (0.55-1.30) H Estimat Glomerular Filtration Rate mL/min (>60) Glucose Level 133 MG/DL (74-106) H Calcium Level 7.7 MG/DL (8.5-10.1) HENRI ARGUELLO Oct 03, 2017 12:30"
--- NOTE | 2017-10-03 12:39 | Pulmonology Progress Note ---
Assessment/Plan Assessment/Plan IMPRESSION: 1. Septic shock, resolved 2. Respiratory failure, on vent 3. Sepsis, likely skin source. 4. Severe dehydration with hypernatremia, improved 5. Dementia. 6. History of hypertension. 7. 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 doing poorly continued fevers, sepsis continue vent support abx cannot wean prognosis poor favor comfort care Subjective ROS Limited/Unobtainable: Yes Constitutional: Reports: fever Allergies: Coded Allergies: No Known Allergies (Unverified , 09/18/17) Objective Last 24 Hour Vital Signs Date Time Temp Pulse Resp B/P (MAP) Pulse Ox O2 Delivery O2 Flow Rate FiO2 10/03/17 11:00 98 35 83/29 93 Mechanical Ventilator 60 10/03/17 10:52 97 35 60 10/03/17 10:00 94 35 78/28 93 Mechanical Ventilator 60 10/03/17 09:18 99.3 10/03/17 09:00 93 35 85/31 93 Mechanical Ventilator 60 10/03/17 08:57 94 36 60 10/03/17 08:20 111 31 98/39 93 Mechanical Ventilator 60 10/03/17 08:20 111 98/39 10/03/17 08:00 99.3 111 38 84/36 95 Mechanical Ventilator 60 10/03/17 08:00 60 10/03/17 08:00 111 10/03/17 07:00 109 31 96/38 93 Mechanical Ventilator 60 10/03/17 06:42 109 34 60 10/03/17 06:00 104 31 96/39 93 Mechanical Ventilator 60 10/03/17 05:08 103 31 60 10/03/17 05:00 104 31 101/42 93 Mechanical Ventilator 60 10/03/17 04:00 60 10/03/17 04:00 100 10/03/17 04:00 98.9 102 31 100/42 93 Mechanical Ventilator 60 10/03/17 03:09 95 35 60 10/03/17 03:00 101 31 123/36 93 Mechanical Ventilator 60 10/03/17 02:00 99 31 126/39 93 Mechanical Ventilator 60 10/03/17 01:06 95 31 60 10/03/17 01:00 96 31 117/42 93 Mechanical Ventilator 60 10/03/17 00:00 60 10/03/17 00:00 99.0 92 32 108/34 95 Mechanical Ventilator 60 10/03/17 00:00 93 10/02/17 23:00 91 31 101/36 93 Mechanical Ventilator 60 10/02/17 22:53 91 31 60 10/02/17 22:00 93 31 110/39 93 Mechanical Ventilator 60 10/02/17 21:00 101 31 124/41 95 Mechanical Ventilator 60 10/02/17 20:47 103 33 60 10/02/17 20:43 100 126/39 10/02/17 20:00 99 10/02/17 20:00 60 10/02/17 20:00 98.7 99 32 126/39 94 Mechanical Ventilator 60 10/02/17 19:03 98 30 60 10/02/17 19:00 99 32 118/45 94 Mechanical Ventilator 60 10/02/17 18:00 60 10/02/17 18:00 100 32 109/40 91 Mechanical Ventilator 60 10/02/17 17:28 100 30 60 10/02/17 17:00 98.6 100 31 105/40 94 Mechanical Ventilator 60 10/02/17 16:00 99 10/02/17 16:00 60 10/02/17 16:00 98 31 111/37 94 Mechanical Ventilator 60 10/02/17 15:25 98 30 60 10/02/17 15:00 97 33 109/43 94 Mechanical Ventilator 60 10/02/17 14:00 97 33 136/40 93 Mechanical Ventilator 60 10/02/17 13:11 98 32 60 10/02/17 13:00 97 32 106/37 93 Mechanical Ventilator 60 Intake and Output 10/02/17 10/03/17 19:00 07:00 Intake Total 110 ml 500 ml Output Total 250 ml 370 ml Balance -140 ml 130 ml Intake Free Water 30 ml IV Total 200 ml Tube Feeding 80 ml 240 ml Other 60 ml Output Urine Total 250 ml 370 ml General Appearance: no acute distress HEENT: normocephalic Respiratory/Chest: rhonchi Cardiovascular: normal rate Microbiology Date/Time Source Procedure Growth Status 10/01/17 08:15 Sputum Gram Stain - Final Resulted 10/01/17 08:15 Sputum Culture - Preliminary Gram Negative Bacillus 1 Gram Negative Bacillus 2 Gram Negative Bacillus 3 Resulted Laboratory Tests 10/03/17 04:30: White Blood Count 19.9H, Red Blood Count 3.00L, Hemoglobin 9.8L, Hematocrit 29.6L, Mean Corpuscular Volume 99, Mean Corpuscular Hemoglobin 32.7H, Mean Corpuscular Hemoglobin Concent 33.2, Red Cell Distribution Width 13.0, Platelet Count 16L, Mean Platelet Volume 12.6H, Neutrophils (%) (Auto) , Lymphocytes (%) (Auto) , Monocytes (%) (Auto) , Eosinophils (%) (Auto) , Basophils (%) (Auto) , Neutrophils % (Manual) [Pending], Lymphocytes % (Manual) [Pending], Platelet Estimate [Pending], Platelet Morphology [Pending], Sodium Level 138, Potassium Level 4.8, Chloride Level 102, Carbon Dioxide Level 30, Anion Gap 6, Blood Urea Nitrogen 49H, Creatinine 1.4H, Estimat Glomerular Filtration Rate , Glucose Level 133H, Calcium Level 7.7L Current Medications Medications (Trade) Dose Ordered Sig/Lilly Route PRN Reason Start Time Stop Time Status Last Admin Dose Admin Acetaminophen (Tylenol) 650 mg EVERY 4 HOURS PRN ORAL fever/PAGE 09/19/17 03:15 10/19/17 03:14 10/03/17 08:19 Dextrose (Dextrose 50%) STAT PRN IV Hypoglycemia 09/19/17 12:30 10/19/17 12:29 Insulin Aspart (NovoLOG) Q6HR SUBQ 09/19/17 13:00 10/19/17 12:59 10/03/17 11:25 Metoprolol Tartrate (Lopressor) 25 mg Q12HR ORAL 09/27/17 22:15 10/27/17 22:14 10/03/17 08:20 Metronidazole 100 ml @ 100 mls/hr EVERY 8 HOURS IVPB 10/01/17 14:00 10/08/17 13:59 10/03/17 05:44 Morphine Sulfate (Morphine Sulfate) 1 mg Q4H PRN IVP For Pain 10/01/17 12:30 10/08/17 12:29 10/01/17 12:41 Pantoprazole (Protonix) 40 mg DAILY IVP 09/20/17 10:00 10/20/17 09:59 10/03/17 08:15 Piperacillin Sod/ Tazobactam Sod 3.375 gm/Sodium Chloride 110 ml @ 27.5 mls/hr EVERY 8 HOURS IVPB 10/03/17 14:00 10/08/17 13:59 Vancomycin HCl (Vanco rx to dose) 1 ea DAILY PRN MISC Per rx protocol 09/19/17 03:15 10/19/17 03:14 Vancomycin/Sodium Chloride 250 ml @ 166.667 mls/hr Q24H IVPB 10/02/17 15:00 10/07/17 14:59 10/02/17 15:36 SAMANTHA GIVENS Oct 03, 2017 12:39
[2017-10-03] MEDS: Piperacillin/Tazobactam 3.375 GM in NS 110 ML IVPB SCH ×2 (14:34→22:00)
[2017-10-03] MEDS: Vancomycin 750mg/NS 250ml IVPB SCH (15:33)
[2017-10-04] VITALS (24 sets, daily range): BP systolic 90–160; BP diastolic 26–59
--- NOTE | 2017-10-04 02:45 | Progress Note ---
DATE: 10/03/2017 CARDIOLOGY PROGRESS NOTE SUBJECTIVE: The patient remains in the intensive care unit. Condition remains critical. Prognosis guarded. The patient remains on ventilator support and has not been weanable. The family members are aware of need for tracheostomy and they agreed. OBJECTIVE: VITAL SIGNS: Temperature 99.3 degrees, blood pressure 78/28, heart rate 94, and respiratory rate 35. LUNGS: Coarse breath sounds. Scattered rhonchi. HEART: Regular rhythm and rate. Normal S1 and S2. ABDOMEN: Soft. EXTREMITIES: Trace edema. LABORATORY DATA: White count 19.9 and hemoglobin 9.8. Potassium 4.8, BUN 49, and creatinine 1.4. IMPRESSION: 1. Sepsis. 2. Respiratory failure. 3. Shock. 4. Chronic steroid therapy for bullous pemphigoid. PLAN: 1. Volume resuscitation. 2. May need pressors again. 3. Antimicrobials. 4. Reassess for stress dose steroids. 5. Skin care. 6. Antimicrobials per Infectious Disease digital marketing consultant. 7. Family meeting to address quality of care. Davy Robbins M.D. DR: TJ JOB#: [id number] CC:
[2017-10-04] MEDS: Piperacillin/Tazobactam 3.375 GM in NS 110 ML IVPB SCH ×3 (06:12→21:33)
[2017-10-04 06:14] LABS: HEMOGLOBIN 9.8 G/DL (12.0-16.0); MEAN CORPUSCULAR VOLUME 98 FL (80-99); PLATELET COUNT 26 K/UL (150-450); RED BLOOD COUNT 2.95 M/UL (4.20-5.40); RED CELL DISTRIBUTION WIDTH 12.8 % (11.6-14.8); WHITE BLOOD COUNT 18.2 K/UL (4.8-10.8)
[2017-10-04] MEDS: NovoLOG Insulin Flexpen SUBQ SCH ×4 (06:18→23:36)
[2017-10-04 06:31] LABS: ALANINE AMINOTRANSFERASE 30 U/L (12-78); ALBUMIN/GLOBULIN RATIO 0.2 (1.0-2.7); ALKALINE PHOSPHATASE 240 U/L (46-116); ANION GAP 6 mmol/L (5-15); ASPARTATE AMINO TRANSFERASE 39 U/L (15-37); BILIRUBIN,TOTAL 0.7 MG/DL (0.2-1.0); BLOOD UREA NITROGEN 56 mg/dL (7-18); CALCIUM 7.7 MG/DL (8.5-10.1); CARBON DIOXIDE 29 MMOL/L (21-32); CHLORIDE 105 MMOL/L (98-107); CREATININE 1.5 MG/DL (0.55-1.30); POTASSIUM 4.2 MMOL/L (3.5-5.1); SODIUM 140 MMOL/L (136-145)
[2017-10-04] MEDS: Pantoprazole Inj IVP SCH (09:00)
[2017-10-04] MEDS: Metoprolol 25mg tab ORAL SCH ×2 (09:01→20:58)
--- NOTE | 2017-10-04 10:53 | General Progress Note ---
Assessment/Plan Problem List: (1) Dehydration ICD Codes: E86.0 - Dehydration SNOMED: 84667277 (2) Hypernatremia ICD Codes: E87.0 - Hyperosmolality and hypernatremia SNOMED: 59179044 (3) Malnutrition of moderate degree ICD Codes: E44.0 - Moderate protein-calorie malnutrition SNOMED: 814964917 (4) BOB (acute kidney injury) ICD Codes: N17.9 - Acute kidney failure, unspecified SNOMED: 01248712 (5) Sepsis ICD Codes: A41.9 - Sepsis, unspecified organism SNOMED: 89043398, 557586022 Qualifiers: Qualified Codes: A41.9 - Sepsis, unspecified organism (6) UTI (urinary tract infection) ICD Codes: N39.0 - Urinary tract infection, site not specified SNOMED: 52435799, 591640065 Qualifiers: Qualified Codes: N39.0 - Urinary tract infection, site not specified (7) Elevated troponin ICD Codes: R74.8 - Abnormal levels of other serum enzymes SNOMED: 561431584, 668271425 (8) DIC (disseminated intravascular coagulation) ICD Codes: D65 - Disseminated intravascular coagulation [defibrination syndrome ] SNOMED: 38628351 Status: stable, progressing Assessment/Plan iv abx per id try to get sputum culture off pressors currently feeds as tolerated vent- wean as able transfuse plts heme eval critical and guarded Subjective ROS Limited/Unobtainable: Yes Constitutional: Reports: malaise, weakness HEENT: Reports: no symptoms Cardiovascular: Reports: no symptoms Respiratory: Reports: shortness of breath, sputum Gastrointestinal/Abdominal: Reports: difficulty swallowing Genitourinary: Reports: no symptoms Neurologic/Psychiatric: Reports: pre-existing deficit Endocrine: Reports: no symptoms Hematologic/Lymphatic: Reports: anemia Allergies: Coded Allergies: No Known Allergies (Unverified , 09/18/17) All Systems: reviewed and negative except above Subjective no events. decreased o2 requirements. low grade temps. plts trending down. s/p 1 unit plts. no bleeding noted.labs reviewed Objective Last 24 Hour Vital Signs Date Time Temp Pulse Resp B/P (MAP) Pulse Ox O2 Delivery O2 Flow Rate FiO2 10/04/17 10:00 87 32 93/36 94 Mechanical Ventilator 60 10/04/17 09:03 100 33 60 10/04/17 09:01 100 112/41 10/04/17 09:00 99 33 131/59 94 Mechanical Ventilator 60 10/04/17 08:00 100 10/04/17 08:00 98.2 102 35 113/41 94 Mechanical Ventilator 60 10/04/17 08:00 60 10/04/17 07:19 100 34 60 10/04/17 07:00 99 34 114/41 94 Mechanical Ventilator 60 10/04/17 06:00 99 33 100/41 94 Mechanical Ventilator 60 10/04/17 05:07 91 33 60 10/04/17 05:00 100 33 111/34 94 Mechanical Ventilator 60 10/04/17 04:00 99 10/04/17 04:00 97.6 104 33 100/36 94 Mechanical Ventilator 60 10/04/17 04:00 60 10/04/17 03:30 91 33 60 10/04/17 03:00 104 33 103/34 94 Mechanical Ventilator 60 10/04/17 02:02 104 33 119/34 94 Mechanical Ventilator 60 10/04/17 01:32 94 34 60 10/04/17 01:00 103 33 119/34 94 Mechanical Ventilator 60 10/04/17 00:00 98.0 101 34 122/26 94 Mechanical Ventilator 60 10/04/17 00:00 100 10/03/17 23:45 94 34 60 10/03/17 23:44 94 103/33 10/03/17 23:00 94 34 106/26 94 Mechanical Ventilator 60 10/03/17 22:00 95 35 122/35 95 Mechanical Ventilator 60 10/03/17 21:09 94 35 60 10/03/17 21:00 91 33 122/34 94 Mechanical Ventilator 60 10/03/17 20:00 97.5 92 34 103/33 95 Mechanical Ventilator 60 10/03/17 20:00 92 10/03/17 20:00 60 10/03/17 19:00 94 35 93/31 94 Mechanical Ventilator 60 10/03/17 18:59 92 35 60 10/03/17 18:00 92 35 93/31 94 Mechanical Ventilator 60 10/03/17 17:00 94 35 98/30 94 Mechanical Ventilator 60 10/03/17 16:43 99 36 60 10/03/17 16:00 99 10/03/17 16:00 60 10/03/17 16:00 97.7 95 35 109/31 95 Mechanical Ventilator 60 10/03/17 15:30 96 35 94/31 94 Mechanical Ventilator 60 10/03/17 15:00 96 35 80/30 94 Mechanical Ventilator 60 10/03/17 14:45 99 35 60 10/03/17 14:00 99 35 91/28 94 Mechanical Ventilator 60 10/03/17 13:00 98 35 84/26 93 Mechanical Ventilator 60 10/03/17 12:47 99 34 60 10/03/17 12:00 97 10/03/17 12:00 60 10/03/17 12:00 98.8 98 35 89/23 92 Mechanical Ventilator 60 10/03/17 11:00 98 35 83/29 93 Mechanical Ventilator 60 10/03/17 10:52 97 35 60 Intake and Output 10/03/17 10/04/17 19:00 07:00 Intake Total 1123.334 ml 627.5 ml Output Total 255 ml 340 ml Balance 868.334 ml 287.5 ml Intake Free Water 100 ml 50 ml IV Total 543.334 ml 337.5 ml Tube Feeding 240 ml 240 ml Blood Product 240 ml Output Urine Total 255 ml 340 ml # Bowel Movements 2 3 Laboratory Tests 10/04/17 05:15: White Blood Count 18.2H, Red Blood Count 2.95L, Hemoglobin 9.8L, Hematocrit 29.0L, Mean Corpuscular Volume 98, Mean Corpuscular Hemoglobin 33.2H, Mean Corpuscular Hemoglobin Concent 33.8, Red Cell Distribution Width 12.8, Platelet Count 26#L, Mean Platelet Volume 12.5H, Neutrophils (%) (Auto) , Lymphocytes (% ) (Auto) , Monocytes (%) (Auto) , Eosinophils (%) (Auto) , Basophils (%) (Auto) , Differential Total Cells Counted 100, Neutrophils % (Manual) 88H, Lymphocytes % (Manual) 3L, Monocytes % (Manual) 3, Eosinophils % (Manual) 0, Basophils % ( Manual) 0, Band Neutrophils 6, Nucleated Red Blood Cells 1, Platelet Estimate DecreasedL, Platelet Morphology Normal, Polychromasia 1+, Hypochromasia 1+, Fibrinogen 371, Sodium Level 140, Potassium Level 4.2, Chloride Level 105, Carbon Dioxide Level 29, Anion Gap 6, Blood Urea Nitrogen 56H, Creatinine 1.5H, Estimat Glomerular Filtration Rate , Glucose Level 170H, Calcium Level 7.7L, Total Bilirubin 0.7, Aspartate Amino Transf (AST/SGOT) 39H, Alanine Aminotransferase (ALT/SGPT) 30, Alkaline Phosphatase 240H, Total Protein 5.7L, Albumin 1.0L, Globulin 4.7, Albumin/Globulin Ratio 0.2L Height (Feet): 5 Height (Inches): 2.00 Weight (Pounds): 150 Objective General Appearance: WD/WN, lethargic, confused Neck: supple Cardiovascular: normal rate, regular rhythm Respiratory/Chest: rhonchi - bilaterally Abdomen: normal bowel sounds, non tender, soft, no organomegaly Edema: no edema noted Arm (L), no edema noted Arm (R), no edema noted Leg (L), no edema noted Leg (R), no edema noted Pedal (L), no edema noted Pedal (R), no edema noted Generalized Neurologic: unresponsive KRYSTINA LENTZ Oct 04, 2017 10:53
[2017-10-04] MEDS ORDERED: NS 275ml ONE (15:25)
[2017-10-04] MEDS ORDERED: Tubing IV Secondary IV ONE ×2 (15:25→18:52)
[2017-10-04] MEDS ORDERED: Tubing Blood Filter IV ONE (18:52)
--- NOTE | 2017-10-04 20:27 | Pulmonolgy Critical Care Note ---
Critical Care - Asmt/Plan Assessment/Plan: 1. Acute respiratory failure. 2. Possible sepsis with lactic acidosis and leukocytosis. 3. Severe dehydration with hypernatremia. 4. Hypokalemia. 5. Elevated liver enzymes. 6. Possible congestive heart failure. 7. Severe protein-calorie malnutrition. 8. Cachexia and inanition. 9. History of hypertension. 10. persistent bacteremia ?endocarditis PLAN: vent, no wean nebs adn suction await echo to assess for vegetations npo aspiration precautions pressors to maintain map greater than 92% abx, last bc 09/25/17 positive wound care monitor uop tf CXR am prognosis poor Critical Care - Objective Last 24 Hour Vital Signs Date Time Temp Pulse Resp B/P (MAP) Pulse Ox O2 Delivery O2 Flow Rate FiO2 10/04/17 18:56 109 37 60 10/04/17 18:00 107 36 127/41 93 Mechanical Ventilator 60 10/04/17 17:05 100 35 60 10/04/17 17:00 102 35 160/48 93 Mechanical Ventilator 60 10/04/17 16:00 97.6 100 35 116/40 95 Mechanical Ventilator 60 10/04/17 16:00 60 10/04/17 16:00 98 10/04/17 15:07 97 35 60 10/04/17 15:00 97 35 106/41 95 Mechanical Ventilator 60 10/04/17 14:00 100 33 103/36 95 Mechanical Ventilator 60 10/04/17 13:00 98.8 94 34 106/38 100 Mechanical Ventilator 60 10/04/17 12:45 91 34 60 10/04/17 12:00 60 10/04/17 12:00 90 10/04/17 12:00 94 35 107/41 100 Mechanical Ventilator 60 10/04/17 11:00 90 34 90/36 100 Mechanical Ventilator 60 10/04/17 10:40 86 33 60 10/04/17 10:00 87 32 93/36 94 Mechanical Ventilator 60 10/04/17 09:03 100 33 60 10/04/17 09:01 100 112/41 10/04/17 09:00 99 33 131/59 94 Mechanical Ventilator 60 10/04/17 08:00 100 10/04/17 08:00 98.2 102 35 113/41 94 Mechanical Ventilator 60 10/04/17 08:00 60 10/04/17 07:19 100 34 60 10/04/17 07:00 99 34 114/41 94 Mechanical Ventilator 60 10/04/17 06:00 99 33 100/41 94 Mechanical Ventilator 60 10/04/17 05:07 91 33 60 10/04/17 05:00 100 33 111/34 94 Mechanical Ventilator 60 10/04/17 04:00 99 10/04/17 04:00 97.6 104 33 100/36 94 Mechanical Ventilator 60 10/04/17 04:00 60 10/04/17 03:30 91 33 60 10/04/17 03:00 104 33 103/34 94 Mechanical Ventilator 60 10/04/17 02:02 104 33 119/34 94 Mechanical Ventilator 60 10/04/17 01:32 94 34 60 10/04/17 01:00 103 33 119/34 94 Mechanical Ventilator 60 10/04/17 00:00 98.0 101 34 122/26 94 Mechanical Ventilator 60 10/04/17 00:00 100 10/03/17 23:45 94 34 60 10/03/17 23:44 94 103/33 10/03/17 23:00 94 34 106/26 94 Mechanical Ventilator 60 10/03/17 22:00 95 35 122/35 95 Mechanical Ventilator 60 10/03/17 21:09 94 35 60 10/03/17 21:00 91 33 122/34 94 Mechanical Ventilator 60 Objective: Laboratory Tests Test 09/21/17 04:00 White Blood Count 9.8 K/UL (4.8-10.8) Red Blood Count 3.45 M/UL (4.20-5.40) L Hemoglobin 11.3 G/DL (12.0-16.0) L Hematocrit 34.2 % (37.0-47.0) L Mean Corpuscular Volume 99 FL (80-99) Mean Corpuscular Hemoglobin 32.7 PG (27.0-31.0) H Mean Corpuscular Hemoglobin Concent 33.0 G/DL (32.0-36.0) Red Cell Distribution Width 12.8 % (11.6-14.8) Platelet Count 83 K/UL (150-450) L Mean Platelet Volume 9.3 FL (6.5-10.1) Neutrophils (%) (Auto) % (45.0-75.0) Lymphocytes (%) (Auto) % (20.0-45.0) Monocytes (%) (Auto) % (1.0-10.0) Eosinophils (%) (Auto) % (0.0-3.0) Basophils (%) (Auto) % (0.0-2.0) Differential Total Cells Counted 100 Neutrophils % (Manual) 89 % (45-75) H Lymphocytes % (Manual) 8 % (20-45) L Monocytes % (Manual) 0 % (1-10) L Eosinophils % (Manual) 0 % (0-3) Basophils % (Manual) 0 % (0-2) Band Neutrophils 3 % (0-8) Platelet Estimate Decreased L Platelet Morphology Normal Red Blood Cell Morphology Normal Sodium Level 144 MMOL/L (136-145) Potassium Level 3.4 MMOL/L (3.5-5.1) L Chloride Level 113 MMOL/L (98-107) H Carbon Dioxide Level 24 MMOL/L (21-32) Anion Gap 7 mmol/L (5-15) Blood Urea Nitrogen 13 mg/dL (7-18) Creatinine 0.6 MG/DL (0.55-1.30) Estimat Glomerular Filtration Rate mL/min (>60) Glucose Level 200 MG/DL (74-106) H Calcium Level 6.7 MG/DL (8.5-10.1) L Current Medications Medications (Trade) Dose Ordered Sig/Lilly Route PRN Reason Start Time Stop Time Status Last Admin Dose Admin Acetaminophen (Tylenol) 650 mg EVERY 4 HOURS PRN ORAL fever/PAGE 09/19/17 03:15 10/19/17 03:14 09/20/17 11:06 Albuterol/ Ipratropium (Albuterol/ Ipratropium) 3 ml Q6HRT HHN 09/19/17 07:00 09/24/17 06:59 09/21/17 18:58 Cefepime HCl 1 gm/ Dextrose 55 ml @ 110 mls/hr Q24H IVPB 09/21/17 09:00 09/26/17 08:59 09/21/17 09:54 Chlorhexidine Gluconate (Serena-Hex 2%) 1 applic DAILY@2000 TOPIC 09/20/17 20:00 10/20/17 19:59 09/21/17 20:37 Dextrose (Dextrose 50%) STAT PRN IV Hypoglycemia 09/19/17 12:30 10/19/17 12:29 Hydrocortisone (Solu-CORTEF) 100 mg EVERY 8 HOURS IV 09/20/17 14:00 10/20/17 13:59 09/21/17 14:42 Insulin Aspart (NovoLOG) Q6HR SUBQ 09/19/17 13:00 10/19/17 12:59 09/21/17 18:06 Lorazepam (Ativan) 0.5 mg TIDPRN PRN ORAL For Anxiety 09/20/17 16:15 09/27/17 16:14 09/20/17 22:13 Norepinephrine Bitartrate 8 mg/ Dextrose 250 ml @ 0 mls/hr Q24H IV 09/19/17 23:30 10/19/17 23:29 09/20/17 22:04 Pantoprazole (Protonix) 40 mg DAILY IVP 09/20/17 10:00 10/20/17 09:59 09/21/17 09:15 Potassium Chloride 20 meq/ Dextrose 1,010 ml @ 35 mls/hr Q24H IV 09/21/17 11:45 10/21/17 11:44 09/21/17 11:51 Vancomycin HCl (Vanco rx to dose) 1 ea DAILY PRN MISC Per rx protocol 09/19/17 03:15 10/19/17 03:14 Vancomycin/Sodium Chloride 250 ml @ 166.667 mls/hr Q24H IVPB 09/20/17 08:00 09/25/17 07:59 09/21/17 09:15 Accucheck: 96 Critical Care - Subjective FI02: 60 Vent Support Breath Rate: 14 Vent Support Mode: AC Vent Tidal Volume: 450 Sputum Amount: Large PEEP: 5.0 PIP: 42 Tube Feeding Amount: 20 I&O: Intake and Output 10/03/17 10/04/17 19:00 07:00 Intake Total 1123.334 ml 627.5 ml Output Total 255 ml 340 ml Balance 868.334 ml 287.5 ml Intake Free Water 100 ml 50 ml IV Total 543.334 ml 337.5 ml Tube Feeding 240 ml 240 ml Blood Product 240 ml Output Urine Total 255 ml 340 ml # Bowel Movements 2 3 Subjective: orally intubated on the vent bc positive for staph aureus ?endocarditis hemodynamics better today tolerating Tf does not follow commands for me positive uop no pressors at this time CXR: Current Medications Medications (Trade) Dose Ordered Sig/Lilly Route PRN Reason Start Time Stop Time Status Last Admin Dose Admin Acetaminophen (Tylenol) 650 mg EVERY 4 HOURS PRN ORAL fever/PAGE 09/19/17 03:15 10/19/17 03:14 10/03/17 08:19 Dextrose (Dextrose 50%) STAT PRN IV Hypoglycemia 09/19/17 12:30 10/19/17 12:29 Insulin Aspart (NovoLOG) Q6HR SUBQ 09/19/17 13:00 10/19/17 12:59 10/04/17 06:18 Metoprolol Tartrate (Lopressor) 25 mg Q12HR ORAL 09/27/17 22:15 10/27/17 22:14 10/04/17 09:01 Metronidazole 100 ml @ 100 mls/hr EVERY 8 HOURS IVPB 10/01/17 14:00 10/08/17 13:59 10/04/17 14:00 Morphine Sulfate (Morphine Sulfate) 1 mg Q4H PRN IVP For Pain 10/01/17 12:30 10/08/17 12:29 10/01/17 12:41 Pantoprazole (Protonix) 40 mg DAILY IVP 09/20/17 10:00 10/20/17 09:59 10/04/17 09:00 Piperacillin Sod/ Tazobactam Sod 3.375 gm/Sodium Chloride 110 ml @ 27.5 mls/hr EVERY 8 HOURS IVPB 10/03/17 14:00 10/08/17 13:59 10/04/17 14:00 Vancomycin HCl (Vanco rx to dose) 1 ea DAILY PRN MISC Per rx protocol 09/19/17 03:15 10/19/17 03:14 ET-Tube: 7.5 ET Position: 23 Labs: Laboratory Tests Test 10/04/17 05:15 10/04/17 14:00 White Blood Count 18.2 K/UL (4.8-10.8) H Red Blood Count 2.95 M/UL (4.20-5.40) L Hemoglobin 9.8 G/DL (12.0-16.0) L Hematocrit 29.0 % (37.0-47.0) L Mean Corpuscular Volume 98 FL (80-99) Mean Corpuscular Hemoglobin 33.2 PG (27.0-31.0) H Mean Corpuscular Hemoglobin Concent 33.8 G/DL (32.0-36.0) Red Cell Distribution Width 12.8 % (11.6-14.8) Platelet Count 26 K/UL (150-450) #L Mean Platelet Volume 12.5 FL (6.5-10.1) H Neutrophils (%) (Auto) % (45.0-75.0) Lymphocytes (%) (Auto) % (20.0-45.0) Monocytes (%) (Auto) % (1.0-10.0) Eosinophils (%) (Auto) % (0.0-3.0) Basophils (%) (Auto) % (0.0-2.0) Differential Total Cells Counted 100 Neutrophils % (Manual) 88 % (45-75) H Lymphocytes % (Manual) 3 % (20-45) L Monocytes % (Manual) 3 % (1-10) Eosinophils % (Manual) 0 % (0-3) Basophils % (Manual) 0 % (0-2) Band Neutrophils 6 % (0-8) Nucleated Red Blood Cells 1 /100 WBC Platelet Estimate Decreased L Platelet Morphology Normal Polychromasia 1+ Hypochromasia 1+ Fibrinogen 371 mg/dL (200-400) Sodium Level 140 MMOL/L (136-145) Potassium Level 4.2 MMOL/L (3.5-5.1) Chloride Level 105 MMOL/L (98-107) Carbon Dioxide Level 29 MMOL/L (21-32) Anion Gap 6 mmol/L (5-15) Blood Urea Nitrogen 56 mg/dL (7-18) H Creatinine 1.5 MG/DL (0.55-1.30) H Estimat Glomerular Filtration Rate mL/min (>60) Glucose Level 170 MG/DL (74-106) H Calcium Level 7.7 MG/DL (8.5-10.1) L Total Bilirubin 0.7 MG/DL (0.2-1.0) Aspartate Amino Transf (AST/SGOT) 39 U/L (15-37) H Alanine Aminotransferase (ALT/SGPT) 30 U/L (12-78) Alkaline Phosphatase 240 U/L (46-116) H Total Protein 5.7 G/DL (6.4-8.2) L Albumin 1.0 G/DL (3.4-5.0) L Globulin 4.7 g/dL Albumin/Globulin Ratio 0.2 (1.0-2.7) L Vancomycin Level Trough 31.0 ug/mL (5.0-12.0) H RAYNA WHITAKER DO Oct 04, 2017 20:27
--- NOTE | 2017-10-04 20:47 | Pulmonolgy Critical Care Note ---
Critical Care - Asmt/Plan Assessment/Plan: 1. Acute respiratory failure. 2. Possible sepsis with lactic acidosis and leukocytosis. 3. Severe dehydration with hypernatremia. 4. Hypokalemia. 5. Elevated liver enzymes. 6. Possible congestive heart failure. 7. Severe protein-calorie malnutrition. 8. Cachexia and inanition. 9. History of hypertension. 10.bacteremia 11. VAP pseudomonas PLAN: vent, wean as toelrated, most likely will need trach nebs adn suction TF, aspiration precautions pressors to maintain map greater than 92% abx,last bc 09/28 negative wound care monitor uop CXR am prognosis poor Respiratory: CXR, ABG Cardiac: continue to monitor HR/BP Renal: F/U I&O Infectious Disease: check cultures, continue antibiotics Gastrointestinal: continue feedings/current rate Disposition: keep in ICU Time Spent (Minutes): 50 Critical Care - Objective Last 24 Hour Vital Signs Date Time Temp Pulse Resp B/P (MAP) Pulse Ox O2 Delivery O2 Flow Rate FiO2 10/04/17 18:56 109 37 60 10/04/17 18:00 107 36 127/41 93 Mechanical Ventilator 60 10/04/17 17:05 100 35 60 10/04/17 17:00 102 35 160/48 93 Mechanical Ventilator 60 10/04/17 16:00 97.6 100 35 116/40 95 Mechanical Ventilator 60 10/04/17 16:00 60 10/04/17 16:00 98 10/04/17 15:07 97 35 60 10/04/17 15:00 97 35 106/41 95 Mechanical Ventilator 60 10/04/17 14:00 100 33 103/36 95 Mechanical Ventilator 60 10/04/17 13:00 98.8 94 34 106/38 100 Mechanical Ventilator 60 10/04/17 12:45 91 34 60 10/04/17 12:00 60 10/04/17 12:00 90 10/04/17 12:00 94 35 107/41 100 Mechanical Ventilator 60 10/04/17 11:00 90 34 90/36 100 Mechanical Ventilator 60 10/04/17 10:40 86 33 60 10/04/17 10:00 87 32 93/36 94 Mechanical Ventilator 60 10/04/17 09:03 100 33 60 10/04/17 09:01 100 112/41 10/04/17 09:00 99 33 131/59 94 Mechanical Ventilator 60 10/04/17 08:00 100 10/04/17 08:00 98.2 102 35 113/41 94 Mechanical Ventilator 60 10/04/17 08:00 60 10/04/17 07:19 100 34 60 10/04/17 07:00 99 34 114/41 94 Mechanical Ventilator 60 10/04/17 06:00 99 33 100/41 94 Mechanical Ventilator 60 10/04/17 05:07 91 33 60 10/04/17 05:00 100 33 111/34 94 Mechanical Ventilator 60 10/04/17 04:00 99 10/04/17 04:00 97.6 104 33 100/36 94 Mechanical Ventilator 60 10/04/17 04:00 60 10/04/17 03:30 91 33 60 10/04/17 03:00 104 33 103/34 94 Mechanical Ventilator 60 10/04/17 02:02 104 33 119/34 94 Mechanical Ventilator 60 10/04/17 01:32 94 34 60 10/04/17 01:00 103 33 119/34 94 Mechanical Ventilator 60 10/04/17 00:00 98.0 101 34 122/26 94 Mechanical Ventilator 60 10/04/17 00:00 100 10/03/17 23:45 94 34 60 10/03/17 23:44 94 103/33 10/03/17 23:00 94 34 106/26 94 Mechanical Ventilator 60 10/03/17 22:00 95 35 122/35 95 Mechanical Ventilator 60 10/03/17 21:09 94 35 60 10/03/17 21:00 91 33 122/34 94 Mechanical Ventilator 60 Status: obtunded Condition: critical Lungs: rhonchi Heart: HR/BP unstable Abdomen: soft, non-tender Extremities: edema Decubiti: location Objective: Laboratory Tests Test 09/21/17 04:00 White Blood Count 9.8 K/UL (4.8-10.8) Red Blood Count 3.45 M/UL (4.20-5.40) L Hemoglobin 11.3 G/DL (12.0-16.0) L Hematocrit 34.2 % (37.0-47.0) L Mean Corpuscular Volume 99 FL (80-99) Mean Corpuscular Hemoglobin 32.7 PG (27.0-31.0) H Mean Corpuscular Hemoglobin Concent 33.0 G/DL (32.0-36.0) Red Cell Distribution Width 12.8 % (11.6-14.8) Platelet Count 83 K/UL (150-450) L Mean Platelet Volume 9.3 FL (6.5-10.1) Neutrophils (%) (Auto) % (45.0-75.0) Lymphocytes (%) (Auto) % (20.0-45.0) Monocytes (%) (Auto) % (1.0-10.0) Eosinophils (%) (Auto) % (0.0-3.0) Basophils (%) (Auto) % (0.0-2.0) Differential Total Cells Counted 100 Neutrophils % (Manual) 89 % (45-75) H Lymphocytes % (Manual) 8 % (20-45) L Monocytes % (Manual) 0 % (1-10) L Eosinophils % (Manual) 0 % (0-3) Basophils % (Manual) 0 % (0-2) Band Neutrophils 3 % (0-8) Platelet Estimate Decreased L Platelet Morphology Normal Red Blood Cell Morphology Normal Sodium Level 144 MMOL/L (136-145) Potassium Level 3.4 MMOL/L (3.5-5.1) L Chloride Level 113 MMOL/L (98-107) H Carbon Dioxide Level 24 MMOL/L (21-32) Anion Gap 7 mmol/L (5-15) Blood Urea Nitrogen 13 mg/dL (7-18) Creatinine 0.6 MG/DL (0.55-1.30) Estimat Glomerular Filtration Rate mL/min (>60) Glucose Level 200 MG/DL (74-106) H Calcium Level 6.7 MG/DL (8.5-10.1) L Current Medications Medications (Trade) Dose Ordered Sig/Lilly Route PRN Reason Start Time Stop Time Status Last Admin Dose Admin Acetaminophen (Tylenol) 650 mg EVERY 4 HOURS PRN ORAL fever/PAGE 09/19/17 03:15 10/19/17 03:14 09/20/17 11:06 Albuterol/ Ipratropium (Albuterol/ Ipratropium) 3 ml Q6HRT HHN 09/19/17 07:00 09/24/17 06:59 09/21/17 18:58 Cefepime HCl 1 gm/ Dextrose 55 ml @ 110 mls/hr Q24H IVPB 09/21/17 09:00 09/26/17 08:59 09/21/17 09:54 Chlorhexidine Gluconate (Serena-Hex 2%) 1 applic DAILY@2000 TOPIC 09/20/17 20:00 10/20/17 19:59 09/21/17 20:37 Dextrose (Dextrose 50%) STAT PRN IV Hypoglycemia 09/19/17 12:30 10/19/17 12:29 Hydrocortisone (Solu-CORTEF) 100 mg EVERY 8 HOURS IV 09/20/17 14:00 10/20/17 13:59 09/21/17 14:42 Insulin Aspart (NovoLOG) Q6HR SUBQ 09/19/17 13:00 10/19/17 12:59 09/21/17 18:06 Lorazepam (Ativan) 0.5 mg TIDPRN PRN ORAL For Anxiety 09/20/17 16:15 09/27/17 16:14 09/20/17 22:13 Norepinephrine Bitartrate 8 mg/ Dextrose 250 ml @ 0 mls/hr Q24H IV 09/19/17 23:30 10/19/17 23:29 09/20/17 22:04 Pantoprazole (Protonix) 40 mg DAILY IVP 09/20/17 10:00 10/20/17 09:59 09/21/17 09:15 Potassium Chloride 20 meq/ Dextrose 1,010 ml @ 35 mls/hr Q24H IV 09/21/17 11:45 10/21/17 11:44 09/21/17 11:51 Vancomycin HCl (Vanco rx to dose) 1 ea DAILY PRN MISC Per rx protocol 09/19/17 03:15 10/19/17 03:14 Vancomycin/Sodium Chloride 250 ml @ 166.667 mls/hr Q24H IVPB 09/20/17 08:00 09/25/17 07:59 09/21/17 09:15 Accucheck: 96 Blood Sugars: BS controlled Critical Care - Subjective ROS Limited/Unobtainable: Yes Condition: critical FI02: 60 Vent Support Breath Rate: 14 Vent Support Mode: AC Vent Tidal Volume: 450 Sputum Amount: Large PEEP: 5.0 PIP: 42 Tube Feeding Amount: 20 I&O: Intake and Output 10/03/17 10/04/17 19:00 07:00 Intake Total 1123.334 ml 627.5 ml Output Total 255 ml 340 ml Balance 868.334 ml 287.5 ml Intake Free Water 100 ml 50 ml IV Total 543.334 ml 337.5 ml Tube Feeding 240 ml 240 ml Blood Product 240 ml Output Urine Total 255 ml 340 ml # Bowel Movements 2 3 Subjective: orally intubated on the vent my tachpnea and tachycardia today tolerating Tf does not follow commands for me positive uop no pressors at this time CXR: no recent cxr ET-Tube: 7.5 ET Position: 23 Labs: Laboratory Tests Test 10/04/17 05:15 10/04/17 14:00 White Blood Count 18.2 K/UL (4.8-10.8) H Red Blood Count 2.95 M/UL (4.20-5.40) L Hemoglobin 9.8 G/DL (12.0-16.0) L Hematocrit 29.0 % (37.0-47.0) L Mean Corpuscular Volume 98 FL (80-99) Mean Corpuscular Hemoglobin 33.2 PG (27.0-31.0) H Mean Corpuscular Hemoglobin Concent 33.8 G/DL (32.0-36.0) Red Cell Distribution Width 12.8 % (11.6-14.8) Platelet Count 26 K/UL (150-450) #L Mean Platelet Volume 12.5 FL (6.5-10.1) H Neutrophils (%) (Auto) % (45.0-75.0) Lymphocytes (%) (Auto) % (20.0-45.0) Monocytes (%) (Auto) % (1.0-10.0) Eosinophils (%) (Auto) % (0.0-3.0) Basophils (%) (Auto) % (0.0-2.0) Differential Total Cells Counted 100 Neutrophils % (Manual) 88 % (45-75) H Lymphocytes % (Manual) 3 % (20-45) L Monocytes % (Manual) 3 % (1-10) Eosinophils % (Manual) 0 % (0-3) Basophils % (Manual) 0 % (0-2) Band Neutrophils 6 % (0-8) Nucleated Red Blood Cells 1 /100 WBC Platelet Estimate Decreased L Platelet Morphology Normal Polychromasia 1+ Hypochromasia 1+ Fibrinogen 371 mg/dL (200-400) Sodium Level 140 MMOL/L (136-145) Potassium Level 4.2 MMOL/L (3.5-5.1) Chloride Level 105 MMOL/L (98-107) Carbon Dioxide Level 29 MMOL/L (21-32) Anion Gap 6 mmol/L (5-15) Blood Urea Nitrogen 56 mg/dL (7-18) H Creatinine 1.5 MG/DL (0.55-1.30) H Estimat Glomerular Filtration Rate mL/min (>60) Glucose Level 170 MG/DL (74-106) H Calcium Level 7.7 MG/DL (8.5-10.1) L Total Bilirubin 0.7 MG/DL (0.2-1.0) Aspartate Amino Transf (AST/SGOT) 39 U/L (15-37) H Alanine Aminotransferase (ALT/SGPT) 30 U/L (12-78) Alkaline Phosphatase 240 U/L (46-116) H Total Protein 5.7 G/DL (6.4-8.2) L Albumin 1.0 G/DL (3.4-5.0) L Globulin 4.7 g/dL Albumin/Globulin Ratio 0.2 (1.0-2.7) L Vancomycin Level Trough 31.0 ug/mL (5.0-12.0) H RAYNA WHITAKER DO Oct 04, 2017 20:47
[2017-10-04 22:34] LABS: % IRON SATURATION 116 % (15-50); IRON 81 ug/dL (50-175); TOTAL IRON BINDING CAPACITY 70 ug/dL (250-450)
[2017-10-04 22:53] LABS: BILIRUBIN,TOTAL 0.6 MG/DL (0.2-1.0); FERRITIN 1903 NG/ML (8-388); LACTATE DEHYDROGENASE 600 U/L (81-234)
[2017-10-05] VITALS (24 sets, daily range): BP systolic 65–138; BP diastolic 33–48
--- NOTE | 2017-10-05 04:30 | Progress Note ---
DATE: 10/04/2017 CARDIOLOGY PROGRESS NOTE SUBJECTIVE: The patient remains on ventilator support. Weaning has not been possible. She is obtunded. Her blood pressure parameters have been stabilized today 127/41 and 107/36. OBJECTIVE: LUNGS: Coarse breath sounds. Scattered rhonchi. HEART: Rapid rate. Regular rhythm. Normal S1, S2. ABDOMEN: Soft. EXTREMITIES: Trace edema. LABORATORY DATA: Enterobacter and Pseudomonas are growing out of the sputum. White count 18 and hemoglobin 9.8. Lactic acid 2.6. IMPRESSION: 1. Respiratory failure, polymicrobial. 2. Healthcare-acquired pneumonia. 3. Sepsis. 4. Lactic acidosis. 5. Acute myocardial infarction. 6. Dehydration. 7. Hypernatremia. 8. Failure to wean. 9. Critical and guarded. 10. Resolved bacteremia, still with increased risk for endocarditis. 11. Sinus tachycardia. PLAN: 1. Will need trach. 2. Antibiotics per Infectious Disease decorating consultant. 3. Avoid pressors if blood pressure above 100 systolic. 4. Continue antimicrobials. 5. Review chest radiograph. 6. Optimize cardiovascular regimen. Davy Robbins M.D. DR: BENJAMIN JOB#: [id number] CC:
[2017-10-05] MEDS: Piperacillin/Tazobactam 3.375 GM in NS 110 ML IVPB SCH (06:01)
[2017-10-05] MEDS: NovoLOG Insulin Flexpen SUBQ SCH ×4 (06:04→23:32)
--- NOTE | 2017-10-05 08:28 | Infectious Diseases Prog Note ---
Assessment/Plan Assessment/Plan A 1. e.coli UTI s/p Rx 2. pneumonia with Enterobacter & Pseudomonas 3. coag neg staph sepsis, MRSA sepsis s/p catheter removal 4. Hypoxic respiratory failure 5. Persistent fever, likely endocarditis 6. Elevated transaminase improving 7. Pulmonary HPN 8. Anemia P 1. continue vancomycin iv,& Flagyl 2. change Zosyn to Ciprofloxacin Subjective ROS Limited/Unobtainable: Yes Allergies: Coded Allergies: No Known Allergies (Unverified , 09/18/17) Objective Vital Signs Last 24 Hour Vital Signs Date Time Temp Pulse Resp B/P (MAP) Pulse Ox O2 Delivery O2 Flow Rate FiO2 10/05/17 07:00 105 36 136/48 93 Mechanical Ventilator 60 10/05/17 06:50 16 34 70 10/05/17 06:00 106 36 115/42 93 Mechanical Ventilator 60 10/05/17 05:28 108 36 70 10/05/17 05:00 107 36 122/45 93 Mechanical Ventilator 60 10/05/17 04:00 97.4 101 36 133/43 93 Mechanical Ventilator 60 10/05/17 04:00 101 10/05/17 04:00 60 10/05/17 03:42 108 36 60 10/05/17 03:00 103 36 115/42 93 Mechanical Ventilator 60 10/05/17 02:00 103 36 129/40 95 Mechanical Ventilator 60 10/05/17 01:26 103 35 60 10/05/17 01:06 103 36 132/41 95 Mechanical Ventilator 60 10/05/17 00:00 97.5 103 36 138/40 93 Mechanical Ventilator 60 10/05/17 00:00 60 10/05/17 00:00 105 10/04/17 23:41 107 36 60 10/04/17 23:00 107 36 127/41 93 Mechanical Ventilator 60 10/04/17 22:00 107 36 127/41 93 Mechanical Ventilator 60 10/04/17 21:38 108 36 60 10/04/17 21:00 107 36 114/42 93 Mechanical Ventilator 60 10/04/17 21:00 107 36 127/41 93 Mechanical Ventilator 60 10/04/17 20:58 111 122/41 10/04/17 20:00 60 10/04/17 20:00 110 10/04/17 20:00 97.5 111 36 122/41 93 Mechanical Ventilator 60 10/04/17 20:00 97.5 108 36 127/41 94 Mechanical Ventilator 60 10/04/17 19:00 107 36 122/47 93 Mechanical Ventilator 60 10/04/17 19:00 110 36 122/47 93 Mechanical Ventilator 60 10/04/17 18:56 109 37 60 10/04/17 18:00 107 36 127/41 93 Mechanical Ventilator 60 10/04/17 17:05 100 35 60 10/04/17 17:00 102 35 160/48 93 Mechanical Ventilator 60 10/04/17 16:00 97.6 100 35 116/40 95 Mechanical Ventilator 60 10/04/17 16:00 60 10/04/17 16:00 98 10/04/17 15:07 97 35 60 10/04/17 15:00 97 35 106/41 95 Mechanical Ventilator 60 10/04/17 14:00 100 33 103/36 95 Mechanical Ventilator 60 10/04/17 13:00 98.8 94 34 106/38 100 Mechanical Ventilator 60 10/04/17 12:45 91 34 60 10/04/17 12:00 60 10/04/17 12:00 90 10/04/17 12:00 94 35 107/41 100 Mechanical Ventilator 60 10/04/17 11:00 90 34 90/36 100 Mechanical Ventilator 60 10/04/17 10:40 86 33 60 10/04/17 10:00 87 32 93/36 94 Mechanical Ventilator 60 10/04/17 09:03 100 33 60 10/04/17 09:01 100 112/41 10/04/17 09:00 99 33 131/59 94 Mechanical Ventilator 60 Height (Feet): 5 Height (Inches): 2.00 Weight (Pounds): 156 HEENT: other - orally intubated Respiratory/Chest: lungs clear, other - on ventilator Cardiovascular: tachycardia Abdomen: soft, non tender, other - NG tube Extremities: no edema Neurologic/Psychiatric: unresponsiveness Laboratory Tests Test 10/04/17 14:00 10/04/17 21:15 10/05/17 05:00 Vancomycin Level Trough 31.0 ug/mL (5.0-12.0) H Hemoglobin A Pending Hemoglobin A2 Pending Hemoglobin C Pending Hemoglobin F () Pending Hemoglobin S Pending Variant Hemoglobin Pending Hemoglobin Electrophoresis Interp Pending Hemoglobin Interpretation Pending Hemoglobin Solubility Pending PTT Mixing Study Pending APTT Patient/Control Mix Pending Mix PTT Incubation Time Pending Mix PTT Normal/Saline 1:1 Immediate Pending Thrombin Time Normal Plasma Pending Lactic Acid Level 2.60 mmol/L (0.66-2.22) H Iron Level 81 ug/dL (50-175) Total Iron Binding Capacity 70 ug/dL (250-450) L Percent Iron Saturation 116 % (15-50) H Unsaturated Iron Binding -11 ug/dL (112-346) L Ferritin 1903 NG/ML (8-388) H Total Bilirubin 0.6 MG/DL (0.2-1.0) Lactate Dehydrogenase 600 U/L (81-234) H Total Protein (PEP) Pending Albumin (PEP) Pending Globulin (PEP) Pending Albumin/Globulin Ratio Pending [id number] Pending [id number] Pending Beta Globulins Pending Beta Gamma Globulin Pending PEP Abnormal Protein Bands Pending Protein Electrophoresis Interpret Pending Methylmalonic Acid Pending Folate 11.7 NG/ML (8.6-58.9) Heparin-PF4 Antibody Screen Pending Hepatitis A IgM Antibody Pending Hepatitis B Surface Antigen Pending Hepatitis B Core IgM Antibody Pending Hepatitis C Antibody Pending HIV (1&2) Antibody Rapid Negative (NEGATIVE) Random Vancomycin Level 28.1 ug/mL Current Medications Medications (Trade) Dose Ordered Sig/Lilly Route PRN Reason Start Time Stop Time Status Last Admin Dose Admin Acetaminophen (Tylenol) 650 mg EVERY 4 HOURS PRN ORAL fever/PAGE 09/19/17 03:15 10/19/17 03:14 10/03/17 08:19 Dextrose (Dextrose 50%) STAT PRN IV Hypoglycemia 09/19/17 12:30 10/19/17 12:29 Insulin Aspart (NovoLOG) Q6HR SUBQ 09/19/17 13:00 10/19/17 12:59 10/05/17 06:04 Metoprolol Tartrate (Lopressor) 25 mg Q12HR ORAL 09/27/17 22:15 10/27/17 22:14 10/04/17 20:58 Metronidazole 100 ml @ 100 mls/hr EVERY 8 HOURS IVPB 10/01/17 14:00 10/08/17 13:59 10/05/17 06:00 Morphine Sulfate (Morphine Sulfate) 1 mg Q4H PRN IVP For Pain 10/01/17 12:30 10/08/17 12:29 10/01/17 12:41 Pantoprazole (Protonix) 40 mg DAILY IVP 09/20/17 10:00 10/20/17 09:59 10/04/17 09:00 Piperacillin Sod/ Tazobactam Sod 3.375 gm/Sodium Chloride 110 ml @ 27.5 mls/hr EVERY 8 HOURS IVPB 10/03/17 14:00 10/08/17 13:59 10/05/17 06:01 Sodium Chloride 1,000 ml @ 75 mls/hr [id number] IV 10/04/17 23:15 11/03/17 23:14 10/04/17 23:15 Vancomycin HCl (Vanco rx to dose) 1 ea DAILY PRN MISC Per rx protocol 09/19/17 03:15 10/19/17 03:14 KIMI VILLA Oct 05, 2017 08:28
[2017-10-05] MEDS: Ciprofloxacin 500mg tab NG SCH ×2 (09:00→20:49)
[2017-10-05] MEDS: Pantoprazole Inj IVP SCH (09:00)
[2017-10-05] MEDS: Metoprolol 25mg tab ORAL SCH ×2 (09:00→20:49)
--- NOTE | 2017-10-05 09:47 | General Progress Note ---
Assessment/Plan Problem List: (1) Dehydration ICD Codes: E86.0 - Dehydration SNOMED: 91553448 (2) Hypernatremia ICD Codes: E87.0 - Hyperosmolality and hypernatremia SNOMED: 49828787 (3) Malnutrition of moderate degree ICD Codes: E44.0 - Moderate protein-calorie malnutrition SNOMED: 765140254 (4) BOB (acute kidney injury) ICD Codes: N17.9 - Acute kidney failure, unspecified SNOMED: 57963583 (5) Sepsis ICD Codes: A41.9 - Sepsis, unspecified organism SNOMED: 52054753, 959319314 Qualifiers: Qualified Codes: A41.9 - Sepsis, unspecified organism (6) UTI (urinary tract infection) ICD Codes: N39.0 - Urinary tract infection, site not specified SNOMED: 32465662, 739211574 Qualifiers: Qualified Codes: N39.0 - Urinary tract infection, site not specified (7) Elevated troponin ICD Codes: R74.8 - Abnormal levels of other serum enzymes SNOMED: 413038660, 538365816 (8) DIC (disseminated intravascular coagulation) ICD Codes: D65 - Disseminated intravascular coagulation [defibrination syndrome ] SNOMED: 34317877 Status: stable, not improved Assessment/Plan iv abx per id follow up sputum cultures off pressors. monitor bp feeds as tolerated vent- wean as able transfuse plts heme eval pending poor prognosis dtrs aware critical and guarded Subjective ROS Limited/Unobtainable: Yes Constitutional: Reports: malaise, weakness HEENT: Reports: no symptoms Cardiovascular: Reports: no symptoms Respiratory: Reports: cough, shortness of breath, sputum Gastrointestinal/Abdominal: Reports: difficulty swallowing Genitourinary: Reports: no symptoms Neurologic/Psychiatric: Reports: pre-existing deficit Endocrine: Reports: no symptoms Hematologic/Lymphatic: Reports: anemia Allergies: Coded Allergies: No Known Allergies (Unverified , 09/18/17) All Systems: reviewed and negative except above Subjective no real change. remains on the vent. poorly responsive. labs pending. Objective Last 24 Hour Vital Signs Date Time Temp Pulse Resp B/P (MAP) Pulse Ox O2 Delivery O2 Flow Rate FiO2 10/05/17 09:06 99 37 70 10/05/17 09:00 105 37 107/43 100 Mechanical Ventilator 60 10/05/17 08:00 60 1/14/18 08:00 104 10/05/17 08:00 97.5 104 34 121/42 95 Mechanical Ventilator 60 10/05/17 07:00 105 36 136/48 93 Mechanical Ventilator 60 10/05/17 06:50 16 34 70 10/05/17 06:00 106 36 115/42 93 Mechanical Ventilator 60 10/05/17 05:28 108 36 70 10/05/17 05:00 107 36 122/45 93 Mechanical Ventilator 60 10/05/17 04:00 97.4 101 36 133/43 93 Mechanical Ventilator 60 10/05/17 04:00 101 10/05/17 04:00 60 10/05/17 03:42 108 36 60 10/05/17 03:00 103 36 115/42 93 Mechanical Ventilator 60 10/05/17 02:00 103 36 129/40 95 Mechanical Ventilator 60 10/05/17 01:26 103 35 60 10/05/17 01:06 103 36 132/41 95 Mechanical Ventilator 60 10/05/17 00:00 97.5 103 36 138/40 93 Mechanical Ventilator 60 10/05/17 00:00 60 10/05/17 00:00 105 10/04/17 23:41 107 36 60 10/04/17 23:00 107 36 127/41 93 Mechanical Ventilator 60 10/04/17 22:00 107 36 127/41 93 Mechanical Ventilator 60 10/04/17 21:38 108 36 60 10/04/17 21:00 107 36 114/42 93 Mechanical Ventilator 60 10/04/17 21:00 107 36 127/41 93 Mechanical Ventilator 60 10/04/17 20:58 111 122/41 10/04/17 20:00 60 10/04/17 20:00 110 10/04/17 20:00 97.5 111 36 122/41 93 Mechanical Ventilator 60 10/04/17 20:00 97.5 108 36 127/41 94 Mechanical Ventilator 60 10/04/17 19:00 107 36 122/47 93 Mechanical Ventilator 60 10/04/17 19:00 110 36 122/47 93 Mechanical Ventilator 60 10/04/17 18:56 109 37 60 10/04/17 18:00 107 36 127/41 93 Mechanical Ventilator 60 10/04/17 17:05 100 35 60 10/04/17 17:00 102 35 160/48 93 Mechanical Ventilator 60 10/04/17 16:00 97.6 100 35 116/40 95 Mechanical Ventilator 60 10/04/17 16:00 60 10/04/17 16:00 98 10/04/17 15:07 97 35 60 10/04/17 15:00 97 35 106/41 95 Mechanical Ventilator 60 10/04/17 14:00 100 33 103/36 95 Mechanical Ventilator 60 10/04/17 13:00 98.8 94 34 106/38 100 Mechanical Ventilator 60 10/04/17 12:45 91 34 60 10/04/17 12:00 60 10/04/17 12:00 90 10/04/17 12:00 94 35 107/41 100 Mechanical Ventilator 60 10/04/17 11:00 90 34 90/36 100 Mechanical Ventilator 60 10/04/17 10:40 86 33 60 10/04/17 10:00 87 32 93/36 94 Mechanical Ventilator 60 Intake and Output 10/04/17 10/05/17 19:00 07:00 Intake Total 270 ml 1050.0 ml Output Total 300 ml 412 ml Balance -30 ml 638.0 ml Intake Free Water 50 ml 50 ml IV Total 760.0 ml Tube Feeding 220 ml 240 ml Output Urine Total 300 ml 412 ml # Bowel Movements 3 4 Laboratory Tests 10/04/17 14:00: Vancomycin Level Trough 31.0H 10/04/17 21:15: Hemoglobin A [Pending], Hemoglobin A2 [Pending], Hemoglobin C [Pending], Hemoglobin F () [Pending], Hemoglobin S [Pending], Variant Hemoglobin [ Pending], Hemoglobin Electrophoresis Interp [Pending], Hemoglobin Interpretation [Pending], Hemoglobin Solubility [Pending], PTT Mixing Study [ Pending], APTT Patient/Control Mix [Pending], Mix PTT Incubation Time [Pending] , Mix PTT Normal/Saline 1:1 Immediate [Pending], Thrombin Time Normal Plasma [ Pending], Lactic Acid Level 2.60H, Iron Level 81, Total Iron Binding Capacity 70L, Percent Iron Saturation 116H, Unsaturated Iron Binding -11L, Ferritin 1903H , Total Bilirubin 0.6, Lactate Dehydrogenase 600H, Total Protein (PEP) [Pending] , Albumin (PEP) [Pending], Globulin (PEP) [Pending], Albumin/Globulin Ratio [ Pending], Imtld-1-Dyxugonsv [Pending], Fzlbz-6-Qjjsmoobf [Pending], Beta Globulins [Pending], Beta Gamma Globulin [Pending], PEP Abnormal Protein Bands [ Pending], Protein Electrophoresis Interpret [Pending], Methylmalonic Acid [ Pending], Folate 11.7, Heparin-PF4 Antibody Screen [Pending], Hepatitis A IgM Antibody [Pending], Hepatitis B Surface Antigen [Pending], Hepatitis B Core IgM Antibody [Pending], Hepatitis C Antibody [Pending], HIV (1&2) Antibody Rapid Negative 10/05/17 05:00: Random Vancomycin Level 28.1 Height (Feet): 5 Height (Inches): 2.00 Weight (Pounds): 156 Objective General Appearance: WD/WN, lethargic, confused Neck: supple Cardiovascular: normal rate, regular rhythm Respiratory/Chest: rhonchi - bilaterally Abdomen: normal bowel sounds, non tender, soft, no organomegaly Edema: no edema noted Arm (L), no edema noted Arm (R), no edema noted Leg (L), no edema noted Leg (R), no edema noted Pedal (L), no edema noted Pedal (R), no edema noted Generalized Neurologic: unresponsive KRYSTINA LENTZ Oct 05, 2017 09:47
--- NOTE | 2017-10-05 20:12 | Pulmonolgy Critical Care Note ---
Critical Care - Asmt/Plan Assessment/Plan: 1. Acute respiratory failure. 2. Possible sepsis with lactic acidosis and leukocytosis. 3. Severe dehydration with hypernatremia. 4. Hypokalemia. 5. Elevated liver enzymes. 6. Possible congestive heart failure. 7. Severe protein-calorie malnutrition. 8. Cachexia and inanition. 9. History of hypertension. 10.bacteremia 11. VAP pseudomonas PLAN: vent, wean as tolerated, most likely will need trach nebs and suction TF, aspiration precautions pressors to maintain map greater than 92% abx,last bc 09/28 negative wound care monitor uop CXR am prognosis poor Respiratory: monitor respiratory rate, CXR, ABG Cardiac: continue to monitor HR/BP Gastrointestinal: continue feedings/current rate Disposition: keep in ICU Time Spent (Minutes): 50 Critical Care - Objective Last 24 Hour Vital Signs Date Time Temp Pulse Resp B/P (MAP) Pulse Ox O2 Delivery O2 Flow Rate FiO2 10/05/17 19:00 106 34 116/46 96 Mechanical Ventilator 60 10/05/17 18:00 106 34 106/43 94 Mechanical Ventilator 60 10/05/17 17:22 103 38 70 10/05/17 16:00 103 10/05/17 16:00 60 10/05/17 16:00 97.7 102 34 118/46 94 Mechanical Ventilator 60 10/05/17 15:29 97 37 70 10/05/17 15:00 89 34 120/44 96 Mechanical Ventilator 60 10/05/17 14:00 94 36 108/43 96 Mechanical Ventilator 60 10/05/17 13:26 92 38 70 10/05/17 13:00 93 35 98/38 96 Mechanical Ventilator 60 10/05/17 12:00 98.2 91 35 88/48 91 Mechanical Ventilator 60 10/05/17 12:00 60 10/05/17 12:00 91 10/05/17 11:00 88 35 94/39 96 Mechanical Ventilator 60 10/05/17 10:45 89 36 70 10/05/17 10:00 96 34 94/43 96 Mechanical Ventilator 60 10/05/17 09:06 99 37 70 10/05/17 09:00 105 37 107/43 100 Mechanical Ventilator 60 10/05/17 09:00 95 107/48 10/05/17 08:00 60 10/05/17 08:00 104 10/05/17 08:00 97.5 104 34 121/42 95 Mechanical Ventilator 60 10/05/17 07:00 105 36 136/48 93 Mechanical Ventilator 60 10/05/17 06:50 16 34 70 10/05/17 06:00 106 36 115/42 93 Mechanical Ventilator 60 10/05/17 05:28 108 36 70 10/05/17 05:00 107 36 122/45 93 Mechanical Ventilator 60 10/05/17 04:00 97.4 101 36 133/43 93 Mechanical Ventilator 60 10/05/17 04:00 101 10/05/17 04:00 60 10/05/17 03:42 108 36 60 10/05/17 03:00 103 36 115/42 93 Mechanical Ventilator 60 10/05/17 02:00 103 36 129/40 95 Mechanical Ventilator 60 10/05/17 01:26 103 35 60 10/05/17 01:06 103 36 132/41 95 Mechanical Ventilator 60 10/05/17 00:00 97.5 103 36 138/40 93 Mechanical Ventilator 60 10/05/17 00:00 60 10/05/17 00:00 105 10/04/17 23:41 107 36 60 10/04/17 23:00 107 36 127/41 93 Mechanical Ventilator 60 10/04/17 22:00 107 36 127/41 93 Mechanical Ventilator 60 10/04/17 21:38 108 36 60 10/04/17 21:00 107 36 114/42 93 Mechanical Ventilator 60 10/04/17 21:00 107 36 127/41 93 Mechanical Ventilator 60 10/04/17 20:58 111 122/41 Status: obtunded Condition: critical Lungs: rhonchi Heart: HR/BP unstable Abdomen: soft, non-tender Extremities: edema Objective: Laboratory Tests Test 09/21/17 04:00 White Blood Count 9.8 K/UL (4.8-10.8) Red Blood Count 3.45 M/UL (4.20-5.40) L Hemoglobin 11.3 G/DL (12.0-16.0) L Hematocrit 34.2 % (37.0-47.0) L Mean Corpuscular Volume 99 FL (80-99) Mean Corpuscular Hemoglobin 32.7 PG (27.0-31.0) H Mean Corpuscular Hemoglobin Concent 33.0 G/DL (32.0-36.0) Red Cell Distribution Width 12.8 % (11.6-14.8) Platelet Count 83 K/UL (150-450) L Mean Platelet Volume 9.3 FL (6.5-10.1) Neutrophils (%) (Auto) % (45.0-75.0) Lymphocytes (%) (Auto) % (20.0-45.0) Monocytes (%) (Auto) % (1.0-10.0) Eosinophils (%) (Auto) % (0.0-3.0) Basophils (%) (Auto) % (0.0-2.0) Differential Total Cells Counted 100 Neutrophils % (Manual) 89 % (45-75) H Lymphocytes % (Manual) 8 % (20-45) L Monocytes % (Manual) 0 % (1-10) L Eosinophils % (Manual) 0 % (0-3) Basophils % (Manual) 0 % (0-2) Band Neutrophils 3 % (0-8) Platelet Estimate Decreased L Platelet Morphology Normal Red Blood Cell Morphology Normal Sodium Level 144 MMOL/L (136-145) Potassium Level 3.4 MMOL/L (3.5-5.1) L Chloride Level 113 MMOL/L (98-107) H Carbon Dioxide Level 24 MMOL/L (21-32) Anion Gap 7 mmol/L (5-15) Blood Urea Nitrogen 13 mg/dL (7-18) Creatinine 0.6 MG/DL (0.55-1.30) Estimat Glomerular Filtration Rate mL/min (>60) Glucose Level 200 MG/DL (74-106) H Calcium Level 6.7 MG/DL (8.5-10.1) L Current Medications Medications (Trade) Dose Ordered Sig/Lilly Route PRN Reason Start Time Stop Time Status Last Admin Dose Admin Acetaminophen (Tylenol) 650 mg EVERY 4 HOURS PRN ORAL fever/APGE 09/19/17 03:15 10/19/17 03:14 09/20/17 11:06 Albuterol/ Ipratropium (Albuterol/ Ipratropium) 3 ml Q6HRT HHN 09/19/17 07:00 09/24/17 06:59 09/21/17 18:58 Cefepime HCl 1 gm/ Dextrose 55 ml @ 110 mls/hr Q24H IVPB 09/21/17 09:00 09/26/17 08:59 09/21/17 09:54 Chlorhexidine Gluconate (Serena-Hex 2%) 1 applic DAILY@2000 TOPIC 09/20/17 20:00 10/20/17 19:59 09/21/17 20:37 Dextrose (Dextrose 50%) STAT PRN IV Hypoglycemia 09/19/17 12:30 10/19/17 12:29 Hydrocortisone (Solu-CORTEF) 100 mg EVERY 8 HOURS IV 09/20/17 14:00 10/20/17 13:59 09/21/17 14:42 Insulin Aspart (NovoLOG) Q6HR SUBQ 09/19/17 13:00 10/19/17 12:59 09/21/17 18:06 Lorazepam (Ativan) 0.5 mg TIDPRN PRN ORAL For Anxiety 09/20/17 16:15 09/27/17 16:14 09/20/17 22:13 Norepinephrine Bitartrate 8 mg/ Dextrose 250 ml @ 0 mls/hr Q24H IV 09/19/17 23:30 10/19/17 23:29 09/20/17 22:04 Pantoprazole (Protonix) 40 mg DAILY IVP 09/20/17 10:00 10/20/17 09:59 09/21/17 09:15 Potassium Chloride 20 meq/ Dextrose 1,010 ml @ 35 mls/hr Q24H IV 09/21/17 11:45 10/21/17 11:44 09/21/17 11:51 Vancomycin HCl (Vanco rx to dose) 1 ea DAILY PRN MISC Per rx protocol 09/19/17 03:15 10/19/17 03:14 Vancomycin/Sodium Chloride 250 ml @ 166.667 mls/hr Q24H IVPB 09/20/17 08:00 09/25/17 07:59 09/21/17 09:15 Accucheck: 183 Blood Sugars: BS not controlled Critical Care - Subjective ROS Limited/Unobtainable: Yes Condition: critical FI02: 60 Vent Support Breath Rate: 14 Vent Support Mode: AC Vent Tidal Volume: 450 Sputum Amount: Moderate PEEP: 5.0 PIP: 41 Tube Feeding Amount: 20 I&O: Intake and Output 10/04/17 10/05/17 19:00 07:00 Intake Total 270 ml 1050.0 ml Output Total 300 ml 412 ml Balance -30 ml 638.0 ml Intake Free Water 50 ml 50 ml IV Total 760.0 ml Tube Feeding 220 ml 240 ml Output Urine Total 300 ml 412 ml # Bowel Movements 3 4 Subjective: orally intubated on the vent my tachpnea and tachycardia today tolerating Tf does not follow commands for me positive uop no pressors at this time ET-Tube: 7.5 ET Position: 23 Labs: Current Medications Medications (Trade) Dose Ordered Sig/Lilly Route PRN Reason Start Time Stop Time Status Last Admin Dose Admin Acetaminophen (Tylenol) 650 mg EVERY 4 HOURS PRN ORAL fever/PAGE 09/19/17 03:15 10/19/17 03:14 10/03/17 08:19 Ciprofloxacin (Cipro 500mg tab) 500 mg EVERY 12 HOURS NG 10/05/17 09:00 10/12/17 08:59 10/05/17 09:00 Dextrose (Dextrose 50%) STAT PRN IV Hypoglycemia 09/19/17 12:30 10/19/17 12:29 Insulin Aspart (NovoLOG) Q6HR SUBQ 09/19/17 13:00 10/19/17 12:59 10/05/17 18:22 Metoprolol Tartrate (Lopressor) 25 mg Q12HR ORAL 09/27/17 22:15 10/27/17 22:14 10/05/17 09:00 Metronidazole 100 ml @ 100 mls/hr EVERY 8 HOURS IVPB 10/01/17 14:00 10/08/17 13:59 10/05/17 13:46 Morphine Sulfate (Morphine Sulfate) 1 mg Q4H PRN IVP For Pain 10/01/17 12:30 10/08/17 12:29 10/01/17 12:41 Pantoprazole (Protonix) 40 mg DAILY IVP 09/20/17 10:00 10/20/17 09:59 10/05/17 09:00 Sodium Chloride 1,000 ml @ 75 mls/hr [id number] IV 10/04/17 23:15 11/03/17 23:14 10/05/17 19:31 Vancomycin HCl (Vanco rx to dose) 1 ea DAILY PRN MISC Per rx protocol 09/19/17 03:15 10/19/17 03:14 Laboratory Tests Test 10/04/17 21:15 10/05/17 05:00 Hemoglobin A Pending Hemoglobin A2 Pending Hemoglobin C Pending Hemoglobin F () Pending Hemoglobin S Pending Variant Hemoglobin Pending Hemoglobin Electrophoresis Interp Pending Hemoglobin Interpretation Pending Hemoglobin Solubility Pending PTT Mixing Study Pending APTT Patient/Control Mix Pending Mix PTT Incubation Time Pending Mix PTT Normal/Saline 1:1 Immediate Pending Thrombin Time Normal Plasma Pending Lactic Acid Level 2.60 mmol/L (0.66-2.22) H Iron Level 81 ug/dL (50-175) Total Iron Binding Capacity 70 ug/dL (250-450) L Percent Iron Saturation 116 % (15-50) H Unsaturated Iron Binding -11 ug/dL (112-346) L Ferritin 1903 NG/ML (8-388) H Total Bilirubin 0.6 MG/DL (0.2-1.0) Lactate Dehydrogenase 600 U/L (81-234) H Total Protein (PEP) Pending Albumin (PEP) Pending Globulin (PEP) Pending Albumin/Globulin Ratio Pending Rgeam-1-Jblqeyaqs Pending Ppkpa-1-Hdgmpckob Pending Beta Globulins Pending Beta Gamma Globulin Pending PEP Abnormal Protein Bands Pending Protein Electrophoresis Interpret Pending Methylmalonic Acid Pending Folate 11.7 NG/ML (8.6-58.9) Heparin-PF4 Antibody Screen Pending Hepatitis A IgM Antibody Pending Hepatitis B Surface Antigen Pending Hepatitis B Core IgM Antibody Pending Hepatitis C Antibody Pending HIV (1&2) Antibody Rapid Negative (NEGATIVE) Random Vancomycin Level 28.1 ug/mL RAYNA WHITAKER DO Oct 05, 2017 20:12
[2017-10-06] VITALS (22 sets, daily range): BP systolic 94–134; BP diastolic 34–56
[2017-10-06] MEDS: NovoLOG Insulin Flexpen SUBQ SCH ×3 (06:05→18:53)
[2017-10-06 06:56] LABS: HEMATOCRIT 26.6 % (37.0-47.0); HEMOGLOBIN 8.9 G/DL (12.0-16.0); MEAN CORPUSCULAR VOLUME 98 FL (80-99); PLATELET COUNT 17 K/UL (150-450); RED BLOOD COUNT 2.72 M/UL (4.20-5.40); RED CELL DISTRIBUTION WIDTH 13.4 % (11.6-14.8); WHITE BLOOD COUNT 17.6 K/UL (4.8-10.8)
[2017-10-06 07:26] LABS: ALANINE AMINOTRANSFERASE 19 U/L (12-78); ALBUMIN 0.9 G/DL (3.4-5.0); ALBUMIN/GLOBULIN RATIO 0.2 (1.0-2.7); ALKALINE PHOSPHATASE 268 U/L (46-116); ANION GAP 9 mmol/L (5-15); ASPARTATE AMINO TRANSFERASE 39 U/L (15-37); BILIRUBIN,TOTAL 0.6 MG/DL (0.2-1.0); BLOOD UREA NITROGEN 63 mg/dL (7-18); CALCIUM 7.3 MG/DL (8.5-10.1); CARBON DIOXIDE 26 MMOL/L (21-32); CHLORIDE 106 MMOL/L (98-107); CREATININE 1.7 MG/DL (0.55-1.30); POTASSIUM 4.2 MMOL/L (3.5-5.1); SODIUM 141 MMOL/L (136-145)
--- NOTE | 2017-10-06 08:00 | Consultation ---
DATE OF CONSULTATION: 10/04/2017 HEMATOLOGY/ONCOLOGY CONSULTATION CONSULTING PHYSICIAN: Sadiq Mireles M.D. REQUESTING PHYSICIAN: Lupillo Navarrete M.D. REASON FOR CONSULTATION: Evaluation of thrombocytopenia. IDENTIFICATION: The patient is a pleasant 82-year-old female, currently in the ICU, who initially presented about two weeks ago under the care of Dr. Navarrete and Dr. Robbins with past medical history which is significant for senior care resident, hypertension, osteoporosis, dementia, and bullous pemphigoid. At this time, she presented with respiratory failure, fever, septic shock, lactic acidosis, hypertension, and placed on broad-spectrum antibiotics. Since that time, she has been in the hospital, getting antibiotics as per ID service, off pressors. At this time, off of pressors, ventilator being weaned, however, remained critically guarded and platelets have downtrended currently in the 20,000 range. Hematology service was consulted for further evaluation and treatment. PAST MEDICAL HISTORY: As per above. PAST SURGICAL HISTORY: None noted. MEDICATIONS: Reviewed. ALLERGIES: No known drug allergies. REVIEW OF SYSTEMS: Difficult to obtain as the patient is intubated. PHYSICAL EXAMINATION: GENERAL: Without any acute distress. VITAL SIGNS: Reviewed. PULMONARY: Decreased breath sounds. On vent. CARDIOVASCULAR: Regular rate except the patient is occasionally tachycardic that resolves spontaneously . EXTREMITIES: No cyanosis, swelling, or edema. LABORATORY DATA: WBC of 18,000, hemoglobin 9.8, hematocrit 29, and platelet count 26,000. The patient's platelet count since admission on 09/18/2017, and her platelet count has been recorded. She had platelet count of 133,000, now it has been currently down to 26,000. The patient is requiring platelet transfusion at this time. ASSESSMENT AND RECOMMENDATIONS: 1. Thrombocytopenia, secondary to septic shock. the patient's white blood cell count remains elevated at this time. Transfuse to platelet goal above 20,000. In addition, the patient did receive heparin. We will send HIT antibody test and hepatitis panel. I have reviewed ultrasound of abdomen and the patient does have potential for an infiltration/hepatocellular disease and in fact does have a spleen which is normal . We will order (disseminated intravascular coagulation) panel. 2. Anemia secondary to chronic disease with kidney function that is elevated. 3. Transaminitis. 4. Leukocytosis, likely secondary to sepsis, on antibiotics. 5. Respiratory failure, is on a ventilator, being weaned. 6. Sepsis, septic shock, currently improving. 7. The patient remains critically guarded in critical condition. I appreciate the consultation. Sadiq Mireles M.D. DR: ARIE JOB#: [id number] CC:
[2017-10-06] MEDS: Pantoprazole Inj IVP SCH (08:16)
[2017-10-06] MEDS: Ciprofloxacin 500mg tab NG SCH (08:16)
[2017-10-06] MEDS: Metoprolol 25mg tab ORAL SCH ×2 (09:00→20:44)
--- NOTE | 2017-10-06 09:11 | Diagnostic Imaging Report ---
Indication: Dyspnea Comparison: 09/29/2017 A single view chest radiograph was obtained. Findings: ET tube and NG tube unchanged in position. Extensive interstitial and confluent bilateral airspace opacities again noted with apparent worsening of findings in the left lung compared to the prior exam. Heart size and mediastinal contours are stable. There is no pneumothorax. IMPRESSION: Extensive interstitial and airspace opacities with interval worsening of aeration of the left lung compared to the prior exam. Findings suggest an alveolar filling process such as pulmonary edema, multifocal pneumonia and/or ARDS. Conical correlation recommended. Support lines/tubes unchanged.
--- NOTE | 2017-10-06 09:16 | General Progress Note ---
Assessment/Plan Problem List: (1) Dehydration ICD Codes: E86.0 - Dehydration SNOMED: 42810907 (2) Hypernatremia ICD Codes: E87.0 - Hyperosmolality and hypernatremia SNOMED: 39506363 (3) Malnutrition of moderate degree ICD Codes: E44.0 - Moderate protein-calorie malnutrition SNOMED: 127563065 (4) BOB (acute kidney injury) ICD Codes: N17.9 - Acute kidney failure, unspecified SNOMED: 81375288 (5) Sepsis ICD Codes: A41.9 - Sepsis, unspecified organism SNOMED: 74734900, 101514067 Qualifiers: Qualified Codes: A41.9 - Sepsis, unspecified organism (6) UTI (urinary tract infection) ICD Codes: N39.0 - Urinary tract infection, site not specified SNOMED: 54213985, 972769061 Qualifiers: Qualified Codes: N39.0 - Urinary tract infection, site not specified (7) Elevated troponin ICD Codes: R74.8 - Abnormal levels of other serum enzymes SNOMED: 762292862, 563231462 (8) DIC (disseminated intravascular coagulation) ICD Codes: D65 - Disseminated intravascular coagulation [defibrination syndrome ] SNOMED: 70942726 Status: stable, progressing Assessment/Plan iv abx per id follow up sputum cultures off pressors. monitor bp feeds as tolerated vent- wean as able transfuse plts- defer to heme heme eval pending poor prognosis dtrs aware critical and guarded Subjective ROS Limited/Unobtainable: No Constitutional: Reports: malaise, weakness HEENT: Reports: no symptoms Cardiovascular: Reports: no symptoms Respiratory: Reports: shortness of breath, sputum Gastrointestinal/Abdominal: Reports: no symptoms Genitourinary: Reports: no symptoms Neurologic/Psychiatric: Reports: pre-existing deficit Endocrine: Reports: no symptoms Hematologic/Lymphatic: Reports: anemia Allergies: Coded Allergies: No Known Allergies (Unverified , 09/18/17) All Systems: reviewed and negative except above Subjective no real change. remains on the vent. poorly responsive. decreased plts. noted,. no bleeding, Objective Last 24 Hour Vital Signs Date Time Temp Pulse Resp B/P (MAP) Pulse Ox O2 Delivery O2 Flow Rate FiO2 10/06/17 08:00 98.1 103 34 122/39 90 Mechanical Ventilator 70 10/06/17 08:00 70 10/06/17 07:00 103 36 124/42 92 Mechanical Ventilator 70 10/06/17 06:50 101 37 70 10/06/17 06:00 102 36 122/43 92 Mechanical Ventilator 70 10/06/17 05:30 91 36 70 10/06/17 05:00 91 36 101/37 92 Mechanical Ventilator 70 10/06/17 04:00 97.8 97 34 117/41 90 Mechanical Ventilator 70 10/06/17 04:00 95 10/06/17 04:00 70 10/06/17 03:30 90 32 70 10/06/17 03:00 91 36 102/35 91 Mechanical Ventilator 70 10/06/17 02:00 91 36 101/37 92 Mechanical Ventilator 70 10/06/17 01:30 95 34 70 10/06/17 01:00 97.8 94 34 94/35 94 Mechanical Ventilator 70 10/06/17 00:00 93 10/06/17 00:00 70 10/05/17 23:56 91 36 97/33 92 Mechanical Ventilator 70 10/05/17 23:16 94 38 70 10/05/17 23:00 94 34 78/38 94 Mechanical Ventilator 70 10/05/17 22:00 91 34 65/35 94 Mechanical Ventilator 70 10/05/17 21:30 101 36 70 10/05/17 21:00 102 34 80/41 94 Mechanical Ventilator 70 10/05/17 20:49 99 116/46 10/05/17 20:00 106 10/05/17 20:00 97.8 105 34 79/37 94 Mechanical Ventilator 70 10/05/17 20:00 70 10/05/17 19:30 99 37 70 10/05/17 19:00 106 34 116/46 96 Mechanical Ventilator 60 10/05/17 18:00 106 34 106/43 94 Mechanical Ventilator 60 10/05/17 17:22 103 38 70 10/05/17 16:00 103 10/05/17 16:00 60 10/05/17 16:00 97.7 102 34 118/46 94 Mechanical Ventilator 60 10/05/17 15:29 97 37 70 10/05/17 15:00 89 34 120/44 96 Mechanical Ventilator 60 10/05/17 14:00 94 36 108/43 96 Mechanical Ventilator 60 10/05/17 13:26 92 38 70 10/05/17 13:00 93 35 98/38 96 Mechanical Ventilator 60 10/05/17 12:00 98.2 91 35 88/48 91 Mechanical Ventilator 60 10/05/17 12:00 60 10/05/17 12:00 91 10/05/17 11:00 88 35 94/39 96 Mechanical Ventilator 60 10/05/17 10:45 89 36 70 10/05/17 10:00 96 34 94/43 96 Mechanical Ventilator 60 Intake and Output 10/05/17 10/06/17 19:00 07:00 Intake Total 940 ml 1250 ml Output Total 480 ml 205 ml Balance 460 ml 1045 ml Intake Free Water 100 ml IV Total 600 ml 950 ml Tube Feeding 240 ml 240 ml Other 60 ml Output Urine Total 480 ml 205 ml # Bowel Movements 3 Laboratory Tests 10/06/17 06:20: White Blood Count 17.6H, Red Blood Count 2.72L, Hemoglobin 8.9L, Hematocrit 26.6L, Mean Corpuscular Volume 98, Mean Corpuscular Hemoglobin 32.8H, Mean Corpuscular Hemoglobin Concent 33.6, Red Cell Distribution Width 13.4, Platelet Count 17L, Mean Platelet Volume 15.0H, Neutrophils (%) (Auto) , Lymphocytes (%) (Auto) , Monocytes (%) (Auto) , Eosinophils (%) (Auto) , Basophils (%) (Auto) , Differential Total Cells Counted 100, Neutrophils % (Manual) 79H, Lymphocytes % (Manual) 13L, Monocytes % (Manual) 4, Eosinophils % (Manual) 0, Basophils % ( Manual) 0, Band Neutrophils 4, Nucleated Red Blood Cells 4, Platelet Estimate DecreasedL, Platelet Morphology Normal, Polychromasia 1+, Hypochromasia 1+, Sodium Level 141, Potassium Level 4.2, Chloride Level 106, Carbon Dioxide Level 26, Anion Gap 9, Blood Urea Nitrogen 63H, Creatinine 1.7H, Estimat Glomerular Filtration Rate , Glucose Level 165H, Calcium Level 7.3L, Total Bilirubin 0.6, Aspartate Amino Transf (AST/SGOT) 39H, Alanine Aminotransferase (ALT/SGPT) 19, Alkaline Phosphatase 268H, Total Protein 5.5L, Albumin 0.9L, Globulin 4.6, Albumin/Globulin Ratio 0.2L Height (Feet): 5 Height (Inches): 2.00 Weight (Pounds): 155 Objective General Appearance: WD/WN, lethargic, confused Neck: supple Cardiovascular: normal rate, regular rhythm Respiratory/Chest: rhonchi - bilaterally Abdomen: normal bowel sounds, non tender, soft, no organomegaly Edema: no edema noted Arm (L), no edema noted Arm (R), no edema noted Leg (L), no edema noted Leg (R), no edema noted Pedal (L), no edema noted Pedal (R), no edema noted Generalized Neurologic: unresponsive KRYSTINA LENTZ Oct 06, 2017 09:16
--- NOTE | 2017-10-06 12:00 | Progress Note ---
DATE: 10/05/2017 CARDIOLOGY PROGRESS NOTE SUBJECTIVE: The patient remains in the intensive care unit, remains on ventilator support and has not been weanable. Blood pressure parameters are stabilizing, but tenuous. She is on broad-spectrum antibiotics. Repeat cultures remain negative. OBJECTIVE: VITAL SIGNS: Blood pressure 116/46, pulse 106, respiratory rate 34, and afebrile, orally intubated. LUNGS: Coarse breath sounds with rhonchi. HEART: Regular rhythm. Rapid rate. Normal S1 and S2. ABDOMEN: Soft. EXTREMITIES: Dependent edema. LABORATORY DATA: Laboratories pending. IMPRESSION: 1. Sepsis with shock. 2. Respiratory failure. 3. Anemia. 4. Bacteremia. 5. Possible endocarditis. 6. Acute myocardial infarction. 7. Acute on chronic renal failure, now improved. PLAN: 1. Antimicrobials. 2. Weaning efforts. 3. Avoid pressors. 4. Tapered already off. 5. Do not resume. 6. Fluid challenge as needed. 7. DVT and stress ulcer prophylaxis. 8. Skin care. 9. We will likely need trach. 10. Consider transesophageal echocardiogram for recurring bacteremia. Gabrielle Rolle JOB#: [id number] CC:
--- NOTE | 2017-10-06 13:07 | Pulmonology Progress Note ---
Assessment/Plan Assessment/Plan IMPRESSION: 1. Septic shock, resolved 2. Respiratory failure, on vent 3. Sepsis, likely skin source. 4. Severe dehydration with hypernatremia, improved 5. Dementia. 6. History of hypertension. 7. 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 8. Severe thrombocytopenia, anemia doing poorly, RR 40 at my visit continued sepsis abx cannot wean prognosis poor favor comfort care Subjective ROS Limited/Unobtainable: Yes Allergies: Coded Allergies: No Known Allergies (Unverified , 09/18/17) Objective Last 24 Hour Vital Signs Date Time Temp Pulse Resp B/P (MAP) Pulse Ox O2 Delivery O2 Flow Rate FiO2 10/06/17 13:03 111 37 70 10/06/17 12:00 70 10/06/17 12:00 98.5 107 30 112/40 92 Mechanical Ventilator 70 10/06/17 12:00 105 10/06/17 11:00 103 32 94/37 91 Mechanical Ventilator 70 10/06/17 10:58 105 37 70 10/06/17 10:00 104 32 105/39 91 Mechanical Ventilator 70 10/06/17 09:31 101 37 70 10/06/17 09:00 105 36 99/34 91 Mechanical Ventilator 70 10/06/17 09:00 103 99/34 10/06/17 08:00 71 10/06/17 08:00 98.1 103 34 122/39 90 Mechanical Ventilator 70 10/06/17 08:00 70 10/06/17 07:00 103 36 124/42 92 Mechanical Ventilator 70 10/06/17 06:50 101 37 70 10/06/17 06:00 102 36 122/43 92 Mechanical Ventilator 70 10/06/17 05:30 91 36 70 10/06/17 05:00 91 36 101/37 92 Mechanical Ventilator 70 10/06/17 04:00 97.8 97 34 117/41 90 Mechanical Ventilator 70 10/06/17 04:00 95 10/06/17 04:00 70 10/06/17 03:30 90 32 70 10/06/17 03:00 91 36 102/35 91 Mechanical Ventilator 70 10/06/17 02:00 91 36 101/37 92 Mechanical Ventilator 70 10/06/17 01:30 95 34 70 10/06/17 01:00 97.8 94 34 94/35 94 Mechanical Ventilator 70 10/06/17 00:00 93 10/06/17 00:00 70 10/05/17 23:56 91 36 97/33 92 Mechanical Ventilator 70 10/05/17 23:16 94 38 70 10/05/17 23:00 94 34 78/38 94 Mechanical Ventilator 70 10/05/17 22:00 91 34 65/35 94 Mechanical Ventilator 70 10/05/17 21:30 101 36 70 10/05/17 21:00 102 34 80/41 94 Mechanical Ventilator 70 10/05/17 20:49 99 116/46 10/05/17 20:00 106 10/05/17 20:00 97.8 105 34 79/37 94 Mechanical Ventilator 70 10/05/17 20:00 70 10/05/17 19:30 99 37 70 10/05/17 19:00 106 34 116/46 96 Mechanical Ventilator 60 10/05/17 18:00 106 34 106/43 94 Mechanical Ventilator 60 10/05/17 17:22 103 38 70 10/05/17 16:00 103 10/05/17 16:00 60 10/05/17 16:00 97.7 102 34 118/46 94 Mechanical Ventilator 60 10/05/17 15:29 97 37 70 10/05/17 15:00 89 34 120/44 96 Mechanical Ventilator 60 10/05/17 14:00 94 36 108/43 96 Mechanical Ventilator 60 10/05/17 13:26 92 38 70 Intake and Output 10/05/17 10/06/17 19:00 07:00 Intake Total 940 ml 1250 ml Output Total 480 ml 205 ml Balance 460 ml 1045 ml Intake Free Water 100 ml IV Total 600 ml 950 ml Tube Feeding 240 ml 240 ml Other 60 ml Output Urine Total 480 ml 205 ml # Bowel Movements 3 HEENT: atraumatic Respiratory/Chest: respiratory distress, crackles/rales Cardiovascular: tachycardia Laboratory Tests 10/06/17 06:20: White Blood Count 17.6H, Red Blood Count 2.72L, Hemoglobin 8.9L, Hematocrit 26.6L, Mean Corpuscular Volume 98, Mean Corpuscular Hemoglobin 32.8H, Mean Corpuscular Hemoglobin Concent 33.6, Red Cell Distribution Width 13.4, Platelet Count 17L, Mean Platelet Volume 15.0H, Neutrophils (%) (Auto) , Lymphocytes (%) (Auto) , Monocytes (%) (Auto) , Eosinophils (%) (Auto) , Basophils (%) (Auto) , Differential Total Cells Counted 100, Neutrophils % (Manual) 79H, Lymphocytes % (Manual) 13L, Monocytes % (Manual) 4, Eosinophils % (Manual) 0, Basophils % ( Manual) 0, Band Neutrophils 4, Nucleated Red Blood Cells 4, Platelet Estimate DecreasedL, Platelet Morphology Normal, Polychromasia 1+, Hypochromasia 1+, Sodium Level 141, Potassium Level 4.2, Chloride Level 106, Carbon Dioxide Level 26, Anion Gap 9, Blood Urea Nitrogen 63H, Creatinine 1.7H, Estimat Glomerular Filtration Rate , Glucose Level 165H, Calcium Level 7.3L, Total Bilirubin 0.6, Aspartate Amino Transf (AST/SGOT) 39H, Alanine Aminotransferase (ALT/SGPT) 19, Alkaline Phosphatase 268H, Total Protein 5.5L, Albumin 0.9L, Globulin 4.6, Albumin/Globulin Ratio 0.2L Current Medications Medications (Trade) Dose Ordered Sig/Lilly Route PRN Reason Start Time Stop Time Status Last Admin Dose Admin Acetaminophen (Tylenol) 650 mg EVERY 4 HOURS PRN ORAL fever/PAGE 09/19/17 03:15 10/19/17 03:14 10/03/17 08:19 Ciprofloxacin (Cipro 500mg tab) 500 mg DAILY NG 10/07/17 09:00 10/14/17 08:59 Dextrose (Dextrose 50%) STAT PRN IV Hypoglycemia 09/19/17 12:30 10/19/17 12:29 Insulin Aspart (NovoLOG) Q6HR SUBQ 09/19/17 13:00 10/19/17 12:59 10/06/17 12:35 Metoprolol Tartrate (Lopressor) 25 mg Q12HR ORAL 09/27/17 22:15 10/27/17 22:14 10/05/17 20:49 Metronidazole 100 ml @ 100 mls/hr EVERY 8 HOURS IVPB 10/01/17 14:00 10/08/17 13:59 10/06/17 06:01 Morphine Sulfate (Morphine Sulfate) 1 mg Q4H PRN IVP For Pain 10/01/17 12:30 10/08/17 12:29 10/01/17 12:41 Pantoprazole (Protonix) 40 mg DAILY IVP 09/20/17 10:00 10/20/17 09:59 10/06/17 08:16 Sodium Chloride 1,000 ml @ 50 mls/hr Q20H IV 10/06/17 09:30 11/05/17 09:29 10/06/17 09:45 Vancomycin HCl (Vanco rx to dose) 1 ea DAILY PRN MISC Per rx protocol 09/19/17 03:15 10/19/17 03:14 SAMANTHA GIVENS Oct 06, 2017 13:07
--- NOTE | 2017-10-06 15:49 | Infectious Diseases Prog Note ---
Assessment/Plan Assessment/Plan A 1. e.coli UTI s/p Rx 2. pneumonia with Enterobacter & Pseudomonas 3. coag neg staph sepsis, MRSA sepsis s/p catheter removal 4. Hypoxic respiratory failure 5. fever,resolved 6. Elevated transaminase improving 7. Pulmonary HPN 8. Anemia P 1. continue vancomycin iv,Flagyl &Ciprofloxacin Subjective ROS Limited/Unobtainable: Yes Allergies: Coded Allergies: No Known Allergies (Unverified , 09/18/17) Objective Vital Signs Last 24 Hour Vital Signs Date Time Temp Pulse Resp B/P (MAP) Pulse Ox O2 Delivery O2 Flow Rate FiO2 10/06/17 15:03 114 37 70 10/06/17 14:00 113 27 107/39 92 Mechanical Ventilator 70 10/06/17 13:03 111 37 70 10/06/17 13:00 102 28 102/37 92 Mechanical Ventilator 70 10/06/17 12:00 70 10/06/17 12:00 98.5 107 30 112/40 92 Mechanical Ventilator 70 10/06/17 12:00 105 10/06/17 11:00 103 32 94/37 91 Mechanical Ventilator 70 10/06/17 10:58 105 37 70 10/06/17 10:00 104 32 105/39 91 Mechanical Ventilator 70 10/06/17 09:31 101 37 70 10/06/17 09:00 105 36 99/34 91 Mechanical Ventilator 70 10/06/17 09:00 103 99/34 10/06/17 08:00 71 10/06/17 08:00 98.1 103 34 122/39 90 Mechanical Ventilator 70 10/06/17 08:00 70 10/06/17 07:00 103 36 124/42 92 Mechanical Ventilator 70 10/06/17 06:50 101 37 70 10/06/17 06:00 102 36 122/43 92 Mechanical Ventilator 70 10/06/17 05:30 91 36 70 10/06/17 05:00 91 36 101/37 92 Mechanical Ventilator 70 10/06/17 04:00 97.8 97 34 117/41 90 Mechanical Ventilator 70 10/06/17 04:00 95 10/06/17 04:00 70 10/06/17 03:30 90 32 70 10/06/17 03:00 91 36 102/35 91 Mechanical Ventilator 70 10/06/17 02:00 91 36 101/37 92 Mechanical Ventilator 70 10/06/17 01:30 95 34 70 10/06/17 01:00 97.8 94 34 94/35 94 Mechanical Ventilator 70 10/06/17 00:00 93 10/06/17 00:00 70 10/05/17 23:56 91 36 97/33 92 Mechanical Ventilator 70 10/05/17 23:16 94 38 70 10/05/17 23:00 94 34 78/38 94 Mechanical Ventilator 70 10/05/17 22:00 91 34 65/35 94 Mechanical Ventilator 70 10/05/17 21:30 101 36 70 10/05/17 21:00 102 34 80/41 94 Mechanical Ventilator 70 10/05/17 20:49 99 116/46 10/05/17 20:00 106 10/05/17 20:00 97.8 105 34 79/37 94 Mechanical Ventilator 70 10/05/17 20:00 70 10/05/17 19:30 99 37 70 10/05/17 19:00 106 34 116/46 96 Mechanical Ventilator 60 10/05/17 18:00 106 34 106/43 94 Mechanical Ventilator 60 10/05/17 17:22 103 38 70 10/05/17 16:00 103 10/05/17 16:00 60 10/05/17 16:00 97.7 102 34 118/46 94 Mechanical Ventilator 60 Height (Feet): 5 Height (Inches): 2.00 Weight (Pounds): 155 HEENT: other - orally intubated Respiratory/Chest: lungs clear, other - on ventilator, tachypneic Abdomen: soft, non tender, other - NG tube Extremities: other Neurologic/Psychiatric: unresponsiveness Laboratory Tests Test 10/06/17 06:20 White Blood Count 17.6 K/UL (4.8-10.8) H Red Blood Count 2.72 M/UL (4.20-5.40) L Hemoglobin 8.9 G/DL (12.0-16.0) L Hematocrit 26.6 % (37.0-47.0) L Mean Corpuscular Volume 98 FL (80-99) Mean Corpuscular Hemoglobin 32.8 PG (27.0-31.0) H Mean Corpuscular Hemoglobin Concent 33.6 G/DL (32.0-36.0) Red Cell Distribution Width 13.4 % (11.6-14.8) Platelet Count 17 K/UL (150-450) L Mean Platelet Volume 15.0 FL (6.5-10.1) H Neutrophils (%) (Auto) % (45.0-75.0) Lymphocytes (%) (Auto) % (20.0-45.0) Monocytes (%) (Auto) % (1.0-10.0) Eosinophils (%) (Auto) % (0.0-3.0) Basophils (%) (Auto) % (0.0-2.0) Differential Total Cells Counted 100 Neutrophils % (Manual) 79 % (45-75) H Lymphocytes % (Manual) 13 % (20-45) L Monocytes % (Manual) 4 % (1-10) Eosinophils % (Manual) 0 % (0-3) Basophils % (Manual) 0 % (0-2) Band Neutrophils 4 % (0-8) Nucleated Red Blood Cells 4 /100 WBC Platelet Estimate Decreased L Platelet Morphology Normal Polychromasia 1+ Hypochromasia 1+ Sodium Level 141 MMOL/L (136-145) Potassium Level 4.2 MMOL/L (3.5-5.1) Chloride Level 106 MMOL/L (98-107) Carbon Dioxide Level 26 MMOL/L (21-32) Anion Gap 9 mmol/L (5-15) Blood Urea Nitrogen 63 mg/dL (7-18) H Creatinine 1.7 MG/DL (0.55-1.30) H Estimat Glomerular Filtration Rate mL/min (>60) Glucose Level 165 MG/DL (74-106) H Calcium Level 7.3 MG/DL (8.5-10.1) L Total Bilirubin 0.6 MG/DL (0.2-1.0) Aspartate Amino Transf (AST/SGOT) 39 U/L (15-37) H Alanine Aminotransferase (ALT/SGPT) 19 U/L (12-78) Alkaline Phosphatase 268 U/L (46-116) H Total Protein 5.5 G/DL (6.4-8.2) L Albumin 0.9 G/DL (3.4-5.0) L Globulin 4.6 g/dL Albumin/Globulin Ratio 0.2 (1.0-2.7) L Current Medications Medications (Trade) Dose Ordered Sig/Lilly Route PRN Reason Start Time Stop Time Status Last Admin Dose Admin Acetaminophen (Tylenol) 650 mg EVERY 4 HOURS PRN ORAL fever/PAGE 09/19/17 03:15 10/19/17 03:14 10/03/17 08:19 Ciprofloxacin (Cipro 500mg tab) 500 mg DAILY NG 10/07/17 09:00 10/14/17 08:59 Dextrose (Dextrose 50%) STAT PRN IV Hypoglycemia 09/19/17 12:30 10/19/17 12:29 Insulin Aspart (NovoLOG) Q6HR SUBQ 09/19/17 13:00 10/19/17 12:59 10/06/17 12:35 Metoprolol Tartrate (Lopressor) 25 mg Q12HR ORAL 09/27/17 22:15 10/27/17 22:14 10/05/17 20:49 Metronidazole 100 ml @ 100 mls/hr EVERY 8 HOURS IVPB 10/01/17 14:00 10/08/17 13:59 10/06/17 14:22 Morphine Sulfate (Morphine Sulfate) 1 mg Q4H PRN IVP For Pain 10/01/17 12:30 10/08/17 12:29 10/01/17 12:41 Pantoprazole (Protonix) 40 mg DAILY IVP 09/20/17 10:00 10/20/17 09:59 10/06/17 08:16 Sodium Chloride 1,000 ml @ 50 mls/hr Q20H IV 10/06/17 09:30 11/05/17 09:29 10/06/17 09:45 Vancomycin HCl (Vanco rx to dose) 1 ea DAILY PRN MISC Per rx protocol 09/19/17 03:15 10/19/17 03:14 KIMI VILLA Oct 06, 2017 15:49
[2017-10-07] VITALS (10 sets, daily range): BP systolic 72–115; BP diastolic 35–43
[2017-10-07] MEDS: NovoLOG Insulin Flexpen SUBQ SCH ×2 (00:19→06:03)
--- NOTE | 2017-10-07 01:25 | General Progress Note ---
Assessment/Plan Assessment/Plan #. Thrombocytopenia, secondary to septic shock. --> WBC count elevated. --> Transfuse to platelet goal above 20,000. Pending transfusion. -->The patient is on heparin. --> We will send HIT antibody test and hepatitis panel. I have reviewed ultrasound of abdomen and the patient does have potential for an infiltration/ hepatocellular disease and in fact does have a spleen which is normal. We will order (disseminated intravascular coagulation) panel. #. Anemia secondary to chronic disease with decreased kidney function that is elevated. #. Transaminitis. #. Leukocytosis, likely secondary to sepsis, on antibiotics. #. Respiratory failure, is on a ventilator, being weaned. #. Sepsis, septic shock, currently improving. #. The patient remains critically guarded in critical condition. Subjective Date patient seen: Oct 05, 2017 Constitutional: Denies: no symptoms, chills, diaphoresis, fever, malaise, weakness, other HEENT: Denies: no symptoms, eye pain, blurred vision, tearing, double vision, ear pain, ear discharge, nose pain, nose congestion, throat pain, throat swelling, mouth pain, mouth swelling, other Cardiovascular: Denies: no symptoms, chest pain, edema, irregular heart rate, lightheadedness, palpitations, syncope, other Respiratory: Denies: no symptoms, cough, orthopnea, shortness of breath, SOB with excertion, SOB at rest, sputum, stridor, wheezing, other Gastrointestinal/Abdominal: Denies: no symptoms, abdomen distended, abdominal pain, black stools, tarry stools, blood in stool, constipated, diarrhea, difficulty swallowing, nausea, poor appetite, poor fluid intake, rectal bleeding , vomiting, other Genitourinary: Denies: no symptoms, burning, discharge, frequency, flank pain, hematuria, incontinence, pain, urgency, other Neurologic/Psychiatric: Denies: no symptoms, anxiety, depressed, emotional problems, headache, numbness, paresthesia, pre-existing deficit, seizure, tingling, tremors, weakness, other Allergies: Coded Allergies: No Known Allergies (Unverified , 09/18/17) Subjective Leukocytosis. Patient on antibiotics. Objective Last 24 Hour Vital Signs Date Time Temp Pulse Resp B/P (MAP) Pulse Ox O2 Delivery O2 Flow Rate FiO2 10/07/17 00:00 110 30 115/37 92 Mechanical Ventilator 70 1/15/18 23:19 106 37 70 10/06/17 23:00 105 30 112/56 92 Mechanical Ventilator 70 10/06/17 21:27 112 20 70 10/06/17 21:01 111 30 104/39 92 Mechanical Ventilator 70 103 10/06/17 20:44 111 127/42 10/06/17 20:00 97.0 115 23 127/45 92 Mechanical Ventilator 70 10/06/17 20:00 115 10/06/17 20:00 70 10/06/17 19:04 113 40 70 10/06/17 19:00 111 23 123/43 92 Mechanical Ventilator 70 10/06/17 18:00 113 22 128/44 91 Mechanical Ventilator 70 10/06/17 17:15 113 38 70 10/06/17 17:00 114 26 134/48 92 Mechanical Ventilator 70 10/06/17 16:00 70 10/06/17 16:00 114 10/06/17 16:00 98.7 114 25 120/43 93 Mechanical Ventilator 70 10/06/17 15:03 114 37 70 10/06/17 15:00 114 26 120/40 93 Mechanical Ventilator 70 10/06/17 14:00 113 27 107/39 92 Mechanical Ventilator 70 10/06/17 13:03 111 37 70 10/06/17 13:00 102 28 102/37 92 Mechanical Ventilator 70 10/06/17 12:00 70 10/06/17 12:00 98.5 107 30 112/40 92 Mechanical Ventilator 70 10/06/17 12:00 105 10/06/17 11:00 103 32 94/37 91 Mechanical Ventilator 70 10/06/17 10:58 105 37 70 10/06/17 10:00 104 32 105/39 91 Mechanical Ventilator 70 10/06/17 09:31 101 37 70 10/06/17 09:00 105 36 99/34 91 Mechanical Ventilator 70 10/06/17 09:00 103 99/34 10/06/17 08:00 71 10/06/17 08:00 98.1 103 34 122/39 90 Mechanical Ventilator 70 10/06/17 08:00 70 10/06/17 07:00 103 36 124/42 92 Mechanical Ventilator 70 10/06/17 06:50 101 37 70 10/06/17 06:00 102 36 122/43 92 Mechanical Ventilator 70 10/06/17 05:30 91 36 70 10/06/17 05:00 91 36 101/37 92 Mechanical Ventilator 70 10/06/17 04:00 97.8 97 34 117/41 90 Mechanical Ventilator 70 10/06/17 04:00 95 10/06/17 04:00 70 10/06/17 03:30 90 32 70 10/06/17 03:00 91 36 102/35 91 Mechanical Ventilator 70 10/06/17 02:00 91 36 101/37 92 Mechanical Ventilator 70 10/06/17 01:30 95 34 70 Intake and Output 10/06/17 10/07/17 19:00 07:00 Intake Total 290 ml 380 ml Output Total 165 ml 70 ml Balance 125 ml 310 ml IV Total 50 ml 300 ml Tube Feeding 240 ml 80 ml Output Urine Total 165 ml 70 ml # Bowel Movements 1 3 Labs Test 10/04/17 05:15 10/04/17 14:00 10/04/17 21:15 10/05/17 05:00 White Blood Count 18.2 K/UL (4.8-10.8) Red Blood Count 2.95 M/UL (4.20-5.40) Hemoglobin 9.8 G/DL (12.0-16.0) Hematocrit 29.0 % (37.0-47.0) Mean Corpuscular Volume 98 FL (80-99) Mean Corpuscular Hemoglobin 33.2 PG (27.0-31.0) Mean Corpuscular Hemoglobin Concent 33.8 G/DL (32.0-36.0) Red Cell Distribution Width 12.8 % (11.6-14.8) Platelet Count 26 K/UL (150-450) Mean Platelet Volume 12.5 FL (6.5-10.1) Neutrophils (%) (Auto) % (45.0-75.0) Lymphocytes (%) (Auto) % (20.0-45.0) Monocytes (%) (Auto) % (1.0-10.0) Eosinophils (%) (Auto) % (0.0-3.0) Basophils (%) (Auto) % (0.0-2.0) Differential Total Cells Counted 100 Neutrophils % (Manual) 88 % (45-75) Lymphocytes % (Manual) 3 % (20-45) Monocytes % (Manual) 3 % (1-10) Eosinophils % (Manual) 0 % (0-3) Basophils % (Manual) 0 % (0-2) Band Neutrophils 6 % (0-8) Nucleated Red Blood Cells 1 /100 WBC Platelet Estimate Decreased Platelet Morphology Normal Polychromasia 1+ Hypochromasia 1+ Fibrinogen 371 mg/dL (200-400) Sodium Level 140 MMOL/L (136-145) Potassium Level 4.2 MMOL/L (3.5-5.1) Chloride Level 105 MMOL/L (98-107) Carbon Dioxide Level 29 MMOL/L (21-32) Anion Gap 6 mmol/L (5-15) Blood Urea Nitrogen 56 mg/dL (7-18) Creatinine 1.5 MG/DL (0.55-1.30) Estimat Glomerular Filtration Rate mL/min (>60) Glucose Level 170 MG/DL (74-106) Calcium Level 7.7 MG/DL (8.5-10.1) Total Bilirubin 0.7 MG/DL (0.2-1.0) 0.6 MG/DL (0.2-1.0) Aspartate Amino Transf (AST/SGOT) 39 U/L (15-37) Alanine Aminotransferase (ALT/SGPT) 30 U/L (12-78) Alkaline Phosphatase 240 U/L (46-116) Total Protein 5.7 G/DL (6.4-8.2) Albumin 1.0 G/DL (3.4-5.0) Globulin 4.7 g/dL Albumin/Globulin Ratio 0.2 (1.0-2.7) Vancomycin Level Trough 31.0 ug/mL (5.0-12.0) Lactic Acid Level 2.60 mmol/L (0.66-2.22) Iron Level 81 ug/dL (50-175) Total Iron Binding Capacity 70 ug/dL (250-450) Percent Iron Saturation 116 % (15-50) Unsaturated Iron Binding -11 ug/dL (112-346) Ferritin 1903 NG/ML (8-388) Lactate Dehydrogenase 600 U/L (81-234) Folate 11.7 NG/ML (8.6-58.9) Hepatitis A IgM Antibody Negative (Negative) Hepatitis B Surface Antigen Negative (Negative) Hepatitis B Core IgM Antibody Negative (Negative) Hepatitis C Antibody 0.2 s/co ratio (0.0-0.9) HIV (1&2) Antibody Rapid Negative (NEGATIVE) Random Vancomycin Level 28.1 ug/mL Test 10/06/17 06:20 White Blood Count 17.6 K/UL (4.8-10.8) Red Blood Count 2.72 M/UL (4.20-5.40) Hemoglobin 8.9 G/DL (12.0-16.0) Hematocrit 26.6 % (37.0-47.0) Mean Corpuscular Volume 98 FL (80-99) Mean Corpuscular Hemoglobin 32.8 PG (27.0-31.0) Mean Corpuscular Hemoglobin Concent 33.6 G/DL (32.0-36.0) Red Cell Distribution Width 13.4 % (11.6-14.8) Platelet Count 17 K/UL (150-450) Mean Platelet Volume 15.0 FL (6.5-10.1) Neutrophils (%) (Auto) % (45.0-75.0) Lymphocytes (%) (Auto) % (20.0-45.0) Monocytes (%) (Auto) % (1.0-10.0) Eosinophils (%) (Auto) % (0.0-3.0) Basophils (%) (Auto) % (0.0-2.0) Differential Total Cells Counted 100 Neutrophils % (Manual) 79 % (45-75) Lymphocytes % (Manual) 13 % (20-45) Monocytes % (Manual) 4 % (1-10) Eosinophils % (Manual) 0 % (0-3) Basophils % (Manual) 0 % (0-2) Band Neutrophils 4 % (0-8) Nucleated Red Blood Cells 4 /100 WBC Platelet Estimate Decreased Platelet Morphology Normal Polychromasia 1+ Hypochromasia 1+ Sodium Level 141 MMOL/L (136-145) Potassium Level 4.2 MMOL/L (3.5-5.1) Chloride Level 106 MMOL/L (98-107) Carbon Dioxide Level 26 MMOL/L (21-32) Anion Gap 9 mmol/L (5-15) Blood Urea Nitrogen 63 mg/dL (7-18) Creatinine 1.7 MG/DL (0.55-1.30) Estimat Glomerular Filtration Rate mL/min (>60) Glucose Level 165 MG/DL (74-106) Calcium Level 7.3 MG/DL (8.5-10.1) Total Bilirubin 0.6 MG/DL (0.2-1.0) Aspartate Amino Transf (AST/SGOT) 39 U/L (15-37) Alanine Aminotransferase (ALT/SGPT) 19 U/L (12-78) Alkaline Phosphatase 268 U/L (46-116) Total Protein 5.5 G/DL (6.4-8.2) Albumin 0.9 G/DL (3.4-5.0) Globulin 4.6 g/dL Albumin/Globulin Ratio 0.2 (1.0-2.7) Laboratory Tests 10/06/17 06:20: White Blood Count 17.6H, Red Blood Count 2.72L, Hemoglobin 8.9L, Hematocrit 26.6L, Mean Corpuscular Volume 98, Mean Corpuscular Hemoglobin 32.8H, Mean Corpuscular Hemoglobin Concent 33.6, Red Cell Distribution Width 13.4, Platelet Count 17L, Mean Platelet Volume 15.0H, Neutrophils (%) (Auto) , Lymphocytes (%) (Auto) , Monocytes (%) (Auto) , Eosinophils (%) (Auto) , Basophils (%) (Auto) , Differential Total Cells Counted 100, Neutrophils % (Manual) 79H, Lymphocytes % (Manual) 13L, Monocytes % (Manual) 4, Eosinophils % (Manual) 0, Basophils % ( Manual) 0, Band Neutrophils 4, Nucleated Red Blood Cells 4, Platelet Estimate DecreasedL, Platelet Morphology Normal, Polychromasia 1+, Hypochromasia 1+, Sodium Level 141, Potassium Level 4.2, Chloride Level 106, Carbon Dioxide Level 26, Anion Gap 9, Blood Urea Nitrogen 63H, Creatinine 1.7H, Estimat Glomerular Filtration Rate , Glucose Level 165H, Calcium Level 7.3L, Total Bilirubin 0.6, Aspartate Amino Transf (AST/SGOT) 39H, Alanine Aminotransferase (ALT/SGPT) 19, Alkaline Phosphatase 268H, Total Protein 5.5L, Albumin 0.9L, Globulin 4.6, Albumin/Globulin Ratio 0.2L Height (Feet): 5 Height (Inches): 2.00 Weight (Pounds): 155 Sadiq Mireles Oct 07, 2017 01:25
--- NOTE | 2017-10-07 01:57 | General Progress Note ---
Assessment/Plan Status: unchanged Assessment/Plan #. Leukocytosis, likely secondary to sepsis, --> on antibiotics. --> Monitor cbc daily. #. Thrombocytopenia, secondary to septic shock. --> WBC count elevated. --> Transfuse to platelet goal above 20,000. Pending transfusion. -->The patient is on heparin. --> HIV and Hep panel negative. --> I have reviewed ultrasound of abdomen and the patient does have potential for an infiltration/hepatocellular disease and in fact does have a spleen which is normal. We will order (disseminated intravascular coagulation) panel. #. Anemia secondary to chronic disease with decreased kidney function that is elevated. --> HGB goal >7 #. Transaminitis. #. Respiratory failure, is on a ventilator, being weaned. --> Chest xray revealed possible pulmonary edema or multifocal pneumonia. #. Sepsis, septic shock, currently improving. #. The patient remains critically guarded in critical condition. Subjective Date patient seen: Oct 06, 2017 Constitutional: Denies: no symptoms, chills, diaphoresis, fever, malaise, weakness, other HEENT: Denies: no symptoms, eye pain, blurred vision, tearing, double vision, ear pain, ear discharge, nose pain, nose congestion, throat pain, throat swelling, mouth pain, mouth swelling, other Cardiovascular: Denies: no symptoms, chest pain, edema, irregular heart rate, lightheadedness, palpitations, syncope, other Respiratory: Denies: no symptoms, cough, orthopnea, shortness of breath, SOB with excertion, SOB at rest, sputum, stridor, wheezing, other Gastrointestinal/Abdominal: Denies: no symptoms, abdomen distended, abdominal pain, black stools, tarry stools, blood in stool, constipated, diarrhea, difficulty swallowing, nausea, poor appetite, poor fluid intake, rectal bleeding , vomiting, other Genitourinary: Denies: no symptoms, burning, discharge, frequency, flank pain, hematuria, incontinence, pain, urgency, other Allergies: Coded Allergies: No Known Allergies (Unverified , 09/18/17) Subjective Leukocytosis improving. . Patient on antibiotics. Obtunded. No new events. Objective Last 24 Hour Vital Signs Date Time Temp Pulse Resp B/P (MAP) Pulse Ox O2 Delivery O2 Flow Rate FiO2 10/07/17 01:05 114 41 70 10/07/17 01:00 111 30 115/37 92 Mechanical Ventilator 70 10/07/17 00:00 110 30 115/37 92 Mechanical Ventilator 70 10/07/17 00:00 97.5 111 32 115/37 92 Mechanical Ventilator 70 10/06/17 23:19 106 37 70 10/06/17 23:00 105 30 112/56 92 Mechanical Ventilator 70 10/06/17 21:27 112 20 70 10/06/17 21:01 111 30 104/39 92 Mechanical Ventilator 70 103 10/06/17 20:44 111 127/42 10/06/17 20:00 97.0 115 23 127/45 92 Mechanical Ventilator 70 10/06/17 20:00 115 10/06/17 20:00 70 10/06/17 19:04 113 40 70 10/06/17 19:00 111 23 123/43 92 Mechanical Ventilator 70 10/06/17 18:00 113 22 128/44 91 Mechanical Ventilator 70 10/06/17 17:15 113 38 70 10/06/17 17:00 114 26 134/48 92 Mechanical Ventilator 70 10/06/17 16:00 70 10/06/17 16:00 114 10/06/17 16:00 98.7 114 25 120/43 93 Mechanical Ventilator 70 10/06/17 15:03 114 37 70 10/06/17 15:00 114 26 120/40 93 Mechanical Ventilator 70 10/06/17 14:00 113 27 107/39 92 Mechanical Ventilator 70 10/06/17 13:03 111 37 70 10/06/17 13:00 102 28 102/37 92 Mechanical Ventilator 70 10/06/17 12:00 70 10/06/17 12:00 98.5 107 30 112/40 92 Mechanical Ventilator 70 10/06/17 12:00 105 10/06/17 11:00 103 32 94/37 91 Mechanical Ventilator 70 10/06/17 10:58 105 37 70 10/06/17 10:00 104 32 105/39 91 Mechanical Ventilator 70 10/06/17 09:31 101 37 70 10/06/17 09:00 105 36 99/34 91 Mechanical Ventilator 70 10/06/17 09:00 103 99/34 10/06/17 08:00 71 10/06/17 08:00 98.1 103 34 122/39 90 Mechanical Ventilator 70 10/06/17 08:00 70 10/06/17 07:00 103 36 124/42 92 Mechanical Ventilator 70 10/06/17 06:50 101 37 70 10/06/17 06:00 102 36 122/43 92 Mechanical Ventilator 70 10/06/17 05:30 91 36 70 10/06/17 05:00 91 36 101/37 92 Mechanical Ventilator 70 10/06/17 04:00 97.8 97 34 117/41 90 Mechanical Ventilator 70 10/06/17 04:00 95 10/06/17 04:00 70 10/06/17 03:30 90 32 70 10/06/17 03:00 91 36 102/35 91 Mechanical Ventilator 70 10/06/17 02:00 91 36 101/37 92 Mechanical Ventilator 70 Intake and Output 10/06/17 10/07/17 19:00 07:00 Intake Total 290 ml 450 ml Output Total 165 ml 85 ml Balance 125 ml 365 ml Intake Free Water 50 ml IV Total 50 ml 300 ml Tube Feeding 240 ml 100 ml Output Urine Total 165 ml 85 ml # Bowel Movements 1 3 Laboratory Tests 10/06/17 06:20: White Blood Count 17.6H, Red Blood Count 2.72L, Hemoglobin 8.9L, Hematocrit 26.6L, Mean Corpuscular Volume 98, Mean Corpuscular Hemoglobin 32.8H, Mean Corpuscular Hemoglobin Concent 33.6, Red Cell Distribution Width 13.4, Platelet Count 17L, Mean Platelet Volume 15.0H, Neutrophils (%) (Auto) , Lymphocytes (%) (Auto) , Monocytes (%) (Auto) , Eosinophils (%) (Auto) , Basophils (%) (Auto) , Differential Total Cells Counted 100, Neutrophils % (Manual) 79H, Lymphocytes % (Manual) 13L, Monocytes % (Manual) 4, Eosinophils % (Manual) 0, Basophils % ( Manual) 0, Band Neutrophils 4, Nucleated Red Blood Cells 4, Platelet Estimate DecreasedL, Platelet Morphology Normal, Polychromasia 1+, Hypochromasia 1+, Sodium Level 141, Potassium Level 4.2, Chloride Level 106, Carbon Dioxide Level 26, Anion Gap 9, Blood Urea Nitrogen 63H, Creatinine 1.7H, Estimat Glomerular Filtration Rate , Glucose Level 165H, Calcium Level 7.3L, Total Bilirubin 0.6, Aspartate Amino Transf (AST/SGOT) 39H, Alanine Aminotransferase (ALT/SGPT) 19, Alkaline Phosphatase 268H, Total Protein 5.5L, Albumin 0.9L, Globulin 4.6, Albumin/Globulin Ratio 0.2L Height (Feet): 5 Height (Inches): 2.00 Weight (Pounds): 155 General Appearance: no apparent distress Edema: no edema noted Leg (L), no edema noted Leg (R) Edema: mild edema Skin: warm/dry Sadiq Mireles Oct 07, 2017 01:57
--- NOTE | 2017-10-07 04:01 | Progress Note ---
DATE: 10/06/2017 CARDIOLOGY PROGRESS NOTE SUBJECTIVE: The patient is doing poorly. She remains on ventilator support. Off pressors. Not weanable. Tachypneic. Platelet counts continue to drop. OBJECTIVE: VITAL SIGNS: Blood pressure 104/39, pulse 111, respirations 30, and afebrile. LUNGS: Coarse breath sounds. Scattered rhonchi. HEART: Regular rhythm. Rapid rate. Normal S1, S2. ABDOMEN: Soft. EXTREMITIES: No edema. No active bleeding. LABORATORY AND DIAGNOSTIC DATA: Chest x-ray reveals extensive interstitial airspace disease with worsening aeration on the left. LABORATORY DATA: White count 17 and hemoglobin 8.9. Potassium 14.2, BUN 63, and creatinine 1.7. Albumin 0.9. Platelet count is 17,000. IMPRESSION: 1. Resolved shock due to sepsis. 2. Respiratory failure. 3. Healthcare-acquired pneumonia. 4. Thrombocytopenia. 5. Anemia. 6. Acute myocardial infarction. 7. Secondary sinus tachycardia. 8. Remains critical and guarded. PLAN: 1. Unstable for trach. 2. Monitor for bleeding. 3. Transfuse platelets if needed. 4. Antimicrobials. 5. Off anti-platelet and anticoagulants. 6. Continue to request Full Code and not willing to resume hospice care. 7. Continue nutrition by feeding tube. Davy Robbins M.D. DR: KEVIN JOB#: [id number] CC:
[2017-10-07 06:13] LABS: HEMATOCRIT 27.2 % (37.0-47.0); HEMOGLOBIN 8.7 G/DL (12.0-16.0); MEAN CORPUSCULAR VOLUME 98 FL (80-99); RED BLOOD COUNT 2.76 M/UL (4.20-5.40); RED CELL DISTRIBUTION WIDTH 13.2 % (11.6-14.8); WHITE BLOOD COUNT 19.1 K/UL (4.8-10.8)
[2017-10-07 06:29] LABS: PLATELET COUNT 9 K/UL (150-450)
[2017-10-07 06:41] LABS: ALANINE AMINOTRANSFERASE 17 U/L (12-78); ALBUMIN/GLOBULIN RATIO 0.2 (1.0-2.7); ALKALINE PHOSPHATASE 261 U/L (46-116); ANION GAP 8 mmol/L (5-15); ASPARTATE AMINO TRANSFERASE 38 U/L (15-37); BILIRUBIN,TOTAL 0.5 MG/DL (0.2-1.0); BLOOD UREA NITROGEN 74 mg/dL (7-18); CALCIUM 7.6 MG/DL (8.5-10.1); CARBON DIOXIDE 24 MMOL/L (21-32); CHLORIDE 105 MMOL/L (98-107); CREATININE 1.9 MG/DL (0.55-1.30); POTASSIUM 5.1 MMOL/L (3.5-5.1); SODIUM 137 MMOL/L (136-145)
--- NOTE | 2017-10-07 07:42 | Emergency Room Report ---
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 Hx Dementia: Yes Hx Syncope: Yes Physical Exam Vital Signs Date Time Temp Pulse Resp B/P (MAP) Pulse Ox O2 Delivery O2 Flow Rate FiO2 09/18/17 19:29 99.7 138 31 76/54 94 Non-Rebreather 15.0 09/19/17 03:51 100 Procedures CPR/Code Blue CPR/Code Blue Narrative The patient was given epinephrine x3, 1 amp of sodium bicarbonate Rosc achieved Strong pulses, sinus tachycardia Total time CPR 8 minutes Medical Decision Making Diagnostic Impression: Primary Impression: Sepsis Qualified Codes: A41.9 - Sepsis, unspecified organism Additional Impressions: Elevated troponin UTI (urinary tract infection) Qualified Codes: N39.0 - Urinary tract infection, site not specified ER Course I got called to ICU for CODE BLUE 82-year-old female, intubated, sepsis, respiratory failure Nursing staff stated that she went bradycardic and then asystole When I arrived, she was getting bagged and chest compressions were being performed The patient was given epinephrine x3, 1 amp of sodium bicarbonate Rosc achieved Strong pulses, sinus tachycardia Total time CPR 8 minutes Last Vital Signs Date Time Temp Pulse Resp B/P (MAP) Pulse Ox O2 Delivery O2 Flow Rate FiO2 10/07/17 07:34 157 21 100 10/07/17 06:00 103/42 92 Mechanical Ventilator 10/07/17 04:00 97.5 09/19/17 10:42 15.0 Disposition: ADMITTED INPATIENT Condition: Critical Referrals: NON PHYSICIAN (PCP) Andrzej Alvarenga M.D. Oct 07, 2017 07:42
[2017-10-07] MEDS: Metoprolol 25mg tab ORAL SCH (09:00)
[2017-10-07] MEDS ORDERED: Ciprofloxacin 500mg tab NG SCH (09:00)
[2017-10-07] MEDS: Pantoprazole Inj IVP SCH (09:00)
[2017-10-07] MEDS ORDERED: NS 500ML ONE (09:40)
[2017-10-07 10:14] LABS: APTT 1:1 MIX SALINE 79.4 sec (Not Estab.); APTT 1:1 NORMAL PLASMA 26.9 sec (22.9-30.2); APTT 1:1NP MIX 60M INCUBATION 29.1 sec (22.9-30.2); APTT 1:1NP MIX CONTROL 32.7 sec (22.9-30.2)
--- NOTE | 2017-10-07 23:34 | General Progress Note ---
Assessment/Plan Status: not improved, deteriorating Assessment/Plan #. The patient remains critically guarded in critical condition. --> Condition not improving. #. Leukocytosis, likely secondary to sepsis, --> on antibiotics. --> Monitor cbc daily. #. Thrombocytopenia, secondary to septic shock. --> WBC count elevated. --> Transfuse to platelet goal above 20,000. Pending transfusion. -->The patient is on heparin. --> HIV and Hep panel negative. --> I have reviewed ultrasound of abdomen and the patient does have potential for an infiltration/hepatocellular disease and in fact does have a spleen which is normal. We will order (disseminated intravascular coagulation) panel. #. Anemia secondary to chronic disease with decreased kidney function that is elevated. --> HGB goal >7 #. Transaminitis. #. Respiratory failure, is on a ventilator, being weaned. --> Chest xray revealed possible pulmonary edema or multifocal pneumonia. #. Sepsis, septic shock Subjective Date patient seen: Oct 07, 2017 Constitutional: Denies: no symptoms, chills, diaphoresis, fever, malaise, weakness, other HEENT: Denies: no symptoms, eye pain, blurred vision, tearing, double vision, ear pain, ear discharge, nose pain, nose congestion, throat pain, throat swelling, mouth pain, mouth swelling, other Cardiovascular: Denies: no symptoms, chest pain, edema, irregular heart rate, lightheadedness, palpitations, syncope, other Respiratory: Denies: no symptoms, cough, orthopnea, shortness of breath, SOB with excertion, SOB at rest, sputum, stridor, wheezing, other Gastrointestinal/Abdominal: Denies: no symptoms, abdomen distended, abdominal pain, black stools, tarry stools, blood in stool, constipated, diarrhea, difficulty swallowing, nausea, poor appetite, poor fluid intake, rectal bleeding , vomiting, other Genitourinary: Denies: no symptoms, burning, discharge, frequency, flank pain, hematuria, incontinence, pain, urgency, other Allergies: Coded Allergies: No Known Allergies (Unverified , 09/18/17) Subjective Condition deteriorating. Bradycardic. Platelets very low. Objective Last 24 Hour Vital Signs Date Time Temp Pulse Resp B/P (MAP) Pulse Ox O2 Delivery O2 Flow Rate FiO2 10/07/17 09:00 113 20 79/35 85 Mechanical Ventilator 70 10/07/17 08:00 135 10/07/17 08:00 98.6 116 30 105/42 90 Mechanical Ventilator 70 10/07/17 08:00 100 10/07/17 07:34 157 21 100 10/07/17 07:00 113 31 72/37 91 Mechanical Ventilator 70 10/07/17 06:00 117 30 103/42 92 Mechanical Ventilator 70 10/07/17 05:27 116 40 70 10/07/17 05:00 113 30 113/37 92 Mechanical Ventilator 70 115 10/07/17 04:00 97.5 110 30 115/37 92 Mechanical Ventilator 70 10/07/17 04:00 117 10/07/17 04:00 70 10/07/17 03:23 113 39 70 10/07/17 03:00 113 30 111/37 92 Mechanical Ventilator 70 10/07/17 02:00 112 26 114/43 92 Mechanical Ventilator 70 10/07/17 01:05 114 41 70 10/07/17 01:00 111 30 115/37 92 Mechanical Ventilator 70 10/07/17 00:00 103 10/07/17 00:00 110 30 115/37 92 Mechanical Ventilator 70 10/07/17 00:00 70 10/07/17 00:00 97.5 111 32 115/37 92 Mechanical Ventilator 70 Intake and Output 10/06/17 10/07/17 19:00 07:00 Intake Total 290 ml 770 ml Output Total 165 ml 165 ml Balance 125 ml 605 ml Intake Free Water 50 ml IV Total 50 ml 500 ml Tube Feeding 240 ml 220 ml Output Urine Total 165 ml 165 ml # Bowel Movements 1 4 Laboratory Tests 10/07/17 05:15: White Blood Count 19.1H, Red Blood Count 2.76L, Hemoglobin 8.7L, Hematocrit 27.2L, Mean Corpuscular Volume 98, Mean Corpuscular Hemoglobin 31.7H, Mean Corpuscular Hemoglobin Concent 32.1, Red Cell Distribution Width 13.2, Platelet Count 9*L, Mean Platelet Volume 14.0H, Neutrophils (%) (Auto) , Lymphocytes (%) (Auto) , Monocytes (%) (Auto) , Eosinophils (%) (Auto) , Basophils (%) (Auto) , Differential Total Cells Counted 100, Neutrophils % (Manual) 87H, Lymphocytes % (Manual) 8L, Monocytes % (Manual) 2, Eosinophils % (Manual) 0, Basophils % ( Manual) 0, Band Neutrophils 3, Nucleated Red Blood Cells 10, Platelet Estimate DecreasedL, Platelet Morphology Normal, Polychromasia 1+, Hypochromasia 1+, Anisocytosis 1+, Macrocytosis 1+, Sodium Level 137, Potassium Level 5.1, Chloride Level 105, Carbon Dioxide Level 24, Anion Gap 8, Blood Urea Nitrogen 74H, Creatinine 1.9H, Estimat Glomerular Filtration Rate , Glucose Level 174H, Calcium Level 7.6L, Total Bilirubin 0.5, Aspartate Amino Transf (AST/SGOT) 38H, Alanine Aminotransferase (ALT/SGPT) 17, Alkaline Phosphatase 261H, Total Protein 5.8L, Albumin 1.0L, Globulin 4.8, Albumin/Globulin Ratio 0.2L, Random Vancomycin Level 19.8 Height (Feet): 5 Height (Inches): 2.00 Weight (Pounds): 155 Cardiovascular: bradycardia Sadiq Mireles Oct 07, 2017 23:34
--- NOTE | 2017-10-08 01:01 | Progress Note ---
DATE: 09/27/2017 CARDIOLOGY PROGRESS NOTE SUBJECTIVE: Condition remains unchanged. The patient is on ventilator support. The patient has marginal blood pressure readings. Family members continue to pursue aggressive care plan despite critical condition and grave prognosis. OBJECTIVE: VITAL SIGNS: Blood pressure 103/42, heart rate 117, and respiratory rate 30. LUNGS: Coarse breath sounds. Scattered rhonchi. HEART: Regular rhythm and rate. Normal S1, S2. ABDOMEN: Soft. EXTREMITIES: A 1+ dependent edema. PLAN: 1. Continue volume support and pressors as needed. 2. Ventilator support. 3. Consideration for tracheostomy. 4. Bleeding precautions due to low platelet count. 5. Maintain antimicrobials. 6. Continue to update family members on condition. Davy Robbins M.D. DR: KEVIN JOB#: [id number] CC:
--- NOTE | 2017-10-10 16:44 | Discharge Summary ---
Discharge Summary Hospital Course Date of Admission Sep 18, 2017 at 21:09 Date of Discharge Oct 07, 2017 at 09:41 Admitting Diagnosis SEPSIS HPI Glenda Jackson is a 82 year old female who was admitted on Sep 18, 2017 at 21:09 for Sepsis Hospital Course [id number] Discharge Discharge Disposition Patient Discharge Diagnoses: Breana Chairez NP Oct 10, 2017 16:44
--- NOTE | 2017-10-11 02:45 | Discharge Summary 2 SIG ---
DATE OF ADMISSION: 09/18/2017 DATE OF DISCHARGE: 10/07/2017 BRIEF SUMMARY: The patient is an 82-year-old Yi female, who was residing at a assisted facility, was noted to have fevers and developed worsening congestion, rapid heart rate, and respiratory rate. She was transferred to the hospital. Prior to transfer, she was also noted to be hypotensive. She has past medical history significant for hypertension, osteoporosis, osteoarthritis, cerebrovascular vascular disease, degenerative disc disease, type 2 diabetes mellitus, and history of bullous pemphigoid. On evaluation at ED, the patient was hypotensive. Central line was inserted to the right internal jugular vein. Blood work showed leukocytosis. Troponin was greater than 0.2 and lactic acid was elevated. Urine was grossly positive for urinary tract infection. EKG was in sinus tachycardia with no ischemic changes. She was started on IV antibiotics and IV hydration, but remained hypotensive. She rapidly declined and was increasingly tachypneic. She was orally intubated and was admitted to intensive care unit, started on IV pressors, and hooked on mechanical ventilation. She had hypernatremia and dehydration. She was given hypotonic fluids. Influenza swabs were negative. She was started on broad-spectrum antibiotics. She was started on stress dose steroids and was placed on NPO with aspiration precautions. On 09/24/2017, she was able to be taken off pressors. She developed high-grade fever and chest x-ray with dense consolidation in the right upper lobe, which was new. She was unable to be weaned off ventilator treatment. ID was consulted to aid with antibiotic management. Urine culture was showing growth of E. coli and blood culture with coagulase-negative Staph. She was given IV vancomycin and cefepime. Central line was discontinued and tip was sent for culture. There was no growth on catheter tip, however, repeat blood culture showed persistent Staphylococcus aureus MRSA. Repeat echocardiogram revealed no discrete vegetation. CT scan of the abdomen and pelvis showed no acute abdominal findings, however, with extensive pulmonary infiltrates. The patient continued to be unable to be weaned. The plan of care was discussed with family and family wanted full aggressive care. Agreed with trach placement. Platelet continued to drop. The patient was checked for HIV antibody tests and hepatitis panel. Thrombocytopenia was secondary to septic shock. DIC panel pending. Continued to have leukocytosis. Hepatitis panel and human immunodeficiency virus panel was negative. On 09/27/2017, she was noted to have bradycardia and then went into asystole. Code Blue was called and resuscitative efforts were given. The patient continued to code for the third time. The patient remained on asystole and eventually . FINAL DIAGNOSES: 1. Sepsis with shock. 2. Acute respiratory failure. 3. Healthcare-acquired pneumonia. 4. Thrombocytopenia. 5. Anemia. 6. Acute myocardial infarction. 7. Secondary sinus tachycardia. 8. Anemia secondary to chronic disease. 9. Transaminitis. 10. Escherichia coli urinary tract infection. 11. Enterobacter and Pseudomonas pneumonia. 12. Coagulase-negative Staph sepsis with methicillin-resistant Staphylococcus aureus sepsis. 13. Pulmonary hypertension. 14. Bullous pemphigoid, on chronic steroid. 15. Dementia. 16. Severe dehydration with hypernatremia, improved. 17. Moderate degree protein-calorie malnutrition. 18. Disseminated intravascular coagulation. 19. Hypokalemia. 20. Lactic acidosis. 21. Pressure ulcer present on admission. Davy Robbins M.D. I have been assigned to dictate discharge summary on this account and I was not involved in the patient's management. Breana Chairez N.P. DR: CROW JOB#: [id number] CC: CHELSEY
== END 2017-10-07 09:41 | disposition expired | DRG 870 ==
LOC: EDBD 19:35 → EMR 20:00 → ICU 21:09 → EDBEDREQSVC 09-19 00:53 → EDBEDREQ 09-19 00:54
PROC: 0BH17EZ Insertion of Endotracheal Airway into Trachea, Via Natural or Artificial Opening (ICD-10-PCS; principal; 2017-09-18)
PROC: 5A1955Z Respiratory Ventilation, Greater than 96 Consecutive Hours (ICD-10-PCS; principal; 2017-09-18)
PROC: 05HM33Z Insertion of Infusion Device into Right Internal Jugular Vein, Percutaneous Approach (ICD-10-PCS; principal; 2017-09-18)
PROC: 5A12012 Performance of Cardiac Output, Single, Manual (ICD-10-PCS; 2017-10-07)
DX: A41.02 Sepsis due to Methicillin resistant Staphylococcus aureus (principal); I21.4 Non-ST elevation (NSTEMI) myocardial infarction; J96.01 Acute respiratory failure with hypoxia; D65 Disseminated intravascular coagulation [defibrination syndrome]; R65.21 Severe sepsis with septic shock; J69.0 Pneumonitis due to inhalation of food and vomit; E43 Unspecified severe protein-calorie malnutrition; N39.0 Urinary tract infection, site not specified; L89.152 Pressure ulcer of sacral region, stage 2; E11.9 Type 2 diabetes mellitus without complications; B96.20 Unspecified Escherichia coli [E. coli] as the cause of diseases classified elsewhere; J15.6 Pneumonia due to other Gram-negative bacteria; J15.1 Pneumonia due to Pseudomonas; N17.9 Acute kidney failure, unspecified; E87.0 Hyperosmolality and hypernatremia; I38 Endocarditis, valve unspecified; E87.2 Acidosis; L12.0 Bullous pemphigoid; E86.0 Dehydration; I10 Essential (primary) hypertension; M81.0 Age-related osteoporosis without current pathological fracture; Z68.28 Body mass index [BMI] 28.0-28.9, adult; F03.90 Unspecified dementia, unspecified severity, without behavioral disturbance, psychotic disturbance, mood disturbance, and anxiety; L89.302 Pressure ulcer of unspecified buttock, stage 2; D64.9 Anemia, unspecified; I27.20 Pulmonary hypertension, unspecified; E87.6 Hypokalemia
CPT/HCPCS: 31500; 36415; 36600; 51702; 71010; 71045; 74000; 74018; 74176; 76700; 80048; 80053; 80202; 81003; 82247; 82533; 82550; 82553; 82728; 82746; 82803; 82962; 83020; 83540; 83550; 83605; 83615; 83735; 83880; 83921; 84165; 84443; 84478; 84484; 85007; 85025; 85384; 85730; 86703; 86705; 86709; 86710; 86803; 86850; 86900; 86901; 87040; 87070; 87081; 87086; 87181; 87205; 87324; 87340; 92950; 93005; 93306; 93970; 94002; 94003; 94640; J1815; J7620; J8499